=== PATIENT | female | born 1950 | race Caucasian/White ===

== ENCOUNTER → 2016-08-12 | Outpatient (CLI) | payer MEDICARE, MEDICAID ==
[2016-08-12 13:11] LABS: ALBUMIN 3.3 g/dL (3.5-5.0); BILIRUBIN,TOTAL 0.4 mg/dL (0.2-1.3); TOTAL PROTEIN 6.2 g/dL (6.3-8.2)
== END ==
LOC: OD 11:50
PROVIDERS: ATTEND Nurse Practitioner
DX: I27.0 Primary pulmonary hypertension (principal); Z79.899 Other long term (current) drug therapy
CPT/HCPCS: 36415; 80076

== ENCOUNTER 2016-08-30 19:04 | Emergency (ER) | payer OTHER, MEDICAID ==
[2016-08-30] MEDS ORDERED: ASPIRIN 81 MG TABLET, CHEWABLE PO ONE (19:14)
--- NOTE | 2016-08-30 19:15 | ER Document Report ---
ED Medical Screen (RME) - General Stated Complaint: BACK PAIN Mode of Arrival: Wheelchair Information source: Patient Notes: Patient presents complaining of back pain that started yesterday. Family states that patient did some urinary symptoms. a few days ago. No fever. Daughter states that patient did have some left arm and shoulder pain. HX: CHF, pulmonary fibrosis, rheumatoid arthritis, reynauds, diabetes, pulmonary hypertension I have greeted and performed a rapid initial assessment of this patient. A comprehensive ED assessment and evaluation of the patient, analysis of test results and completion of the medical decision making process will be conducted by additional ED providers. TRAVEL OUTSIDE OF THE [place] IN LAST 30 DAYS: No - Related Data Allergies/Adverse Reactions: clarithromycin [From Biaxin] Allergy (Mild, Verified 08/30/16 19:13) RASH moxifloxacin HCl [From Avelox] Allergy (Mild, Verified 08/30/16 19:13) Fever Past Medical History - Past Medical History Cardiac Medical History: Reports: Hx Congestive Heart Failure, Hx Coronary Artery Disease, Hx Heart Attack, Hx Hypercholesterolemia, Hx Hypertension - Pulm. HTN Pulmonary Medical History: Reports: Hx Pneumonia Endocrine Medical History: Reports: Hx Diabetes Mellitus Type 2 Renal/ Medical History: Reports: Hx Renal Insufficiency GI Medical History: Reports: Hx Gastroesophageal Reflux Disease, Hx Irritable Bowel Musculoskeltal Medical History: Reports Hx Arthritis - rheumatoid Past Surgical History: Reports: Hx Cardiac Catheterization, Hx Cardiac Surgery - CABG 2004, Hx Cholecystectomy, Hx Coronary Artery Bypass Graft, Hx Hysterectomy, Hx Open Heart Surgery - 5 bypass 2004,several stents since then, Hx Orthopedic Surgery - elbows, carpal tunnel bilat - Immunizations Immunizations up to date: Yes Hx Diphtheria, Pertussis, Tetanus Vaccination: Yes Physical Exam - Respiratory Respiratory status: No respiratory distress Breath sounds: Nonproductive cough, Rales - Bilateral lower lobes
[2016-08-30 19:50] LABS: HEMATOCRIT 30.1 % (36.0-47.0); HEMOGLOBIN 9.8 g/dL (12.0-15.5); HGB HCT DIFFERENCE -0.7; MEAN CORPUSCULAR HEMOGLOBIN 29.1 pg (27.0-33.4); MEAN CORPUSCULAR HGB CONC 32.5 g/dL (32.0-36.0); MEAN CORPUSCULAR VOLUME 89 fl (80-97); RED BLOOD COUNT 3.37 10^6/uL (3.72-5.28); RED CELL DISTRIBUTION WIDTH 15.4 % (11.5-14.0); WHITE BLOOD COUNT 5.2 10^3/uL (4.0-10.5)
[2016-08-30 20:04] LABS: ALANINE AMINOTRANSFERASE 71 U/L (9-52); ALBUMIN 4.2 g/dL (3.5-5.0); ALKALINE PHOSPHATASE 134 U/L (38-126); ANION GAP 9 (5-19); ASPARTATE AMINO TRANSFERASE 120 U/L (14-36); BILIRUBIN,TOTAL 0.4 mg/dL (0.2-1.3); BLOOD UREA NITROGEN 43 mg/dL (7-20); CARBON DIOXIDE 35 mmol/L (22-30); CHLORIDE 96 mmol/L (98-107); CREATINE KINASE 645 U/L (30-135); CREATININE RESULT 1.87 mg/dL (0.52-1.25); GLUCOSE 200 mg/dL (75-110); LIPASE 102.7 U/L (23-300); MAGNESIUM 1.5 mg/dL (1.6-2.3); POTASSIUM 4.8 mmol/L (3.6-5.0); SODIUM 140.3 mmol/L (137-145)
[2016-08-30 20:16] LABS: CREATINE KINASE MB 7.32 ng/mL (<4.55); TROPONIN I 0.022 ng/mL
[2016-08-30 20:33] LABS: BAND NEUTROPHILS % (MANUAL) 3 % (3-5); BASOPHILS % (MANUAL) 0 % (0-2); EOSINOPHILS % (MANUAL) 0 % (0-6); LYMPHOCYTES % (MANUAL) 7 % (13-45); TOTAL CELLS COUNTED 100
[2016-08-30 20:34] LABS: ANISOCYTOSIS SLIGHT
--- NOTE | 2016-08-30 23:49 | EKG REPORT ---
SEVERITY:- ABNORMAL ECG - SINUS RHYTHM BORDERLINE LEFT AXIS DEVIATION ABNRM R PROG, CONSIDER ASMI OR LEAD PLACEMENT : Confirmed by: Eliot May 30-Aug-2016 23:48:32
[2016-08-30] MEDS ORDERED: NORMAL SALINE 1000 ML 250 ML IV ONE (23:52)
[2016-08-30] MEDS ORDERED: LIDOCAINE 5% (700 MG) TRANSDERMAL ADH..PATCH TP ONE (23:52)
--- NOTE | 2016-08-30 23:57 | ER Document Report ---
ED General Pain - General Time seen by provider: 23:40 Mode of Arrival: Wheelchair Information source: Patient, Relative TRAVEL OUTSIDE OF THE [place] IN LAST 30 DAYS: No - HPI Onset: Other - see HPI Quality of pain: Achy, Fullness <JAMMIE STAHL - Last Filed: 08/31/16 03:41> <TWINJANE SIENA - Last Filed: 08/31/16 04:37> - General Chief Complaint: Arm Pain Stated Complaint: BACK PAIN Notes: Patient is a 66-year-old female presents the emergency department with complaints of back pain, neck pain, and headaches. Patient has a history of rheumatoid arthritis and is on pain management. Patient takes 15 mg of oxycodone as well as shots. Patient states that her pain is exacerbated with movement. Patient took a muscle relaxer earlier. Patient states she came to the emergency room because her pain was worse than it has ever been. Patient states that she also has a lump in her back that causes her neck to hurt which then causes her headache. Patient states that she also has a history of CHF and states that she has felt bloated. Patient has not been eating or drinking much since she has felt bloated. (JAMMIE STAHL) - Related Data Allergies/Adverse Reactions: clarithromycin [From Biaxin] Allergy (Mild, Verified 08/30/16 19:13) RASH moxifloxacin HCl [From Avelox] Allergy (Mild, Verified 08/30/16 19:13) Fever Past Medical History - General Information source: Patient - Social History Smoking Status: Never Smoker Cigarette use (# per day): No Chew tobacco use (# tins/day): No Frequency of alcohol use: None Drug Abuse: None Family History: None Patient has suicidal ideation: No Patient has homicidal ideation: No - Past Medical History Cardiac Medical History: Reports: Hx Congestive Heart Failure, Hx Coronary Artery Disease, Hx Heart Attack, Hx Hypercholesterolemia, Hx Hypertension - Pulm. HTN Pulmonary Medical History: Reports: Hx Pneumonia Endocrine Medical History: Reports: Hx Diabetes Mellitus Type 2 Renal/ Medical History: Reports: Hx Renal Insufficiency GI Medical History: Reports: Hx Gastroesophageal Reflux Disease, Hx Irritable Bowel Musculoskeltal Medical History: Reports Hx Arthritis - rheumatoid Past Surgical History: Reports: Hx Cardiac Catheterization, Hx Cardiac Surgery - CABG 2004, Hx Cholecystectomy, Hx Coronary Artery Bypass Graft, Hx Hysterectomy, Hx Open Heart Surgery - 5 bypass 2004,several stents since then, Hx Orthopedic Surgery - elbows, carpal tunnel bilat - Immunizations Immunizations up to date: Yes Hx Diphtheria, Pertussis, Tetanus Vaccination: Yes Hx Pneumococcal Vaccination: 01/31/12 <JAMMIE STAHL - Last Filed: 08/31/16 03:41> Review of Systems - Review of Systems Constitutional: No symptoms reported EENT: No symptoms reported Cardiovascular: No symptoms reported Respiratory: No symptoms reported Gastrointestinal: No symptoms reported Genitourinary: No symptoms reported Female Genitourinary: No symptoms reported Musculoskeletal: See HPI, Back pain, Neck pain Skin: No symptoms reported Hematologic/Lymphatic: No symptoms reported Neurological/Psychological: See HPI, Headaches -: Yes All other systems reviewed and negative <JAMMIE STAHL - Last Filed: 08/31/16 03:41> Physical Exam - Vital signs Interpretation: Normal - General General appearance: Appears well, Alert In distress: Mild - HEENT Head: Normocephalic, Atraumatic Eyes: Normal Pupils: PERRL Mucous membranes: Dry - Respiratory Respiratory status: No respiratory distress Chest status: Nontender Breath sounds: Normal Chest palpation: Normal - Cardiovascular Rhythm: Regular Heart sounds: Normal auscultation Murmur: No - Abdominal Inspection: Normal Distension: No distension Bowel sounds: Normal Tenderness: Nontender Organomegaly: No organomegaly - Back Back: Normal, Tender - Tenderness to palpation to the right trapezius muscles, medial right scapula, and C5-C7 paraspinal on the right side - Extremities General upper extremity: Normal inspection, Normal ROM, Normal strength General lower extremity: Normal inspection, Normal ROM, Normal strength - Neurological Neuro grossly intact: Yes Cognition: Normal Orientation: AAOx4 Deondre Coma Scale Eye Opening: Spontaneous Osborne Coma Scale Verbal: Oriented Deondre Coma Scale Motor: Obeys Commands Osborne Coma Scale Total: 15 Speech: Normal - Psychological Associated symptoms: Normal affect, Normal mood - Skin Skin Temperature: Warm Skin Moisture: Dry <JAMMIE STAHL - Last Filed: 08/31/16 03:41> Course - Laboratory Result Diagrams: 08/30/16 19:34 08/30/16 19:34 <JAMMIE STAHL - Last Filed: 08/31/16 03:41> - Laboratory Result Diagrams: 08/30/16 19:34 08/30/16 19:34 <JANE MURCIA - Last Filed: 08/31/16 04:37> - Re-evaluation Re-evalutation: 08/31/16 Patient with reproducible tenderness to palpation of her right upper back and trapezius. Patient feels better after muscle relaxant and Lidoderm patch. No acute findings on blood work. Patient is already aware of her bump in LFTs and her primary is following it. Stable for discharge home. Oxygen is at her baseline. Return if any worsening or concerning symptoms. (JANE MURCIA) - Vital Signs Vital signs: Temp Pulse Resp BP Pulse Ox 97.7 F 67 17 114/54 L 95 08/31/16 03:13 08/31/16 03:13 08/31/16 03:13 08/31/16 03:13 08/31/16 03:13 - Laboratory Laboratory results interpreted by me: 08/30/16 08/30/16 08/30/16 19:34 19:34 19:34 RBC 3.37 L Hgb 9.8 L Hct 30.1 L RDW 15.4 H Seg Neuts % (Manual) 84 H Lymphocytes % (Manual) 7 L Abs Lymphs (Manual) 0.4 L Chloride 96 L Carbon Dioxide 35 H BUN 43 H Creatinine 1.87 H Est GFR ( Amer) 33 L Est GFR (Non-Af Amer) 27 L Glucose 200 H Magnesium 1.5 L AST 120 H ALT 71 H Alkaline Phosphatase 134 H Creatine Kinase 645 H CK-MB (CK-2) 7.32 H NT-Pro-B Natriuret Pep 1510 H Ur Leukocyte Esterase 08/31/16 00:37 RBC Hgb Hct RDW Seg Neuts % (Manual) Lymphocytes % (Manual) Abs Lymphs (Manual) Chloride Carbon Dioxide BUN Creatinine Est GFR ( Amer) Est GFR (Non-Af Amer) Glucose Magnesium AST ALT Alkaline Phosphatase Creatine Kinase CK-MB (CK-2) NT-Pro-B Natriuret Pep Ur Leukocyte Esterase LARGE H (JAMMIE STAHL) (JANE MURCIA) Discharge <JAMMIE STAHL - Last Filed: 08/31/16 03:41> <JANE MURCIA - Last Filed: 08/31/16 04:37> - Discharge Clinical Impression: Upper back pain on right side Condition: Stable Disposition: HOME, SELF-CARE Instructions: Upper Back Strain ([facility]), Liver Function Abnormality ([facility]) Prescriptions: Lidocaine [Lidoderm 5% (700 mg) Transdermal Patch] 1 patch TP DAILY #30 adh..patch Referrals: JORGE L BROWNING MD [Primary Care Provider] - Follow up as needed Scribe Attestation: 08/31/16 04:37 I personally performed the services described in the documentation, reviewed and edited the documentation which was dictated to the scribe in my presence, and it accurately records my words and actions. (JANE MURCIA) Scribe Documentation - Scribe Written by Scribcedrick:: Jammie Stahl 08/31/16 03:45 acting as scribe for :: Twin <JAMMIE STAHL - Last Filed: 08/31/16 03:41>
[2016-08-31 01:05] LABS: APPEARANCE,URINE SLIGHTLY-CLOUDY; BILIRUBIN,URINE NEGATIVE (NEGATIVE); GLUCOSE, URINE NEGATIVE (NEGATIVE); KETONES,URINE NEGATIVE (NEGATIVE); LEUKOCYTE ESTERASE,URINE LARGE (NEGATIVE); NITRITE,URINE NEGATIVE (NEGATIVE); PROTEIN,URINE NEGATIVE (NEGATIVE); URINE SPECIFIC GRAVITY 1.009; UROBILINOGEN,URINE NEGATIVE mg/dL (<2.0)
[2016-08-31 03:16] VITALS: BP 114/54
== END 2016-08-31 03:10 | disposition home or self-care (01) ==
LOC: ER 19:04
DX: M54.89 Other dorsalgia (principal); M54.2 Cervicalgia; R51 Headache; I50.9 Heart failure, unspecified; E11.9 Type 2 diabetes mellitus without complications; I10 Essential (primary) hypertension; I25.2 Old myocardial infarction; Z88.3 Allergy status to other anti-infective agents; Z95.1 Presence of aortocoronary bypass graft; Z90.710 Acquired absence of both cervix and uterus
CPT/HCPCS: 93005; 99284; 36415; 82553; 82550; 83690; 83735; 85025; 80053; 81001; 84484; 83880; 71020; 93010; A9270

== ENCOUNTER → 2016-09-18 | Outpatient (CLI) | payer OTHER, MEDICAID ==
[2016-09-18 14:01] LABS: ANION GAP 13 (5-19); BLOOD UREA NITROGEN 34 mg/dL (7-20); CARBON DIOXIDE 25 mmol/L (22-30); CHLORIDE 102 mmol/L (98-107); CREATININE RESULT 1.61 mg/dL (0.52-1.25); GLUCOSE 196 mg/dL (75-110); POTASSIUM 5.5 mmol/L (3.6-5.0); SODIUM 140.2 mmol/L (137-145)
== END ==
LOC: OD 13:06
PROVIDERS: ATTEND Nurse Practitioner
DX: I50.32 Chronic diastolic (congestive) heart failure (principal)
CPT/HCPCS: 36415; 80048

== ENCOUNTER → 2016-10-13 | Outpatient (CLI) | payer OTHER, MEDICAID ==
[2016-10-13 13:29] LABS: ALANINE AMINOTRANSFERASE 22 U/L (9-52); ALBUMIN 3.6 g/dL (3.5-5.0); ALKALINE PHOSPHATASE 88 U/L (38-126); ASPARTATE AMINO TRANSFERASE 18 U/L (14-36); BILIRUBIN,DIRECT 0.2 mg/dL (0.0-0.4); BILIRUBIN,TOTAL 0.4 mg/dL (0.2-1.3); TOTAL PROTEIN 6.3 g/dL (6.3-8.2)
[2016-10-13 13:30] LABS: ANION GAP 12 (5-19); BLOOD UREA NITROGEN 73 mg/dL (7-20); CALCIUM 9.2 mg/dL (8.4-10.2); CARBON DIOXIDE 32 mmol/L (22-30); CHLORIDE 97 mmol/L (98-107); CREATININE RESULT 1.82 mg/dL (0.52-1.25); GLUCOSE 238 mg/dL (75-110); POTASSIUM 3.1 mmol/L (3.6-5.0); SODIUM 140.9 mmol/L (137-145)
== END ==
LOC: OD 12:36
PROVIDERS: ATTEND Internal Medicine Pulmonary Disease
DX: I50.32 Chronic diastolic (congestive) heart failure (principal); I27.0 Primary pulmonary hypertension; Z79.891 Long term (current) use of opiate analgesic
CPT/HCPCS: 36415; 80048; 80076; 83880

== ENCOUNTER → 2016-10-20 | Outpatient (CLI) | payer MEDICARE, MEDICAID ==
[2016-10-20 16:24] LABS: ANION GAP 14 (5-19); BLOOD UREA NITROGEN 70 mg/dL (7-20); CALCIUM 8.9 mg/dL (8.4-10.2); CARBON DIOXIDE 30 mmol/L (22-30); CHLORIDE 94 mmol/L (98-107); GLUCOSE 288 mg/dL (75-110); POTASSIUM 5.1 mmol/L (3.6-5.0); SODIUM 138.2 mmol/L (137-145)
== END ==
LOC: OD 14:36
PROVIDERS: ATTEND Nurse Practitioner
DX: N18.2 Chronic kidney disease, stage 2 (mild) (principal)
CPT/HCPCS: 36415; 80048

== ENCOUNTER 2016-11-13 13:41 | Emergency (ER) | payer MEDICARE, MEDICAID ==
[2016-11-13] MEDS ORDERED: OXYMETAZOLINE HCL 0.05% NASAL SPRAY 15 ML BOTTLE NASL ONE (14:08)
--- NOTE | 2016-11-13 14:10 | ER Document Report ---
ED Medical Screen (RME) - General Chief Complaint: Nose Bleed Stated Complaint: NOSE BLEED Notes: 66-year-old female patient takes aspirin. Nosebleed started about 2 and half hours prior to arrival. Given Afrin nose spray at triage. I have greeted and performed a rapid initial assessment of this patient. A comprehensive ED assessment and evaluation of the patient, analysis of test results and completion of the medical decision making process will be conducted by additional ED providers. TRAVEL OUTSIDE OF THE [place] IN LAST 30 DAYS: No - Related Data Allergies/Adverse Reactions: clarithromycin [From Biaxin] Allergy (Mild, Verified 11/13/16 13:43) RASH moxifloxacin HCl [From Avelox] Allergy (Mild, Verified 11/13/16 13:43) Fever Past Medical History - Past Medical History Cardiac Medical History: Reports: Hx Congestive Heart Failure, Hx Coronary Artery Disease, Hx Heart Attack, Hx Hypercholesterolemia, Hx Hypertension - Pulm. HTN Pulmonary Medical History: Reports: Hx Pneumonia Endocrine Medical History: Reports: Hx Diabetes Mellitus Type 2 Renal/ Medical History: Reports: Hx Renal Insufficiency. Denies: Hx Peritoneal Dialysis GI Medical History: Reports: Hx Gastroesophageal Reflux Disease, Hx Irritable Bowel Musculoskeltal Medical History: Reports Hx Arthritis - rheumatoid Past Surgical History: Reports: Hx Cardiac Catheterization, Hx Cardiac Surgery - CABG 2004, Hx Cholecystectomy, Hx Coronary Artery Bypass Graft, Hx Hysterectomy, Hx Open Heart Surgery - 5 bypass 2004,several stents since then, Hx Orthopedic Surgery - elbows, carpal tunnel bilat - Immunizations Immunizations up to date: Yes Hx Diphtheria, Pertussis, Tetanus Vaccination: Yes Physical Exam - Vital signs Vitals: Temp Pulse Resp BP Pulse Ox 97.5 F 78 18 134/53 H 98 11/13/16 13:44 11/13/16 13:44 11/13/16 13:44 11/13/16 13:44 11/13/16 13:44 Course - Vital Signs Vital signs: Temp Pulse Resp BP Pulse Ox 97.5 F 78 18 134/53 H 98 11/13/16 13:44 11/13/16 13:44 11/13/16 13:44 11/13/16 13:44 11/13/16 13:44
--- NOTE | 2016-11-13 15:26 | ER Document Report ---
ED ENT - General Mode of Arrival: Ambulatory Information source: Patient TRAVEL OUTSIDE OF THE [place] IN LAST 30 DAYS: No - HPI Patient complains to provider of: Nose problem Associated symptoms: Other - See above - General Chief Complaint: Nose Bleed Stated Complaint: NOSE BLEED Notes: Patient is a 66 year old female, with a past medical history including HTN, who presents to the emergency department complaining of a nose bleed for 3 hrs prior to arrival. Patient states she was bleeding from the left side and that she does take a baby Aspirin daily. Patient was given Afrin nose spray while waiting and the bleeding has subsided. Patient reports she has a hole in her nose from a sinus surgery done 5 year ago. Patient reports she tends to get nose bleeds and she sill typically stuff them and has not had luck with holding pressure. Patient denies dizziness or other symptoms. (JHOAN MEDRANO) - Related Data Allergies/Adverse Reactions: clarithromycin [From Biaxin] Allergy (Mild, Verified 11/13/16 13:43) RASH moxifloxacin HCl [From Avelox] Allergy (Mild, Verified 11/13/16 13:43) Fever Past Medical History - General Information source: Patient - Social History Smoking Status: Unknown if Ever Smoked Family History: None, Reviewed & Not Pertinent Patient has suicidal ideation: No Patient has homicidal ideation: No - Past Medical History Cardiac Medical History: Reports: Hx Congestive Heart Failure, Hx Coronary Artery Disease, Hx Heart Attack, Hx Hypercholesterolemia, Hx Hypertension - Pulm. HTN Pulmonary Medical History: Reports: Hx Pneumonia Endocrine Medical History: Reports: Hx Diabetes Mellitus Type 2 Renal/ Medical History: Reports: Hx Renal Insufficiency GI Medical History: Reports: Hx Gastroesophageal Reflux Disease, Hx Irritable Bowel Musculoskeltal Medical History: Reports Hx Arthritis - rheumatoid Past Surgical History: Reports: Hx Cardiac Catheterization, Hx Cardiac Surgery - CABG 2004, Hx Cholecystectomy, Hx Coronary Artery Bypass Graft, Hx Hysterectomy, Hx Open Heart Surgery - 5 bypass 2004,several stents since then, Hx Orthopedic Surgery - elbows, carpal tunnel bilat, Other - Hx sinus surgery - Immunizations Immunizations up to date: Yes Hx Diphtheria, Pertussis, Tetanus Vaccination: Yes Hx Pneumococcal Vaccination: 01/31/12 Review of Systems - Review of Systems Constitutional: No symptoms reported EENT: See HPI, Nose discharge - bleed Cardiovascular: denies: Dizziness Respiratory: No symptoms reported Gastrointestinal: No symptoms reported Genitourinary: No symptoms reported Female Genitourinary: No symptoms reported Musculoskeletal: No symptoms reported Skin: No symptoms reported Hematologic/Lymphatic: No symptoms reported Neurological/Psychological: No symptoms reported -: Yes All other systems reviewed and negative Physical Exam - Vital signs Vitals: Temp Pulse Resp BP Pulse Ox 97.5 F 78 18 134/53 H 98 11/13/16 13:44 11/13/16 13:44 11/13/16 13:44 11/13/16 13:44 11/13/16 13:44 - Notes Notes: GENERAL: VS as per nursing doc. Well-appearing, well-nourished and in no acute distress. HEAD: Atraumatic, normocephalic. EYES: Sclera anicteric, no conjunctival injection or discharge. ENT: Nares patent, no septal hematoma, area of friability over the medial turbinate region. No active bleeding currently. No oral pharyngeal blood noted NECK: Normal range of motion, supple without lymphadenopathy. LUNGS: Breath sounds clear to auscultation bilaterally and equal. No wheezes rales or rhonchi. HEART: Regular rate and rhythm without murmurs. NEUROLOGICAL: Grossly normal with normal gait PSYCH: Normal mood, normal affect. SKIN: Warm, dry, normal turgor, no lesions noted. No petechiae. (ADAM PONCE) Discharge - Discharge Clinical Impression: Epistaxis Additional Instructions: If you have continued bleeding, please hold pressure for 20 minutes, using a clock to ensure. If bleeding is worsening. Please return to the emergency department. Consider using the Afrin 2 sprays every 6 hours today. Contact your ear nose and throat doctor tomorrow for follow-up Scribe Attestation: 11/13/16 15:29 I personally performed the services described in the documentation, reviewed and edited the documentation which was dictated to the scribe in my presence, and it accurately records my words and actions. (ADAM PONCE) Scribe Documentation - Scribe Written by Claudia:: claudia Silva, , [id number] acting as scribe for :: Albaro
[2016-11-13 15:53] VITALS: BP 110/65
== END 2016-11-13 15:49 | disposition home or self-care (01) ==
LOC: ER 13:41
DX: R04.0 Epistaxis (principal); I50.9 Heart failure, unspecified; I11.0 Hypertensive heart disease with heart failure; E78.00 Pure hypercholesterolemia, unspecified; E11.9 Type 2 diabetes mellitus without complications; Z79.82 Long term (current) use of aspirin; Z95.1 Presence of aortocoronary bypass graft; Z90.49 Acquired absence of other specified parts of digestive tract; Z90.710 Acquired absence of both cervix and uterus; I25.2 Old myocardial infarction
CPT/HCPCS: 99283; J3490

== ENCOUNTER → 2017-01-08 | Outpatient (CLI) | payer MEDICARE, MEDICAID ==
[2017-01-08 11:01] LABS: ABSOLUTE BASOPHILS # (AUTO) 0.1 10^3/uL (0.0-0.2); ABSOLUTE EOSINOPHILS # (AUTO) 0.2 10^3/uL (0.0-0.6); ABSOLUTE LYMPHOCYTES (AUTO) 0.9 10^3/uL (0.5-4.7); ABSOLUTE MONOCYTES (AUTO) 0.7 10^3/uL (0.1-1.4); ABSOLUTE NEUT (AUTO) 4.6 10^3/uL (1.7-8.2); BASOPHILS % (AUTO) 0.8 % (0-2); EOSINOPHILS % (AUTO) 3.4 % (0-6); HEMATOCRIT 28.8 % (36.0-47.0); HGB HCT DIFFERENCE -1.8; LYMPHOCYTES % (AUTO) 13.6 % (13-45); MEAN CORPUSCULAR HEMOGLOBIN 26.8 pg (27.0-33.4); MEAN CORPUSCULAR HGB CONC 31.5 g/dL (32.0-36.0); MEAN CORPUSCULAR VOLUME 85 fl (80-97); MONOCYTES % (AUTO) 10.6 % (3-13); RED BLOOD COUNT 3.38 10^6/uL (3.72-5.28); SEGMENTED NEUTROPHILS % (AUTO) 71.6 % (42-78); WHITE BLOOD COUNT 6.4 10^3/uL (4.0-10.5)
[2017-01-08 11:39] LABS: ANION GAP 12 (5-19)
[2017-01-08 11:52] LABS: ALANINE AMINOTRANSFERASE 25 U/L (9-52); ALBUMIN 3.7 g/dL (3.5-5.0); ALKALINE PHOSPHATASE 80 U/L (38-126); ASPARTATE AMINO TRANSFERASE 18 U/L (14-36); BILIRUBIN,DIRECT 0.4 mg/dL (0.0-0.4); BILIRUBIN,TOTAL 0.4 mg/dL (0.2-1.3); BLOOD UREA NITROGEN 100 mg/dL (7-20); CALCIUM 8.7 mg/dL (8.4-10.2); CARBON DIOXIDE 32 mmol/L (22-30); CHLORIDE 97 mmol/L (98-107); CREATININE RESULT 2.15 mg/dL (0.52-1.25); DIRECT LDL 50 mg/dL (<100); Direct HDL 48 mg/dL (>40); GLUCOSE 89 mg/dL (75-110); POTASSIUM 3.9 mmol/L (3.6-5.0); SODIUM 140.6 mmol/L (137-145); TOTAL PROTEIN 6.8 g/dL (6.3-8.2); TRIGLYCERIDES 138 mg/dL (<150); URIC ACID 8.5 mg/dL (2.5-7.5)
[2017-01-08 11:53] LABS: ALANINE AMINOTRANSFERASE 25 U/L (9-52); ALBUMIN 3.7 g/dL (3.5-5.0); ALKALINE PHOSPHATASE 80 U/L (38-126); ASPARTATE AMINO TRANSFERASE 18 U/L (14-36); BILIRUBIN,DIRECT 0.4 mg/dL (0.0-0.4); BILIRUBIN,TOTAL 0.4 mg/dL (0.2-1.3); TOTAL PROTEIN 6.8 g/dL (6.3-8.2)
== END ==
LOC: OD 09:43
PROVIDERS: ATTEND Internal Medicine Pulmonary Disease
DX: I27.0 Primary pulmonary hypertension (principal); Z79.891 Long term (current) use of opiate analgesic; E11.22 Type 2 diabetes mellitus with diabetic chronic kidney disease; N18.4 Chronic kidney disease, stage 4 (severe); E78.00 Pure hypercholesterolemia, unspecified; D64.9 Anemia, unspecified; M10.9 Gout, unspecified; Z79.899 Other long term (current) drug therapy
CPT/HCPCS: 36415; 80053; 80061; 80076; 84550; 85025

== ENCOUNTER → 2017-01-28 | Outpatient (CLI) | payer MEDICARE, MEDICAID ==
[2017-01-28 11:24] LABS: HEMATOCRIT 26.5 % (36.0-47.0); HEMOGLOBIN 8.4 g/dL (12.0-15.5); HGB HCT DIFFERENCE -1.3; MEAN CORPUSCULAR HGB CONC 31.8 g/dL (32.0-36.0); MEAN CORPUSCULAR VOLUME 85 fl (80-97); RED BLOOD COUNT 3.12 10^6/uL (3.72-5.28); WHITE BLOOD COUNT 9.4 10^3/uL (4.0-10.5)
== END ==
LOC: OD 10:59
PROVIDERS: ATTEND Nurse Practitioner
DX: D64.9 Anemia, unspecified (principal)
CPT/HCPCS: 36415; 85027

== ENCOUNTER 2017-01-31 19:13 | Inpatient (IN) | payer MEDICARE, MEDICAID ==
[2017-01-31] MEDS: NEBIVOLOL HCL 10 MG TABLET PO SCH (08:07)
--- NOTE | 2017-01-31 19:50 | ER Document Report ---
ED Medical Screen (RME) - General Chief Complaint: Possible Overdose Stated Complaint: POSSIBLE ACCIDENTAL OVERDOSE Time Seen by Provider: 01/31/17 19:41 Mode of Arrival: Wheelchair Information source: Patient, Relative Notes: 66-year-old female history of chronic kidney disease pulmonary fibrosis with chronic back pain who was recently started on morphine extended release on Wednesday presents with family with concerns of overdose. Patient has been drowsy intermittently has had a full. I have greeted and performed a rapid initial assessment of this patient. A comprehensive ED assessment and evaluation of the patient, analysis of test results and completion of the medical decision making process will be conducted by additional ED providers. PHYSICAL EXAMINATION: GENERAL: Well-appearing, well-nourished and in no acute distress. HEAD: Atraumatic, normocephalic. EYES: Pupils equal round minimally reactive to light +2 bilateral ENT: Nares patent NECK: Normal range of motion LUNGS: Rhonchi all throughout on baseline oxygen Musculoskeletal: Normal range of motion NEUROLOGICAL: Responding to questions slowly PSYCH: Normal mood, normal affect. SKIN: Warm, Dry, normal turgor, no rashes or lesions noted. TRAVEL OUTSIDE OF THE [place] IN LAST 30 DAYS: No - Related Data Allergies/Adverse Reactions: clarithromycin [From Biaxin] Allergy (Mild, Verified 11/13/16 13:43) RASH moxifloxacin HCl [From Avelox] Allergy (Mild, Verified 11/13/16 13:43) Fever Past Medical History - Past Medical History Cardiac Medical History: Reports: Hx Congestive Heart Failure, Hx Coronary Artery Disease, Hx Heart Attack, Hx Hypercholesterolemia, Hx Hypertension - Pulm. HTN Pulmonary Medical History: Reports: Hx Pneumonia Neurological Medical History: Endocrine Medical History: Reports: Hx Diabetes Mellitus Type 2 Renal/ Medical History: Reports: Hx Renal Insufficiency. Denies: Hx Peritoneal Dialysis Malignancy Medical History: GI Medical History: Reports: Hx Gastroesophageal Reflux Disease, Hx Irritable Bowel Musculoskeltal Medical History: Reports Hx Arthritis - rheumatoid Psychiatric Medical History: Traumatic Medical History: Infectious Medical History: Past Surgical History: Reports: Hx Cardiac Catheterization, Hx Cardiac Surgery - CABG 2004, Hx Cholecystectomy, Hx Coronary Artery Bypass Graft, Hx Hysterectomy, Hx Open Heart Surgery - 5 bypass 2004,several stents since then, Hx Orthopedic Surgery - elbows, carpal tunnel bilat, Other - Hx sinus surgery - Immunizations Immunizations up to date: Yes Hx Diphtheria, Pertussis, Tetanus Vaccination: Yes Physical Exam - Vital signs Vitals: Temp Pulse Resp BP Pulse Ox 98 F 69 22 H 119/74 98 01/31/17 19:21 01/31/17 19:21 01/31/17 19:21 01/31/17 19:21 01/31/17 19:21 Course - Vital Signs Vital signs: Temp Pulse Resp BP Pulse Ox 98 F 69 22 H 119/74 98 01/31/17 19:21 01/31/17 19:21 01/31/17 19:21 01/31/17 19:21 01/31/17 19:21
[2017-01-31 20:53] LABS: AMORPHOUS SEDIMENT,URINE TRACE /HPF; APPEARANCE,URINE CLOUDY; BILIRUBIN,URINE NEGATIVE (NEGATIVE); CALCIUM OXALATE CRYSTALS,URINE FEW /HPF; GLUCOSE, URINE NEGATIVE (NEGATIVE); KETONES,URINE NEGATIVE (NEGATIVE); LEUKOCYTE ESTERASE,URINE LARGE (NEGATIVE); NITRITE,URINE NEGATIVE (NEGATIVE); PROTEIN,URINE 100 mg/dL (NEGATIVE); URINE SPECIFIC GRAVITY 1.013; UROBILINOGEN,URINE NEGATIVE mg/dL (<2.0)
[2017-01-31 21:00] LABS: VENOUS BLOOD BASE EXCESS 7.3 mmol/L; VENOUS BLOOD HCO3 36.4 mmol/L (20-32); VENOUS BLOOD PH 7.24 (7.30-7.42)
[2017-01-31 21:01] LABS: ABSOLUTE EOSINOPHILS # (AUTO) 0.2 10^3/uL (0.0-0.6); ABSOLUTE LYMPHOCYTES (AUTO) 0.4 10^3/uL (0.5-4.7); ABSOLUTE MONOCYTES (AUTO) 0.6 10^3/uL (0.1-1.4); ABSOLUTE NEUT (AUTO) 7.1 10^3/uL (1.7-8.2); BASOPHILS % (AUTO) 0.3 % (0-2); EOSINOPHILS % (AUTO) 1.8 % (0-6); HEMATOCRIT 26.5 % (36.0-47.0); HEMOGLOBIN 8.3 g/dL (12.0-15.5); HGB HCT DIFFERENCE -1.6; LYMPHOCYTES % (AUTO) 5.3 % (13-45); MEAN CORPUSCULAR HGB CONC 31.3 g/dL (32.0-36.0); MEAN CORPUSCULAR VOLUME 86 fl (80-97); MONOCYTES % (AUTO) 7.7 % (3-13); RED BLOOD COUNT 3.08 10^6/uL (3.72-5.28); RED CELL DISTRIBUTION WIDTH 16.3 % (11.5-14.0); SEGMENTED NEUTROPHILS % (AUTO) 84.9 % (42-78); WHITE BLOOD COUNT 8.4 10^3/uL (4.0-10.5)
[2017-01-31 21:04] LABS: VENOUS BLOOD PCO2 86.8 mmHg (35-63)
[2017-01-31] MEDS ORDERED: NALOXONE HCL INJ/PF 0.4 MG/1 ML SDV ONE (21:07)
[2017-01-31 21:19] LABS: ALANINE AMINOTRANSFERASE 30 U/L (9-52); ALBUMIN 4.1 g/dL (3.5-5.0); ALKALINE PHOSPHATASE 93 U/L (38-126); ANION GAP 17 (5-19); ASPARTATE AMINO TRANSFERASE 27 U/L (14-36); BILIRUBIN,DIRECT 0.4 mg/dL (0.0-0.4); BILIRUBIN,TOTAL 0.5 mg/dL (0.2-1.3); CALCIUM 8.7 mg/dL (8.4-10.2); CARBON DIOXIDE 31 mmol/L (22-30); CHLORIDE 91 mmol/L (98-107); CREATINE KINASE 607 U/L (30-135); CREATININE RESULT 5.22 mg/dL (0.52-1.25); GLUCOSE 112 mg/dL (75-110); POTASSIUM 4.5 mmol/L (3.6-5.0); SODIUM 138.7 mmol/L (137-145); TOTAL PROTEIN 7.2 g/dL (6.3-8.2)
[2017-01-31] MEDS ORDERED: NORMAL SALINE 1000 ML 500 ML IV ONE (21:19)
--- NOTE | 2017-01-31 21:20 | ER Document Report ---
ED General - General Chief Complaint: Possible Overdose Stated Complaint: POSSIBLE ACCIDENTAL OVERDOSE Time Seen by Provider: 01/31/17 19:41 Mode of Arrival: Wheelchair Cannot obtain history due to: Altered mental status Notes: Patient is a 66-year-old female with a past medical history of chronic kidney disease stage IV, CHF with diastolic dysfunction, diabetes, chronic back pain recently started on both Percocet and extended release oral morphine who presents with altered mental status and lethargy. History is primarily provided by the daughter and patient initially is so altered that she is unable to answer any questions. Patient's daughter reports that patient first took the oral morphine yesterday morning and has had one additional dose since that time. However she notes that since initiating this patient seems to be very tired all the time and actually had a fall today in which she struck both of her fifth toes but did not hit her head or neck. No history of similar symptoms in the past. This pain medication was prescribed by her chronic pain management physician. She is on these pain medications for chronic low back pain. Nothing is been noted to improve or worsen the patient's symptoms. Daughter does also note that the patient has had almost no urine output for the past several days. TRAVEL OUTSIDE OF THE [place] IN LAST 30 DAYS: No - Related Data Allergies/Adverse Reactions: clarithromycin [From Biaxin] Allergy (Mild, Verified 11/13/16 13:43) RASH moxifloxacin HCl [From Avelox] Allergy (Mild, Verified 11/13/16 13:43) Fever Past Medical History - General Information source: Patient, Relative - Social History Smoking Status: Never Smoker Frequency of alcohol use: None Drug Abuse: None Lives with: Family Family History: Reviewed & Not Pertinent Patient has suicidal ideation: No Patient has homicidal ideation: No - Past Medical History Cardiac Medical History: Reports: Hx Congestive Heart Failure, Hx Coronary Artery Disease, Hx Heart Attack, Hx Hypercholesterolemia, Hx Hypertension - Pulm. HTN Pulmonary Medical History: Reports: Hx Pneumonia Neurological Medical History: Endocrine Medical History: Reports: Hx Diabetes Mellitus Type 2 Renal/ Medical History: Reports: Hx Renal Insufficiency. Denies: Hx Peritoneal Dialysis Malignancy Medical History: GI Medical History: Reports: Hx Gastroesophageal Reflux Disease, Hx Irritable Bowel Musculoskeltal Medical History: Reports Hx Arthritis - rheumatoid Psychiatric Medical History: Traumatic Medical History: Infectious Medical History: Past Surgical History: Reports: Hx Cardiac Catheterization, Hx Cardiac Surgery - CABG 2004, Hx Cholecystectomy, Hx Coronary Artery Bypass Graft, Hx Hysterectomy, Hx Open Heart Surgery - 5 bypass 2004,several stents since then, Hx Orthopedic Surgery - elbows, carpal tunnel bilat, Other - Hx sinus surgery - Immunizations Immunizations up to date: Yes Hx Diphtheria, Pertussis, Tetanus Vaccination: Yes Hx Pneumococcal Vaccination: 01/31/12 Review of Systems - Review of Systems Notes: Constitutional: Negative for fever. HENT: Negative for sore throat. Eyes: Negative for visual changes. Cardiovascular: Negative for chest pain. Respiratory: Negative for shortness of breath. Gastrointestinal: Negative for abdominal pain, vomiting or diarrhea. Genitourinary: Positive for dysuria. Musculoskeletal: Positive for chronic back pain Skin: Negative for rash. Neurological: Negative for headaches, weakness or numbness. 10 point ROS negative except as marked above and in HPI. Physical Exam - Vital signs Vitals: Temp Pulse Resp BP Pulse Ox 98 F 69 22 H 119/74 98 01/31/17 19:21 01/31/17 19:21 01/31/17 19:21 01/31/17 19:21 01/31/17 19:21 Interpretation: Normal Notes: PHYSICAL EXAMINATION: GENERAL: Somnolent, not answering questions appropriately. HEAD: Atraumatic, normocephalic. EYES: Pupils are pinpoint, minimally reactive, extraocular movements intact, sclera anicteric, conjunctiva are normal. ENT: nares patent, oropharynx clear without exudates. Dry mucous membranes. NECK: Normal range of motion, supple without lymphadenopathy LUNGS: Breath sounds clear to auscultation bilaterally and equal. No wheezes rales or rhonchi. HEART: Regular rate and rhythm without murmurs ABDOMEN: Soft, nontender, normoactive bowel sounds. No guarding, no rebound. No masses appreciated. EXTREMITIES: Normal range of motion, no pitting or edema. No cyanosis. NEUROLOGICAL: No focal neurological deficits. Moves all extremities spontaneously and on command. PSYCH: Somnolent, more responsive after receiving naloxone SKIN: Warm, Dry, normal turgor, no rashes or lesions noted. Course - Re-evaluation Re-evalutation: 01/31/17 21:19 Patient presents somewhat obtunded, hypoventilating respiratory rate at 6 at time of arrival. Venous blood gas does demonstrate a respiratory acidosis from hypoventilation likely in the setting of narcotic use. Patient was given a total of 0.12 mg of naloxone with improvement of her mental status and respiratory rate. However, anticipate that patient taking long-acting morphine she is going to likely require repeated doses and possibly a Narcan drip. Patient also has a history of CHF and chronic kidney disease and apparently has had minimal to no urine output in the last 48 hours. Urinalysis obtained in triage does demonstrate findings consistent with a urinary tract infection which could also be contributing to her altered mental status and general ill appearance. She will be started on a small amount of fluids, IV ceftriaxone, will be reassessed frequently as I remain concerned that patient could continue to clinically deteriorate. 01/31/17 22:09 Patient has again become somnolent, responds to stimulus appropriately. Will continue to monitor for repeat doses of naloxone. Unfortunately, patient's labs do demonstrate dramatically worsened renal function since 01/09/17 with creatinine 5.22 more than doubled before. Her BUN/creatinine ratio is 25 consistent with a component of acute on chronic kidney disease with associated prerenal azotemia. Will continue with gentle IV rehydration. Patient's worsened renal function could also be attributable to her associated pyelonephritis. 01/31/17 23:21 X-ray of the left foot does demonstrate 5th distal phalanx fracture which does not require any acute management. She continues to be slightly somnolent, but maintaining respiratory rates 10-12. 01/31/17 23:32 I have discussed this case with Dr. Elia Bey the hospitalist on-call who is agreed to admit the patient. 02/01/17 00:48 Patient's PCO2 is continue to elevate. She has been placed on BiPAP. - Vital Signs Vital signs: Temp Pulse Resp BP Pulse Ox 98 F 69 19 128/54 H 93 01/31/17 19:21 01/31/17 19:21 02/01/17 00:00 01/31/17 23:01 02/01/17 00:00 - Laboratory Result Diagrams: 01/31/17 20:50 01/31/17 20:50 Laboratory results interpreted by me: 01/31/17 01/31/17 01/31/17 20:20 20:50 20:50 RBC 3.08 L Hgb 8.3 L Hct 26.5 L MCHC 31.3 L RDW 16.3 H Seg Neutrophils % 84.9 H Lymphocytes % 5.3 L Absolute Lymphocytes 0.4 L VBG pH VBG pCO2 VBG HCO3 Chloride 91 L Carbon Dioxide 31 H BUN 134 H Creatinine 5.22 H Est GFR ( Amer) 10 L Est GFR (Non-Af Amer) 8 L Glucose 112 H Creatine Kinase 607 H CK-MB (CK-2) Urine Protein 100 H Ur Leukocyte Esterase LARGE H 01/31/17 01/31/17 20:50 20:50 RBC Hgb Hct MCHC RDW Seg Neutrophils % Lymphocytes % Absolute Lymphocytes VBG pH 7.24 L VBG pCO2 86.8 H* VBG HCO3 36.4 H Chloride Carbon Dioxide BUN Creatinine Est GFR ( Amer) Est GFR (Non-Af Amer) Glucose Creatine Kinase CK-MB (CK-2) 6.19 H Urine Protein Ur Leukocyte Esterase - Diagnostic Test Radiology reviewed: Image reviewed, Reports reviewed Radiology results interpreted by me: 01/31/17 23:33 Left foot x-ray: Acute fracture of the distal fifth phalanx 01/31/17 23:33 Chest x-ray: No pulmonary edema or cardiomegaly. No acute infiltrate. Critical Care Note - Critical Care Note Total time excluding time spent on procedures (mins): 45 Comments: Critical care time spent obtaining history from patient or surrogate, discussions with consultants, development of treatment plan with patient or surrogate, evaluation of patient's response to treatment, examination of patient , ordering and performing treatments and interventions, ordering and review of laboratory studies, re-evaluation of patient's condition, ordering and review of radiographic studies and review of old charts Discharge - Discharge Clinical Impression: Hypoventilation, Respiratory acidosis, Pyelonephritis [id number] kidney injury Qualifiers: Acute renal failure type: unspecified Chronic kidney disease stage: unspecified stage Qualified Code(s): N17.9 - Acute kidney failure, unspecified Narcotic overdose Qualifiers: Encounter type: initial encounter Injury intent: accidental or unintentional Qualified Code(s): T40.601A - Poisoning by unspecified narcotics, accidental ( unintentional), initial encounter Toe fracture, left Qualifiers: Encounter type: initial encounter Toe: lesser toe Fracture type: closed Phalanx : distal Fracture alignment: nondisplaced Qualified Code(s): S92.535A - Nondisplaced fracture of distal phalanx of left lesser toe(s), initial encounter for closed fracture Condition: Fair Disposition: ADMITTED INPATIENT Admitting Provider: [facility]anda[facility] - [facility] Admitted: [facility]
[2017-01-31 21:26] LABS: BLOOD UREA NITROGEN 134 mg/dL (7-20)
[2017-01-31 21:29] LABS: CREATINE KINASE MB 6.19 ng/mL (<4.55)
[2017-01-31 21:33] LABS: TROPONIN I 0.043 ng/mL
[2017-01-31] MEDS ORDERED: NORMAL SALINE 500 ML with NALOXONE HCL 2 MG IV PRN ×2 (22:08)
[2017-01-31] MEDS ORDERED: NALOXONE HCL INJ/PF 0.4 MG/1 ML SDV IV ONE ×2 (22:08→23:58)
[2017-01-31] MEDS ORDERED: CEFTRIAXONE 1 GM/D5W RTU 50 ML IV ONE (22:29)
--- NOTE | 2017-01-31 23:02 | RADIOLOGY REPORT (SQ) ---
EXAM DESCRIPTION: CHEST SINGLE VIEW COMPLETED DATE/TIME: 01/31/2017 10:16 pm REASON FOR STUDY: ams, hypoventilation COMPARISON: 08/30/2016 NUMBER OF VIEWS: One view. TECHNIQUE: Single frontal radiographic view of the chest acquired. LIMITATIONS: None. FINDINGS: LUNGS AND PLEURA: No opacities, masses or pneumothorax. No pleural effusion. MEDIASTINUM AND HILAR STRUCTURES: Stable. HEART AND VASCULAR STRUCTURES: Heart mildly enlarged in size. Normal vasculature. Prior CABG. BONES: No acute findings. HARDWARE: CABG hardware. OTHER: No other significant finding. IMPRESSION: No acute findings. TECHNICAL DOCUMENTATION: JOB ID: [id number] [employer]- All Rights Reserved
--- NOTE | 2017-01-31 23:07 | RADIOLOGY REPORT (SQ) ---
EXAM DESCRIPTION: FOOT BILATERAL 2 VIEWS COMPLETED DATE/TIME: 01/31/2017 10:16 pm REASON FOR STUDY: fall COMPARISON: None. NUMBER OF VIEWS: Three views. TECHNIQUE: AP, lateral and oblique radiographic images acquired of the right and left foot. LIMITATIONS: None. FINDINGS: MINERALIZATION: Normal. BONES: Nondisplaced comminuted intra-articular fracture of the distal portion of the proximal phalanx of the left 5th digit.No other fracture or dislocation. No worrisome bone lesions. JOINTS: No effusions. SOFT TISSUES: No soft tissue swelling. No foreign body. OTHER: No other significant finding. IMPRESSION: Nondisplaced comminuted intra-articular fracture of the distal portion of the proximal p halanx of the left 5th digit.No other fracture or dislocation. TECHNICAL DOCUMENTATION: JOB ID: [id number] [employer]- All Rights Reserved
[2017-02-01] MEDS ORDERED: NORMAL SALINE 1000 ML 1,000 ML IV SCH
[2017-02-01] MEDS ORDERED: IPRATROPIUM/ALBUTEROL 0.5-2.5 MG/3 ML AMPUL NEB PRN
[2017-02-01] MEDS ORDERED: LACTULOSE SYRUP 20 GM/30 ML UDCUP PO ONE (00:05)
[2017-02-01] MEDS ORDERED: HYDRALAZINE HCL INJ/PF 20 MG/1 ML SDV IV PRN (00:07)
[2017-02-01 00:15] LABS: VENOUS BLOOD BASE EXCESS 5.8 mmol/L; VENOUS BLOOD HCO3 35.3 mmol/L (20-32); VENOUS BLOOD PH 7.22 (7.30-7.42)
[2017-02-01 00:17] LABS: VENOUS BLOOD PCO2 89.3 mmHg (35-63)
[2017-02-01] MEDS: NALOXONE HCL INJ/PF 0.4 MG/1 ML SDV IV PRN ×2 (01:30→04:30)
[2017-02-01] MEDS ORDERED: NALOXONE HCL INJ 2 MG/2 ML DISP.SYRIN SUBCUT ONE (01:31)
[2017-02-01 01:37] LABS: URINE BARBITURATES SCREEN NEGATIVE; URINE METHADONE SCREEN NEGATIVE; URINE OPIATES LOW UNCONFIRMED POSITIVE; URINE PHENCYCLIDINE SCREEN NEGATIVE
--- NOTE | 2017-02-01 01:45 | PDOC H&P ---
History of Present Illness Admission Date/PCP: 02/01/17 00:00 JORGE L BROWNING MD Patient complains of: Altered mental status and falls History of Present Illness: JOSIANE DILLON is a 66 year old female with a past medical history of opiate dependent chronic pain, coronary artery disease, congestive heart failure, Diabetes and chronic kidney disease who has been noted by her daughter to have altered mental status and fall after recent initiation of long-acting opiates for chronic low back pain. She is brought into the emergency room for evaluation she is found to be obtunded, have respiration rate of 8 and difficulty staying awake as well as a PCO2 of over 80 she given IV Narcan with a brief improvement of mental status. Additionally her labs reveal rhabdomyolysis, acute on chronic renal failure with a baseline creatinine of 2 now 5, anemia and a fracture to the fifth metatarsal on the left foot. She is a poor historian and unable to provide history. Past Medical History Cardiac Medical History: Reports: Congestive Heart Failure, Coronary Artery Disease, Myocardial Infarction, Hyperlipidema, Hypertension - Pulm. HTN Pulmonary Medical History: Reports: Pneumonia Neurological Medical History: Endocrine Medical History: Reports: Diabetes Mellitus Type 2 Malignancy Medical History: GI Medical History: Reports: Gastroesophageal Reflux Disease Musculoskeltal Medical History: Reports: Arthritis - rheumatoid Psychiatric Medical History: Hematology: Denies: Anemia, Sickle Cell Disease Past Surgical History Past Surgical History: Reports: Cardiac Catheterization, Cholecystectomy, Coronary Artery Bypass Graft, Hysterectomy, Orthopedic Surgery - elbows, carpal tunnel bilat, Other - Hx sinus surgery Denies: Amputation Social History Information Source: Relative, [facility] Records Lives with: Family Smoking Status: Never Smoker Frequency of Alcohol Use: None Hx Recreational Drug Use: No Drugs: None Hx Prescription Drug Abuse: No - Advance Directive Resuscitation Status: Full Code Family History Family History: Hypertension Parental Family History Reviewed: Yes Children Family History Reviewed: Yes Sibling(s) Family History Reviewed.: Yes Medication/Allergy Home Medications: Bosentan [Tracleer 125 mg Tablet] 125 mg PO BID 01/11/14 Gabapentin 600 mg PO BID 01/11/14 Leflunomide [Arava] 10 mg PO DAILY 01/11/14 Omeprazole 40 mg PO BID 01/11/14 Pentoxifylline [Pentoxil] 400 mg PO TID 01/11/14 Potassium Chloride 80 meq PO BID 11/27/14 Aspirin [[place] Aspirin] 81 mg PO DAILY 03/24/15 Tofacitinib Citrate [Xeljanz] 5 mg PO BID 03/24/15 Amlodipine Besylate 5 mg PO DAILY 06/22/16 Dicyclomine HCl 10 mg PO QID PRN 06/22/16 Insulin Aspart [Novolog Flexpen] 0 unit SUBCUT .SLD SCALE 06/22/16 Metoprolol Succinate [Toprol XL 100 mg Tablet] 100 mg PO BID 06/22/16 Oxycodone HCl 15 mg PO ASDIR PRN 06/22/16 Simvastatin 20 mg PO QHS 06/22/16 Bumetanide 2 mg PO BID #0 06/25/16 Cyclobenzaprine HCl 10 mg PO TID PRN #0 06/25/16 Potassium Chloride [Kaon-Cl 20 Meq/15 ml Udcup] 40 meq PO DAILY #30 udc Sulfamethoxazole/Trimethoprim [Bactrim Ds Tablet] 1 each PO BID #6 tablet Lidocaine [Lidoderm 5% (700 mg) Transdermal Patch] 1 patch TP DAILY #30 adh..patch 08/31/16 Allergies/Adverse Reactions: clarithromycin [From Biaxin] Allergy (Mild, Verified 11/13/16 13:43) RASH moxifloxacin HCl [From Avelox] Allergy (Mild, Verified 11/13/16 13:43) Fever Review of Systems ROS unobtainable: Due to mental status - Patient is obtunded Physical Exam Vital Signs: Temp Pulse Resp BP Pulse Ox 98 F 69 16 128/54 H 96 01/31/17 19:21 01/31/17 19:21 02/01/17 00:00 01/31/17 23:01 02/01/17 00:00 General appearance: PRESENT: disheveled, mild distress, obese, other - Obtunded responding to Narcan briefly Head exam: PRESENT: atraumatic, normocephalic Eye exam: PRESENT: conjunctiva pink, EOMI, PERRLA. ABSENT: scleral icterus Ear exam: PRESENT: normal external ear exam Mouth exam: PRESENT: dry mucosa, tongue midline Neck exam: ABSENT: carotid bruit, JVD, lymphadenopathy, thyromegaly Respiratory exam: PRESENT: clear to auscultation refugio, crackles, prolonged expiratory phas, symmetrical. ABSENT: rales, rhonchi, stridor, wheezes Cardiovascular exam: PRESENT: RRR. ABSENT: diastolic murmur, rubs, systolic murmur Pulses: PRESENT: normal dorsalis pedis pul GI/Abdominal exam: PRESENT: diminished bowel sounds, distended, hypoactive bowel sounds, tenderness - Left lower quadrant pain to deep palpation. ABSENT: ascites, firm, guarding, hernia, hyperactive bowel sounds Rectal exam: PRESENT: deferred Extremities exam: PRESENT: full ROM. ABSENT: calf tenderness, clubbing, pedal edema Neurological exam: PRESENT: altered, oriented to person, CN II-XII grossly intact, other - Obtunded. ABSENT: motor sensory deficit Psychiatric exam: PRESENT: appropriate affect, normal mood. ABSENT: homicidal ideation, suicidal ideation Skin exam: PRESENT: dry, intact, warm. ABSENT: cyanosis, rash Results Laboratory Results: 02/01/17 00:07 VBG pH 7.22 L VBG pCO2 89.3 H* VBG HCO3 35.3 H VBG Base Excess 5.8 Impressions: Chest X-Ray 01/31/17 21:18 IMPRESSION: No acute findings. Foot X-Ray 01/31/17 21:18 IMPRESSION: Nondisplaced comminuted intra-articular fracture of the distal portion of the proximal phalanx of the left 5th digit.No other fracture or dislocation. Assessment & Plan - Diagnosis (1) Narcotic overdose Qualifiers: Encounter type: initial encounter Injury intent: accidental or unintentional Qualified Code(s): T40.601A - Poisoning by unspecified narcotics, accidental (unintentional), initial encounter Is this a current diagnosis for this admission?: YesPlan: Incidental narcotic overdose complicated by chronic pain and recent long-acting narcotic, Narcan ordered every 2 hours as needed with supportive measures and BiPAP. Initiate opiate weaning consider pain management consultation (2) Rhabdomyolysis Is this a current diagnosis for this admission?: YesPlan: Secondary to immobility complicated by acute on chronic renal failure. IV fluid challenge initiated follow-up chemistry and total CK (3) [id number]-[id number] kidney injury Qualifiers: Acute renal failure type: unspecified Chronic kidney disease stage: unspecified stage Qualified Code(s): N17.9 - Acute kidney failure, unspecified; N18.9 - Chronic kidney disease, unspecified Is this a current diagnosis for this admission?: YesPlan: Rapid decline in renal function is multifactorial with a prerenal component and rhabdomyolysis. IV fluid challenge initiated avoiding nephrotoxic meds and doses prerenal diet and nephrology consult if not significantly improved. (4) Hypoventilation Is this a current diagnosis for this admission?: YesPlan: Secondary to narcotic overdose. Supportive measures and BiPAP (5) Toe fracture, left Qualifiers: Encounter type: initial encounter Toe: lesser toe Fracture type: closed Phalanx: distal Fracture alignment: nondisplaced Qualified Code(s): S92.535A - Nondisplaced fracture of distal phalanx of left lesser toe(s ), initial encounter for closed fracture Is this a current diagnosis for this admission?: YesPlan: Secondary to debility, chronic pain and narcotic overdose. Physical therapy, supportive measures and symptomatic management (6) Anemia Is this a current diagnosis for this admission?: YesPlan: Likely multifactorial anemia workup initiated follow-up labs - Time Time Spent: 50 to 70 Minutes - Inpatient Certification Medical Necessity: Need Close Monitoring Due to Risk of Patient Decompensation
[2017-02-01] MEDS ORDERED: NALOXONE HCL INJ 2 MG/2 ML DISP.SYRIN ONE (02:55)
[2017-02-01] MEDS ORDERED: NALOXONE HCL INJ/PF 0.4 MG/1 ML SDV IV PRN (04:44)
[2017-02-01 05:44] LABS: ANION GAP 13 (5-19); CARBON DIOXIDE 28 mmol/L (22-30); CHLORIDE 96 mmol/L (98-107); CREATINE KINASE 617 U/L (30-135); CREATININE RESULT 4.36 mg/dL (0.52-1.25); GLUCOSE 122 mg/dL (75-110); POTASSIUM 4.7 mmol/L (3.6-5.0); SODIUM 137.3 mmol/L (137-145)
[2017-02-01 05:45] LABS: HGB HCT DIFFERENCE -0.6; MEAN CORPUSCULAR HEMOGLOBIN 27.9 pg (27.0-33.4); MEAN CORPUSCULAR HGB CONC 32.5 g/dL (32.0-36.0); MEAN CORPUSCULAR VOLUME 86 fl (80-97); RED CELL DISTRIBUTION WIDTH 15.8 % (11.5-14.0); WHITE BLOOD COUNT 8.3 10^3/uL (4.0-10.5)
[2017-02-01 05:52] LABS: BLOOD UREA NITROGEN 132 mg/dL (7-20)
[2017-02-01 06:09] LABS: BASOPHILS % (MANUAL) 0 % (0-2); EOSINOPHILS % (MANUAL) 0 % (0-6); LYMPHOCYTES % (MANUAL) 4 % (13-45); TOTAL CELLS COUNTED 100
[2017-02-01 06:10] LABS: ANISOCYTOSIS 1+; OVALOCYTES SLIGHT
[2017-02-01] MEDS: HEPARIN SOD (PORCINE) 5,000 UNIT/ML 1 ML SYRINGE SUBCUT SCH ×3 (06:41→21:12)
--- NOTE | 2017-02-01 07:44 | Progress Note ---
Provider Note Provider Note: HARMAN JOSHUA Search Criteria: Last Name 'harman' and First Name irving' and = ' and Request Period = 08/05/16' to 02/01/17' - 1 out of 1 Recipients Selected. Fill Date Product, Str, Form Qty Days Pt ID Prescriber Written RX# N/R* Pharm MED+ ------ ---- --------- --- ------- ----- -------- 01/23/2017 EMBEDA ER 20-0.8 MG CAPSULE 60.00 30 [id number] 01/13/2017 [id number] N [id number] 40.0 01/18/2017 OXYCODONE HCL 10 MG TABLET 60.00 30 [id number] 01/13/2017 [id number] N [id number] 30.0 12/19/2016 OXYCODONE HCL 15 MG TABLET 90.00 30 [id number] 09/29/2016 [id number] N [id number] 67.5 10/28/2016 OXYCODONE HCL 15 MG TABLET 90.00 30 [id number] 05/08/2016 [id number] N [id number] 67.5 09/29/2016 OXYCODONE HCL 15 MG TABLET 90.00 30 [id number] 09/29/2016 [id number] N [id number] 67.5 08/10/2016 OXYCODONE HCL 15 MG TABLET 90.00 30 [id number] 08/03/2016 [id number] N [id number] 67.5 [id number] MAGALIS LEVI (NADER); [facility] [id number]
[2017-02-01 08:00] LABS: HEMOGLOBIN 7.8 g/dL (12.0-15.5)
[2017-02-01 08:25] LABS: ABSOLUTE EOSINOPHILS # (AUTO) 0.1 10^3/uL (0.0-0.6); ABSOLUTE LYMPHOCYTES (AUTO) 0.4 10^3/uL (0.5-4.7); ABSOLUTE MONOCYTES (AUTO) 0.5 10^3/uL (0.1-1.4); ABSOLUTE NEUT (AUTO) 6.7 10^3/uL (1.7-8.2); BASOPHILS % (AUTO) 0.6 % (0-2); EOSINOPHILS % (AUTO) 1.2 % (0-6); HEMATOCRIT 24.6 % (36.0-47.0); HGB HCT DIFFERENCE -1.2; LYMPHOCYTES % (AUTO) 5.3 % (13-45); MEAN CORPUSCULAR HEMOGLOBIN 27.2 pg (27.0-33.4); MEAN CORPUSCULAR HGB CONC 31.5 g/dL (32.0-36.0); MEAN CORPUSCULAR VOLUME 86 fl (80-97); MONOCYTES % (AUTO) 6.1 % (3-13); RED BLOOD COUNT 2.86 10^6/uL (3.72-5.28); RED CELL DISTRIBUTION WIDTH 16.3 % (11.5-14.0); SEGMENTED NEUTROPHILS % (AUTO) 86.8 % (42-78); WHITE BLOOD COUNT 7.7 10^3/uL (4.0-10.5)
[2017-02-01 08:37] LABS: HEMOGLOBIN 7.8 g/dL (12.0-15.5)
[2017-02-01] MEDS ORDERED: CEFTRIAXONE 1 GM/D5W RTU 1 GM/50 ML RTUPB IV SCH (10:00)
[2017-02-01] MEDS: DOCUSATE SODIUM 100 MG CAPSULE PO SCH ×2 (10:10→18:40)
[2017-02-01] MEDS ORDERED: OXYCODONE HCL IR 5 MG TABLET PO PRN (10:40)
[2017-02-01] MEDS ORDERED: ACETAMINOPHEN 325 MG TABLET PO PRN ×2 (10:43)
[2017-02-01] MEDS ORDERED: MAGNESIUM HYDROXIDE SUSP 30 ML UDCUP PO PRN ×2 (10:44)
[2017-02-01] MEDS ORDERED: DEXTROSE 40% GEL 15 GM TUBE PO PRN ×2 (10:46)
[2017-02-01] MEDS ORDERED: GLUCAGON,HUMAN RECOMB 1 MG INJ IM PRN (10:46)
[2017-02-01] MEDS ORDERED: DEXTROSE 50%-WATER 25 GM/50 ML DISP.SYRIN IV PRN ×2 (10:46)
[2017-02-01] MEDS ORDERED: NORMAL SALINE 1000 ML 1,000 ML IV PRN (11:03)
--- NOTE | 2017-02-01 11:14 | PROGRESS NOTE E ---
Progress Note NAME: JOSIANE DILLON : 1950 AGE: 66Y DATE: 02/01/2017 ROOM: [facility] SUBJECTIVE: The patient is currently lying in bed. Her daughter is in bed beside her as well. The patient denies any nausea, vomiting, or diarrhea. No shortness of breath, dizziness, or chest pain. No fever or chills. The patient describes herself as still quite weak and tired. It appears that the patient had been given a decreased dosage of oxycodone and was also started on Embeda ER which is a morphine and Narcan combo pill. The patient states that the Embeda ER is not beneficial to her and would like to just resume her oxycodone. The patient is afebrile. Blood pressures have been in a good range. The patient does not voice any other concerns at this time. REVIEW OF SYSTEMS: Rest of the review of systems negative. MEDICATIONS: Have been reviewed. OBJECTIVE: GENERAL: The patient is a 66-year-old female who is awake, alert, and oriented to person, place, time, and situation. She is verbal, conversational, just a little delayed, and does not appear to be in acute distress. VITAL SIGNS: Temperature 97.4, pulse 64, respirations 20, blood pressure 115/40, oxygen saturation is 98% on 2 L nasal cannula. SKIN: Warm and dry. No rash. Not diaphoretic. HEENT: Pupils equal, round, reactive to light and accommodation. Conjunctivae are pink. No JVP. CARDIOVASCULAR: Heart is regular with no murmur or rub. CHEST: Clear, symmetrical, unlabored. ABDOMEN: Soft, nontender, nondistended. BACK: No CVA tenderness or sacral edema. EXTREMITIES: No clubbing, cyanosis, or edema. PSYCHIATRIC: Flat affect. Neutral mood. DIAGNOSTICS: Lab values are as follows: Hematology obtained on 02/01/2017: WBCs are 7.7, hemoglobin is 7.8, hematocrit is 24.6, platelet count is 192,000. Venous blood gas obtained on 02/01/2017 at midnight: Her pH is 7.22, pCO2 is 89.3, and bicarb is 35. Chemistry obtained on 02/01/2017: Sodium is 137, potassium 4.7, chloride is 96, carbon dioxide 28, BUN 132, creatinine is 4.36, glucose 122, calcium is 8.0, CK is 617. IMPRESSION AND PLAN: 1. OPIATE DEPENDENCY CONTINUOUS. The patient most likely was obtunded due to her increased narcotics. The patient would like to resume strictly oxycodone. Will resume now for pain control and follow. 2. HYPERCAPNIC RESPIRATORY FAILURE. This is secondary to #1. Will repeat venous blood gas and follow. Will place patient back on BiPAP as pCO2 is still elevated and follow. 3. RHABDOMYOLYSIS. This is relatively mild and most likely due to her obtunded state. Will gently hydrate through the day and repeat chemistries in the a.m. 4. [id number]-AD-[id number] STAGE III KIDNEY DISEASE. Will continue to hydrate. Repeat creatinine in the a.m. and follow. 5. CORONARY ARTERY DISEASE. Will continue the patient's home medications. 6. HYPERLIPIDEMIA. Will continue home medication. 7. HYPERTENSION. Will continue the patient's home medication. 8. PULMONARY HYPERTENSION. Will resume home CPAP. 9. DVT PROPHYLAXIS. Will continue subcutaneous heparin. DISPOSITION: The patient is a FULL CODE. Pending patient's symptomatology and diagnostic findings, will reevaluate in the a.m. Time spent on this followup including assessment, plan, physical examination, patient education, and review of previous records is 35 minutes. DICTATING PHYSICIAN: BEATRIS GENAO NP [id number] DUNGY#: [id number] ID: [id number] JOB#: [id number] ACCT: [id number] cc: >
[2017-02-01] MEDS: OXYCODONE HCL IR 5 MG TABLET PO PRN (11:30)
[2017-02-01 12:35] LABS: VENOUS BLOOD BASE EXCESS 4.6 mmol/L; VENOUS BLOOD HCO3 32.7 mmol/L (20-32); VENOUS BLOOD PH 7.27 (7.30-7.42)
[2017-02-01] MEDS: INSULIN LISPRO 100 UNIT/ML 3 ML VIAL SUBCUT PRN ×2 (13:05→23:05)
[2017-02-01] MEDS ORDERED: FAMOTIDINE 20 MG TABLET PO ONE (13:15)
[2017-02-01] MEDS ORDERED: NEBIVOLOL HCL 10 MG PO SCH (17:45)
[2017-02-01] MEDS ORDERED: LEFLUNOMIDE 10 MG PO SCH (17:45)
[2017-02-01] MEDS: GABAPENTIN 300 MG CAPSULE PO SCH (21:13)
[2017-02-01] MEDS: HYDRALAZINE HCL 50 MG TABLET PO SCH (21:13)
[2017-02-01] MEDS: NEBIVOLOL HCL 10 MG TABLET PO SCH (21:15)
[2017-02-01] MEDS: TRACLEER 125 MG PO SCH (21:15)
[2017-02-01] MEDS: PENTOXIFYLLINE 400 MG TABLET.SA PO SCH (21:16)
[2017-02-01] MEDS ORDERED: SIMVASTATIN 10 MG TABLET PO SCH (22:00)
[2017-02-01] MEDS ORDERED: BOSENTAN 125 MG PO SCH (22:00)
[2017-02-02 04:41] LABS: ABSOLUTE EOSINOPHILS # (AUTO) 0.2 10^3/uL (0.0-0.6); ABSOLUTE LYMPHOCYTES (AUTO) 0.4 10^3/uL (0.5-4.7); ABSOLUTE NEUT (AUTO) 5.6 10^3/uL (1.7-8.2); BASOPHILS % (AUTO) 0.4 % (0-2); EOSINOPHILS % (AUTO) 3.1 % (0-6); HEMATOCRIT 22.4 % (36.0-47.0); HGB HCT DIFFERENCE -1.1; LYMPHOCYTES % (AUTO) 5.5 % (13-45); MEAN CORPUSCULAR HEMOGLOBIN 27.2 pg (27.0-33.4); MEAN CORPUSCULAR HGB CONC 31.8 g/dL (32.0-36.0); MEAN CORPUSCULAR VOLUME 86 fl (80-97); MONOCYTES % (AUTO) 14.3 % (3-13); RED BLOOD COUNT 2.61 10^6/uL (3.72-5.28); RED CELL DISTRIBUTION WIDTH 16.1 % (11.5-14.0); SEGMENTED NEUTROPHILS % (AUTO) 76.7 % (42-78); WHITE BLOOD COUNT 7.3 10^3/uL (4.0-10.5)
[2017-02-02 04:49] LABS: ANION GAP 13 (5-19); CALCIUM 8.2 mg/dL (8.4-10.2); CARBON DIOXIDE 27 mmol/L (22-30); CHLORIDE 96 mmol/L (98-107); CREATINE KINASE 421 U/L (30-135); CREATININE RESULT 3.64 mg/dL (0.52-1.25); GLUCOSE 205 mg/dL (75-110); POTASSIUM 4.8 mmol/L (3.6-5.0); SODIUM 135.8 mmol/L (137-145)
[2017-02-02 04:50] LABS: HEMOGLOBIN 7.1 g/dL (12.0-15.5)
[2017-02-02 05:01] LABS: BLOOD UREA NITROGEN 130 mg/dL (7-20)
[2017-02-02] MEDS: HEPARIN SOD (PORCINE) 5,000 UNIT/ML 1 ML SYRINGE SUBCUT SCH ×2 (05:09→21:29)
[2017-02-02] MEDS: HYDRALAZINE HCL 50 MG TABLET PO SCH (05:10)
[2017-02-02] MEDS: GABAPENTIN 300 MG CAPSULE PO SCH (05:10)
[2017-02-02] MEDS: PENTOXIFYLLINE 400 MG TABLET.SA PO SCH ×3 (05:12→21:32)
[2017-02-02 08:59] LABS: ARTERIAL BLOOD BASE EXCESS 4.1 mmol/L
[2017-02-02] MEDS ORDERED: NORMAL SALINE 250 ML IV PRN ×2 (09:10)
[2017-02-02] MEDS ORDERED: ACETAMINOPHEN 325 MG TABLET PO PRN (09:10)
[2017-02-02] MEDS ORDERED: FUROSEMIDE INJ/PF 20 MG/2 ML SDV IV PRN ×2 (09:10→17:00)
[2017-02-02] MEDS ORDERED: PIPERACILLIN SODIUM/TAZOBACTAM 4.5 GM in NORMAL SALINE 100 ML IV SCH (09:15)
[2017-02-02] MEDS ORDERED: SPIRONOLACTONE 25 MG TABLET PO SCH (10:00)
[2017-02-02 10:07] LABS: MAGNESIUM 1.8 mg/dL (1.6-2.3)
[2017-02-02 11:23] LABS: FREE T3 2.4 pg/mL (2.77-5.27)
--- NOTE | 2017-02-02 11:23 | PDOC CONSULTATION ---
Consultation Consult Date: 02/02/17 Attending physician:: BEATRIS GENAO Consult reason:: pulmonary fibrosis/pulmonary hypertension/Sjogren/ History of Present Illness Admission Date/PCP: 02/01/17 00:00 JORGE L BROWNING MD History of Present Illness: JOSIANE DILLON is a 66 year old female with a past medical history of opiate dependent chronic pain, coronary artery disease, congestive heart failure, Diabetes and chronic kidney disease who has been noted by her daughter to have altered mental status and fall after recent initiation of long-acting opiates for chronic low back pain. She is brought into the emergency room for evaluation she is found to be obtunded, have respiration rate of 8 and difficulty staying awake as well as a PCO2 of over 80 she given IV Narcan with a brief improvement of mental status.In addition to above she carries a diagnosis of pulmonary fibrosis, pulmonary hypertension, Sjogren's syndrome. She is chronically short of breath at home although she states she does not wear oxygen there she occasionally has a cough but denies hemoptysis her PPD status is unknown she denies a history of chronic lung disease as a child or as an adult adolescent she admits to exposure to passive smoke as a child as well as an adult. She herself has no smoke. 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 She has a no pets no recent travel. She does complain of some tightness in her chest sleeps on one pillow occasional PND occasional nocturnal cough and occasional edema (she has a history of congestive heart failure) she admits to snoring, restless sleep, nocturia 2-4 times per night, unrestful sleep and excessive daytime somnolence. Past Medical History Cardiac Medical History: Reports: Congestive Heart Failure, Coronary Artery Disease, Myocardial Infarction, Hyperlipidema, Hypertension - Pulm. HTN Pulmonary Medical History: Reports: Pneumonia, Other - Sjogren's syndrome, pulmonary fibrosis, pulmonary hypertension Neurological Medical History: Endocrine Medical History: Reports: Diabetes Mellitus Type 2 Renal/ Medical History: Reports: Chronic Kidney Disease Malignancy Medical History: GI Medical History: Reports: Gastroesophageal Reflux Disease Musculoskeltal Medical History: Reports: Arthritis - rheumatoid Psychiatric Medical History: Hematology: Reports: Anemia Denies: Sickle Cell Disease Past Surgical History Past Surgical History: Reports: Cardiac Catheterization, Cholecystectomy, Coronary Artery Bypass Graft, Hysterectomy, Orthopedic Surgery - elbows, carpal tunnel bilat, Other - Hx sinus surgery Denies: Amputation Social History Information Source: Patient, Relative, [facility] Records 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 Lives with: Family Smoking Status: Never Smoker Passive smoke exposure as: Both Frequency of Alcohol Use: None Hx Recreational Drug Use: No Drugs: None Hx Prescription Drug Abuse: No Do you have pets?: No Have you had any respiratory illnesses as a child?: No Have you been exposed to any sick contacts recently?: No Have you had any recent respiratory illnesses?: No Have you travelled outside of [place] in the past 12 months?: No - Advance Directive Resuscitation Status: Full Code Family History Family History: Hypertension Parental Family History Reviewed: Yes - Hypertension, diabetes, coronary artery disease, hyperlipidemia Children Family History Reviewed: Yes Sibling(s) Family History Reviewed.: Yes Medication/Allergy Home Medications: Aspirin [Ecotrin 81 mg EC Tablet] 81 mg PO DAILY 02/01/17 Bosentan [Tracleer 125 mg Tablet] 125 mg PO Q12 02/01/17 Bumetanide [Bumex 1 mg Tablet] 3 mg PO QPM 02/01/17 Bumetanide [Bumex 1 mg Tablet] 4 mg PO QAM 02/01/17 Duloxetine HCl [Cymbalta] 60 mg PO DAILY 02/01/17 Febuxostat [Uloric 40 mg Tablet] 40 mg PO DAILY 02/01/17 Gabapentin [Neurontin] 600 mg PO Q8 02/01/17 Hydralazine HCl [Apresoline 50 mg Tablet] 50 mg PO Q8 02/01/17 Insulin Aspart [Novolog Insulin (Aspart) 100 unit/mL] 0 units SQ .SLDING SCALE MEALS 02/01/17 Insulin Degludec [Tresiba Flextouch U-100] 70 units SQ DAILY 02/01/17 Leflunomide [Arava] 10 mg PO DAILY 02/01/17 Metolazone [Zaroxolyn 5 mg Tablet] 5 mg PO BID 02/01/17 Morphine Sulfate/Naltrexone [Embeda ER 20-0.8 mg Capsule] 1 cap PO Q12 02/01/17 Nebivolol HCl [Bystolic] 10 mg PO Q12 02/01/17 Omeprazole 40 mg PO BIDBS 02/01/17 Oxycodone HCl [Oxycodone HCl 10 MG Tablet] 10 mg PO Q6HP PRN 02/01/17 Pentoxifylline [Trental 400 mg Tablet.sa] 400 mg PO Q8 02/01/17 Simvastatin [Zocor 20 mg Tablet] 20 mg PO QHS 02/01/17 Spironolactone [Aldactone 25 mg Tablet] 25 mg PO DAILY 02/01/17 Tofacitinib Citrate [Xeljanz] 5 mg PO Q12 02/01/17 Valsartan [Diovan] 320 mg PO DAILY 02/01/17 Allergies/Adverse Reactions: clarithromycin [From Biaxin] Allergy (Mild, Verified 11/13/16 13:43) RASH moxifloxacin HCl [From Avelox] Allergy (Mild, Verified 11/13/16 13:43) Fever Review of Systems All systems: reviewed and no additional remarkable complaints except as stated Physical Exam Vital Signs: Temp Pulse Resp BP Pulse Ox 99.6 F 70 18 126/31 H 97 02/02/17 07:24 02/02/17 07:24 02/02/17 08:00 02/02/17 07:24 02/02/17 08:00 Intake & Output 02/01/17 02/02/17 02/03/17 06:59 06:59 06:59 Intake Total 900 1851 Output Total 250 Balance 900 1601 Weight 87.6 kg 90.1 kg General appearance: PRESENT: no acute distress, disheveled, obese, well- developed Head exam: PRESENT: atraumatic, normocephalic Eye exam: PRESENT: conjunctiva pale, EOMI Mouth exam: PRESENT: dry mucosa, neck supple, tongue midline Neck exam: ABSENT: carotid bruit, JVD, lymphadenopathy, thyromegaly Respiratory exam: PRESENT: crackles - Bibasilar, decreased breath sounds, rhonchi - Scattered, symmetrical Cardiovascular exam: PRESENT: RRR, +S1, +S2 Pulses: PRESENT: normal radial pulses GI/Abdominal exam: PRESENT: normal bowel sounds, soft. ABSENT: distended, guarding, mass, organolmegaly, rebound, tenderness Rectal exam: PRESENT: deferred Musculoskeletal exam: PRESENT: normal inspection Neurological exam: PRESENT: awake Psychiatric exam: PRESENT: flat affect Skin exam: PRESENT: dry, pallor Results Laboratory Results: 02/02/17 03:43 02/02/17 03:43 02/01/17 02/02/17 02/02/17 12:24 03:43 03:43 WBC 7.3 RBC 2.61 L Hgb 7.1 L Hct 22.4 L MCV 86 MCH 27.2 MCHC 31.8 L RDW 16.1 H Plt Count 183 Seg Neutrophils % 76.7 Lymphocytes % 5.5 L Monocytes % 14.3 H Eosinophils % 3.1 Basophils % 0.4 Absolute Neutrophils 5.6 Absolute Lymphocytes 0.4 L Absolute Monocytes 1.0 Absolute Eosinophils 0.2 Absolute Basophils 0.0 Carbonic Acid HCO3/H2CO3 Ratio ABG pH ABG pCO2 ABG pO2 ABG HCO3 ABG O2 Saturation ABG Base Excess VBG pH 7.27 L VBG pCO2 73.0 H* VBG HCO3 32.7 H VBG Base Excess 4.6 FiO2 Sodium 135.8 L Potassium 4.8 Chloride 96 L Carbon Dioxide 27 Anion Gap 13 BUN 130 H Creatinine 3.64 H Est GFR ( Amer) 15 L Est GFR (Non-Af Amer) 12 L Glucose 205 H Calcium 8.2 L 02/02/17 08:30 WBC RBC Hgb Hct MCV MCH MCHC RDW Plt Count Seg Neutrophils % Lymphocytes % Monocytes % Eosinophils % Basophils % Absolute Neutrophils Absolute Lymphocytes Absolute Monocytes Absolute Eosinophils Absolute Basophils Carbonic Acid 1.65 H HCO3/H2CO3 Ratio 18:1 ABG pH 7.36 ABG pCO2 54.9 H ABG pO2 97.2 ABG HCO3 30.1 H ABG O2 Saturation 97.0 ABG Base Excess 4.1 VBG pH VBG pCO2 VBG HCO3 VBG Base Excess FiO2 30% Sodium Potassium Chloride Carbon Dioxide Anion Gap BUN Creatinine Est GFR ( Amer) Est GFR (Non-Af Amer) Glucose Calcium 02/01/17 02/02/17 05:08 03:43 Creatine Kinase 617 H 421 H Impressions: Chest X-Ray 01/31/17 21:18 IMPRESSION: No acute findings. Foot X-Ray 01/31/17 21:18 IMPRESSION: Nondisplaced comminuted intra-articular fracture of the distal portion of the proximal phalanx of the left 5th digit.No other fracture or dislocation. Assessment & Plan - Diagnosis (1) Uyoec-st-[id number] kidney injury Qualifiers: Acute renal failure type: unspecified Chronic kidney disease stage: unspecified stage Qualified Code(s): N17.9 - Acute kidney failure, unspecified; N18.9 - Chronic kidney disease, unspecified Is this a current diagnosis for this admission?: YesPlan: Elevated BUN somewhat disproportional to elevated creatinine consulted Dr. Garrido as I believe the patient was being followed by him suspect possible GI bleed (2) Hypoventilation Is this a current diagnosis for this admission?: YesPlan: Pulmonary fibrosis, obesity hypoventilation, ELENITA Plan noninvasive positive pressure ventilation (3) Narcotic overdose Qualifiers: Encounter type: initial encounter Injury intent: accidental or unintentional Qualified Code(s): T40.601A - Poisoning by unspecified narcotics, accidental (unintentional), initial encounter Is this a current diagnosis for this admission?: YesPlan: Patient has received Narcan (4) Diabetes Qualifiers: Diabetes mellitus type: type 2 Diabetes mellitus complication status: with hyperglycemia Diabetes mellitus residential insulin use: without residential use Qualified Code(s): E11.65 - Type 2 diabetes mellitus with hyperglycemia; Z79.4 - intermediate card tender (current) use of insulin Is this a current diagnosis for this admission?: YesPlan: Sliding scale insulin - Time Time Spent: Greater than 70 Minutes - Extensive chronic resuscitation with family members primary care provider as well as initiating consult for Dr. Garrido [id number] minutes
[2017-02-02 11:36] LABS: THYROID STIMULATING HORMONE 1.08 uIU/mL (0.47-4.68)
[2017-02-02] MEDS: LANSOPRAZOLE 30 MG TAB.RAP.DR PO SCH ×2 (11:37→19:23)
[2017-02-02] MEDS: ASPIRIN 81 MG TABLET, ENT COATED PO SCH (11:38)
[2017-02-02] MEDS: DULOXETINE HCL 30 MG CAPSULE.DR PO SCH (11:38)
[2017-02-02] MEDS: OXYCODONE HCL IR 5 MG TABLET PO PRN (11:39)
[2017-02-02] MEDS: DOCUSATE SODIUM 100 MG CAPSULE PO SCH ×2 (11:39→19:23)
[2017-02-02] MEDS: LEFLUNOMIDE 20 MG TABLET PO SCH (11:40)
[2017-02-02 11:41] LABS: APPEARANCE,URINE CLOUDY; BILIRUBIN,URINE NEGATIVE (NEGATIVE); GLUCOSE, URINE NEGATIVE (NEGATIVE); KETONES,URINE NEGATIVE (NEGATIVE); LEUKOCYTE ESTERASE,URINE LARGE (NEGATIVE); NITRITE,URINE NEGATIVE (NEGATIVE); PROTEIN,URINE NEGATIVE (NEGATIVE); URINE SPECIFIC GRAVITY 1.013; UROBILINOGEN,URINE NEGATIVE mg/dL (<2.0)
[2017-02-02] MEDS: NEBIVOLOL HCL 10 MG TABLET PO SCH ×2 (11:41→21:33)
[2017-02-02] MEDS: FEBUXOSTAT 40 MG TABLET PO SCH (11:42)
[2017-02-02] MEDS: TRACLEER 125 MG PO SCH ×2 (11:43→21:31)
--- NOTE | 2017-02-02 12:51 | PDOC CONSULTATION ---
Consultation Consult Date: 02/02/17 Consult reason:: Acute kidney injury on CKD stage V with uremia and fluid overload. History of Present Illness Admission Date/PCP: 02/01/17 00:00 JORGE L BROWNING MD History of Present Illness: JOSIANE DILLON is a 66 year old female with a complicated past medical history of Diabetes mellitus, hypertension, scleroderma and rheumatoid arthritis with history of resulting pulmonary fibrosis and right heart failure , opiate dependent chronic pain, coronary artery disease, congestive heart failure, and chronic kidney disease With a base BUN/creatinine around 110/2 and 2.5 when recently seen at [facility] in [place] who has been noted by her daughter to have altered mental status and fall after recent initiation of long-acting opiates for chronic low back pain. She is brought into the emergency room for evaluation she is found to be obtunded, have respiration rate of 8 and difficulty staying awake as well as a PCO2 of over 80 she given IV Narcan with a brief improvement of mental status. As mentioned above she carries a diagnosis of pulmonary fibrosis, pulmonary hypertension, Sjogren's syndrome. She is chronically short of breath at home although she states she does not wear oxygen there she occasionally has a cough but denies hemoptysis her PPD status is unknown she denies a history of chronic lung disease as a child or as an adult adolescent she admits to exposure to passive smoke as a child as well as an adult. She herself has no smoke. 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 She has a no pets no recent travel. She does complain of some tightness in her chest sleeps on one pillow , Intermittent pedal edema .She also gives a history of sleep apnea but has not had a sleep study. However daughter thinks she might have had one done many many years ago. She was found to be having CO2 narcosis and she was put on BiPAP last night. Following that this morning even though CO2 is markedly better she still is having latent periods of confusion and jerking movements/myoclonus.BUN/ creatinine on admission was 134/5.2 and today is 136/3.6. Hemoglobin and on admission was 8.3 and today is 7.1. She had a bowel movement yesterday and there was no indication that she had melena. Hemoccult is pending.Has had multiple transfusions in the past along with IV iron.Unsure of endoscopy evaluations. Past Medical History Cardiac Medical History: Reports: Coronary Artery Disease, Cor Pulmonale, Hyperlipidemia, Hypertension-primary, Myocardial Infarction Pulmonary Medical History: Reports: Pneumonia, Other - Sjogren's syndrome, pulmonary fibrosis, pulmonary hypertension Neurological Medical History: Endocrine Medical History: Reports: Diabetes Mellitus Type 2 Renal/ Medical History: Reports: Chronic Kidney Disease Stage IV - Her recent labs done at [facility] in [place] showed a BUN/creatinine of 120/2.2 Malignancy Medical History: GI Medical History: Reports: Gastroesophageal Reflux Disease Musculoskeltal Medical History: Reports: Arthritis - rheumatoid, Rheumatoid Arthritis, Other - Scleroderma Denies: Systemic Lupus Erythematosus Psychiatric Medical History: Hematology Medical History: Reports Anemia Past Surgical History Past Surgical History: Reports: Cardiac Catheterization, Cholecystectomy, Coronary Artery Bypass Graft, Hysterectomy, Orthopedic Surgery - elbows, carpal tunnel bilat, Other - Hx sinus surgery Social History Lives with: Family Smoking Status: Never Smoker Frequency of Alcohol Use: None Hx Recreational Drug Use: No Drugs: None Hx Prescription Drug Abuse: No - Advance Directive Resuscitation Status: Full Code Family History Parental Family History Reviewed: Yes - Negative for ESRD. Children Family History Reviewed: Yes Sibling(s) Family History Reviewed.: No - Negative CKD Medication/Allergy Home Medications: Aspirin [Ecotrin 81 mg EC Tablet] 81 mg PO DAILY 02/01/17 Bosentan [Tracleer 125 mg Tablet] 125 mg PO Q12 02/01/17 Bumetanide [Bumex 1 mg Tablet] 3 mg PO QPM 02/01/17 Bumetanide [Bumex 1 mg Tablet] 4 mg PO QAM 02/01/17 Duloxetine HCl [Cymbalta] 60 mg PO DAILY 02/01/17 Febuxostat [Uloric 40 mg Tablet] 40 mg PO DAILY 02/01/17 Gabapentin [Neurontin] 600 mg PO Q8 02/01/17 Hydralazine HCl [Apresoline 50 mg Tablet] 50 mg PO Q8 02/01/17 Insulin Aspart [Novolog Insulin (Aspart) 100 unit/mL] 0 units SQ .SLDING SCALE MEALS 02/01/17 Insulin Degludec [Tresiba Flextouch U-100] 70 units SQ DAILY 02/01/17 Leflunomide [Arava] 10 mg PO DAILY 02/01/17 Metolazone [Zaroxolyn 5 mg Tablet] 5 mg PO BID 02/01/17 Morphine Sulfate/Naltrexone [Embeda ER 20-0.8 mg Capsule] 1 cap PO Q12 02/01/17 Nebivolol HCl [Bystolic] 10 mg PO Q12 02/01/17 Omeprazole 40 mg PO BIDBS 02/01/17 Oxycodone HCl [Oxycodone HCl 10 MG Tablet] 10 mg PO Q6HP PRN 02/01/17 Pentoxifylline [Trental 400 mg Tablet.sa] 400 mg PO Q8 02/01/17 Simvastatin [Zocor 20 mg Tablet] 20 mg PO QHS 02/01/17 Spironolactone [Aldactone 25 mg Tablet] 25 mg PO DAILY 02/01/17 Tofacitinib Citrate [Xeljanz] 5 mg PO Q12 02/01/17 Valsartan [Diovan] 320 mg PO DAILY 02/01/17 Allergies/Adverse Reactions: clarithromycin [From Biaxin] Allergy (Mild, Verified 11/13/16 13:43) RASH moxifloxacin HCl [From Avelox] Allergy (Mild, Verified 11/13/16 13:43) Fever Review of Systems Review of Systems: Constitutional: PRESENT: as per HPI. ABSENT: chills, fever(s), headache(s), weight gain, weight loss Eyes: ABSENT: visual disturbances Ears: ABSENT: hearing changes Cardiovascular: ABSENT: chest pain, , edema, orthropnea, palpitations Respiratory: ABSENT: hemoptysis Gastrointestinal: ABSENT: abdominal pain, constipation, diarrhea, hematemesis, hematochezia, nausea, vomiting Genitourinary: ABSENT: dysuria, hematuria Musculoskeletal: ABSENT: joint swelling Integumentary: ABSENT: rash, wounds Neurological: ABSENT: abnormal gait, abnormal speech, confusion, dizziness, focal weakness, syncope Psychiatric: ABSENT: homicidal ideation, suicidal ideation Endocrine: ABSENT: cold intolerance, heat intolerance, , polydipsia, polyuria Hematologic/Lymphatic: ABSENT: easy bleeding, easy bruising, lymphadenopathy Physical Exam Vital Signs: Temp Pulse Resp BP Pulse Ox 99.6 F 70 18 126/31 H 97 02/02/17 07:24 02/02/17 07:24 02/02/17 08:00 02/02/17 07:24 02/02/17 08:00 Intake & Output 02/01/17 02/02/17 02/03/17 06:59 06:59 06:59 Intake Total 900 1851 Output Total 250 Balance 900 1601 Weight 87.6 kg 90.1 kg General appearance: PRESENT: mild distress Eye exam: PRESENT: conjunctiva pink, EOMI, nystagmus, PERRLA Ear exam: PRESENT: normal external ear exam. ABSENT: bleeding Mouth exam: PRESENT: moist, neck supple Neck exam: ABSENT: lymphadenopathy, meningismus, tenderness, thyromegaly, tracheal deviation Respiratory exam: PRESENT: clear to auscultation refugio, crackles. ABSENT: rhonchi Cardiovascular exam: PRESENT: +S1, +S2, systolic murmur GI/Abdominal exam: PRESENT: normal bowel sounds, soft. ABSENT: organomegaly, renal bruit, tenderness Extremities exam: PRESENT: pedal edema Neurological exam: PRESENT: altered, awake, oriented to person. ABSENT: oriented to place, oriented to time Psychiatric exam: PRESENT: anxious Skin exam: ABSENT: erythema, mottled, rash Results Laboratory Results: 02/02/17 03:43 02/02/17 03:43 02/02/17 02/02/17 02/02/17 03:43 03:43 08:30 WBC 7.3 RBC 2.61 L Hgb 7.1 L Hct 22.4 L MCV 86 MCH 27.2 MCHC 31.8 L RDW 16.1 H Plt Count 183 Seg Neutrophils % 76.7 Lymphocytes % 5.5 L Monocytes % 14.3 H Eosinophils % 3.1 Basophils % 0.4 Absolute Neutrophils 5.6 Absolute Lymphocytes 0.4 L Absolute Monocytes 1.0 Absolute Eosinophils 0.2 Absolute Basophils 0.0 Carbonic Acid 1.65 H HCO3/H2CO3 Ratio 18:1 ABG pH 7.36 ABG pCO2 54.9 H ABG pO2 97.2 ABG HCO3 30.1 H ABG O2 Saturation 97.0 ABG Base Excess 4.1 FiO2 30% Sodium 135.8 L Potassium 4.8 Chloride 96 L Carbon Dioxide 27 Anion Gap 13 BUN 130 H Creatinine 3.64 H Est GFR ( Amer) 15 L Est GFR (Non-Af Amer) 12 L Glucose 205 H Calcium 8.2 L Magnesium Iron Vitamin B12 TSH Free T4 Free T3 pg/mL Urine Color Urine Appearance Urine pH Ur Specific [place] Urine Protein Urine Glucose (UA) Urine Ketones Urine Blood Urine Nitrite Ur Leukocyte Esterase Urine WBC (Auto) Urine RBC (Auto) Blood Type Antibody Screen 02/02/17 02/02/17 02/02/17 09:37 09:37 09:37 WBC RBC Hgb Hct MCV MCH MCHC RDW Plt Count Seg Neutrophils % Lymphocytes % Monocytes % Eosinophils % Basophils % Absolute Neutrophils Absolute Lymphocytes Absolute Monocytes Absolute Eosinophils Absolute Basophils Carbonic Acid HCO3/H2CO3 Ratio ABG pH ABG pCO2 ABG pO2 ABG HCO3 ABG O2 Saturation ABG Base Excess FiO2 Sodium Potassium Chloride Carbon Dioxide Anion Gap BUN Creatinine Est GFR ( Amer) Est GFR (Non-Af Amer) Glucose Calcium Magnesium 1.8 Iron 30.0 L Vitamin B12 449.0 TSH 1.08 Free T4 1.13 Free T3 pg/mL 2.40 L Urine Color Urine Appearance Urine pH Ur Specific [place] Urine Protein Urine Glucose (UA) Urine Ketones Urine Blood Urine Nitrite Ur Leukocyte Esterase Urine WBC (Auto) Urine RBC (Auto) Blood Type B POSITIVE Antibody Screen NEGATIVE 02/02/17 11:05 WBC RBC Hgb Hct MCV MCH MCHC RDW Plt Count Seg Neutrophils % Lymphocytes % Monocytes % Eosinophils % Basophils % Absolute Neutrophils Absolute Lymphocytes Absolute Monocytes Absolute Eosinophils Absolute Basophils Carbonic Acid HCO3/H2CO3 Ratio ABG pH ABG pCO2 ABG pO2 ABG HCO3 ABG O2 Saturation ABG Base Excess FiO2 Sodium Potassium Chloride Carbon Dioxide Anion Gap BUN Creatinine Est GFR ( Amer) Est GFR (Non-Af Amer) Glucose Calcium Magnesium Iron Vitamin B12 TSH Free T4 Free T3 pg/mL Urine Color YELLOW Urine Appearance CLOUDY Urine pH 5.0 Ur Specific [place] 1.013 Urine Protein NEGATIVE Urine Glucose (UA) NEGATIVE Urine Ketones NEGATIVE Urine Blood NEGATIVE Urine Nitrite NEGATIVE Ur Leukocyte Esterase LARGE H Urine WBC (Auto) 90 Urine RBC (Auto) 7 Blood Type Antibody Screen 02/01/17 02/02/17 05:08 03:43 Creatine Kinase 617 H 421 H Impressions: Chest X-Ray 01/31/17 21:18 IMPRESSION: No acute findings. Foot X-Ray 01/31/17 21:18 IMPRESSION: Nondisplaced comminuted intra-articular fracture of the distal portion of the proximal phalanx of the left 5th digit.No other fracture or dislocation. Assessment & Plan - Diagnosis (1) Chronic renal disease, stage IV Plan: Patient has had rather acute worsening of her CKD stage IV. Going through her old notes I note that the patient has had CKD stage IV with a baseline BUN/ creatinine being around 120/2.1.Associated with this she has had chronic anemia has been transfused. I do not see where she has been put on erythropoietin. Not seeing any evidences for GI bleed.At this point patient seems to have acute worsening of her CKD stage IV and is not uremic. She needs to be dialyzed. I went about the procedure on dialysis at length with the patient and her daughter who is at the bedside.Obviously the patient is not of proper mental status to understands the pros and cons and the complications of dialysis. However her daughter is and she is willing to proceed and is going to be the decision maker for her mother.We discussed the procedure including insertion of a temporary catheter and is associated complications of bleeding and infection. Dialysis procedure was explained to her including complications of hypertension, infection, hypertension leading to cardiac arrest in rare cases.They have consented to proceed. Will get Dr. Justin to place a catheter and dialyze in the morning. (2) Acute kidney injury Plan: Acute on chronic kidney disease stage IV. She is no uremic and needs to be dialyzed. She is showing clinical evidences of uremia and stage V CKD. (4) Rhabdomyolysis Is this a current diagnosis for this admission?: YesPlan: Unsure of the exact etiology of the moment. Monitor labs. (5) Acute renal failure Qualifiers: Acute renal failure type: unspecified Qualified Code(s): N17.9 - Acute kidney failure, unspecified (6) Anemia of chronic disease Plan: Do not see any evidences to indicate she is got active GI bleed. Hemoccult is pending. We will get iron studies and start on erythropoietin along with the hemodialysis. I discussed the pros and cons of erythropoietin during side effects of hypertension and CAD if hemoglobin is allowed to rise above 13. He also discussed reactivation of cancers. Patient's daughter willing to proceed. (7) Chronic diastolic CHF (congestive heart failure) Plan: Clinically stable. Patient has got bilateral mid sinus crackles which is more indicative of pulmonary fibrosis and heart failure. Chest x-ray is also negative for heart failure. (8) Diabetes Qualifiers: Diabetes mellitus type: type 2 Diabetes mellitus complication status: with hyperglycemia Diabetes mellitus emt intermediate insulin use: without alf use Qualified Code(s): E11.65 - Type 2 diabetes mellitus with hyperglycemia; Z79.4 - assisted (current) use of insulin Is this a current diagnosis for this admission?: YesPlan: Discussed on diet controlled in the face of advancing CKD. (10) IPF (idiopathic pulmonary fibrosis) Plan: Apparently this could be from her scleroderma/rheumatoid arthritis. Note this diagnosis from her previous notes. This could be a factor/etiology for her cor pulmonale. (12) Rheumatoid arthritis Qualifiers: Rheumatoid arthritis location: unspecified site Rheumatoid factor presence: unspecified presence Qualified Code(s): M06.9 - Rheumatoid arthritis, unspecified Plan: Presently quiescent (13) UTI (lower urinary tract infection) Plan: On antibiotics. Follow cultures.
--- NOTE | 2017-02-02 14:34 | PROGRESS NOTE E ---
Progress Note NAME: JOSIANE DILLON : 1950 AGE: 66Y DATE: 02/02/2017 ROOM: [facility] SUBJECTIVE: The patient is lying in bed. The patient has had a somewhat complicated morning. The patient's mental status decompensated compared to yesterday. The patient was also noted to have myoclonus-type symptoms. Blood gas was obtained and the patient's pCO2 was found to be 54.9, which was actually an improvement with an adequate PO2. The patient's chemistry does show an ever-increasing BUN and with an estimated GFR around 12. After much probing and investigation, it appears that the patient is actually followed by [facility] in [place] and records have been obtained and it appears that the patient's baseline creatinine is typically in the 2 range, according to her labs that were done just yesterday. The patient has no significant white count, no evidence of bandemia. No unilateral symptomatology and the patient has also been seen and evaluated by Pulmonology as well. I had a long discussion with the family and the patient regarding goals of care. At this time, the patient remains a full code. REVIEW OF SYSTEMS: A full review of systems cannot be appreciated due to the patient's delayed response. MEDICATIONS: Medications have been reviewed. OBJECTIVE: GENERAL: The patient is a 66-year-old female who is awake, alert. She is oriented to place and time, but not fully oriented to situation. She is a little delayed, does not appear to be in any acute distress at the moment. VITAL SIGNS: Temperature is 99.6, pulse 70, respirations 18, blood pressure is 126/31, oxygen saturation is 96% on BiPAP. SKIN: Warm and dry. No rash. She is not diaphoretic. HEENT: Conjunctivae pink. NECK: No JVD is to the level of the right clavicle. BiPAP is in place. CARDIOVASCULAR SYSTEM: Heart is regular. There is no murmur or rub. CHEST: The patient does have faint bilateral basal crackles, symmetrical. Not labored at this time. ABDOMEN: Firm, but nontender and nondistended. Bowel sounds are present. BACK: There is no sacral edema. EXTREMITIES: No clubbing, cyanosis, or edema. Warm extremities. PSYCHIATRIC: The patient is delayed at this time. DIAGNOSTIC DATA: Lab values are as follows: Hematology obtained on 02/02/2017: WBCs are 7.3, hemoglobin is 7.1, hematocrit is 22.4, platelet count is 183,000. ABG obtained on 02/02/2017 with pH of 7.36, pCO2 is 54.9, bicarb is 30, PO2 is 97. Chemistries obtained on 02/02/2017: Sodium is 135, potassium 4.8, chloride is 96, carbon dioxide 27, BUN 130, creatinine is 3.64, glucose 205, calcium is 8.2. A1c is 7.7. CK is 421. IMPRESSION AND PLAN: 1. ACUTE ON CHRONIC KIDNEY AT STAGE 3. THE PATIENT HAS HAD WORSENING. IT APPEARS HER BASELINE CREATININE IS THE 2 RANGE. THE PATIENT HAS HAD SIGNIFICANT DROP IN THIS. Do appreciate Dr. Garrido' input with this. The patient does fit profile for a uremic event. Therefore, he has spoken with Dr. James Justin, who has agreed to proceed with catheter placement for hemodialysis. The patient and family are agreeable to this plan. The patient's decline in renal function most likely is multifactorial, but not limited to her underlying chronic diseases of hypertension, diabetes, as well as possible autoimmune component, but her diuretic regimen at home that included heavy doses of metolazone, spironolactone, and Bumex. 2. ANEMIA, MOST LIKELY OF UNDERLYING CHRONIC KIDNEY DISEASE. THE PATIENT'S HEMOGLOBIN IS 8.3. However, she has been volume resuscitated and therefore, it is 7.1 this morning. She has required a blood transfusion in the past. Will obtain a guaiac and type and cross and give the patient 2 units. Will diuresis in between the units as well. 3. ACUTE ON CHRONIC HYPOXEMIC AND HYPERCAPNIC RESPIRATORY FAILURE. HYPERCAPNIA HAS APPEARED TO BE MUCH IMPROVED. HOWEVER, THE PATIENT STILL HAS SYMPTOMS OF THIS, WHICH COULD BE EXACERBATED BY UREMIA. Will continue BiPAP and follow. 4. GROUP B STREP URINARY TRACT INFECTION. Will repeat urine and urine culture and continue antibiotic therapy. However, will broaden the coverage given the patient's mental decompensation and will follow. 5. PULMONARY HYPERTENSION. Will continue the patient's home medications. I reviewed the patient's left-sided heart catheterization from [facility] and it appears that the patient has a good EF and appears to be mostly limited to just right-sided heart failure. 6. 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 The patient is followed by Dr. Hyatt in [place]. Will continue supportive therapies. 7. HYPERTENSION. The patient's blood pressure is in a good range. However, will hold blood pressure medications for now to allow some pressure to work with, with a new dialysis treatment. 8. DIABETES MELLITUS TYPE 2. A1C IS ELEVATED. Will continue sliding-scale coverage. Hold basal insulin given the patient is not intaking steadily. 9. CRACKLES. Will obtain a stat chest x-ray and follow. DISPOSITION: The patient is a FULL CODE. Pending the patient's symptomatology and diagnostic findings, will reevaluate in the a.m. TIME: Time spent on this followup including assessment, plan, physical examination, patient education, speciality collaboration, and meeting with the family is 60 minutes. DICTATING PHYSICIAN: BEATRIS GENAO NP [id number] PHY#: [id number] ID: [id number] JOB#: [id number] ACCT: [id number] cc: >
[2017-02-02] MEDS ORDERED: FLUCONAZOLE 100 MG TABLET PO ONE (15:00)
[2017-02-02] MEDS: GABAPENTIN 100 MG CAPSULE PO SCH ×2 (15:15→21:28)
[2017-02-02] MEDS: PIPERACILLIN SODIUM/TAZOBACTAM 2.25 GM in NORMAL SALINE 50 ML IV SCH ×2 (15:17→21:30)
--- NOTE | 2017-02-02 15:37 | RADIOLOGY REPORT (SQ) ---
EXAM DESCRIPTION: CHEST SINGLE VIEW COMPLETED DATE/TIME: 02/02/2017 3:22 pm REASON FOR STUDY: Hypoxia, dyspnea COMPARISON: 01/31/2017 NUMBER OF VIEWS: One view. TECHNIQUE: Single frontal radiographic image of the chest acquired. LIMITATIONS: None. FINDINGS: LUNGS AND PLEURA: Stable appearance. MEDIASTINUM AND HILAR STRUCTURES: Stable heart size and mediastinal structures. HEART AND VASCULAR STRUCTURES: Stable appearance. BONES: No acute findings. HARDWARE: Unchanged. OTHER: No other significant finding. IMPRESSION: STABLE APPEARANCE OF THE CHEST. TECHNICAL DOCUMENTATION: JOB ID: [id number] [employer]- All Rights Reserved
--- NOTE | 2017-02-02 18:55 | RADIOLOGY REPORT (SQ) ---
EXAM DESCRIPTION: CT HEAD WITHOUT COMPLETED DATE/TIME: 02/02/2017 6:41 pm REASON FOR STUDY: AMS COMPARISON: None. TECHNIQUE: Axial images acquired through the brain without intravenous contrast. Images reviewed wi th bone, brain and subdural windows. Images stored on PACS. All CT scanners at this facility use dose modulation, iterative reconstruction, and/or weight based d osing when appropriate to reduce radiation dose to as low as reasonably achievable (ALARA). [facility]: Dose Right [facility]: CareDose [facility]: Dose Right [facility]: Teradose 4D [facility]: Smart Green & Pleasant RADIATION DOSE: Up-to-date CT equipment and radiation dose reduction techniques were employed. CTDIv ol: 64.6 mGy. DLP: 1034 mGy-cm. mGy. LIMITATIONS: None. FINDINGS: VENTRICLES: Normal size and contour. CEREBRUM: No masses. No hemorrhage. No midline shift. Normal gonzalez/white matter differentiation. N o evidence for acute infarction. CEREBELLUM: No masses. No hemorrhage. No alteration of density. No evidence for acute infarction. EXTRAAXIAL SPACES: No fluid collections. No masses. ORBITS AND GLOBE: No intra- or extraconal masses. Normal contour of globe without masses. CALVARIUM: No fracture. PARANASAL SINUSES: There are small mucosal polyps or retention cyst in the maxillary antra. SOFT TISSUES: No mass or hematoma. OTHER: No other significant finding. IMPRESSION: No significant intracranial abnormalities were identified. Other findings as noted abov e TECHNICAL DOCUMENTATION: JOB ID: [id number] Quality ID # [id number]: Final reports with documentation of one or more dose reduction techniques (e.g., Au tomated exposure control, adjustment of the mA and/or kV according to patient size, use of iterative reconstruction technique) 2010 [employer]- All Rights Reserved
[2017-02-02] MEDS: INSULIN LISPRO 100 UNIT/ML 3 ML VIAL SUBCUT PRN (23:35)
[2017-02-03 00:14] LABS: HEMATOCRIT 26.7 % (36.0-47.0); HEMOGLOBIN 8.7 g/dL (12.0-15.5); HGB HCT DIFFERENCE -0.6; MEAN CORPUSCULAR HEMOGLOBIN 27.9 pg (27.0-33.4); MEAN CORPUSCULAR HGB CONC 32.5 g/dL (32.0-36.0); MEAN CORPUSCULAR VOLUME 86 fl (80-97); RED CELL DISTRIBUTION WIDTH 15.9 % (11.5-14.0); WHITE BLOOD COUNT 5.8 10^3/uL (4.0-10.5)
[2017-02-03 04:30] LABS: ABSOLUTE EOSINOPHILS # (AUTO) 0.2 10^3/uL (0.0-0.6); ABSOLUTE LYMPHOCYTES (AUTO) 0.4 10^3/uL (0.5-4.7); ABSOLUTE MONOCYTES (AUTO) 0.9 10^3/uL (0.1-1.4); ABSOLUTE NEUT (AUTO) 4.3 10^3/uL (1.7-8.2); BASOPHILS % (AUTO) 0.4 % (0-2); EOSINOPHILS % (AUTO) 3.2 % (0-6); HEMATOCRIT 26.8 % (36.0-47.0); HEMOGLOBIN 8.7 g/dL (12.0-15.5); HGB HCT DIFFERENCE -0.7; LYMPHOCYTES % (AUTO) 7.4 % (13-45); MEAN CORPUSCULAR HGB CONC 32.6 g/dL (32.0-36.0); MEAN CORPUSCULAR VOLUME 86 fl (80-97); MONOCYTES % (AUTO) 15.7 % (3-13); RED BLOOD COUNT 3.12 10^6/uL (3.72-5.28); RED CELL DISTRIBUTION WIDTH 15.9 % (11.5-14.0); SEGMENTED NEUTROPHILS % (AUTO) 73.3 % (42-78); WHITE BLOOD COUNT 5.9 10^3/uL (4.0-10.5)
[2017-02-03 04:54] LABS: ALANINE AMINOTRANSFERASE 30 U/L (9-52); ALKALINE PHOSPHATASE 90 U/L (38-126); ANION GAP 9 (5-19); ASPARTATE AMINO TRANSFERASE 32 U/L (14-36); BILIRUBIN,DIRECT 0.5 mg/dL (0.0-0.4); BILIRUBIN,TOTAL 0.6 mg/dL (0.2-1.3); CALCIUM 8.3 mg/dL (8.4-10.2); CARBON DIOXIDE 29 mmol/L (22-30); CHLORIDE 99 mmol/L (98-107); CREATINE KINASE 559 U/L (30-135); GLUCOSE 153 mg/dL (75-110); MAGNESIUM 1.9 mg/dL (1.6-2.3); POTASSIUM 4.2 mmol/L (3.6-5.0); SODIUM 137.4 mmol/L (137-145)
[2017-02-03] MEDS: PIPERACILLIN SODIUM/TAZOBACTAM 2.25 GM in NORMAL SALINE 50 ML IV SCH ×3 (05:25→21:13)
[2017-02-03] MEDS: PENTOXIFYLLINE 400 MG TABLET.SA PO SCH ×3 (05:26→21:14)
[2017-02-03 05:27] LABS: BLOOD UREA NITROGEN 134 mg/dL (7-20)
[2017-02-03] MEDS: HEPARIN SOD (PORCINE) 5,000 UNIT/ML 1 ML SYRINGE SUBCUT SCH ×3 (05:27→21:25)
[2017-02-03] MEDS: GABAPENTIN 100 MG CAPSULE PO SCH ×3 (05:27→21:12)
[2017-02-03] MEDS ORDERED: EPOETIN ALFA INJ 20000 UNIT/1 ML VIAL (RENAL) IV PRN (10:10)
[2017-02-03] MEDS ORDERED: HEPARIN SOD (PORCINE) 1,000 UNIT/ML 10 ML VIAL IV PRN (10:11)
[2017-02-03] MEDS ORDERED: TUBERCULIN,PURIF.PROT.DERIV. 5 TU/0.1 ML TEST 1 ML VIAL ID ONE (12:30)
[2017-02-03] MEDS: ASPIRIN 81 MG TABLET, ENT COATED PO SCH (12:39)
[2017-02-03] MEDS: DULOXETINE HCL 30 MG CAPSULE.DR PO SCH (12:40)
[2017-02-03] MEDS: NEBIVOLOL HCL 10 MG TABLET PO SCH ×2 (12:40→21:13)
[2017-02-03] MEDS: LEFLUNOMIDE 20 MG TABLET PO SCH (12:41)
[2017-02-03] MEDS: FEBUXOSTAT 40 MG TABLET PO SCH (12:41)
[2017-02-03] MEDS: TRACLEER 125 MG PO SCH ×2 (12:41→21:14)
[2017-02-03] MEDS: LANSOPRAZOLE 30 MG TAB.RAP.DR PO SCH ×2 (12:48→18:28)
[2017-02-03] MEDS: DOCUSATE SODIUM 100 MG CAPSULE PO SCH ×2 (12:48→18:29)
--- NOTE | 2017-02-03 13:28 | PROGRESS NOTE E ---
Progress Note NAME: JOSIANE DILLON : 1950 AGE: 66Y DATE: 02/03/2017 ROOM: 316 SUBJECTIVE: The patient is lying in bed. The patient was transferred to ICU given her symptoms of uremia, respiratory failure, and her need for emergent dialysis. The patient is still groggy, but is more easily arousable than yesterday. The patient has been oxygenating well. PCO2 has remained stable. The patient has been afebrile. Medications have been held. That way, the patient's blood pressures have been slightly elevated, and the patient is unable to voice any specific concerns at this time. REVIEW OF SYSTEMS: Full review of systems cannot be appreciated given the patient's mental status. MEDICATIONS: Medications have been reviewed. OBJECTIVE: GENERAL: The patient is a 66-year-old female who is groggy, but more awake and alert than yesterday. He does not appear to be in acute distress. VITAL SIGNS: Temperature is 97.8, pulse 67, respirations 13, blood pressure 132/55, oxygen saturation is 98% on BiPAP of 14/8 with 30% FiO2. SKIN: Warm, dry. No rash. She is not diaphoretic. HEENT: Pupils equal, round, and reactive to light and accommodation. Conjunctiva is pink. There is no JVP. CARDIOVASCULAR SYSTEM: Heart is regular. There is no murmur or rub. CHEST: Diminished, symmetrical, unlabored. ABDOMEN: Soft, nontender, nondistended. BACK: No CVA tenderness or sacral edema. EXTREMITIES: No clubbing, cyanosis, edema. PSYCHIATRIC: Somewhat delayed. DIAGNOSTICS: Lab values are as follows: Hematology obtained on 02/03/2017: WBCs are 5.9, hemoglobin is 8.7, hematocrit is 26.8, platelet count is 137,000. ABG obtained on 02/02/2017: PH is 7.36, PCO2 is 54.9, PO2 is 97.2, bicarb 30.1. Chemistry obtained on 02/03/2017: Sodium is 137, potassium 4.3, chloride is 99, carbon dioxide is 29, BUN 134, creatinine is 3.4, glucose 153, calcium is 8.3, magnesium is 1.9, bilirubin 0.6. AST 32, ALT is 30, Alk phos 90, CK 559. Total protein is 6.0, albumin 3.0. IMPRESSION AND PLAN: 1. MULTISYSTEM ORGAN FAILURE, INCLUDING HEART FAILURE, PULMONARY, RESPIRATORY, AND NOW RENAL FAILURE. Discussed code status with patient and family and elected to continue with FULL CODE STATUS. Have reviewed extensive medical records from [facility] and will continue with aggressive management. 2. ACUTE ON CHRONIC HYPOXEMIC AND HYPERCAPNIC RESPIRATORY FAILURE. Hypercapnia has much improved. Will continue BiPAP for now. 3. GROUP B STREP URINARY TRACT INFECTION. Will continue antibiotic therapy and awaiting a repeat culture. 4. SCLERODERMA AND RHEUMATOID ARTHRITIS WITH SUBSEQUENT PULMONARY FIBROSIS AND PULMONARY HYPERTENSION. Will continue the patient's home medications. It appears that the patient has not had a sleep study in some time. This can be followed up on outpatient basis. 5. HYPERTENSION. Blood pressure has been in a good range, but medications have been held to allow to some pressure to work with dialysis. 6. DIABETES MELLITUS TYPE 2. Will continue sliding scale coverage, but hold basal insulin until patient is intaking steadily. 7. ACUTE ON CHRONIC STAGE 3 CHRONIC KIDNEY DISEASE. MOST LIKELY THIS HAS WORSENED TO STAGE 5. The patient is being dialyzed today. Feel she is in a uremic state. Hopefully, the patient's cognition will improve with dialysis. Do appreciate Dr. Garrido' input with this. Feel this most likely is a component of hypertension, diabetes, underlying autoimmune process, as well as heavy doses of metolazone, Bumex, and spironolactone. 8. ANEMIA, MOST LIKELY OF UNDERLYING CHRONIC KIDNEY DISEASE. Hemoglobin is relatively stable. She is not currently on Epogen. Will continue to monitor hemoglobin and follow. DISPOSITION: The patient is a FULL CODE. Pending patient's symptomatology and diagnostic findings, will re-evaluate this afternoon. Time spent on this critical care visit, including assessment, plan, physical examination, patient education, specialty collaboration, and review of extensive records is 45 minutes. DICTATING PHYSICIAN: BEATRIS EGNAO NP [id number] PHY#: [id number] ID: [id number] JOB#: [id number] ACCT: [id number] cc: >
[2017-02-03 13:59] LABS: VENOUS BLOOD BASE EXCESS 1.6 mmol/L; VENOUS BLOOD HCO3 27.7 mmol/L (20-32); VENOUS BLOOD PCO2 51.3 mmHg (35-63); VENOUS BLOOD PH 7.35 (7.30-7.42)
--- NOTE | 2017-02-03 16:02 | PDOC PROGRESS REPORT ---
Subjective Progress Note for:: 02/03/17 Subjective:: Patient has had a right femoral catheter temporary placed by Dr. Justin. Patient seen on dialysis. She is undergoing dialysis without any issues. She is got a BiPAP on. She denies any history of chest pains fever chills. No history of any pains anywhere. Orders were discussed with the treating nurse. Physical Exam Vital Signs: Temp Pulse Resp BP Pulse Ox 97.8 F 67 20 142/55 H 100 02/03/17 07:43 02/03/17 07:43 02/03/17 12:00 02/03/17 07:43 02/03/17 12:00 Intake & Output 02/02/17 02/03/17 02/04/17 06:59 06:59 06:59 Intake Total 1851 2138 Output Total 250 1000 500 Balance 1601 1138 -500 Weight 90.1 kg 92.7 kg General appearance: PRESENT: no acute distress Respiratory exam: PRESENT: clear to auscultation refugio, crackles. ABSENT: rhonchi Cardiovascular exam: PRESENT: +S1, +S2, systolic murmur GI/Abdominal exam: PRESENT: normal bowel sounds, soft. ABSENT: organomegaly, renal bruit, tenderness Extremities exam: PRESENT: pedal edema - Trace plus Neurological exam: PRESENT: altered - Also seen to have asterixis/intermittent myoclonic jerks., awake, oriented to person Skin exam: ABSENT: erythema, mottled, rash Results Laboratory Results: 02/03/17 03:53 02/03/17 03:53 02/02/17 02/03/17 02/03/17 09:37 00:05 03:53 WBC 5.8 5.9 RBC 3.10 L 3.12 L Hgb 8.7 L 8.7 L Hct 26.7 L 26.8 L MCV 86 86 MCH 27.9 28.0 MCHC 32.5 32.6 RDW 15.9 H 15.9 H Plt Count 138 L 137 L Seg Neutrophils % 73.3 Lymphocytes % 7.4 L Monocytes % 15.7 H Eosinophils % 3.2 Basophils % 0.4 Absolute Neutrophils 4.3 Absolute Lymphocytes 0.4 L Absolute Monocytes 0.9 Absolute Eosinophils 0.2 Absolute Basophils 0.0 VBG pH VBG pCO2 VBG HCO3 VBG Base Excess Sodium Potassium Chloride Carbon Dioxide Anion Gap BUN Creatinine Est GFR ( Amer) Est GFR (Non-Af Amer) Glucose Calcium Magnesium Total Bilirubin AST ALT Alkaline Phosphatase Total Protein Albumin Blood Type B POSITIVE Antibody Screen NEGATIVE 02/03/17 02/03/17 03:53 13:39 WBC RBC Hgb Hct MCV MCH MCHC RDW Plt Count Seg Neutrophils % Lymphocytes % Monocytes % Eosinophils % Basophils % Absolute Neutrophils Absolute Lymphocytes Absolute Monocytes Absolute Eosinophils Absolute Basophils VBG pH 7.35 VBG pCO2 51.3 VBG HCO3 27.7 VBG Base Excess 1.6 Sodium 137.4 Potassium 4.2 Chloride 99 Carbon Dioxide 29 Anion Gap 9 BUN 134 H Creatinine 3.40 H Est GFR ( Amer) 16 L Est GFR (Non-Af Amer) 14 L Glucose 153 H Calcium 8.3 L Magnesium 1.9 Total Bilirubin 0.6 AST 32 ALT 30 Alkaline Phosphatase 90 Total Protein 6.0 L Albumin 3.0 L Blood Type Antibody Screen 02/01/17 02/02/17 02/03/17 05:08 03:43 03:53 Creatine Kinase 617 H 421 H 559 H Impressions: Foot X-Ray 01/31/17 21:18 IMPRESSION: Nondisplaced comminuted intra-articular fracture of the distal portion of the proximal phalanx of the left 5th digit.No other fracture or dislocation. Chest X-Ray 02/02/17 00:00 IMPRESSION: STABLE APPEARANCE OF THE CHEST. Head CT 02/02/17 00:00 IMPRESSION: No significant intracranial abnormalities were identified. Other findings as noted above Assessment & Plan - Diagnosis (1) Chronic renal disease, stage IV Plan: Most likely secondary to diabetes mellitus with additional insults from hypertension, scleroderma. She is being initiated on hemodialysis now.She is undergoing dialysis without any issues. Orders were discussed with the treating nurse. We will try to remove about 500 cc of fluid. Hopefully she will respond within the next 2-3 treatments. (2) Acute kidney injury Plan: Patient is has acute on chronic kidney disease stage IV going into likely ESRD. Initiating on hemodialysis through a temporary right femoral catheter. Patient seems to be a bit more awake however she is got evidence of uremia. We will initiate gentle dialysis with 250/61465 hours and a UF of 500 cc. Orders were discussed with the treating nurse. (3) Respiratory acidosis Plan: Likely from underlying part of possible sleep apnea. She needs to have sleep studies done. She has responded partially to being on the BiPAP. (4) Rhabdomyolysis Is this a current diagnosis for this admission?: YesPlan: Monitor (5) Acute renal failure Qualifiers: Acute renal failure type: unspecified Qualified Code(s): N17.9 - Acute kidney failure, unspecified (7) Chronic diastolic CHF (congestive heart failure) Plan: Patient has got cor pulmonale as seen by last echocardiogram. Most likely from her underlying lung disease / Pulmonary fibrosis from likely scleroderma . She needs to be on BiPAP especially if she is proved to be positive first for sleep apnea for which she needs to be having a study as an outpatient (8) Diabetes Qualifiers: Diabetes mellitus type: type 2 Diabetes mellitus complication status: with hyperglycemia Diabetes mellitus skilled nursing insulin use: without dining room server use Qualified Code(s): E11.65 - Type 2 diabetes mellitus with hyperglycemia; Z79.4 - half-way (current) use of insulin Is this a current diagnosis for this admission?: Yes (10) IPF (idiopathic pulmonary fibrosis) Plan: Apparently this could be from her scleroderma/rheumatoid arthritis. Note this diagnosis from her previous notes. This could be a factor/etiology for her cor pulmonale. (11) Pulmonary hypertension Plan: /Call from analysis from underlying lung disease. This along with possible sleep apnea could be the etiology for her CO2 narcosis and would benefit much from having CPAP. (12) Rheumatoid arthritis Qualifiers: Rheumatoid arthritis location: unspecified site Rheumatoid factor presence: unspecified presence Qualified Code(s): M06.9 - Rheumatoid arthritis, unspecified (13) UTI (lower urinary tract infection) Plan: On antibiotics. Follow cultures.
[2017-02-03] MEDS: INSULIN LISPRO 100 UNIT/ML 3 ML VIAL SUBCUT PRN ×2 (18:27→22:50)
--- NOTE | 2017-02-03 18:46 | PDOC PROGRESS REPORT ---
Subjective Progress Note for:: 02/03/17 Subjective:: Awake more lucid Physical Exam Vital Signs: Temp Pulse Resp BP Pulse Ox 98.8 F 71 17 147/50 H 97 02/03/17 14:39 02/03/17 14:39 02/03/17 14:39 02/03/17 14:39 02/03/17 14:39 Intake & Output 02/02/17 02/03/17 02/04/17 06:59 06:59 06:59 Intake Total 1851 2138 Output Total 250 1000 500 Balance 1601 1138 -500 Weight 90.1 kg 92.7 kg General appearance: PRESENT: no acute distress, cooperative, disheveled, obese, well-developed Head exam: PRESENT: atraumatic, normocephalic Eye exam: PRESENT: conjunctiva pale, EOMI Mouth exam: PRESENT: dry mucosa, neck supple, tongue midline Neck exam: ABSENT: carotid bruit, JVD, lymphadenopathy, thyromegaly Respiratory exam: PRESENT: decreased breath sounds, prolonged expiratory phas, rhonchi, unlabored Cardiovascular exam: PRESENT: RRR, +S1, +S2 Pulses: PRESENT: normal radial pulses GI/Abdominal exam: PRESENT: normal bowel sounds, soft. ABSENT: distended, guarding, mass, organolmegaly, rebound, tenderness Rectal exam: PRESENT: deferred Gentrourinary exam: PRESENT: indwelling catheter Musculoskeletal exam: PRESENT: normal inspection Neurological exam: PRESENT: alert, awake Psychiatric exam: PRESENT: flat affect Skin exam: PRESENT: dry, warm Results Laboratory Results: 02/03/17 03:53 02/03/17 03:53 02/02/17 02/03/17 02/03/17 09:37 00:05 03:53 WBC 5.8 5.9 RBC 3.10 L 3.12 L Hgb 8.7 L 8.7 L Hct 26.7 L 26.8 L MCV 86 86 MCH 27.9 28.0 MCHC 32.5 32.6 RDW 15.9 H 15.9 H Plt Count 138 L 137 L Seg Neutrophils % 73.3 Lymphocytes % 7.4 L Monocytes % 15.7 H Eosinophils % 3.2 Basophils % 0.4 Absolute Neutrophils 4.3 Absolute Lymphocytes 0.4 L Absolute Monocytes 0.9 Absolute Eosinophils 0.2 Absolute Basophils 0.0 VBG pH VBG pCO2 VBG HCO3 VBG Base Excess Sodium Potassium Chloride Carbon Dioxide Anion Gap BUN Creatinine Est GFR ( Amer) Est GFR (Non-Af Amer) Glucose Calcium Magnesium Total Bilirubin AST ALT Alkaline Phosphatase Total Protein Albumin Stool Occult Blood Blood Type B POSITIVE Antibody Screen NEGATIVE 02/03/17 02/03/17 02/03/17 03:53 13:39 16:35 WBC RBC Hgb Hct MCV MCH MCHC RDW Plt Count Seg Neutrophils % Lymphocytes % Monocytes % Eosinophils % Basophils % Absolute Neutrophils Absolute Lymphocytes Absolute Monocytes Absolute Eosinophils Absolute Basophils VBG pH 7.35 VBG pCO2 51.3 VBG HCO3 27.7 VBG Base Excess 1.6 Sodium 137.4 Potassium 4.2 Chloride 99 Carbon Dioxide 29 Anion Gap 9 BUN 134 H Creatinine 3.40 H Est GFR ( Amer) 16 L Est GFR (Non-Af Amer) 14 L Glucose 153 H Calcium 8.3 L Magnesium 1.9 Total Bilirubin 0.6 AST 32 ALT 30 Alkaline Phosphatase 90 Total Protein 6.0 L Albumin 3.0 L Stool Occult Blood NEGATIVE Blood Type Antibody Screen 02/01/17 02/02/17 02/03/17 05:08 03:43 03:53 Creatine Kinase 617 H 421 H 559 H Impressions: Foot X-Ray 01/31/17 21:18 IMPRESSION: Nondisplaced comminuted intra-articular fracture of the distal portion of the proximal phalanx of the left 5th digit.No other fracture or dislocation. Chest X-Ray 02/02/17 00:00 IMPRESSION: STABLE APPEARANCE OF THE CHEST. Head CT 02/02/17 00:00 IMPRESSION: No significant intracranial abnormalities were identified. Other findings as noted above Assessment & Plan - Diagnosis (1) [id number]-[id number] kidney injury Qualifiers: Acute renal failure type: unspecified Chronic kidney disease stage: unspecified stage Qualified Code(s): N17.9 - Acute kidney failure, unspecified; N18.9 - Chronic kidney disease, unspecified Is this a current diagnosis for this admission?: YesPlan: Currently in ICU on hemodialysis as well as BiPAP much more lucid over the last 24 hours (2) Hypoventilation Is this a current diagnosis for this admission?: YesPlan: Continue noninvasive positive pressure ventilation (3) Narcotic overdose Qualifiers: Encounter type: initial encounter Injury intent: accidental or unintentional Qualified Code(s): T40.601A - Poisoning by unspecified narcotics, accidental (unintentional), initial encounter Is this a current diagnosis for this admission?: Yes (4) Diabetes Qualifiers: Diabetes mellitus type: type 2 Diabetes mellitus complication status: with hyperglycemia Diabetes mellitus truck terminal manager insulin use: without truck terminal manager use Qualified Code(s): E11.65 - Type 2 diabetes mellitus with hyperglycemia; Z79.4 - predatory animal exterminator (current) use of insulin Is this a current diagnosis for this admission?: Yes
[2017-02-03] MEDS: PROMETHAZINE HCL 25 MG TABLET PO PRN (22:52)
[2017-02-04 05:14] LABS: HEMATOCRIT 30.6 % (36.0-47.0); HEMOGLOBIN 9.9 g/dL (12.0-15.5); HGB HCT DIFFERENCE -0.9; MEAN CORPUSCULAR HEMOGLOBIN 27.9 pg (27.0-33.4); MEAN CORPUSCULAR HGB CONC 32.5 g/dL (32.0-36.0); MEAN CORPUSCULAR VOLUME 86 fl (80-97); RED BLOOD COUNT 3.55 10^6/uL (3.72-5.28); RED CELL DISTRIBUTION WIDTH 16.6 % (11.5-14.0); WHITE BLOOD COUNT 8.7 10^3/uL (4.0-10.5)
[2017-02-04] MEDS: GABAPENTIN 100 MG CAPSULE PO SCH ×3 (05:27→21:06)
[2017-02-04] MEDS: PENTOXIFYLLINE 400 MG TABLET.SA PO SCH ×3 (05:28→21:09)
[2017-02-04] MEDS: HEPARIN SOD (PORCINE) 5,000 UNIT/ML 1 ML SYRINGE SUBCUT SCH ×3 (05:28→21:06)
[2017-02-04] MEDS: PIPERACILLIN SODIUM/TAZOBACTAM 2.25 GM in NORMAL SALINE 50 ML IV SCH (05:30)
[2017-02-04 05:36] LABS: BAND NEUTROPHILS % (MANUAL) 3 % (3-5); BASOPHILS % (MANUAL) 0 % (0-2); EOSINOPHILS % (MANUAL) 1 % (0-6); LYMPHOCYTES % (MANUAL) 4 % (13-45); TOTAL CELLS COUNTED 100
[2017-02-04 05:39] LABS: ANISOCYTOSIS 1+; OVALOCYTES SLIGHT; POIKILOCYTOSIS SLIGHT; POLYCHROMASIA SLIGHT; TARGET CELLS SLIGHT
[2017-02-04] MEDS: LANSOPRAZOLE 30 MG TAB.RAP.DR PO SCH ×2 (08:30→17:00)
--- NOTE | 2017-02-04 09:18 | PDOC PROGRESS REPORT ---
Subjective Progress Note for:: 02/04/17 Subjective:: Seen today. She had periods of respiratory decompensation last night that required her to be put on CPAP and did well after that. Today she is wake and quite responsive. She denies any history of chest pains fever chills. No history of any pains anywhere. Plan next HD in AM. Daughter at bedside had many questions regarding dialysis and they were answered. Physical Exam Vital Signs: Temp Pulse Resp BP Pulse Ox 98.0 F 69 18 148/78 H 94 02/04/17 04:11 02/04/17 04:11 02/04/17 04:26 02/04/17 04:11 02/04/17 04:26 Intake & Output 02/03/17 02/04/17 02/05/17 06:59 06:59 06:59 Intake Total 2138 1420 Output Total 1000 2800 Balance 1138 -1380 Weight 92.7 kg 92.5 kg General appearance: PRESENT: no acute distress Respiratory exam: PRESENT: clear to auscultation refugio, crackles. ABSENT: rhonchi Cardiovascular exam: PRESENT: +S1, +S2, systolic murmur GI/Abdominal exam: PRESENT: normal bowel sounds, soft. ABSENT: organomegaly, renal bruit, tenderness Extremities exam: ABSENT: pedal edema Neurological exam: PRESENT: awake, oriented to person, oriented to place, other - No asterixis seen today. Skin exam: ABSENT: erythema, mottled, rash Results Laboratory Results: 02/04/17 04:40 02/03/17 03:53 02/03/17 02/03/17 02/04/17 13:39 16:35 04:40 WBC 8.7 RBC 3.55 L Hgb 9.9 L Hct 30.6 L MCV 86 MCH 27.9 MCHC 32.5 RDW 16.6 H Plt Count 191 Seg Neutrophils % Not Reportable Lymphocytes % Not Reportable Monocytes % Not Reportable Eosinophils % Not Reportable Basophils % Not Reportable Absolute Neutrophils Not Reportable Absolute Lymphocytes Not Reportable Absolute Monocytes Not Reportable Absolute Eosinophils Not Reportable Absolute Basophils Not Reportable VBG pH 7.35 VBG pCO2 51.3 VBG HCO3 27.7 VBG Base Excess 1.6 Stool Occult Blood NEGATIVE 02/01/17 02/02/17 02/03/17 05:08 03:43 03:53 Creatine Kinase 617 H 421 H 559 H Impressions: Foot X-Ray 01/31/17 21:18 IMPRESSION: Nondisplaced comminuted intra-articular fracture of the distal portion of the proximal phalanx of the left 5th digit.No other fracture or dislocation. Chest X-Ray 02/02/17 00:00 IMPRESSION: STABLE APPEARANCE OF THE CHEST. Head CT 02/02/17 00:00 IMPRESSION: No significant intracranial abnormalities were identified. Other findings as noted above Assessment & Plan - Diagnosis (1) Chronic renal disease, stage IV Plan: Secondary to diabetes mellitus with additional insults from hypertension, scleroderma. She has been initiated on hemodialysis now. (2) Acute kidney injury Plan: Patient is has acute on chronic kidney disease stage IV going into likely ESRD. Initiated yesterday on hemodialysis through a temporary right femoral catheter and did well. Patient is more awake and she has no more asterixis.Plan next HD in AM. (3) Respiratory acidosis Plan: Likely from underlying Interstitial lung disease and possible sleep apnea. She needs to have sleep studies done. She has responded partially to being on the BiPAP. (4) Rhabdomyolysis Is this a current diagnosis for this admission?: Yes (5) Acute renal failure Qualifiers: Acute renal failure type: unspecified Qualified Code(s): N17.9 - Acute kidney failure, unspecified (6) Anemia of chronic disease Plan: Started on EPO. 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 Note this diagnosis from her previous notes. This could be a factor/etiology for her cor pulmonale. (12) Rheumatoid arthritis Qualifiers: Rheumatoid arthritis location: unspecified site Rheumatoid factor presence: unspecified presence Qualified Code(s): M06.9 - Rheumatoid arthritis, unspecified (13) UTI (lower urinary tract infection) Plan: On antibiotics. Follow cultures.
[2017-02-04 09:32] LABS: ANION GAP 12 (5-19); BLOOD UREA NITROGEN 81 mg/dL (7-20); CALCIUM 9.1 mg/dL (8.4-10.2); CARBON DIOXIDE 29 mmol/L (22-30); CHLORIDE 102 mmol/L (98-107); CREATININE RESULT 1.76 mg/dL (0.52-1.25); GLUCOSE 228 mg/dL (75-110); POTASSIUM 4.5 mmol/L (3.6-5.0)
[2017-02-04] MEDS: DULOXETINE HCL 30 MG CAPSULE.DR PO SCH (10:32)
[2017-02-04] MEDS: TRACLEER 125 MG PO SCH ×2 (10:33→21:11)
[2017-02-04] MEDS: LEFLUNOMIDE 20 MG TABLET PO SCH (10:34)
[2017-02-04] MEDS: FEBUXOSTAT 40 MG TABLET PO SCH (10:35)
[2017-02-04] MEDS: DOCUSATE SODIUM 100 MG CAPSULE PO SCH ×2 (10:36→17:00)
[2017-02-04] MEDS: NEBIVOLOL HCL 10 MG TABLET PO SCH ×2 (10:36→21:10)
[2017-02-04] MEDS: ASPIRIN 81 MG TABLET, ENT COATED PO SCH (10:36)
--- NOTE | 2017-02-04 11:18 | PROGRESS NOTE E ---
Progress Note NAME: JOSIANE DILLON : 1950 AGE: 66Y DATE: 02/04/2017 ROOM: 316 SUBJECTIVE: The patient is lying in bed. She states she feels a little better today. The patient stated she had some diarrhea overnight. The patient's blood gas yesterday was excellent. The patient did admit to some shortness of breath today and requested to be placed back on the BiPAP. The patient has been seen by both Nephrology and Pulmonology, and the patient does not voice any other concerns at this time. REVIEW OF SYSTEMS: The rest of the review of systems is negative. MEDICATIONS: Medications have been reviewed. OBJECTIVE: GENERAL: The patient is a 66-year-old female who is awake, alert, and oriented to person, place, time, and situation. She is verbal, conversational, does not appear to be in any acute distress. VITAL SIGNS: As follows: Temperature is 98.0, pulse 72, respirations 20, blood pressure 161/55, oxygen saturation is 95% on BiPAP. INTEGUMENTARY: Skin is warm and dry. No rash, not diaphoretic. HEENT: Pupils equal, round and reactive to light and accommodation. Conjunctiva is pink. There is no JVP. CARDIOVASCULAR: Heart is regular with no murmur or rub. CHEST: Clear, symmetrical, unlabored, but diminished. ABDOMEN: Soft, nontender, nondistended. BACK: No CVA tenderness or sacral edema. EXTREMITIES: No clubbing, cyanosis, edema. PSYCHIATRIC: Flat affect, depressed mood. DIAGNOSTICS: Lab values are as follows. Hematology obtained on 02/04/2017: WBCs are 8.7, hemoglobin is 9.9, hematocrit is 30.6, platelet count is 191,000. Chemistry obtained on 02/04/2017: Sodium is 143, potassium 4.5, chloride is 102, carbon dioxide 29, BUN 18, creatinine is 1.76, glucose 228, calcium is 9.1. Microbiology: Blood cultures obtained on 02/02/2017 revealed no growth. Urine culture obtained on 01/31/2017 reveals group B beta strep. IMPRESSION AND PLAN: 1. MULTISYSTEM ORGAN FAILURE, INCLUDING HEART, PULMONARY, AND NOW RENAL FAILURE. Discussed code status with the patient and the family. She has elected to continue FULL CODE STATUS. 2. ACUTE ON CHRONIC HYPOXEMIC, HYPERCAPNIC RESPIRATORY FAILURE. Hypercapnia overall has improved. Spoke with Pulmonology today. Will discontinue BiPAP, transition to nasal cannula, and obtain blood gas on cannula and follow. 3. GROUP B STREP URINARY TRACT INFECTION. Continue antibiotic therapy and await repeat culture. Will discontinue Chavez. 4. SCLERODERMA AND RHEUMATOID ARTHRITIS WITH SUBSEQUENT PULMONARY FIBROSIS AND HYPERTENSION. Continue home medications. The patient can be followed as an outpatient basis. 5. HYPERTENSION. Blood pressure has been in a good range. Will continue current medication. 6. DIABETES MELLITUS, TYPE 2. Will continue sliding-scale coverage. Will hold basal insulin until the patient is intaking steadily. 7. ACUTE ON CHRONIC STAGE III KIDNEY DISEASE; IT APPEARS THAT THE PATIENT IS NOW STAGE V. Do appreciate Nephrology's input on this. Patient will be dialyzed again tomorrow. There also was a component of hypertension, diabetes, underlying autoimmune process as well as heavy doses of metolazone, Bumex and spironolactone. 8. ANEMIA, MOST LIKELY OF UNDERLYING CHRONIC DISEASE. Her hemoglobin is relatively stable. Will continue Epogen and hemoglobin and follow. DISPOSITION: THE PATIENT IS A FULL CODE. Pending the patient's symptomatology and diagnostic findings, will re-evaluate as needed. Time spent on this followup, including assessment/plan, physical examination, patient education, family meeting and multispecialty collaboration, is 40 minutes. DICTATING PHYSICIAN: BEATRIS GENAO NP [id number] PHY#: [id number] ID: [id number] JOB#: [id number] ACCT: [id number] cc: >
[2017-02-04] MEDS ORDERED: HEPARIN SOD (PORCINE) 1,000 UNIT/ML 10 ML VIAL ONE (11:21)
[2017-02-04] MEDS ORDERED: BACITRACIN INJ 50,000 UNIT VIAL ONE (11:22)
[2017-02-04] MEDS ORDERED: BUPIVACAINE HCL 0.25 % INJ/PF (2.5 MG/1 ML) 30 ML VIAL ONE (11:22)
[2017-02-04] MEDS ORDERED: LIDOCAINE 0.5% INJ-PF (5 MG/ML) 50 ML SDV ONE (11:22)
[2017-02-04] MEDS: PROMETHAZINE HCL 25 MG TABLET PO PRN (11:58)
[2017-02-04 12:49] LABS: ARTERIAL BLOOD BASE EXCESS 2.9 mmol/L; ARTERIAL BLOOD O2 SATURATION 93.4 % (94-98)
[2017-02-04] MEDS ORDERED: LORAZEPAM 0.5 MG TABLET PO ONE (14:00)
[2017-02-04] MEDS ORDERED: FENTANYL CITRATE INJ/PF 100 MCG/2 ML AMPUL ONE (16:13)
[2017-02-04] MEDS ORDERED: ONDANSETRON HCL INJ/PF 4 MG/2 ML SDV ONE (16:13)
[2017-02-04] MEDS ORDERED: MIDAZOLAM 2 MG/2 ML INJ ONE (16:13)
[2017-02-04] MEDS ORDERED: PROPOFOL INJ 200 MG/20 ML VIAL IV ONE (16:14)
[2017-02-04] MEDS: LACTOBACILLUS ACIDOPHILUS 250 MG TAB PO SCH (17:42)
[2017-02-04] MEDS: INSULIN LISPRO 100 UNIT/ML 3 ML VIAL SUBCUT PRN ×2 (17:48→22:28)
[2017-02-04 19:37] LABS: HEPATITIS C QUANTITATION HCV Not Detected IU/mL (.)
[2017-02-05] MEDS: PROMETHAZINE HCL 25 MG TABLET PO PRN (00:37)
[2017-02-05 05:00] LABS: MEAN CORPUSCULAR HEMOGLOBIN 27.5 pg (27.0-33.4); MEAN CORPUSCULAR HGB CONC 31.5 g/dL (32.0-36.0); MEAN CORPUSCULAR VOLUME 87 fl (80-97); RED CELL DISTRIBUTION WIDTH 16.6 % (11.5-14.0); WHITE BLOOD COUNT 12.4 10^3/uL (4.0-10.5)
[2017-02-05] MEDS ORDERED: EPOETIN ALFA INJ 20000 UNIT/1 ML VIAL (RENAL) IV PRN (05:00)
[2017-02-05] MEDS ORDERED: HEPARIN SOD (PORCINE) 1,000 UNIT/ML 10 ML VIAL IV PRN ×2 (05:00→16:00)
[2017-02-05] MEDS ORDERED: NORMAL SALINE 1000 ML 1,000 ML IV PRN (05:00)
[2017-02-05] MEDS: HEPARIN SOD (PORCINE) 5,000 UNIT/ML 1 ML SYRINGE SUBCUT SCH ×2 (05:10→14:31)
[2017-02-05] MEDS: GABAPENTIN 100 MG CAPSULE PO SCH (05:11)
[2017-02-05] MEDS: PENTOXIFYLLINE 400 MG TABLET.SA PO SCH ×2 (05:12→14:31)
[2017-02-05 05:22] LABS: ANION GAP 18 (5-19); BLOOD UREA NITROGEN 80 mg/dL (7-20); CALCIUM 9.5 mg/dL (8.4-10.2); CARBON DIOXIDE 24 mmol/L (22-30); CHLORIDE 104 mmol/L (98-107); CREATININE RESULT 1.49 mg/dL (0.52-1.25); GLUCOSE 304 mg/dL (75-110); POTASSIUM 4.3 mmol/L (3.6-5.0); SODIUM 145.5 mmol/L (137-145)
[2017-02-05 05:27] LABS: BAND NEUTROPHILS % (MANUAL) 3 % (3-5); BASOPHILS % (MANUAL) 0 % (0-2); EOSINOPHILS % (MANUAL) 0 % (0-6); LYMPHOCYTES % (MANUAL) 2 % (13-45); TOTAL CELLS COUNTED 100
[2017-02-05 05:30] LABS: ANISOCYTOSIS 1+; OVALOCYTES SLIGHT; POIKILOCYTOSIS SLIGHT; POLYCHROMASIA SLIGHT; TARGET CELLS SLIGHT; TEAR DROP CELLS SLIGHT; TOXIC GRANULATION SLIGHT
[2017-02-05] MEDS ORDERED: SUCCINYLCHOLINE CHLORIDE INJ 200 MG/10 ML VIAL ONE (07:58)
[2017-02-05] MEDS ORDERED: METHYLPREDNISOLONE INJ 40 MG/1 ML SDV IV ONE (08:18)
[2017-02-05] MEDS ORDERED: LEVALBUTEROL HCL NEB 0.63 MG/3 ML AMPUL NEB PRN (08:35)
[2017-02-05] MEDS ORDERED: VALACYCLOVIR HCL 500 MG TABLET PO SCH (10:00)
[2017-02-05] MEDS ORDERED: ONDANSETRON HCL INJ/PF 4 MG/2 ML SDV IV ONE (10:57)
[2017-02-05 11:04] LABS: ARTERIAL BLOOD BASE EXCESS -1.3 mmol/L; ARTERIAL BLOOD O2 SATURATION 91.1 % (94-98)
[2017-02-05] MEDS ORDERED: PHARMACY COMMUNICATION ORDER MC NR (11:15)
[2017-02-05] MEDS: DOCUSATE SODIUM 100 MG CAPSULE PO SCH ×2 (11:16→17:42)
[2017-02-05] MEDS: LACTOBACILLUS ACIDOPHILUS 250 MG TAB PO SCH (11:16)
[2017-02-05] MEDS: DULOXETINE HCL 30 MG CAPSULE.DR PO SCH (11:16)
[2017-02-05] MEDS: TRACLEER 125 MG PO SCH (11:16)
[2017-02-05] MEDS: ASPIRIN 81 MG TABLET, ENT COATED PO SCH (11:16)
[2017-02-05] MEDS: LANSOPRAZOLE 30 MG TAB.RAP.DR PO SCH (11:16)
[2017-02-05] MEDS: FEBUXOSTAT 40 MG TABLET PO SCH (11:16)
[2017-02-05] MEDS: LEFLUNOMIDE 20 MG TABLET PO SCH (11:16)
[2017-02-05] MEDS ORDERED: PROPOFOL 100 ML IV ONE (11:21)
[2017-02-05] MEDS ORDERED: VALACYCLOVIR HCL 500 MG TABLET PO ONE (11:30)
[2017-02-05] MEDS ORDERED: ACETAMINOPHEN 325 MG TABLET NG PRN (11:35)
[2017-02-05] MEDS ORDERED: DEXTROSE 40% GEL 15 GM TUBE NG PRN ×2 (11:36)
[2017-02-05] MEDS ORDERED: MAGNESIUM HYDROXIDE SUSP 30 ML UDCUP NG PRN (11:42)
[2017-02-05] MEDS ORDERED: OXYCODONE HCL IR 5 MG TABLET NG PRN (11:50)
[2017-02-05] MEDS ORDERED: METRONIDAZOLE 500 MG TABLET PO SCH (12:00)
[2017-02-05] MEDS ORDERED: DEXTROSE 5%-WATER 250 ML with NOREPINEPHRINE BITARTRATE 4 MG IV PRN ×2 (12:04)
[2017-02-05] MEDS ORDERED: NOREPINEPHRINE BITARTRATE INJ/PF 4 MG/4 ML SDV IV ONE (12:14)
[2017-02-05] MEDS: METRONIDAZOLE 500 MG/NS RTU 100 ML IV SCH ×2 (12:25→17:42)
--- NOTE | 2017-02-05 12:48 | PDOC PROGRESS REPORT ---
Subjective Progress Note for:: 02/04/17 Subjective:: Encountering patient in the ICU on hemodialysis currently on BiPAP much more alert Physical Exam Vital Signs: Temp Pulse Resp BP Pulse Ox 97.9 F 31 L 18 149/67 H 90 L 02/05/17 09:10 02/05/17 09:10 02/05/17 09:10 02/05/17 09:10 02/05/17 09:10 Intake & Output 02/04/17 02/05/17 02/06/17 06:59 06:59 06:59 Intake Total 1420 200 Output Total 2800 1250 Balance -1380 -1050 Weight 92.5 kg General appearance: PRESENT: no acute distress, cooperative, disheveled, obese, well-developed Head exam: PRESENT: atraumatic, normocephalic Eye exam: PRESENT: conjunctiva pale, EOMI Mouth exam: PRESENT: dry mucosa, neck supple, tongue midline Neck exam: ABSENT: carotid bruit, JVD, lymphadenopathy, thyromegaly Respiratory exam: PRESENT: decreased breath sounds, prolonged expiratory phas, rhonchi, unlabored Cardiovascular exam: PRESENT: RRR, +S1, +S2 Pulses: PRESENT: normal radial pulses GI/Abdominal exam: PRESENT: normal bowel sounds, soft. ABSENT: distended, guarding, mass, organolmegaly, rebound, tenderness Rectal exam: PRESENT: deferred Gentrourinary exam: PRESENT: indwelling catheter Musculoskeletal exam: PRESENT: normal inspection Neurological exam: PRESENT: alert, awake Psychiatric exam: PRESENT: normal mood Skin exam: PRESENT: dry, warm Results Laboratory Results: 02/05/17 04:13 02/05/17 04:13 02/04/17 02/05/17 02/05/17 12:28 04:13 04:13 WBC 12.4 H RBC 4.00 Hgb 11.0 L Hct 35.0 L MCV 87 MCH 27.5 MCHC 31.5 L RDW 16.6 H Plt Count 243 Seg Neutrophils % Not Reportable Lymphocytes % Not Reportable Monocytes % Not Reportable Eosinophils % Not Reportable Basophils % Not Reportable Absolute Neutrophils Not Reportable Absolute Lymphocytes Not Reportable Absolute Monocytes Not Reportable Absolute Eosinophils Not Reportable Absolute Basophils Not Reportable Carbonic Acid 1.50 H HCO3/H2CO3 Ratio 19:1 ABG pH 7.38 ABG pCO2 49.7 H ABG pO2 69.3 L ABG HCO3 28.7 H ABG O2 Saturation 93.4 L ABG Base Excess 2.9 FiO2 4.5L Sodium 145.5 H Potassium 4.3 Chloride 104 Carbon Dioxide 24 Anion Gap 18 BUN 80 H Creatinine 1.49 H Est GFR ( Amer) 42 L Est GFR (Non-Af Amer) 35 L Glucose 304 H Calcium 9.5 Magnesium 02/05/17 04:13 WBC RBC Hgb Hct MCV MCH MCHC RDW Plt Count Seg Neutrophils % Lymphocytes % Monocytes % Eosinophils % Basophils % Absolute Neutrophils Absolute Lymphocytes Absolute Monocytes Absolute Eosinophils Absolute Basophils Carbonic Acid HCO3/H2CO3 Ratio ABG pH ABG pCO2 ABG pO2 ABG HCO3 ABG O2 Saturation ABG Base Excess FiO2 Sodium Potassium Chloride Carbon Dioxide Anion Gap BUN Creatinine Est GFR ( Amer) Est GFR (Non-Af Amer) Glucose Calcium Magnesium 1.9 02/02/17 11:05 Clean Catch Midstream Urine Culture - Final Staph Coagulase Negative 02/01/17 02/02/17 02/03/17 05:08 03:43 03:53 Creatine Kinase 617 H 421 H 559 H Impressions: Foot X-Ray 01/31/17 21:18 IMPRESSION: Nondisplaced comminuted intra-articular fracture of the distal portion of the proximal phalanx of the left 5th digit.No other fracture or dislocation. Chest X-Ray 02/02/17 00:00 IMPRESSION: STABLE APPEARANCE OF THE CHEST. Head CT 02/02/17 00:00 IMPRESSION: No significant intracranial abnormalities were identified. Other findings as noted above Assessment & Plan - Diagnosis (1) [id number] kidney injury Qualifiers: Acute renal failure type: unspecified Chronic kidney disease stage: unspecified stage Qualified Code(s): N17.9 - Acute kidney failure, unspecified; N18.9 - Chronic kidney disease, unspecified Is this a current diagnosis for this admission?: YesPlan: Currently in ICU on hemodialysis as well as BiPAP much more lucid over the last 24 hours (2) Hypoventilation Is this a current diagnosis for this admission?: Yes (3) Narcotic overdose Qualifiers: Encounter type: initial encounter Injury intent: accidental or unintentional Qualified Code(s): T40.601A - Poisoning by unspecified narcotics, accidental (unintentional), initial encounter Is this a current diagnosis for this admission?: Yes (4) Diabetes Qualifiers: Diabetes mellitus type: type 2 Diabetes mellitus complication status: with hyperglycemia Diabetes mellitus long term care pharmacist insulin use: without long term care pharmacist use Qualified Code(s): E11.65 - Type 2 diabetes mellitus with hyperglycemia; Z79.4 - long term care pharmacist (current) use of insulin Is this a current diagnosis for this admission?: Yes - Time Critical Time spent with patient: 35 or more minutes - Discussed with nurse, patient, family And primary care 65 min
--- NOTE | 2017-02-05 12:56 | PDOC PROGRESS REPORT ---
Subjective Progress Note for:: 02/05/17 Subjective:: Patient had bad night episodes of nausea and vomiting allegedly one time vomited into BiPAP mask Physical Exam Vital Signs: Temp Pulse Resp BP Pulse Ox 97.9 F 31 L 18 149/67 H 90 L 02/05/17 09:10 02/05/17 09:10 02/05/17 09:10 02/05/17 09:10 02/05/17 09:10 Intake & Output 02/04/17 02/05/17 02/06/17 06:59 06:59 06:59 Intake Total 1420 200 Output Total 2800 1250 Balance -1380 -1050 Weight 92.5 kg General appearance: PRESENT: disheveled, mild distress, obese, well-developed Head exam: PRESENT: atraumatic, normocephalic Eye exam: PRESENT: conjunctiva pale, EOMI Mouth exam: PRESENT: neck supple, tongue midline Neck exam: ABSENT: carotid bruit, JVD, lymphadenopathy, thyromegaly Respiratory exam: PRESENT: decreased breath sounds, prolonged expiratory phas, rales, rhonchi, symmetrical, wheezes Cardiovascular exam: PRESENT: RRR, +S1, +S2 Pulses: PRESENT: normal radial pulses GI/Abdominal exam: PRESENT: normal bowel sounds, soft. ABSENT: distended, guarding, mass, organolmegaly, rebound, tenderness Rectal exam: PRESENT: deferred Gentrourinary exam: PRESENT: indwelling catheter Musculoskeletal exam: PRESENT: normal inspection Neurological exam: PRESENT: alert, awake Psychiatric exam: PRESENT: anxious Skin exam: PRESENT: dry, warm Results Laboratory Results: 02/05/17 04:13 02/05/17 04:13 02/04/17 02/05/17 02/05/17 12:28 04:13 04:13 WBC 12.4 H RBC 4.00 Hgb 11.0 L Hct 35.0 L MCV 87 MCH 27.5 MCHC 31.5 L RDW 16.6 H Plt Count 243 Seg Neutrophils % Not Reportable Lymphocytes % Not Reportable Monocytes % Not Reportable Eosinophils % Not Reportable Basophils % Not Reportable Absolute Neutrophils Not Reportable Absolute Lymphocytes Not Reportable Absolute Monocytes Not Reportable Absolute Eosinophils Not Reportable Absolute Basophils Not Reportable Carbonic Acid 1.50 H HCO3/H2CO3 Ratio 19:1 ABG pH 7.38 ABG pCO2 49.7 H ABG pO2 69.3 L ABG HCO3 28.7 H ABG O2 Saturation 93.4 L ABG Base Excess 2.9 FiO2 4.5L Sodium 145.5 H Potassium 4.3 Chloride 104 Carbon Dioxide 24 Anion Gap 18 BUN 80 H Creatinine 1.49 H Est GFR ( Amer) 42 L Est GFR (Non-Af Amer) 35 L Glucose 304 H Calcium 9.5 Magnesium 02/05/17 04:13 WBC RBC Hgb Hct MCV MCH MCHC RDW Plt Count Seg Neutrophils % Lymphocytes % Monocytes % Eosinophils % Basophils % Absolute Neutrophils Absolute Lymphocytes Absolute Monocytes Absolute Eosinophils Absolute Basophils Carbonic Acid HCO3/H2CO3 Ratio ABG pH ABG pCO2 ABG pO2 ABG HCO3 ABG O2 Saturation ABG Base Excess FiO2 Sodium Potassium Chloride Carbon Dioxide Anion Gap BUN Creatinine Est GFR ( Amer) Est GFR (Non-Af Amer) Glucose Calcium Magnesium 1.9 02/02/17 11:05 Clean Catch Midstream Urine Culture - Final Staph Coagulase Negative 02/01/17 02/02/17 02/03/17 05:08 03:43 03:53 Creatine Kinase 617 H 421 H 559 H Impressions: Foot X-Ray 01/31/17 21:18 IMPRESSION: Nondisplaced comminuted intra-articular fracture of the distal portion of the proximal phalanx of the left 5th digit.No other fracture or dislocation. Chest X-Ray 02/02/17 00:00 IMPRESSION: STABLE APPEARANCE OF THE CHEST. Head CT 02/02/17 00:00 IMPRESSION: No significant intracranial abnormalities were identified. Other findings as noted above Assessment & Plan - Diagnosis (1) Yxmli-ns-dahreza kidney injury Qualifiers: Acute renal failure type: unspecified Chronic kidney disease stage: unspecified stage Qualified Code(s): N17.9 - Acute kidney failure, unspecified; N18.9 - Chronic kidney disease, unspecified Is this a current diagnosis for this admission?: YesPlan: Schedule for hemodialysis today (2) Hypoventilation Is this a current diagnosis for this admission?: YesPlan: Exacerbated by underlying pulmonary fibrosis and now presumably aspiration pneumonitis.Patient is being transferred to the ICU most likely for mechanical ventilation and intubation (3) Narcotic overdose Qualifiers: Encounter type: initial encounter Injury intent: accidental or unintentional Qualified Code(s): T40.601A - Poisoning by unspecified narcotics, accidental (unintentional), initial encounter Is this a current diagnosis for this admission?: Yes (4) Diabetes Qualifiers: Diabetes mellitus type: type 2 Diabetes mellitus complication status: with hyperglycemia 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 transplanted heart: [place] heart Associated angina: without angina Qualified Code(s): I25.10 - Atherosclerotic heart disease of [place] coronary artery without angina pectoris Is this a current diagnosis for this admission?: YesPlan: Troponin elevated (6) IPF (idiopathic pulmonary fibrosis) Is this a current diagnosis for this admission?: YesPlan: Multiple biologic antifibrotic agents - Time Critical Time spent with patient: 35 or more minutes - Multiple conversations with respiratory therapy, nursing staff, primary care physician prominent and family member in regards to deterioration in transfer to ICU 85 min
[2017-02-05] MEDS ORDERED: PIPERACILLIN SODIUM/TAZOBACTAM 2.25 GM in NORMAL SALINE 50 ML IV ONE (13:00)
--- NOTE | 2017-02-05 13:53 | RADIOLOGY REPORT (SQ) ---
EXAM DESCRIPTION: CHEST SINGLE VIEW COMPLETED DATE/TIME: 02/05/2017 1:26 pm REASON FOR STUDY: Intubation COMPARISON: None. EXAM PARAMETERS: NUMBER OF VIEWS: One view. TECHNIQUE: Single frontal radiographic view of the chest acquired. RADIATION DOSE: NA LIMITATIONS: None. FINDINGS: LUNGS AND PLEURA: There is bilateral airspace disease right greater than left. There is a pical pleural capping on the right. Endotracheal tube and NG tube are in place. Both are in satisfa ctory position. MEDIASTINUM AND HILAR STRUCTURES: No masses. Contour normal. HEART AND VASCULAR STRUCTURES: Heart is slightly enlarged. BONES: No acute findings. HARDWARE: Sternotomy wires are in place. OTHER: No other significant finding. IMPRESSION: Bilateral airspace disease most marked on the right. There is volume loss on the right as well. There are small pleural effusions. Support lines and tubes are in satisfactory position. TECHNICAL DOCUMENTATION: JOB ID: [id number]
--- NOTE | 2017-02-05 14:12 | XCELERA REPORT ---
[address] [address] Transthoracic Echocardiogram Report Name: JOSIANE DILLON Age: 66 yrs Gender: Female : 1950 Patient Status: Inpatient Patient Location: ICU\S\608\S\A Study Date: 02/05/2017 12:25 PM Height: 61 in Weight: 203 lb BSA: 1.9 m2 Procedure: A two-dimensional transthoracic echocardiogram with color flow and Doppler was performed. The study was technically difficult with many images being suboptimal in quality. Reason For Study: Heart failure- History: Heart failure-. Ordering Physician: BEATRIS GENAO Performed By: Abdon Tomlin Interpretation Summary The left ventricle is normal in size. There is normal left ventricular wall thickness. LV EF is > than 60% Left ventricular systolic function is normal. Doppler measurements suggest normal left ventricular diastolic function Septal motion is consistent with post-operative state There is septal wall mild hypokinesis There is no ventricular septal defect visualized. The right ventricle is normal in size and function. The right atrium is normal. The left atrium is moderately dilated. There is no evidence of mitral valve prolapse. There is no vegetation seen on the mitral valve. There is no mitral valve stenosis. There is a moderate amount of mitral regurgitation There is no aortic valve stenosis There is no LVOT obstruction. There is a trace amount of aortic regurgitation There is no tricuspid stenosis. There is a mild to moderate amount of tricuspid regurgitation Moiderate pulmonary hypertension. RVSP is 53 to 58 mm of Hg , with RA mean of 15 to 20. There is a trace amount of pulmonic regurgitation There is no pulmonic valvular stenosis. The inferior vena cava appeared dilated and decreased < 50% with respiration (RAP 15-20 mmHg) There is no pericardial effusion. MMode/2D Measurements \T\ Calculations RVDd: 2.9 cm LVIDd: 4.8 cm FS: 39.3 % Ao root diam: 3.2 cm IVSd: 0.87 cm LVIDs: 2.9 cm EDV(Teich): 109.4 ml LVPWd: 0.99 cm ESV(Teich): 33.2 ml Ao root area: 7.8 cm2 EF(Teich): 69.7 % LA dimension: 4.7 cm Doppler Measurements \T\ Calculations MV E max tiffany: MV P1/2t max tiffany: Ao V2 max: LV V1 max P.8 cm/sec 151.2 cm/sec 137.3 cm/sec 1.7 mmHg MV A max tiffany: MV P1/2t: 84.2 msec Ao max PG: LV V1 max: 110.4 cm/sec 7.5 mmHg 65.6 cm/sec MV E/A: 1.3 MVA(P1/2t): 2.6 cm2 MV dec slope: 526.1 cm/sec2 PA V2 max: PI end-d tiffany: TR max tiffany: RAP systole: 65.6 cm/sec 95.3 cm/sec 305.4 cm/sec 10.0 mmHg PA max P.7 mmHg TR max P.6 mmHg RVSP(TR): 47.6 mmHg Left Ventricle The left ventricle is normal in size. There is normal left ventricular wall thickness. LV EF is > than 60%. Left ventricular systolic function is normal. Doppler measurements suggest normal left ventricular diastolic function. Septal motion is consistent with post-operative state. There is septal wall mild hypokinesis. There is no thrombus. There is no ventricular septal defect visualized. Right Ventricle The right ventricle is normal in size and function. Atria The right atrium is normal. The left atrium is moderately dilated. The interatrial septum is intact with no evidence for an atrial septal defect. Mitral Valve There is moderate mitral annular calcification. There is no evidence of mitral valve prolapse. There is no vegetation seen on the mitral valve. There is no mitral valve stenosis. There is a moderate amount of mitral regurgitation. Aortic Valve There is no aortic valvular vegetation. There is no aortic valve stenosis. There is no LVOT obstruction. There is a trace amount of aortic regurgitation. Tricuspid Valve There is no tricuspid stenosis. There is a mild to moderate amount of tricuspid regurgitation. Moiderate pulmonary hypertension. RVSP is 53 to 58 mm of Hg , with RA mean of 15 to 20. Pulmonic Valve There is no pulmonic valvular stenosis. There is a trace amount of pulmonic regurgitation. Great Vessels The aortic root is not well visualized but is probably normal size. The inferior vena cava appeared dilated and decreased < 50% with respiration (RAP 15-20 mmHg). Effusions There is no pericardial effusion. : BEATRIS GENAO > Marleny Forbes
[2017-02-05] MEDS: GABAPENTIN 100 MG CAPSULE NG SCH (14:31)
[2017-02-05] MEDS: METHYLPREDNISOLONE INJ 40 MG/1 ML SDV IV SCH (14:31)
[2017-02-05 14:43] LABS: ARTERIAL BLOOD BASE EXCESS 1.5 mmol/L; ARTERIAL BLOOD O2 SATURATION 99.3 % (94-98)
[2017-02-05] MEDS: PROPOFOL 100 ML IV PRN ×3 (14:57→22:08)
--- NOTE | 2017-02-05 15:56 | PDOC PROGRESS REPORT ---
Subjective Progress Note for:: 02/05/17 Subjective:: Patient was seen this morning. As per discussion is done with the patient and by her daughter but by the bedside and along with that had discussions with Ms. Cricket Pleitez/hospitalist and the treating nurse patient did have difficulty with shortness of breath and sleeping last night. She also seemed to develop nausea vomiting diarrhea. Patient is currently back on BiPAP and seems to be holding. He denies any history of chest pains. No history of an abdominal pains fever chills. She did not have IJ PermCath inserted yesterday because of breathing issues and has been posted for the foot today by Dr. Justin.Labs were reviewed with the patient.It shows quite improved renal numbers. She has made good urine output. Patient was subsequently seen in the ICU for dialysis. Since I saw her earlier this morning and when I see her around 2:00 she has had further respiratory decompensation to the point that she is now intubated and sedated.Discussions were done with Dr. Barry/process coach.He believes that the patient likely aspirated which decompensated her already fragile pulmonary status that led to worsening hypoxia that required intubation. Patient is undergoing dialysis without any issues. Is being supervised to ensure a safe and smooth procedure. Vital signs are stable. Will do her dialysis without any removal of fluids. Physical Exam Vital Signs: Temp Pulse Resp BP Pulse Ox 99.1 F 53 L 14 117/48 L 98 02/05/17 12:00 02/05/17 14:00 02/05/17 14:00 02/05/17 14:00 02/05/17 15:25 Intake & Output 02/04/17 02/05/17 02/06/17 06:59 06:59 06:59 Intake Total 1420 200 Output Total 2800 1250 340 Balance -1380 -1050 -340 Weight 92.5 kg Exam: When seen earlier this morning the patient had generalized midsize crackles along with scattered expiratory wheezing.However seen later on during dialysis where she is now intubated and sedated she is not wheezing anymore. She still has those midsize crackles. Respiratory exam: PRESENT: clear to auscultation refugio, crackles. ABSENT: rhonchi Cardiovascular exam: PRESENT: +S1, +S2, systolic murmur GI/Abdominal exam: PRESENT: normal bowel sounds, soft. ABSENT: organomegaly, renal bruit, tenderness Extremities exam: ABSENT: pedal edema Results Laboratory Results: 02/05/17 04:13 02/05/17 04:13 02/05/17 02/05/17 02/05/17 04:13 04:13 04:13 WBC 12.4 H RBC 4.00 Hgb 11.0 L Hct 35.0 L MCV 87 MCH 27.5 MCHC 31.5 L RDW 16.6 H Plt Count 243 Seg Neutrophils % Not Reportable Lymphocytes % Not Reportable Monocytes % Not Reportable Eosinophils % Not Reportable Basophils % Not Reportable Absolute Neutrophils Not Reportable Absolute Lymphocytes Not Reportable Absolute Monocytes Not Reportable Absolute Eosinophils Not Reportable Absolute Basophils Not Reportable Carbonic Acid HCO3/H2CO3 Ratio ABG pH ABG pCO2 ABG pO2 ABG HCO3 ABG O2 Saturation ABG Base Excess FiO2 Sodium 145.5 H Potassium 4.3 Chloride 104 Carbon Dioxide 24 Anion Gap 18 BUN 80 H Creatinine 1.49 H Est GFR ( Amer) 42 L Est GFR (Non-Af Amer) 35 L Glucose 304 H Lactic Acid Calcium 9.5 Magnesium 1.9 02/05/17 02/05/17 02/05/17 10:30 10:30 14:20 WBC RBC Hgb Hct MCV MCH MCHC RDW Plt Count Seg Neutrophils % Lymphocytes % Monocytes % Eosinophils % Basophils % Absolute Neutrophils Absolute Lymphocytes Absolute Monocytes Absolute Eosinophils Absolute Basophils Carbonic Acid 1.32 1.37 H HCO3/H2CO3 Ratio 18:1 19:1 ABG pH 7.36 7.39 ABG pCO2 43.8 45.5 H ABG pO2 62.6 L 185.5 H ABG HCO3 24.2 26.9 H ABG O2 Saturation 91.1 L 99.3 H ABG Base Excess -1.3 1.5 FiO2 12L 60% Sodium Potassium Chloride Carbon Dioxide Anion Gap BUN Creatinine Est GFR ( Amer) Est GFR (Non-Af Amer) Glucose Lactic Acid 3.4 H Calcium Magnesium 02/05/17 14:55 WBC RBC Hgb Hct MCV MCH MCHC RDW Plt Count Seg Neutrophils % Lymphocytes % Monocytes % Eosinophils % Basophils % Absolute Neutrophils Absolute Lymphocytes Absolute Monocytes Absolute Eosinophils Absolute Basophils Carbonic Acid HCO3/H2CO3 Ratio ABG pH ABG pCO2 ABG pO2 ABG HCO3 ABG O2 Saturation ABG Base Excess FiO2 Sodium Potassium Chloride Carbon Dioxide Anion Gap BUN Creatinine Est GFR ( Amer) Est GFR (Non-Af Amer) Glucose Lactic Acid 1.2 Calcium Magnesium 02/01/17 02/02/17 02/03/17 05:08 03:43 03:53 Creatine Kinase 617 H 421 H 559 H Troponin I 02/05/17 10:30 Creatine Kinase Troponin I 1.470 Impressions: Foot X-Ray 01/31/17 21:18 IMPRESSION: Nondisplaced comminuted intra-articular fracture of the distal portion of the proximal phalanx of the left 5th digit.No other fracture or dislocation. Head CT 02/02/17 00:00 IMPRESSION: No significant intracranial abnormalities were identified. Other findings as noted above Chest X-Ray 02/05/17 00:00 IMPRESSION: Bilateral airspace disease most marked on the right. There is volume loss on the right as well. There are small pleural effusions. Support lines and tubes are in satisfactory position. Assessment & Plan - Diagnosis (1) Chronic renal disease, stage IV Plan: Secondary to diabetes mellitus with additional insults from hypertension, scleroderma. She has been initiated on hemodialysis now.Renal numbers are improved and we will do short dialysis today and see how she does over the weekend. (2) Acute kidney injury Plan: Nonoliguric. Patient is has acute on chronic kidney disease stage IV going into likely ESRD. Initiated on hemodialysis through a temporary right femoral catheter and did well. Patient seemed to be more responsive yesterday post dialysis on Wednesday. However this morning she has had decompensated respiratory failure and she is awake but not as responsive. Basically she did further decompensated and now is intubated and sedated. Given her improving renal numbers I believe this is more likely an AK I than ESRD. Therefore we can hold off on placement of a PermCath and will see how she does when when we see her again on Wednesday. (4) Rhabdomyolysis Is this a current diagnosis for this admission?: Yes (5) Acute renal failure Qualifiers: Acute renal failure type: unspecified Qualified Code(s): N17.9 - Acute kidney failure, unspecified (6) Anemia of chronic disease Plan: Started on EPO. (7) Chronic diastolic CHF (congestive heart failure) Plan: Patient has got cor pulmonale as seen by last echocardiogram and again it was repeated today. It shows some moderate mitral regurgitation and moderate pulmonary hypertension. Most likely from her underlying lung disease / Pulmonary fibrosis from likely scleroderma . 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 (10) IPF (idiopathic pulmonary fibrosis) Is this a current diagnosis for this admission?: YesPlan: Apparently this could be from her scleroderma/rheumatoid arthritis. Apparently worsening respiratory status from this earlier this morning which is finally culminated in intubation. However when seen this morning I had a lengthy discussion with Ms. Cricket Pleitez/hospitalist for initiation of IV Solu- Medrol and bronchodilators. (11) Pulmonary hypertension Plan: from underlying lung disease. This along with possible sleep apnea could be the etiology for her CO2 narcosis and would benefit much from having CPAP. (12) Rheumatoid arthritis Qualifiers: Rheumatoid arthritis location: unspecified site Rheumatoid factor presence: unspecified presence Qualified Code(s): M06.9 - Rheumatoid arthritis, unspecified Plan: Presently quiescent (14) Respiratory failure requiring intubation Plan: Patient now in the ICU intubated and sedated.However vital signs are stable. She is doing well on intubation and and well saturated now
[2017-02-05] MEDS: LACTOBACILLUS ACIDOPHILUS 250 MG TAB NG SCH (17:42)
[2017-02-05] MEDS: LANSOPRAZOLE 30 MG TAB.RAP.DR NG SCH (17:42)
[2017-02-05] MEDS: PIPERACILLIN SODIUM/TAZOBACTAM 2.25 GM in NORMAL SALINE 50 ML IV SCH (17:43)
--- NOTE | 2017-02-05 18:18 | PROGRESS NOTE E ---
Progress Note NAME: JOSIANE DILLON : 1950 AGE: 66Y DATE: 02/05/2017 ROOM: 608 SUBJECTIVE: The patient has had a complicated course throughout the day. The patient was initially seen around approximately 9 a.m. The patient had had an evening that was filled with intermittent shortness of breath, wanting to be on and off the BiPAP, overall restlessness. The patient had developed diarrhea overnight; however, given the liquid state that it was, a specimen was unable to be obtained. Overnight the patient's white count trended up to 12.4. The patient's blood gas this morning revealed a PO2 of 62 with a PCO2 of 43.8. This was obtained on 60% FiO2 on the BIPAP. The patient overall clinically appeared much more ill than seen yesterday. The patient was seen by nephrology and the patient's overall creatinine has trended down nicely to 1.49. The patient's electrolytes are in a good range. The patient does not appear to be volume up from a renal standpoint. The patient appears to have done well with her placement. She did undergo PermCath placement yesterday. The patient, who does have underlying scleroderma with subsequent pulmonary fibrosis and moderate pulmonary hypertension have continued to decline in respiratory state. It has been discussed with the family with myself as well as pulmonary team that should the patient require intubation that the likelihood of her being extubated is quite low given the chronicity of her disease and oxygen dependency. The family has elected to proceed with FULL CODE status as well as the patient; however, the patient continued to have significant work of breathing, tachypnea with extra-muscular use and, therefore, the patient was transferred to ICU. On arrival to the ICU, the patient did have vomitus into her BiPAP mask causing the patient to further have hypoxia. The patient, of course, was contraindicated for BiPAP at that time and the case was discussed with both the patient, pulmonary as well as family, and elected to proceed with intubation for the patient to secure the patient's airway. The patient's initial settings were tidal volume of 500; however, the patient did appear to have some very high pressures. This has been decreased to 400, most likely due to her fibrosis. It was set on a rate of 12 with a PEEP of 7 and FiO2 initially of 100% with pressor support of 12. The patient did tolerate this well and oxygen saturations did improve as well as blood gas; however, the patient did have subsequent hypotension with initiation of sedation with only mild bradycardia and given that in conjunction with the patient's increased white count, the fact that she is now making lactic acid and suspicion for possible early sepsis from aspiration, the patient was started on Levophed. The patient was added Flagyl given the diarrhea. The patient unfortunately was not able to have any further stool study. An NG tube was placed. REVIEW OF SYSTEMS: Unable to be appreciated due to the patient's intubation and sedation. MEDICATIONS: Medications have been reviewed. OBJECTIVE: GENERAL: The patient is a 66-year-old female who is currently sedated, ventilated, in which her mental status was beginning to decrease prior to this. The patient appears comfortable at this time and is no longer in any respiratory distress. VITAL SIGNS: As follows: Temperature is 99.1, pulse 53, respirations 14, blood pressure 117/48 with a of 71. The patient's PO2 is currently 98% on 60% FiO2. SKIN: Warm, dry and pale. No rashes, not diaphoretic. HEENT: Pupils equal, round and reactive to light and accommodation. Conjunctiva is pink. ET tube in place. There is no JVD. CARDIOVASCULAR: Heart is regular. There is no murmur or rub. CHEST: Diminished, mechanical, symmetrical. ABDOMEN: Soft, nontender, nondistended. There are bowel sounds present. BACK: There is no sacral edema. EXTREMITIES: No clubbing, cyanosis, edema. +2 pedal pulses noted bilaterally. All 4 extremities are warm to the touch. PSYCHIATRIC: Unable to fully assess. NEUROLOGIC: Unable to fully assess. DIAGNOSTICS: Lab values are as follows: Hematology obtained on 02/05/2017: WBCs are 12.4, hemoglobin is 10.0, hematocrit is 35.0, platelet count is 243,000. ABG obtained on 02/05/2017: pH of 7.39, PCO2 45.5, PO2 is 95, bicarbonate is 69, oxygen saturation 99.3. This is on 60% FiO2. Chemistry obtained on 02/05/2017: Sodium is 149, potassium 4.3, chloride is 104, carbon dioxide 24, BUN 8, creatinine is 4.9, glucose 304, calcium is 9.5, magnesium is 1.9. Blood cultures obtained on 02/02/2017 revealed no growth. Chest x-ray obtained on 02/05/2017 reveals bilateral airspace disease most marked on the right. There is volume loss on the right as well. There are small pleural effusions. Port line tubes are in satisfactory position. IMPRESSION AND PLAN: 1. MULTISYSTEM ORGAN FAILURE, INCLUDING HEART, PULMONARY, AND NOW RENAL FAILURE. I have discussed code status in detail with the family and the patient had elected to remain FULL CODE STATUS. Transfers have been initiated to tertiary care facilities; however, beds are not available. The case was also submitted to [facility]; however, the family has declined transfer. I have had much discussion and they are aware that the patient will not have side door worker coverage or nephrology coverage and that the patient's complex case would ideally be suited in a tertiary care facility. The family would like the patient to be transferred to [facility] should a bed become available but they have declined transfer to [facility] at this time. They do accept the limitations of this facility including any potential poor outcomes. This conversation has been made candidly with nursing staff and family members. 2. ACUTE ON CHRONIC HYPOXEMIC AND HYPERCAPNIC RESPIRATORY FAILURE. The patient's ABG is looking better. Will decrease FiO2 to avoid ALI and continue other vent settings. Do appreciate Dr. Barry's input with this. Repeat ABG and follow. 3. GROUP B STREP UTI. The patient's repeat culture is unremarkable with a coagulase negative staph. Chavez has been discontinued. Will continue her current antibiotic coverage. 4. POSSIBLE ASPIRATION. The patient has significant vomitus in her BiPAP. This should be covered by Zos[employer] for now. 5. SCLERODERMA, RHEUMATOID ARTHRITIS AND SUBSEQUENT PULMONARY FIBROSIS AND PULMONARY HYPERTENSION. Continue the patient's home medications. It appears the patient has been chronically receiving Tracleer as well for pulmonary hypertension. However, the patient also has been receiving biologic agents of Arava as well as Xeljanz for RA. These are still on hold at this time, but the patient has been started on steroid therapy. 6. HYPERTENSION. The patient is actually now hypotensive given the initiation of sedation. Will follow. 7. HYPOTENSION. The patient is on Levophed. 8. [id number] STAGE 3 KIDNEY DISEASE. It appears that the patient is now stage V. Do appreciate nephrology's input on this. The patient is dialyzing. This is a component of most likely the underlying autoimmune process as well as hypertension, diabetes, heavy doses of metolazone, Bumex and spironolactone. 9. ANEMIA, MOST LIKELY UNDERLYING CHRONIC KIDNEY DISEASE. The patient's hemoglobin is relatively stable. She is receiving Epogen. Will follow hemoglobin. 10. ELEVATED TROPONIN. Most likely this is due to hypoxia. The patient has had no EKG changes. Discussed the case with cardiology. I did make contact with patient's primary musculoskeletal physician's office and have reviewed records in detail. The patient does have a history of 5-vessel disease status post bypassing. DISPOSITION: The patient remains a FULL CODE. Pending patient's symptomatology and diagnostic findings, will re-evaluate as needed. Time spent on this critical care visit including assessment, plan, physical examination, patient education, family meeting and multi-specialty collaboration, multi-facility collaboration is a total of 90 minutes. DICTATING PHYSICIAN: BEATRIS GENAO NP [id number] PHY#: [id number] ID: [id number] JOB#: [id number] ACCT: [id number] cc: > MTDD
--- NOTE | 2017-02-05 20:20 | EKG REPORT ---
SEVERITY:- ABNORMAL ECG - SINUS RHYTHM NONSPECIFIC ST-T CHANGES : Confirmed by: Kamran Scott MD 05-Feb-2017 20:19:12
[2017-02-06] MEDS: PIPERACILLIN SODIUM/TAZOBACTAM 2.25 GM in NORMAL SALINE 50 ML IV SCH ×4 (01:16→17:11)
[2017-02-06] MEDS: NEBIVOLOL HCL 10 MG TABLET NG SCH ×3 (01:38→21:52)
[2017-02-06] MEDS: TRACLEER 125 MG PO SCH ×3 (01:38→21:52)
[2017-02-06] MEDS: PENTOXIFYLLINE 400 MG TABLET.SA PO SCH ×4 (01:38→21:52)
[2017-02-06] MEDS: GABAPENTIN 100 MG CAPSULE NG SCH ×4 (01:40→21:51)
[2017-02-06] MEDS: METHYLPREDNISOLONE INJ 40 MG/1 ML SDV IV SCH ×4 (01:42→21:51)
[2017-02-06] MEDS: METRONIDAZOLE 500 MG/NS RTU 100 ML IV SCH ×4 (01:42→17:10)
[2017-02-06] MEDS: HEPARIN SOD (PORCINE) 5,000 UNIT/ML 1 ML SYRINGE SUBCUT SCH ×4 (01:42→21:51)
[2017-02-06] MEDS: PROPOFOL 100 ML IV PRN ×4 (01:45→17:19)
[2017-02-06 06:19] LABS: ARTERIAL BLOOD BASE EXCESS 0.1 mmol/L; ARTERIAL BLOOD O2 SATURATION 98.8 % (94-98)
[2017-02-06 06:24] LABS: HEMATOCRIT 31.7 % (36.0-47.0); HEMOGLOBIN 10.1 g/dL (12.0-15.5); HGB HCT DIFFERENCE -1.4; MEAN CORPUSCULAR HEMOGLOBIN 28.3 pg (27.0-33.4); MEAN CORPUSCULAR HGB CONC 31.9 g/dL (32.0-36.0); MEAN CORPUSCULAR VOLUME 89 fl (80-97); RED BLOOD COUNT 3.59 10^6/uL (3.72-5.28); RED CELL DISTRIBUTION WIDTH 16.7 % (11.5-14.0); WHITE BLOOD COUNT 13.4 10^3/uL (4.0-10.5)
[2017-02-06 06:34] LABS: ALANINE AMINOTRANSFERASE 44 U/L (9-52); ALBUMIN 2.9 g/dL (3.5-5.0); ALKALINE PHOSPHATASE 164 U/L (38-126); ANION GAP 18 (5-19); ASPARTATE AMINO TRANSFERASE 21 U/L (14-36); BILIRUBIN,DIRECT 0.5 mg/dL (0.0-0.4); BILIRUBIN,TOTAL 0.5 mg/dL (0.2-1.3); BLOOD UREA NITROGEN 79 mg/dL (7-20); CALCIUM 8.3 mg/dL (8.4-10.2); CARBON DIOXIDE 23 mmol/L (22-30); CHLORIDE 100 mmol/L (98-107); CREATININE RESULT 2.52 mg/dL (0.52-1.25); GLUCOSE 385 mg/dL (75-110); MAGNESIUM 2.1 mg/dL (1.6-2.3); POTASSIUM 4.2 mmol/L (3.6-5.0); SODIUM 141.3 mmol/L (137-145); TOTAL PROTEIN 5.6 g/dL (6.3-8.2)
[2017-02-06 06:43] LABS: TROPONIN I 0.964 ng/mL
[2017-02-06 07:02] LABS: BAND NEUTROPHILS % (MANUAL) 3 % (3-5); BASOPHILS % (MANUAL) 0 % (0-2); EOSINOPHILS % (MANUAL) 0 % (0-6); LYMPHOCYTES % (MANUAL) 2 % (13-45); TOTAL CELLS COUNTED 100
[2017-02-06 07:04] LABS: ANISOCYTOSIS 1+; OVALOCYTES 1+; POIKILOCYTOSIS 1+; POLYCHROMASIA SLIGHT; TOXIC GRANULATION 1+; TOXIC VACUOLATION PRESENT
--- NOTE | 2017-02-06 07:17 | RADIOLOGY REPORT (SQ) ---
EXAM DESCRIPTION: CHEST SINGLE VIEW COMPLETED DATE/TIME: 02/06/2017 6:55 am REASON FOR STUDY: resp failure ;p fibrosis COMPARISON: Chest x-ray 02/05/2017 EXAM PARAMETERS: NUMBER OF VIEWS: One view TECHNIQUE: Single frontal radiograph of the chest. RADIATION DOSE: N/A LIMITATIONS: None. FINDINGS: TEMPORARY SUPPORT DEVICES:ETT in expected location. NG tube courses below the left susie-d iaphragm in to the stomach. LUNGS AND PLEURA: Interval improvement in the aeration of the lungs with decrease in the bilateral ai rspace opacities. There are small bilateral pleural effusions. No pneumothorax. MEDIASTINUM AND HILAR STRUCTURES: No masses. Contour normal. HEART AND VASCULAR STRUCTURES: The heart remains enlarged. No overt vascular congestion. BONES: No acute findings. OTHER: Sternotomy wires are noted. IMPRESSION: Interval improvement in the aeration of the lungs with decrease in the bilateral airspac e opacities. Small bilateral pleural effusions. Cardiomegaly. Support devices in expected locations. TECHNICAL DOCUMENTATION: JOB ID: [id number] [id number] 2010 [employer]- All Rights Reserved
[2017-02-06] MEDS: LANSOPRAZOLE 30 MG TAB.RAP.DR NG SCH ×2 (08:16→17:10)
[2017-02-06] MEDS ORDERED: VALACYCLOVIR HCL 500 MG TABLET PO SCH (10:00)
[2017-02-06] MEDS: ASPIRIN 81 MG TABLET, CHEWABLE NG SCH (11:18)
[2017-02-06] MEDS: DOCUSATE SODIUM 100 MG CAPSULE PO SCH ×2 (11:18→17:11)
[2017-02-06] MEDS: LACTOBACILLUS ACIDOPHILUS 250 MG TAB NG SCH ×2 (11:19→17:10)
[2017-02-06] MEDS: FEBUXOSTAT 40 MG TABLET NG SCH (11:20)
[2017-02-06] MEDS: VALACYCLOVIR HCL 500 MG TABLET NG SCH (11:20)
[2017-02-06] MEDS: SPIRONOLACTONE 25 MG TABLET NG SCH (11:23)
[2017-02-06] MEDS: LEFLUNOMIDE 20 MG TABLET PO SCH (11:30)
[2017-02-06] MEDS: DULOXETINE HCL 30 MG CAPSULE.DR PO SCH (11:30)
[2017-02-06] MEDS: INSULIN LISPRO 100 UNIT/ML 3 ML VIAL SUBCUT PRN ×2 (13:55→17:44)
--- NOTE | 2017-02-06 16:58 | PROGRESS NOTE E ---
Progress Note NAME: JOSIANE DILLON : 1950 AGE: 66Y DATE: 02/06/2017 ROOM: 608 SUBJECTIVE: The patient is lying in bed. She is currently intubated. Her sedation had just been turned off prior to my evaluation. The patient was actually seen twice today on rounds, at neither time was her family was available. The patient has had no reported episodes of vomiting or diarrhea. The patient appears to be oxygenating well. Blood gas, PO2 was elevated. The patient has been afebrile. Her blood pressures have been in a good range. She is no longer requiring pressors, and the patient has been slightly bradycardic and is not able to voice any concerns at this time. REVIEW OF SYSTEMS: A full review of systems cannot be appreciated given the patient's intubation and sedation. MEDICATIONS: Medications have been reviewed. OBJECTIVE: GENERAL: The patient is a 66-year-old female who is currently sedated, unable to provide any history. She does not appear to be in any acute distress. VITAL SIGNS: As follows: Temperature is 98.1, pulse 53, respirations 14, blood pressure 146/45, oxygen saturation is 100% on 50% FiO2. SKIN: Pale, dry. No rashes, not diaphoretic. HEENT: Pupils are reactive. There is no JVP. ET tube in place. CARDIOVASCULAR: Heart is regular. There is no murmur or rub. CHEST: Diminished, symmetrical, unlabored. ABDOMEN: Soft, nontender, nondistended. BACK: There is no sacral edema. EXTREMITIES: No clubbing, cyanosis or edema. All 4 extremities are warm to the touch. PSYCHIATRIC: Unable to fully assess. NEUROLOGIC: Unable to cooperative for examination. DIAGNOSTICS: Lab values are as follows: Hematology obtained on 02/06/2017: WBCs are , hemoglobin is 10.1, hematocrit is 31.7, platelet count is 247,000. ABG obtained on 02/06/2017: pH of 7.43, PCO2 37.7, PO2 is 138, bicarb 24, O2 saturation 98%. Chemistry obtained on 02/06/2017: Sodium is 141, potassium 4.2, chloride is 100, carbon dioxide 23, BUN 79, creatinine is 2.52, glucose 385, lactic acid 1.6, calcium is 8.3, magnesium is 2.1, bilirubin 0.5, AST 21, ALT 44, alkaline phos 164. Troponin is 0.964, total protein 5.6, albumin 2.9. IMPRESSION AND PLAN: 1. MULTISYSTEM ORGAN FAILURE, INCLUDING HEART, PULMONARY, AND NOW RENAL FAILURE. I have discussed code status in detail with the family, and the patient is remaining a FULL CODE status. The family does wish to be transferred to [facility] should a bed become available; however, that facility is on a code yellow at this time. The patient was declined by [facility] and the family declined transfer to [facility]. I went over this in explicit detail and the daughter has agreed to accept the limitations of this facility including any potential poor outcomes that may be the result of that. These conversations were made candidly and in the presence of nursing staff and other family. 2. ACUTE ON CHRONIC HYPOXEMIC AND HYPERCAPNIC RESPIRATORY FAILURE. The patient's ABG looks better. Will decrease FiO2 to avoid ALI and continue other vent settings. The patient is currently on pressure support and maintaining this well. Do appreciate Dr. Barry's input with this. Repeat ABG in the a.m. and follow. 3. GROUP B STREP UTI. The patient's culture is unremarkable with a coagulase negative staph. Chavez was been discontinued. Will continue current antibiotic coverage. 4. POSSIBLE ASPIRATION. The patient has significant vomitus in her BiPAP. We will continue Zosyn for now. 5. SCLERODERMA, RHEUMATOID ARTHRITIS AND SUBSEQUENT PULMONARY FIBROSIS AND PULMONARY HYPERTENSION. Will continue the patient's home medications. It appears she has been chronically receiving Tracleer as well for pulmonary hypertension. However, the patient also is receiving biologic agents including Arava as well as Xeljanz for RA. They are still on hold at this time, but the patient has been started on steroid therapy. 6. HYPERTENSION. The patient's blood pressures have improved significantly. She is no longer requiring pressors. Will follow for now. 7. HYPOTENSION. This resolved. 8. [id number] STAGE 3 KIDNEY DISEASE. It appears the patient is now stage 5. Do appreciate nephrology's input on this. The patient will dialyze again on Wednesday. Most likely she has a component of underlying autoimmune process, hypertension, diabetes, heavy doses of diuretic therapy including metolazone, Bumex and spironolactone. 9. ANEMIA, MOST LIKELY UNDERLYING CHRONIC KIDNEY DISEASE. Will continue Epo. Hemoglobin is relatively stable. 10. ELEVATED TROPONIN. Has improved. Most likely this leak is due to hypoxia. The patient does have a long history of cardiac disease including 5-vessel disease and is status post bypassing with a reoccurrence as well. DISPOSITION: The patient is a FULL CODE. Pending patient's symptomatology and diagnostic findings, will re-evaluate as needed. Time spent on this critical care visit including assessment, plan, physical examination, attempt at patient education, and return visit is 45 minutes. DICTATING PHYSICIAN: BEATRIS GENAO NP [id number] PHY#: [id number] ID: [id number] JOB#: [id number] ACCT: [id number] cc: > MTDD
--- NOTE | 2017-02-06 18:10 | PDOC PROGRESS REPORT ---
Subjective Progress Note for:: 02/06/17 Subjective:: Patient had bad night episodes of nausea and vomiting allegedly one time vomited into BiPAP mask Physical Exam Vital Signs: Temp Pulse Resp BP Pulse Ox 98.8 F 51 L 16 100/34 L 100 02/06/17 08:00 02/06/17 08:00 02/06/17 08:00 02/06/17 08:00 02/06/17 08:00 Intake & Output 02/05/17 02/06/17 02/07/17 06:59 06:59 06:59 Intake Total 200 1487 Output Total 1250 595 100 Balance -1050 892 -100 Weight 89.4 kg General appearance: PRESENT: no acute distress, disheveled, obese, well- developed Head exam: PRESENT: normocephalic Eye exam: PRESENT: conjunctiva pale Mouth exam: PRESENT: dry mucosa, neck supple, tongue midline, other Respiratory exam: PRESENT: decreased breath sounds, prolonged expiratory phas, rhonchi, unlabored Cardiovascular exam: PRESENT: RRR, +S1, +S2 Pulses: PRESENT: normal radial pulses GI/Abdominal exam: PRESENT: normal bowel sounds, soft. ABSENT: distended, guarding, mass, organolmegaly, rebound, tenderness Rectal exam: PRESENT: deferred Gentrourinary exam: PRESENT: indwelling catheter Extremities exam: PRESENT: +1 edema Neurological exam: PRESENT: oriented to person Skin exam: PRESENT: dry, warm Results Laboratory Results: 02/06/17 06:00 02/06/17 06:00 02/05/17 02/05/17 02/05/17 10:30 10:30 14:20 WBC RBC Hgb Hct MCV MCH MCHC RDW Plt Count Seg Neutrophils % Lymphocytes % Monocytes % Eosinophils % Basophils % Absolute Neutrophils Absolute Lymphocytes Absolute Monocytes Absolute Eosinophils Absolute Basophils Carbonic Acid 1.32 1.37 H HCO3/H2CO3 Ratio 18:1 19:1 ABG pH 7.36 7.39 ABG pCO2 43.8 45.5 H ABG pO2 62.6 L 185.5 H ABG HCO3 24.2 26.9 H ABG O2 Saturation 91.1 L 99.3 H ABG Base Excess -1.3 1.5 FiO2 12L 60% Sodium Potassium Chloride Carbon Dioxide Anion Gap BUN Creatinine Est GFR ( Amer) Est GFR (Non-Af Amer) Glucose Lactic Acid 3.4 H Calcium Magnesium Total Bilirubin AST ALT Alkaline Phosphatase Total Protein Albumin 02/05/17 02/06/17 02/06/17 14:55 06:00 06:00 WBC 13.4 H RBC 3.59 L Hgb 10.1 L Hct 31.7 L MCV 89 MCH 28.3 MCHC 31.9 L RDW 16.7 H Plt Count 247 Seg Neutrophils % Not Reportable Lymphocytes % Not Reportable Monocytes % Not Reportable Eosinophils % Not Reportable Basophils % Not Reportable Absolute Neutrophils Not Reportable Absolute Lymphocytes Not Reportable Absolute Monocytes Not Reportable Absolute Eosinophils Not Reportable Absolute Basophils Not Reportable Carbonic Acid HCO3/H2CO3 Ratio ABG pH ABG pCO2 ABG pO2 ABG HCO3 ABG O2 Saturation ABG Base Excess FiO2 Sodium 141.3 Potassium 4.2 Chloride 100 Carbon Dioxide 23 Anion Gap 18 BUN 79 H Creatinine 2.52 H Est GFR ( Amer) 23 L Est GFR (Non-Af Amer) 19 L Glucose 385 H Lactic Acid 1.2 Calcium 8.3 L Magnesium 2.1 Total Bilirubin 0.5 AST 21 ALT 44 Alkaline Phosphatase 164 H Total Protein 5.6 L Albumin 2.9 L 02/06/17 02/06/17 06:00 06:00 WBC RBC Hgb Hct MCV MCH MCHC RDW Plt Count Seg Neutrophils % Lymphocytes % Monocytes % Eosinophils % Basophils % Absolute Neutrophils Absolute Lymphocytes Absolute Monocytes Absolute Eosinophils Absolute Basophils Carbonic Acid 1.13 HCO3/H2CO3 Ratio 21:1 ABG pH 7.43 ABG pCO2 37.7 ABG pO2 138.6 H ABG HCO3 24.3 ABG O2 Saturation 98.8 H ABG Base Excess 0.1 FiO2 50% Sodium Potassium Chloride Carbon Dioxide Anion Gap BUN Creatinine Est GFR ( Amer) Est GFR (Non-Af Amer) Glucose Lactic Acid 1.6 Calcium Magnesium Total Bilirubin AST ALT Alkaline Phosphatase Total Protein Albumin 02/01/17 02/02/17 02/03/17 05:08 03:43 03:53 Creatine Kinase 617 H 421 H 559 H Troponin I NT-Pro-B Natriuret Pep 02/05/17 02/06/17 10:30 06:00 Creatine Kinase Troponin I 1.470 0.964 NT-Pro-B Natriuret Pep 07152 H Impressions: Foot X-Ray 01/31/17 21:18 IMPRESSION: Nondisplaced comminuted intra-articular fracture of the distal portion of the proximal phalanx of the left 5th digit.No other fracture or dislocation. Head CT 02/02/17 00:00 IMPRESSION: No significant intracranial abnormalities were identified. Other findings as noted above Chest X-Ray 02/06/17 06:00 IMPRESSION: Interval improvement in the aeration of the lungs with decrease in the bilateral airspace opacities. Small bilateral pleural effusions. Cardiomegaly. Support devices in expected locations. Assessment & Plan - Diagnosis (1) Hjmaa-xm-jlgziez kidney injury Qualifiers: Acute renal failure type: unspecified Chronic kidney disease stage: unspecified stage Qualified Code(s): N17.9 - Acute kidney failure, unspecified; N18.9 - Chronic kidney disease, unspecified Is this a current diagnosis for this admission?: YesPlan: creat/bun still elevated (2) Hypoventilation Is this a current diagnosis for this admission?: Yes (3) Narcotic overdose Qualifiers: Encounter type: initial encounter Injury intent: accidental or unintentional Qualified Code(s): T40.601A - Poisoning by unspecified narcotics, accidental (unintentional), initial encounter Is this a current diagnosis for this admission?: Yes (4) Diabetes Qualifiers: Diabetes mellitus type: type 2 Diabetes mellitus complication status: with hyperglycemia 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 transplanted heart: [place] heart Associated angina: without angina Qualified Code(s): I25.10 - Atherosclerotic heart disease of [place] coronary artery without angina pectoris Is this a current diagnosis for this admission?: Yes (6) IPF (idiopathic pulmonary fibrosis) Is this a current diagnosis for this admission?: Yes - Time Critical Time spent with patient: 25-34 minutes
[2017-02-07] MEDS: PROPOFOL 100 ML IV PRN (01:39)
[2017-02-07] MEDS: METRONIDAZOLE 500 MG/NS RTU 100 ML IV SCH ×4 (01:41→17:56)
[2017-02-07] MEDS: PIPERACILLIN SODIUM/TAZOBACTAM 2.25 GM in NORMAL SALINE 50 ML IV SCH ×4 (01:42→17:44)
[2017-02-07] MEDS: PENTOXIFYLLINE 400 MG TABLET.SA PO SCH ×3 (06:46→21:25)
[2017-02-07] MEDS: GABAPENTIN 100 MG CAPSULE NG SCH ×3 (06:46→21:25)
[2017-02-07] MEDS: HEPARIN SOD (PORCINE) 5,000 UNIT/ML 1 ML SYRINGE SUBCUT SCH ×3 (06:46→21:24)
[2017-02-07] MEDS: METHYLPREDNISOLONE INJ 40 MG/1 ML SDV IV SCH ×2 (06:46→13:50)
--- NOTE | 2017-02-07 07:58 | RADIOLOGY REPORT (SQ) ---
EXAM DESCRIPTION: CHEST SINGLE VIEW COMPLETED DATE/TIME: 02/07/2017 7:24 am REASON FOR STUDY: PNA/P FIBROSIS COMPARISON: Chest x-ray 02/06/2017. EXAM PARAMETERS: NUMBER OF VIEWS: One view TECHNIQUE: Single frontal radiograph of the chest. RADIATION DOSE: N/A LIMITATIONS: Radiopaque tubing and monitoring wires overlying on the patient's chest. FINDINGS: TEMPORARY SUPPORT DEVICES:ETT in expected location. NG tube courses below the left susie-d iaphragm in to the stomach. LUNGS AND PLEURA: There are small bilateral pleural effusions with bibasilar airspace opacities. No pneumothorax. MEDIASTINUM AND HILAR STRUCTURES: Stable. HEART AND VASCULAR STRUCTURES: The heart remains enlarged. No overt vascular congestion. BONES: No acute findings. OTHER: Sternotomy wires are noted. IMPRESSION: Small bilateral pleural effusions with bibasilar airspace opacities. Cardiomegaly. Support devices in expected locations. TECHNICAL DOCUMENTATION: JOB ID: [id number] [id number] 2010 [employer]- All Rights Reserved
[2017-02-07 08:09] LABS: ABSOLUTE EOSINOPHILS # (AUTO) 0.1 10^3/uL (0.0-0.6); ABSOLUTE LYMPHOCYTES (AUTO) 0.6 10^3/uL (0.5-4.7); ABSOLUTE MONOCYTES (AUTO) 0.6 10^3/uL (0.1-1.4); ABSOLUTE NEUT (AUTO) 9.2 10^3/uL (1.7-8.2); ARTERIAL BLOOD BASE EXCESS 1.5 mmol/L; BASOPHILS % (AUTO) 0.3 % (0-2); EOSINOPHILS % (AUTO) 1.1 % (0-6); HEMOGLOBIN 9.2 g/dL (12.0-15.5); HGB HCT DIFFERENCE -1.4; LYMPHOCYTES % (AUTO) 5.9 % (13-45); MEAN CORPUSCULAR HEMOGLOBIN 27.9 pg (27.0-33.4); MEAN CORPUSCULAR HGB CONC 31.8 g/dL (32.0-36.0); MEAN CORPUSCULAR VOLUME 88 fl (80-97); RED CELL DISTRIBUTION WIDTH 16.5 % (11.5-14.0); SEGMENTED NEUTROPHILS % (AUTO) 86.7 % (42-78); WHITE BLOOD COUNT 10.6 10^3/uL (4.0-10.5)
[2017-02-07 08:27] LABS: ANION GAP 13 (5-19); BLOOD UREA NITROGEN 95 mg/dL (7-20); CALCIUM 8.2 mg/dL (8.4-10.2); CARBON DIOXIDE 23 mmol/L (22-30); CHLORIDE 105 mmol/L (98-107); GLUCOSE 310 mg/dL (75-110); POTASSIUM 3.5 mmol/L (3.6-5.0); SODIUM 141.3 mmol/L (137-145)
[2017-02-07] MEDS: LANSOPRAZOLE 30 MG TAB.RAP.DR NG SCH ×2 (08:35→17:54)
[2017-02-07] MEDS: DOCUSATE SODIUM 100 MG CAPSULE PO SCH ×2 (09:55→17:57)
[2017-02-07] MEDS: LACTOBACILLUS ACIDOPHILUS 250 MG TAB NG SCH ×2 (09:57→17:54)
[2017-02-07] MEDS: SPIRONOLACTONE 25 MG TABLET NG SCH (09:57)
[2017-02-07] MEDS: ASPIRIN 81 MG TABLET, CHEWABLE NG SCH (09:58)
[2017-02-07] MEDS: FEBUXOSTAT 40 MG TABLET NG SCH (09:58)
[2017-02-07] MEDS: VALACYCLOVIR HCL 500 MG TABLET NG SCH (09:59)
[2017-02-07] MEDS: TRACLEER 125 MG PO SCH ×2 (10:00→21:26)
[2017-02-07] MEDS: NEBIVOLOL HCL 10 MG TABLET NG SCH ×2 (10:00→21:25)
[2017-02-07] MEDS: LEFLUNOMIDE 20 MG TABLET PO SCH (10:00)
[2017-02-07] MEDS: DULOXETINE HCL 30 MG CAPSULE.DR PO SCH (10:00)
[2017-02-07] MEDS: INSULIN LISPRO 100 UNIT/ML 3 ML VIAL SUBCUT PRN ×2 (11:49→17:56)
[2017-02-07] MEDS ORDERED: POTASSIUM CHLORIDE 10 MEQ TABLET.SA PO ONE (14:25)
[2017-02-07] MEDS ORDERED: POTASSIUM CHLORIDE 20 MEQ/15 ML UDCUP PO ONE (14:41)
--- NOTE | 2017-02-07 17:43 | PROGRESS NOTE E ---
Progress Note NAME: JOSIANE DILLON : 1950 AGE: 66Y DATE: 02/07/2017 ROOM: 608 SUBJECTIVE: The patient was seen twice today on rounds. The patient was initially seen early this morning on account of the patient was tolerating pressor support on 30% FiO2. The patient had been off sedation and had tolerated this well. The patient also was no longer requiring any pressors. No events noted on the can cleaner. There have been no further episodes of vomiting but the patient has had loose stools. However, C. difficile has yet to be collected. The patient has been afebrile. Her blood pressure has been in a good range and the patient is unable to voice any specific concerns at this time. REVIEW OF SYSTEMS: A full review of systems cannot be appreciated given the patient's mental status. MEDICATIONS: Medications have been reviewed. OBJECTIVE: GENERAL: The patient is a 66-year-old female who is awake, alert. Unable to fully assess orientation given intubation. She does not appear to be distressed. VITAL SIGNS: As follows temperature 98.8, pulse 61, respirations 19, blood pressure is 155/60. Oxygen saturation is 99% on 30% FiO2. SKIN: Warm and dry. No rashes, not diaphoretic. HEENT: Pupils equal, round and reactive to light and accommodation. Conjunctiva is pink. There is no evidence of JVP. CARDIOVASCULAR SYSTEM: Heart is regular. There is no rub. CHEST: Symmetrical with diminished mechanical. ABDOMEN: Soft. Does not appear to be any area of focal tenderness. Bowel sounds present. EXTREMITIES: Without clubbing or cyanosis, edema. PSYCHIATRIC: Unable to fully assess. DIAGNOSTICS: Lab values are as follows: Hematology obtained on 02/07/2017 WBC 2.6, hemoglobin 9.2, hematocrit is 29.0, platelet count is 190,000. ABG obtained on 02/07/2017 pH is 7.44, PCO2 is 38.9, PO2 is 78.3, bicarb is 25.7. Chemistry obtained on 02/07/2017: Sodium is 141, potassium 4.7, chloride 105, carbon dioxide 23, BUN 95, creatinine 2.5. Glucose 310, calcium 8.2. IMPRESSION AND PLAN: 1. MULTISYSTEM ORGAN FAILURE INCLUDING HEART, PULMONARY, NOW RENAL FAILURE. Has been discussed in detail with the family and the patient does remain a FULL CODE. Will continue management. 2. PYPXU-AE-AQVSVRO HYPOXEMIC AND HYPERCAPNIC RESPIRATORY FAILURE. Patient's ABG looks better. The patient is currently on pressor support and weaning trial. Do appreciate Dr. Barry's input on this. 3. GROUP B STREP UTI. Repeat culture is unremarkable. Coagulase-negative staph. The patient's Chavez had been replaced. Will continue current antibiotic coverage. 4. POSSIBLE ASPIRATION. The patient did have significant amount of vomitus in her BiPAP although chest x-ray shows improved aeration. Will continue Zosyn for now. 5. SCLERODERMA, RHEUMATOID ARTHRITIS WITH SUBSEQUENT PULMONARY FIBROSIS AND PULMONARY HYPERTENSION. Will continue the patient's home medications. The patient was on Tracleer for pulmonary hypertension. She is only receiving a biologic of Arava as well as Xeljanz. These are on hold at this time. However the patient is on steroid therapy. 6. HYPERTENSION. Overall blood pressures have improved significantly. They are on the high side and am glad to have some pressure to work with. 7. ZIKVD-SE-GEAQRAL STAGE 3 KIDNEY DISEASE. The patient is now stage 5. Do appreciate nephrology input on this. The patient will be dialyzed again on Wednesday. The source of this is most likely multifocal including underlying autoimmune process, hypertension, diabetes, heavy doses of diuretic therapy including metolazone, Bumex and spironolactone. 8. ANEMIA, MOST LIKELY OF UNDERLYING CHRONIC KIDNEY DISEASE. Will continue EPO. Hemoglobin is overall stable. 9. ELEVATED TROPONIN. Most likely just a bump due to her hypoxia. The patient has had a long history of cardiac disease including 5 vessel disease with bypass and recurrence as well. Have reviewed cardiac catheterizations from Dr. Frost in [place]. The patient has had both left and right-sided heart cath. DISPOSITION: The patient remains a FULL CODE. Pending patient's symptomatology and diagnostic findings will reevaluate in the a.m. Time spent on this critical care visit including assessment, plan, physical examination, family meeting and attempt at patient education is 40 minutes. ADDENDUM: The patient was seen and evaluated by Dr. Barry with pulmonary. The patient had been placed on a weaning trial and this afternoon had done well and was extubated. The patient is currently on BiPAP and appears to be tolerating this relatively well on 40% FiO2 with 14/6. The patient will repeat a blood gas this afternoon. I do appreciate pulmonology's input on this. Will discontinue the patient's tube, transition nebs to p.o. and request nursing bedside swallow evaluation. Pending these results may consider diet. DICTATING PHYSICIAN: BEATRIS GENAO NP [id number] PHY#: [id number] ID: [id number] JOB#: [id number] ACCT: [id number] cc: > MTDD
[2017-02-07] MEDS: PREDNISONE 20 MG TABLET PO SCH (17:55)
--- NOTE | 2017-02-07 18:17 | PDOC PROGRESS REPORT ---
Subjective Progress Note for:: 02/07/17 Subjective:: intubated awake Physical Exam Vital Signs: Temp Pulse Resp BP Pulse Ox 99.0 F 54 L 20 152/57 H 100 02/07/17 00:00 02/06/17 20:00 02/06/17 18:00 02/06/17 18:00 02/07/17 04:00 Intake & Output 02/06/17 02/07/17 02/08/17 06:59 06:59 06:59 Intake Total 1487 597 Output Total 595 365 Balance 892 232 Weight 89.4 kg General appearance: PRESENT: no acute distress, cooperative, disheveled, obese Head exam: PRESENT: atraumatic, normocephalic Eye exam: PRESENT: conjunctiva pale, EOMI Mouth exam: PRESENT: moist, neck supple, tongue midline, other - ET tube Neck exam: ABSENT: carotid bruit, JVD, lymphadenopathy, thyromegaly Respiratory exam: PRESENT: decreased breath sounds, prolonged expiratory phas, rhonchi, symmetrical Cardiovascular exam: PRESENT: RRR, +S1, +S2 Pulses: PRESENT: normal radial pulses GI/Abdominal exam: PRESENT: normal bowel sounds, soft. ABSENT: distended, guarding, mass, organolmegaly, rebound, tenderness Rectal exam: PRESENT: deferred Gentrourinary exam: PRESENT: indwelling catheter Extremities exam: PRESENT: +1 edema Neurological exam: PRESENT: awake Skin exam: PRESENT: dry, warm Results Laboratory Results: 02/06/17 06:00 02/06/17 06:00 02/01/17 02/02/17 02/03/17 05:08 03:43 03:53 Creatine Kinase 617 H 421 H 559 H Troponin I NT-Pro-B Natriuret Pep 02/05/17 02/06/17 10:30 06:00 Creatine Kinase Troponin I 1.470 0.964 NT-Pro-B Natriuret Pep 43468 H Impressions: Foot X-Ray 01/31/17 21:18 IMPRESSION: Nondisplaced comminuted intra-articular fracture of the distal portion of the proximal phalanx of the left 5th digit.No other fracture or dislocation. Head CT 02/02/17 00:00 IMPRESSION: No significant intracranial abnormalities were identified. Other findings as noted above Assessment & Plan - Diagnosis (1) Cbkhp-pe-grnceiy kidney injury Qualifiers: Acute renal failure type: unspecified Chronic kidney disease stage: unspecified stage Qualified Code(s): N17.9 - Acute kidney failure, unspecified; N18.9 - Chronic kidney disease, unspecified Is this a current diagnosis for this admission?: YesPlan: suspect may need additional HD (2) Hypoventilation Is this a current diagnosis for this admission?: Yes (3) Narcotic overdose Qualifiers: Encounter type: initial encounter Injury intent: accidental or unintentional Qualified Code(s): T40.601A - Poisoning by unspecified narcotics, accidental (unintentional), initial encounter Is this a current diagnosis for this admission?: Yes (4) Diabetes Qualifiers: Diabetes mellitus type: type 2 Diabetes mellitus complication status: with hyperglycemia 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 transplanted heart: [place] heart Associated angina: without angina Qualified Code(s): I25.10 - Atherosclerotic heart disease of [place] coronary artery without angina pectoris Is this a current diagnosis for this admission?: Yes (6) IPF (idiopathic pulmonary fibrosis) Is this a current diagnosis for this admission?: YesPlan: unchanged (7) Respiratory failure requiring intubation Is this a current diagnosis for this admission?: YesPlan: aspiration pneumonitis improved min vent,rr,fio2 suggest extubation will extubate to bipap - Time Critical Time spent with patient: 35 or more minutes - 60 min extubation
[2017-02-08] MEDS: METRONIDAZOLE 500 MG/NS RTU 100 ML IV SCH ×4 (01:40→17:57)
[2017-02-08] MEDS: PIPERACILLIN SODIUM/TAZOBACTAM 2.25 GM in NORMAL SALINE 50 ML IV SCH ×4 (01:41→17:57)
[2017-02-08] MEDS: HEPARIN SOD (PORCINE) 5,000 UNIT/ML 1 ML SYRINGE SUBCUT SCH ×3 (05:43→21:31)
[2017-02-08] MEDS: GABAPENTIN 100 MG CAPSULE NG SCH ×3 (05:43→21:31)
[2017-02-08] MEDS: PENTOXIFYLLINE 400 MG TABLET.SA PO SCH ×3 (05:44→21:32)
[2017-02-08 06:18] LABS: HEMATOCRIT 33.2 % (36.0-47.0); HEMOGLOBIN 10.5 g/dL (12.0-15.5); HGB HCT DIFFERENCE -1.7; MEAN CORPUSCULAR HEMOGLOBIN 27.8 pg (27.0-33.4); MEAN CORPUSCULAR HGB CONC 31.5 g/dL (32.0-36.0); MEAN CORPUSCULAR VOLUME 88 fl (80-97); RED BLOOD COUNT 3.76 10^6/uL (3.72-5.28); RED CELL DISTRIBUTION WIDTH 17.1 % (11.5-14.0)
[2017-02-08 06:29] LABS: ANION GAP 14 (5-19); CALCIUM 8.2 mg/dL (8.4-10.2); CARBON DIOXIDE 22 mmol/L (22-30); CHLORIDE 101 mmol/L (98-107); CREATININE RESULT 1.69 mg/dL (0.52-1.25); MAGNESIUM 2.3 mg/dL (1.6-2.3); POTASSIUM 4.1 mmol/L (3.6-5.0); SODIUM 137.4 mmol/L (137-145)
[2017-02-08 06:47] LABS: BLOOD UREA NITROGEN 73 mg/dL (7-20); GLUCOSE 503 mg/dL (75-110)
[2017-02-08] MEDS: INSULIN LISPRO 100 UNIT/ML 3 ML VIAL SUBCUT PRN ×3 (06:53→23:00)
[2017-02-08] MEDS: LANSOPRAZOLE 30 MG TAB.RAP.DR NG SCH ×2 (07:39→17:56)
--- NOTE | 2017-02-08 07:53 | RADIOLOGY REPORT (SQ) ---
EXAM DESCRIPTION: CHEST SINGLE VIEW COMPLETED DATE/TIME: 02/08/2017 6:39 am REASON FOR STUDY: resp fail, CHF, renal failure COMPARISON: Chest x-ray 02/07/2017. EXAM PARAMETERS: NUMBER OF VIEWS: One view. TECHNIQUE: Single frontal radiographic view of the chest acquired. RADIATION DOSE: NA LIMITATIONS: None. FINDINGS: LUNGS AND PLEURA: There are small bilateral pleural effusions with bibasilar airspace opac ities. No pneumothorax. MEDIASTINUM AND HILAR STRUCTURES: No masses. Contour normal. HEART AND VASCULAR STRUCTURES: The heart is enlarged. No overt vascular congestion. BONES: No acute findings. HARDWARE: The endotracheal tube and the enteric tube have been removed. Sternotomy wires are present . IMPRESSION: Cardiomegaly. Small bilateral pleural effusions with bibasilar airspace opacities. TECHNICAL DOCUMENTATION: JOB ID: [id number]
--- NOTE | 2017-02-08 09:47 | PDOC PROGRESS REPORT ---
Subjective Progress Note for:: 02/08/17 Subjective:: Patient seen in the ICU today.She has made a wonderful turnaround as she remains extubated and is sitting up and talking. She is very cheerful and says that is the best she has felt in a long time.She is on 2 L of nasal cannula. She is off all pressors. Vital signs are stable.She is eating. She denies any history of chest pain. However she has mild shortness of breath that seems to be holding on the nasal cannula.Discussions were done with the treating nurse and with Dr. Barry, psych arnp.She has had a good urine output and renal numbers are holding. Labs and medications were reviewed. Physical Exam Vital Signs: Temp Pulse Resp BP Pulse Ox 99.5 F 70 22 H 162/63 H 100 02/08/17 08:00 02/08/17 08:00 02/08/17 08:00 02/08/17 08:00 02/08/17 08:00 Intake & Output 02/07/17 02/08/17 02/09/17 06:59 06:59 06:59 Intake Total 1564 1673 Output Total 365 1950 240 Balance 1199 -277 -240 Weight 90.9 kg 91.7 kg General appearance: PRESENT: no acute distress Respiratory exam: PRESENT: clear to auscultation refugio, crackles. ABSENT: rhonchi Cardiovascular exam: PRESENT: +S1, +S2, systolic murmur GI/Abdominal exam: PRESENT: normal bowel sounds, soft. ABSENT: organomegaly, renal bruit, tenderness Neurological exam: PRESENT: alert, awake, oriented to person, oriented to place Skin exam: ABSENT: erythema, mottled, rash Results Laboratory Results: 02/08/17 06:00 02/08/17 06:00 02/08/17 02/08/17 06:00 06:00 WBC 11.0 H RBC 3.76 Hgb 10.5 L Hct 33.2 L MCV 88 MCH 27.8 MCHC 31.5 L RDW 17.1 H Plt Count 204 Sodium 137.4 Potassium 4.1 Chloride 101 Carbon Dioxide 22 Anion Gap 14 BUN 73 H D Creatinine 1.69 H Est GFR ( Amer) 37 L Est GFR (Non-Af Amer) 30 L Glucose 503 H* Calcium 8.2 L Magnesium 2.3 02/02/17 10:43 Blood Blood Culture - Final NO GROWTH IN 5 DAYS 02/02/17 09:37 Blood Blood Culture - Final NO GROWTH IN 5 DAYS 02/01/17 02/02/17 02/03/17 05:08 03:43 03:53 Creatine Kinase 617 H 421 H 559 H Troponin I NT-Pro-B Natriuret Pep 02/05/17 02/06/17 10:30 06:00 Creatine Kinase Troponin I 1.470 0.964 NT-Pro-B Natriuret Pep 33569 H Impressions: Foot X-Ray 01/31/17 21:18 IMPRESSION: Nondisplaced comminuted intra-articular fracture of the distal portion of the proximal phalanx of the left 5th digit.No other fracture or dislocation. Head CT 02/02/17 00:00 IMPRESSION: No significant intracranial abnormalities were identified. Other findings as noted above Chest X-Ray 02/08/17 06:00 IMPRESSION: Cardiomegaly. Small bilateral pleural effusions with bibasilar airspace opacities. Assessment & Plan - Diagnosis (1) Chronic renal disease, stage IV Plan: Secondary to diabetes mellitus with additional insults from hypertension, scleroderma. She just had couple of dialysis and seems to be showing gross signs of renal recovery. Renal numbers are stable. Good urine output. Will withhold dialysis for today and monitor.Discussed issues with the patient and her daughter by the bedside. (2) Acute kidney injury Plan: Renal numbers BUN and creatinine have improved nicely and holding. She is making good urine output.Will withhold dialysis as mentioned earlier. Discussed with treating nurse as well as with the patient and the daughter by the bedside. (4) Rhabdomyolysis Is this a current diagnosis for this admission?: Yes (5) Acute renal failure Qualifiers: Acute renal failure type: unspecified Qualified Code(s): N17.9 - Acute kidney failure, unspecified (6) Anemia of chronic disease Plan: We will adjust erythropoietin on weekly basis pending labs again tomorrow (7) Chronic diastolic CHF (congestive heart failure) Plan: Stable. 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 (9) Essential (primary) hypertension Plan: Controlled and stable. (10) IPF (idiopathic pulmonary fibrosis) Is this a current diagnosis for this admission?: YesPlan: I believe major issues was with decompensating pulmonary fibrosis and I believe that it has responded very well to the high-dose of steroids. I note that the IV Solu-Medrol has been converted to p.o. prednisone. Her crackles in the lungs are much better than when I listen to her on Wednesday. I would continue on the same lines of management. (11) Pulmonary hypertension Plan: from underlying lung disease. This along with possible sleep apnea could be the etiology for her CO2 narcosis and would benefit much from having CPAP. (12) Rheumatoid arthritis Qualifiers: Rheumatoid arthritis location: unspecified site Rheumatoid factor presence: unspecified presence Qualified Code(s): M06.9 - Rheumatoid arthritis, unspecified (14) Respiratory failure requiring intubation Is this a current diagnosis for this admission?: YesPlan: She has made a wonderful turnaround and has been extubated and remains quite well compensated with 2 L nasal cannula. Impressed by her recovery. Continue present management
[2017-02-08] MEDS: LEFLUNOMIDE 20 MG TABLET PO SCH (11:37)
[2017-02-08] MEDS: FEBUXOSTAT 40 MG TABLET NG SCH (11:37)
[2017-02-08] MEDS: DULOXETINE HCL 30 MG CAPSULE.DR PO SCH (11:37)
[2017-02-08] MEDS: ASPIRIN 81 MG TABLET, CHEWABLE NG SCH (11:37)
[2017-02-08] MEDS: NEBIVOLOL HCL 10 MG TABLET NG SCH ×2 (11:37→21:32)
[2017-02-08] MEDS: PREDNISONE 20 MG TABLET PO SCH ×2 (11:37→17:56)
[2017-02-08] MEDS: DOCUSATE SODIUM 100 MG CAPSULE PO SCH ×2 (11:38→17:20)
[2017-02-08] MEDS: LACTOBACILLUS ACIDOPHILUS 250 MG TAB NG SCH ×2 (11:38→17:56)
[2017-02-08] MEDS: VALACYCLOVIR HCL 500 MG TABLET NG SCH (11:38)
[2017-02-08] MEDS ORDERED: INSULIN GLARGINE,HUM.REC.ANLOG 1,000 UNIT/10 ML UNIT SUBCUT ONE (13:18)
[2017-02-08] MEDS ORDERED: INSULIN LISPRO 100 UNIT/ML 3 ML VIAL SUBCUT ONE ×2 (13:45→22:45)
--- NOTE | 2017-02-08 16:48 | PROGRESS NOTE E ---
Progress Note NAME: JOSIANE DILLON : 1950 AGE: 66Y DATE: 02/08/2017 ROOM: 608 SUBJECTIVE: The patient is lying in bed. She was seen twice today on rounds. The patient is doing very well on the BiPAP. She was extubated yesterday. There has been no reported episodes of vomiting or diarrhea. It appears overall she is much improved. The patient is currently maintaining on 30% FiO2 with 14/6. The patient's labs are much improved; therefore, she was not dialyzed today and the patient does not voice any specific concerns at this time. BRIEF HISTORY: The patient is a 66-year-old female with a complicated past medical history including scleroderma, pulmonary fibrosis and pulmonary hypertension with yvstb-jy-odylmor renal failure. The patient has had a complicated course during her stay including worsening renal failure and symptoms of uremia. The patient has received 2 hemodialysis treatments since admission with much improvement of her symptoms. The patient also did have significant respiratory distress which resulted in 2 days of intubation. The patient has been extubated; however, is pretty much BiPAP dependent and has been unable to transition to nasal cannula. REVIEW OF SYSTEMS: A full review of systems cannot be appreciated given the patient's mental status. MEDICATIONS: Medications have been reviewed. OBJECTIVE: GENERAL: The patient is a 66-year-old female who is awake, alert. She is oriented to person, place and time. She does not appear to be in any significant distress. VITAL SIGNS: As follows: Temperature is 99.5, pulse 80, respirations 25, blood pressure is 162/63. Oxygen saturation is 100% on currently 30% FiO2. SKIN: Warm and dry. No rashes, not diaphoretic. HEENT: Pupils equal, round and reactive to light and accommodation. Conjunctiva is pink. There is no evidence of JVP. CARDIOVASCULAR SYSTEM: Heart is regular. There is no rub. CHEST: Diminished, symmetrical and unlabored. ABDOMEN: Soft. Nontender and nondistended. BACK: No CVA tenderness or sacral edema. EXTREMITIES: Without clubbing or cyanosis, edema. PSYCHIATRIC: Appropriate affect, pleasant mood. DIAGNOSTICS: Lab values are as follows: Hematology obtained on 02/08/2017: WBC 11.0, hemoglobin 10.5, hematocrit is 33.2, platelet count is 304,000. ABG obtained on 02/07/2017: pH is 7.44, PCO2 is 38.9, PO2 is 78.3, bicarb is 25.7, total CO2 is 26.9. Chemistry obtained on 02/08/2017: Sodium is 137, potassium 4.1, chloride 101, carbon dioxide 22, BUN 73, creatinine 1.69. Glucose 503, calcium 8.2, magnesium is 2.3. IMPRESSION AND PLAN: 1. MULTISYSTEM ORGAN FAILURE INCLUDING HEART, PULMONARY, NOW RENAL. The patient has improved from a renal standpoint. Also she is now extubated; however, the patient does have underlying chronic illness. The family wishes to proceed with a FULL CODE status. Will continue management. 2. [id number] HYPOXEMIC AND HYPERCAPNIC RESPIRATORY FAILURE. Overall the ABG looks much better. The patient is 1 day post-extubation. Do appreciate Dr. Barry's input with this. She is currently wearing BiPAP. The goal is to transition to nasal cannula if at all possible. GROUP B STREP UTI. Repeat culture is unremarkable but coagulase-negative staph. The patient's Chavez had been replaced. Will remove Chavez in the a.m. continue current antibiotic coverage. 3. POSSIBLE ASPIRATION. The patient did have significant amount of vomitus in her BiPAP 4 days ago. Her chest x-ray shows improved aeration. Will continue Zosyn for now. 4. SCLERODERMA, RHEUMATOID ARTHRITIS WITH SUBSEQUENT PULMONARY FIBROSIS AND PULMONARY HYPERTENSION. Will continue the patient's home medications. She was on Tracleer for pulmonary hypertension. She is only receiving biologics of Arava as well as Xeljanz. These are on hold at this time, but she is currently receiving steroid therapy. 5. HYPERTENSION. Overall blood pressures have improved significantly. They are now on the high side which gives us some pressure to work with, as one point she was requiring vasopressors. 6. [id number] STAGE 3 KIDNEY DISEASE. They are overall much improved. Her renal failure was most likely a multifocal process including autoimmune, hypertension, diabetes, heavy doses of diuretics including taking metolazone 3 times a day and Bumex and spironolactone. 7. ANEMIA, MOST LIKELY OF UNDERLYING CHRONIC KIDNEY DISEASE. Will continue EPO. Hemoglobin is overall stable. 8. ELEVATED TROPONIN. This was just a bump due to her hypoxia. 9. CORONARY ARTERY DISEASE. The patient is 10 years out from a 5-vessel bypass and does have some recurrence of disease. She was last cathed by Dr. Frost in [place]. She has had both right and left-sided heart cath recently. DISPOSITION: The patient remains a FULL CODE. Pending patient's symptomatology and diagnostic findings will reevaluate in the a.m. The patient can be downgraded to IMCU. Time spent on this critical care visit including assessment, plan, physical examination, patient education and multiple visits is 35 minutes. DICTATING PHYSICIAN: BEATRIS GENAO NP [id number] PHY#: [id number] ID: [id number] JOB#: [id number] ACCT: [id number] cc: >
[2017-02-08] MEDS: TRACLEER 125 MG PO SCH ×2 (16:58→21:31)
[2017-02-09] MEDS: METRONIDAZOLE 500 MG/NS RTU 100 ML IV SCH ×5 (00:18→23:46)
[2017-02-09] MEDS: ONDANSETRON HCL INJ/PF 4 MG/2 ML SDV IV PRN ×2 (00:18→19:21)
[2017-02-09] MEDS: PIPERACILLIN SODIUM/TAZOBACTAM 2.25 GM in NORMAL SALINE 50 ML IV SCH ×5 (00:59→23:44)
[2017-02-09] MEDS: HEPARIN SOD (PORCINE) 5,000 UNIT/ML 1 ML SYRINGE SUBCUT SCH ×3 (05:45→21:45)
[2017-02-09] MEDS: PENTOXIFYLLINE 400 MG TABLET.SA PO SCH ×3 (05:45→21:45)
[2017-02-09] MEDS: GABAPENTIN 100 MG CAPSULE NG SCH ×3 (05:46→21:45)
[2017-02-09 05:50] LABS: ARTERIAL BLOOD BASE EXCESS 2.6 mmol/L; ARTERIAL BLOOD O2 SATURATION 98.7 % (94-98)
[2017-02-09 07:07] LABS: HEMATOCRIT 34.4 % (36.0-47.0); HEMOGLOBIN 10.8 g/dL (12.0-15.5); MEAN CORPUSCULAR HEMOGLOBIN 27.4 pg (27.0-33.4); MEAN CORPUSCULAR HGB CONC 31.4 g/dL (32.0-36.0); MEAN CORPUSCULAR VOLUME 87 fl (80-97); RED BLOOD COUNT 3.94 10^6/uL (3.72-5.28); RED CELL DISTRIBUTION WIDTH 16.5 % (11.5-14.0)
[2017-02-09 07:14] LABS: ANION GAP 10 (5-19); BLOOD UREA NITROGEN 57 mg/dL (7-20); CALCIUM 8.3 mg/dL (8.4-10.2); CARBON DIOXIDE 23 mmol/L (22-30); CHLORIDE 104 mmol/L (98-107); CREATININE RESULT 1.31 mg/dL (0.52-1.25); GLUCOSE 355 mg/dL (75-110); MAGNESIUM 2.2 mg/dL (1.6-2.3); POTASSIUM 3.8 mmol/L (3.6-5.0); SODIUM 136.7 mmol/L (137-145)
[2017-02-09 07:41] LABS: BASOPHILS % (MANUAL) 0 % (0-2); EOSINOPHILS % (MANUAL) 0 % (0-6); LYMPHOCYTES % (MANUAL) 5 % (13-45); TOTAL CELLS COUNTED 100; TOXIC GRANULATION SLIGHT
[2017-02-09 07:42] LABS: ANISOCYTOSIS 1+; OVALOCYTES 2+; POIKILOCYTOSIS 2+; POLYCHROMASIA SLIGHT
--- NOTE | 2017-02-09 07:45 | EKG REPORT ---
SEVERITY:- ABNORMAL ECG - SINUS RHYTHM BORDERLINE R WAVE PROGRESSION, ANTERIOR LEADS ABNORMAL T, CONSIDER ISCHEMIA, ANTERIOR LEADS : Confirmed by: Eliot May 09-Feb-2017 07:45:02
[2017-02-09] MEDS: INSULIN LISPRO 100 UNIT/ML 3 ML VIAL SUBCUT PRN ×3 (08:22→21:45)
[2017-02-09] MEDS: LANSOPRAZOLE 30 MG TAB.RAP.DR NG SCH ×2 (08:22→17:36)
--- NOTE | 2017-02-09 09:56 | RADIOLOGY REPORT (SQ) ---
EXAM DESCRIPTION: CHEST SINGLE VIEW COMPLETED DATE/TIME: 02/09/2017 9:44 am REASON FOR STUDY: pna COMPARISON: Two-view chest 08/30/2016, 02/06/2017, 02/07/2017, 02/08/2017 EXAM PARAMETERS: NUMBER OF VIEWS: One view. TECHNIQUE: Single frontal radiographic view of the chest acquired. RADIATION DOSE: NA LIMITATIONS: None. FINDINGS: LUNGS AND PLEURA: Atelectasis or fluid along the right major fissure causing a bandlike de nsity over the right lower lobe. This is similar compared to 02/06/2017. There is mild pulmonary vascular congestion. Stable trace bilateral pleural effusions. No alveolar or edema. No pneumothorax. MEDIASTINUM AND HILAR STRUCTURES: No masses. Contour normal. HEART AND VASCULAR STRUCTURES: Stable mild cardiomegaly and sternotomy for CABG. BONES: No acute findings. HARDWARE: None in the chest. OTHER: No other significant finding. IMPRESSION: Stable pulmonary vascular congestion and trace bilateral pleural effusions TECHNICAL DOCUMENTATION: JOB ID: [id number]
[2017-02-09] MEDS: DULOXETINE HCL 30 MG CAPSULE.DR PO SCH (10:23)
[2017-02-09] MEDS: TRACLEER 125 MG PO SCH ×2 (10:23→21:45)
[2017-02-09] MEDS: ASPIRIN 81 MG TABLET, CHEWABLE NG SCH (10:24)
[2017-02-09] MEDS: PREDNISONE 20 MG TABLET PO SCH ×2 (10:25→17:36)
[2017-02-09] MEDS: FEBUXOSTAT 40 MG TABLET NG SCH (10:26)
[2017-02-09] MEDS: VALACYCLOVIR HCL 500 MG TABLET NG SCH (10:26)
[2017-02-09] MEDS: LACTOBACILLUS ACIDOPHILUS 250 MG TAB NG SCH ×2 (10:26→17:36)
[2017-02-09] MEDS: LEFLUNOMIDE 20 MG TABLET PO SCH (10:26)
[2017-02-09] MEDS: DOCUSATE SODIUM 100 MG CAPSULE PO SCH ×2 (10:35→17:38)
[2017-02-09] MEDS: NEBIVOLOL HCL 10 MG TABLET NG SCH ×2 (14:26→21:45)
--- NOTE | 2017-02-09 14:28 | PDOC PROGRESS REPORT ---
Subjective Progress Note for:: 02/09/17 Subjective:: awake,Stable Physical Exam Vital Signs: Temp Pulse Resp BP Pulse Ox 97.9 F 52 L 26 H 165/58 H 100 02/09/17 11:25 02/09/17 11:25 02/09/17 11:25 02/09/17 11:25 02/09/17 11:25 Intake & Output 02/08/17 02/09/17 02/10/17 06:59 06:59 06:59 Intake Total 1673 1887 357 Output Total 9420 1570 300 Balance -277 317 57 Weight 91.7 kg 93.5 kg General appearance: PRESENT: no acute distress, disheveled, obese, well- developed Head exam: PRESENT: atraumatic, normocephalic Eye exam: PRESENT: conjunctiva pale, EOMI Mouth exam: PRESENT: dry mucosa, neck supple, tongue midline Neck exam: PRESENT: carotid bruit Respiratory exam: PRESENT: decreased breath sounds, prolonged expiratory phas, rhonchi, symmetrical, unlabored, wheezes Cardiovascular exam: PRESENT: RRR, +S1, +S2 Pulses: PRESENT: normal radial pulses GI/Abdominal exam: PRESENT: normal bowel sounds, soft. ABSENT: distended, guarding, mass, organolmegaly, rebound, tenderness Rectal exam: PRESENT: deferred Gentrourinary exam: PRESENT: indwelling catheter Musculoskeletal exam: PRESENT: normal inspection Neurological exam: PRESENT: awake Psychiatric exam: PRESENT: flat affect Skin exam: PRESENT: dry, warm Results Laboratory Results: 02/09/17 06:45 02/09/17 06:45 02/09/17 02/09/17 02/09/17 05:34 06:45 06:45 WBC 13.0 H RBC 3.94 Hgb 10.8 L Hct 34.4 L MCV 87 MCH 27.4 MCHC 31.4 L RDW 16.5 H Plt Count 216 Seg Neutrophils % Not Reportable Lymphocytes % Not Reportable Monocytes % Not Reportable Eosinophils % Not Reportable Basophils % Not Reportable Absolute Neutrophils Not Reportable Absolute Lymphocytes Not Reportable Absolute Monocytes Not Reportable Absolute Eosinophils Not Reportable Absolute Basophils Not Reportable Carbonic Acid 1.27 HCO3/H2CO3 Ratio 21:1 ABG pH 7.43 ABG pCO2 42.2 ABG pO2 130.0 H ABG HCO3 27.2 H ABG O2 Saturation 98.7 H ABG Base Excess 2.6 FiO2 30% Sodium 136.7 L Potassium 3.8 Chloride 104 Carbon Dioxide 23 Anion Gap 10 BUN 57 H Creatinine 1.31 H Est GFR ( Amer) 49 L Est GFR (Non-Af Amer) 41 L Glucose 355 H Calcium 8.3 L Magnesium 2.2 02/01/17 02/02/17 02/03/17 05:08 03:43 03:53 Creatine Kinase 617 H 421 H 559 H Troponin I NT-Pro-B Natriuret Pep 02/05/17 02/06/17 10:30 06:00 Creatine Kinase Troponin I 1.470 0.964 NT-Pro-B Natriuret Pep 56559 H Impressions: Foot X-Ray 01/31/17 21:18 IMPRESSION: Nondisplaced comminuted intra-articular fracture of the distal portion of the proximal phalanx of the left 5th digit.No other fracture or dislocation. Head CT 02/02/17 00:00 IMPRESSION: No significant intracranial abnormalities were identified. Other findings as noted above Chest X-Ray 02/09/17 06:00 IMPRESSION: Stable pulmonary vascular congestion and trace bilateral pleural effusions Assessment & Plan - Diagnosis (1) Jdovr-uh-xlzbkcd kidney injury Qualifiers: Acute renal failure type: unspecified Chronic kidney disease stage: unspecified stage Qualified Code(s): N17.9 - Acute kidney failure, unspecified; N18.9 - Chronic kidney disease, unspecified Is this a current diagnosis for this admission?: Yes (2) Hypoventilation Is this a current diagnosis for this admission?: Yes (3) Narcotic overdose Qualifiers: Encounter type: initial encounter Injury intent: accidental or unintentional Qualified Code(s): T40.601A - Poisoning by unspecified narcotics, accidental (unintentional), initial encounter Is this a current diagnosis for this admission?: Yes (4) Diabetes Qualifiers: Diabetes mellitus type: type 2 Diabetes mellitus complication status: with hyperglycemia Diabetes mellitus usp insulin use: without long term care administrator use Qualified Code(s): E11.65 - Type 2 diabetes mellitus with hyperglycemia; Z79.4 - [facility] (current) use of insulin Is this a current diagnosis for this admission?: Yes (5) CAD (coronary artery disease) Qualifiers: Coronary Disease-Associated Artery/Lesion type: [place] artery [place] vs. transplanted heart: [place] heart Associated angina: without angina Qualified Code(s): I25.10 - Atherosclerotic heart disease of [place] coronary artery without angina pectoris Is this a current diagnosis for this admission?: Yes (6) IPF (idiopathic pulmonary fibrosis) Is this a current diagnosis for this admission?: Yes (7) Respiratory failure requiring intubation Is this a current diagnosis for this admission?: Yes
--- NOTE | 2017-02-09 14:30 | PDOC PROGRESS REPORT ---
Subjective Progress Note for:: 02/08/17 Subjective:: awake,Currently on BiPAP Physical Exam Vital Signs: Temp Pulse Resp BP Pulse Ox 99.5 F 80 25 H 162/63 H 100 02/08/17 08:00 02/08/17 08:00 02/08/17 08:00 02/08/17 08:00 02/08/17 08:00 Intake & Output 02/07/17 02/08/17 02/09/17 06:59 06:59 06:59 Intake Total 1564 1673 Output Total 365 1950 240 Balance 1199 -277 -240 Weight 90.9 kg 91.7 kg General appearance: PRESENT: cooperative, disheveled, hard of hearing, obese, well-developed Head exam: PRESENT: atraumatic, normocephalic Eye exam: PRESENT: conjunctiva pale, EOMI Mouth exam: PRESENT: dry mucosa, neck supple, tongue midline Neck exam: ABSENT: carotid bruit, JVD, lymphadenopathy, thyromegaly Respiratory exam: PRESENT: decreased breath sounds, prolonged expiratory phas, rhonchi, symmetrical, unlabored, wheezes Cardiovascular exam: PRESENT: RRR, +S1, +S2 Pulses: PRESENT: normal radial pulses GI/Abdominal exam: PRESENT: normal bowel sounds, soft. ABSENT: distended, guarding, mass, organolmegaly, rebound, tenderness Rectal exam: PRESENT: deferred Gentrourinary exam: PRESENT: indwelling catheter Musculoskeletal exam: PRESENT: normal inspection Neurological exam: PRESENT: awake Psychiatric exam: PRESENT: normal mood Skin exam: PRESENT: dry, warm Results Laboratory Results: 02/08/17 06:00 02/08/17 06:00 02/08/17 02/08/17 06:00 06:00 WBC 11.0 H RBC 3.76 Hgb 10.5 L Hct 33.2 L MCV 88 MCH 27.8 MCHC 31.5 L RDW 17.1 H Plt Count 204 Sodium 137.4 Potassium 4.1 Chloride 101 Carbon Dioxide 22 Anion Gap 14 BUN 73 H D Creatinine 1.69 H Est GFR ( Amer) 37 L Est GFR (Non-Af Amer) 30 L Glucose 503 H* Calcium 8.2 L Magnesium 2.3 02/02/17 10:43 Blood Blood Culture - Final NO GROWTH IN 5 DAYS 02/02/17 09:37 Blood Blood Culture - Final NO GROWTH IN 5 DAYS 02/01/17 02/02/17 02/03/17 05:08 03:43 03:53 Creatine Kinase 617 H 421 H 559 H Troponin I NT-Pro-B Natriuret Pep 02/05/17 02/06/17 10:30 06:00 Creatine Kinase Troponin I 1.470 0.964 NT-Pro-B Natriuret Pep 96325 H Impressions: Foot X-Ray 01/31/17 21:18 IMPRESSION: Nondisplaced comminuted intra-articular fracture of the distal portion of the proximal phalanx of the left 5th digit.No other fracture or dislocation. Head CT 02/02/17 00:00 IMPRESSION: No significant intracranial abnormalities were identified. Other findings as noted above Chest X-Ray 02/08/17 06:00 IMPRESSION: Cardiomegaly. Small bilateral pleural effusions with bibasilar airspace opacities. Assessment & Plan - Diagnosis (1) Mnlep-pd-jdyozbu kidney injury Qualifiers: Acute renal failure type: unspecified Chronic kidney disease stage: unspecified stage Qualified Code(s): N17.9 - Acute kidney failure, unspecified; N18.9 - Chronic kidney disease, unspecified Is this a current diagnosis for this admission?: Yes (2) Hypoventilation Is this a current diagnosis for this admission?: Yes (3) Narcotic overdose Qualifiers: Encounter type: initial encounter Injury intent: accidental or unintentional Qualified Code(s): T40.601A - Poisoning by unspecified narcotics, accidental (unintentional), initial encounter Is this a current diagnosis for this admission?: Yes (4) Diabetes Qualifiers: Diabetes mellitus type: type 2 Diabetes mellitus complication status: with hyperglycemia Diabetes mellitus detention insulin use: without detention use Qualified Code(s): E11.65 - Type 2 diabetes mellitus with hyperglycemia; Z79.4 - half-way (current) use of insulin Is this a current diagnosis for this admission?: Yes (5) CAD (coronary artery disease) Qualifiers: Coronary Disease-Associated Artery/Lesion type: [place] artery [place] vs. transplanted heart: [place] heart Associated angina: without angina Qualified Code(s): I25.10 - Atherosclerotic heart disease of [place] coronary artery without angina pectoris Is this a current diagnosis for this admission?: Yes (6) IPF (idiopathic pulmonary fibrosis) Is this a current diagnosis for this admission?: Yes (7) Respiratory failure requiring intubation Is this a current diagnosis for this admission?: Yes - Time Critical Time spent with patient: 15-24 minutes
--- NOTE | 2017-02-09 16:05 | PDOC PROGRESS REPORT ---
Subjective Progress Note for:: 02/09/17 Subjective:: Patient seen on morning rounds she is resting in bed on BiPAP at present time. She denies any respiratory distress or dyspnea. She denies any cough at the present time. Denies any chest pain, palpitations or dizziness. She denies any nausea, vomiting abdominal pain or diarrhea. She denies any significant arthralgias or myalgias present time. She states her appetite has been poor. She states she has not been out of bed in several days. Remaining review systems are negative. Physical Exam Vital Signs: Temp Pulse Resp BP Pulse Ox 97.9 F 52 L 24 H 165/58 H 99 02/09/17 11:25 02/09/17 11:25 02/09/17 12:00 02/09/17 11:25 02/09/17 12:00 Intake & Output 02/08/17 02/09/17 02/10/17 06:59 06:59 06:59 Intake Total 1673 1887 357 Output Total 1950 1570 300 Balance -277 317 57 Weight 91.7 kg 93.5 kg General appearance: PRESENT: no acute distress, morbidly obese, well-developed, well-nourished Head exam: PRESENT: atraumatic, normocephalic Eye exam: PRESENT: conjunctiva pink, EOMI, PERRLA. ABSENT: scleral icterus Ear exam: PRESENT: normal external ear exam Mouth exam: PRESENT: moist, tongue midline Neck exam: ABSENT: carotid bruit, JVD, lymphadenopathy, thyromegaly Respiratory exam: PRESENT: decreased breath sounds, prolonged expiratory phas, rales, symmetrical, unlabored Cardiovascular exam: PRESENT: RRR. ABSENT: diastolic murmur, rubs, systolic murmur Pulses: PRESENT: normal [place] pedis pul Vascular exam: PRESENT: normal capillary refill GI/Abdominal exam: PRESENT: normal bowel sounds, soft. ABSENT: distended, guarding, mass, organolmegaly, rebound, tenderness Rectal exam: PRESENT: deferred Extremities exam: PRESENT: full ROM. ABSENT: calf tenderness, clubbing, pedal edema Neurological exam: PRESENT: alert, awake, oriented to person, oriented to place , oriented to time, oriented to situation, CN II-XII grossly intact. ABSENT: motor sensory deficit Psychiatric exam: PRESENT: appropriate affect, normal mood. ABSENT: homicidal ideation, suicidal ideation Skin exam: PRESENT: dry, intact, warm. ABSENT: cyanosis, rash Results Laboratory Results: 02/09/17 06:45 02/09/17 06:45 02/09/17 02/09/17 02/09/17 05:34 06:45 06:45 WBC 13.0 H RBC 3.94 Hgb 10.8 L Hct 34.4 L MCV 87 MCH 27.4 MCHC 31.4 L RDW 16.5 H Plt Count 216 Seg Neutrophils % Not Reportable Lymphocytes % Not Reportable Monocytes % Not Reportable Eosinophils % Not Reportable Basophils % Not Reportable Absolute Neutrophils Not Reportable Absolute Lymphocytes Not Reportable Absolute Monocytes Not Reportable Absolute Eosinophils Not Reportable Absolute Basophils Not Reportable Carbonic Acid 1.27 HCO3/H2CO3 Ratio 21:1 ABG pH 7.43 ABG pCO2 42.2 ABG pO2 130.0 H ABG HCO3 27.2 H ABG O2 Saturation 98.7 H ABG Base Excess 2.6 FiO2 30% Sodium 136.7 L Potassium 3.8 Chloride 104 Carbon Dioxide 23 Anion Gap 10 BUN 57 H Creatinine 1.31 H Est GFR ( Amer) 49 L Est GFR (Non-Af Amer) 41 L Glucose 355 H Calcium 8.3 L Magnesium 2.2 02/01/17 02/02/17 02/03/17 05:08 03:43 03:53 Creatine Kinase 617 H 421 H 559 H Troponin I NT-Pro-B Natriuret Pep 02/05/17 02/06/17 10:30 06:00 Creatine Kinase Troponin I 1.470 0.964 NT-Pro-B Natriuret Pep [id number] H Impressions: Foot X-Ray 01/31/17 21:18 IMPRESSION: Nondisplaced comminuted intra-articular fracture of the distal portion of the proximal phalanx of the left 5th digit.No other fracture or dislocation. Head CT 02/02/17 00:00 IMPRESSION: No significant intracranial abnormalities were identified. Other findings as noted above Chest X-Ray 02/09/17 06:00 IMPRESSION: Stable pulmonary vascular congestion and trace bilateral pleural effusions Assessment & Plan - Diagnosis (1) Respiratory failure requiring intubation Is this a current diagnosis for this admission?: YesPlan: Patient extubated yesterday. She has required BiPAP intermittently. She continues to have low volume due to hypoventilation. (2) Wmtko-xh-ojultaa kidney injury Qualifiers: Acute renal failure type: unspecified Chronic kidney disease stage: unspecified stage Qualified Code(s): N17.9 - Acute kidney failure, unspecified; N18.9 - Chronic kidney disease, unspecified Is this a current diagnosis for this admission?: Yes (3) Chronic renal disease, stage IV Is this a current diagnosis for this admission?: YesPlan: Avoid nephrotoxic medications and dosages (4) Hypoventilation Is this a current diagnosis for this admission?: Yes (5) Anemia Qualifiers: Anemia type: B12 deficiency Is this a current diagnosis for this admission?: YesPlan: Continue supplements (6) CAD (coronary artery disease) Qualifiers: Coronary Disease-Associated Artery/Lesion type: [place] artery [place] vs. transplanted heart: [place] heart Associated angina: without angina Qualified Code(s): I25.10 - Atherosclerotic heart disease of [place] coronary artery without angina pectoris Is this a current diagnosis for this admission?: Yes (7) Chronic diastolic CHF (congestive heart failure) Is this a current diagnosis for this admission?: YesPlan: Patient appears euvolemic at the present time.Will continue to hold diuretics (8) Diabetes Qualifiers: Diabetes mellitus type: type 2 Diabetes mellitus complication status: with hyperglycemia Diabetes mellitus retirement insulin use: without retirement use Qualified Code(s): E11.65 - Type 2 diabetes mellitus with hyperglycemia; Z79.4 - longterm (current) use of insulin Is this a current diagnosis for this admission?: Yes (9) Essential (primary) hypertension Is this a current diagnosis for this admission?: YesPlan: Patient is normotensive, continue current medications (10) GERD (gastroesophageal reflux disease) Qualifiers: Esophagitis presence: without esophagitis Qualified Code(s): K21.9 - Gastro-esophageal reflux disease without esophagitis (11) Hyperlipidemia Qualifiers: Hyperlipidemia type: unspecified Qualified Code(s): E78.5 - Hyperlipidemia, unspecified Is this a current diagnosis for this admission?: YesPlan: Continue statin (12) IPF (idiopathic pulmonary fibrosis) Is this a current diagnosis for this admission?: YesPlan: Per pulmonary (13) Pulmonary hypertension Is this a current diagnosis for this admission?: YesPlan: Continue BIPAP (14) Rheumatoid arthritis Qualifiers: Rheumatoid arthritis location: unspecified site Rheumatoid factor presence: unspecified presence Qualified Code(s): M06.9 - Rheumatoid arthritis, unspecified Is this a current diagnosis for this admission?: YesPlan: Patient presently not on biologics - Time Time Spent with patient: 25-34 minutes Critical Time spent with patient: 15-24 minutes Medications reviewed and adjusted accordingly: Yes Anticipated discharge: Home with Homehealth
--- NOTE | 2017-02-09 16:41 | PDOC PROGRESS REPORT ---
Subjective Progress Note for:: 02/09/17 Subjective:: Patient was seen in the hospital today.She has been transferred from the ICU to the intermediate care. She is up and eating lunch when this see her. She has been on BiPAP this morning when she was sleeping and presently she is on a nasal cannula but seems to be having some struggles.She denies any history of fever chills. No history of any hemoptysis.Labs and medications were reviewed. She is making good urine output. Physical Exam Vital Signs: Temp Pulse Resp BP Pulse Ox 97.9 F 78 24 H 165/58 H 99 02/09/17 11:25 02/09/17 14:00 02/09/17 12:00 02/09/17 11:25 02/09/17 12:00 Intake & Output 02/08/17 02/09/17 02/10/17 06:59 06:59 06:59 Intake Total 1673 1887 357 Output Total 1950 1570 300 Balance -277 317 57 Weight 91.7 kg 93.5 kg General appearance: PRESENT: mild distress Respiratory exam: PRESENT: clear to auscultation refugio, crackles. ABSENT: rhonchi Cardiovascular exam: PRESENT: +S1, +S2, systolic murmur GI/Abdominal exam: PRESENT: normal bowel sounds, soft. ABSENT: organomegaly, renal bruit, tenderness Extremities exam: PRESENT: pedal edema - Trace Neurological exam: PRESENT: alert, awake, oriented to person, oriented to place Skin exam: ABSENT: erythema, mottled, rash Results Laboratory Results: 02/09/17 06:45 02/09/17 06:45 02/09/17 02/09/17 02/09/17 05:34 06:45 06:45 WBC 13.0 H RBC 3.94 Hgb 10.8 L Hct 34.4 L MCV 87 MCH 27.4 MCHC 31.4 L RDW 16.5 H Plt Count 216 Seg Neutrophils % Not Reportable Lymphocytes % Not Reportable Monocytes % Not Reportable Eosinophils % Not Reportable Basophils % Not Reportable Absolute Neutrophils Not Reportable Absolute Lymphocytes Not Reportable Absolute Monocytes Not Reportable Absolute Eosinophils Not Reportable Absolute Basophils Not Reportable Carbonic Acid 1.27 HCO3/H2CO3 Ratio 21:1 ABG pH 7.43 ABG pCO2 42.2 ABG pO2 130.0 H ABG HCO3 27.2 H ABG O2 Saturation 98.7 H ABG Base Excess 2.6 FiO2 30% Sodium 136.7 L Potassium 3.8 Chloride 104 Carbon Dioxide 23 Anion Gap 10 BUN 57 H Creatinine 1.31 H Est GFR ( Amer) 49 L Est GFR (Non-Af Amer) 41 L Glucose 355 H Calcium 8.3 L Magnesium 2.2 02/01/17 02/02/17 02/03/17 05:08 03:43 03:53 Creatine Kinase 617 H 421 H 559 H Troponin I NT-Pro-B Natriuret Pep 02/05/17 02/06/17 10:30 06:00 Creatine Kinase Troponin I 1.470 0.964 NT-Pro-B Natriuret Pep 68704 H Impressions: Foot X-Ray 01/31/17 21:18 IMPRESSION: Nondisplaced comminuted intra-articular fracture of the distal portion of the proximal phalanx of the left 5th digit.No other fracture or dislocation. Head CT 02/02/17 00:00 IMPRESSION: No significant intracranial abnormalities were identified. Other findings as noted above Chest X-Ray 02/09/17 06:00 IMPRESSION: Stable pulmonary vascular congestion and trace bilateral pleural effusions Assessment & Plan - Diagnosis (1) Chronic renal disease, stage IV Is this a current diagnosis for this admission?: YesPlan: Secondary to diabetes mellitus with additional insults from hypertension, scleroderma,CHF. She just had couple of dialysis and seems to be showing gross signs of renal recovery. Renal numbers are improving. Good urine output. No indications for continuing on renal replacements. Will reevaluate her again for dialysis tomorrow. If she holds her numbers at the current level are improved and she can be discharged and I will be glad to follow-up as an outpatient (2) Acute kidney injury Plan: Renal numbers BUN and creatinine have improved nicely and holding. She is making good urine output.Will withhold dialysis as mentioned earlier. Discussed with treating nurse as well as with the patient . (4) Rhabdomyolysis Is this a current diagnosis for this admission?: Yes (5) Acute renal failure Qualifiers: Acute renal failure type: unspecified Qualified Code(s): N17.9 - Acute kidney failure, unspecified (6) Anemia of chronic disease Plan: We will adjust erythropoietin on weekly basis pending labs again tomorrow (7) Chronic diastolic CHF (congestive heart failure) Is this a current diagnosis for this admission?: YesPlan: Stable. (8) Diabetes Qualifiers: Diabetes mellitus type: type 2 Diabetes mellitus complication status: with hyperglycemia Diabetes mellitus senior care insulin use: without senior care use Qualified Code(s): E11.65 - Type 2 diabetes mellitus with hyperglycemia; Z79.4 - long-term (current) use of insulin Is this a current diagnosis for this admission?: Yes (9) Essential (primary) hypertension Is this a current diagnosis for this admission?: YesPlan: Controlled and stable. (10) IPF (idiopathic pulmonary fibrosis) Is this a current diagnosis for this admission?: YesPlan: I believe major issues was with decompensating pulmonary fibrosis and that seems to have improved with the introduction of IV steroids followed by conversion to p.o. However looking at her struggles on nasal cannula looks like she is going to be respiratory cripple. . (11) Pulmonary hypertension Is this a current diagnosis for this admission?: YesPlan: from underlying lung disease. This along with possible sleep apnea could be the etiology for her CO2 narcosis and would benefit much from having CPAP.Meanwhile I will continue on the bosentan. (12) Rheumatoid arthritis Qualifiers: Rheumatoid arthritis location: unspecified site Rheumatoid factor presence: unspecified presence Qualified Code(s): M06.9 - Rheumatoid arthritis, unspecified Is this a current diagnosis for this admission?: Yes (14) Respiratory failure requiring intubation Is this a current diagnosis for this admission?: YesPlan: She has made a wonderful turnaround and has been extubated . Impressed by her recovery. Continue present management
[2017-02-09] MEDS ORDERED: INSULIN LISPRO 100 UNIT/ML 3 ML VIAL SUBCUT PRN (21:45)
[2017-02-10 05:17] LABS: HEMATOCRIT 35.8 % (36.0-47.0); HEMOGLOBIN 11.4 g/dL (12.0-15.5); HGB HCT DIFFERENCE -1.6; MEAN CORPUSCULAR HEMOGLOBIN 27.8 pg (27.0-33.4); MEAN CORPUSCULAR VOLUME 87 fl (80-97); RED BLOOD COUNT 4.11 10^6/uL (3.72-5.28); RED CELL DISTRIBUTION WIDTH 16.4 % (11.5-14.0); WHITE BLOOD COUNT 13.3 10^3/uL (4.0-10.5)
[2017-02-10] MEDS: METRONIDAZOLE 500 MG/NS RTU 100 ML IV SCH ×3 (06:40→18:38)
[2017-02-10] MEDS: HEPARIN SOD (PORCINE) 5,000 UNIT/ML 1 ML SYRINGE SUBCUT SCH ×3 (06:48→22:48)
[2017-02-10] MEDS: GABAPENTIN 100 MG CAPSULE NG SCH ×3 (06:49→22:48)
[2017-02-10] MEDS: PENTOXIFYLLINE 400 MG TABLET.SA PO SCH ×3 (06:49→22:48)
[2017-02-10] MEDS: PIPERACILLIN SODIUM/TAZOBACTAM 2.25 GM in NORMAL SALINE 50 ML IV SCH ×4 (07:57→23:50)
[2017-02-10] MEDS: ONDANSETRON HCL INJ/PF 4 MG/2 ML SDV IV PRN ×2 (09:01→21:28)
[2017-02-10] MEDS: INSULIN LISPRO 100 UNIT/ML 3 ML VIAL SUBCUT PRN ×4 (09:01→22:47)
[2017-02-10] MEDS: LANSOPRAZOLE 30 MG TAB.RAP.DR NG SCH ×2 (09:02→18:38)
[2017-02-10] MEDS: TRACLEER 125 MG PO SCH ×2 (09:02→22:57)
[2017-02-10] MEDS: ASPIRIN 81 MG TABLET, CHEWABLE NG SCH (09:03)
[2017-02-10] MEDS: VALACYCLOVIR HCL 500 MG TABLET NG SCH (09:03)
[2017-02-10] MEDS: PREDNISONE 20 MG TABLET PO SCH (09:03)
[2017-02-10] MEDS: LACTOBACILLUS ACIDOPHILUS 250 MG TAB NG SCH ×2 (09:03→18:37)
[2017-02-10] MEDS: DULOXETINE HCL 30 MG CAPSULE.DR PO SCH (09:03)
[2017-02-10] MEDS: NEBIVOLOL HCL 10 MG TABLET NG SCH ×2 (09:04→22:48)
[2017-02-10] MEDS: FEBUXOSTAT 40 MG TABLET NG SCH (09:04)
[2017-02-10] MEDS: LEFLUNOMIDE 20 MG TABLET PO SCH (09:04)
[2017-02-10] MEDS: DOCUSATE SODIUM 100 MG CAPSULE PO SCH ×2 (09:05→18:30)
[2017-02-10 09:23] LABS: ANION GAP 11 (5-19); BLOOD UREA NITROGEN 49 mg/dL (7-20); CALCIUM 8.4 mg/dL (8.4-10.2); CARBON DIOXIDE 25 mmol/L (22-30); CHLORIDE 106 mmol/L (98-107); CREATININE RESULT 1.16 mg/dL (0.52-1.25); POTASSIUM 3.7 mmol/L (3.6-5.0)
[2017-02-10 09:35] LABS: GLUCOSE 447 mg/dL (75-110)
--- NOTE | 2017-02-10 11:05 | PDOC PROGRESS REPORT ---
Subjective Progress Note for:: 02/10/17 Subjective:: Patient was seen in the hospital today. She is doing a whole lot better than when I saw her yesterday.Her daughter is at the bedside and and is also happy with the progress she has made. She is yet to start physical therapy. Talks are being undertaken for her to go either home with help or to rehab. She is making good urine output.She has a good appetite and had a breakfast all by herself this morning. She is on BiPAP at night. Physical Exam Vital Signs: Temp Pulse Resp BP Pulse Ox 97.5 F 63 28 H 163/47 H 100 02/10/17 07:20 02/10/17 07:20 02/10/17 07:20 02/10/17 07:20 02/10/17 07:20 Intake & Output 02/09/17 02/10/17 02/11/17 06:59 06:59 06:59 Intake Total 1887 2221 Output Total 1570 1500 Balance 317 721 Weight 93.5 kg 89.6 kg General appearance: PRESENT: mild distress Respiratory exam: PRESENT: clear to auscultation refugio, crackles. ABSENT: rhonchi Cardiovascular exam: PRESENT: +S1, +S2, systolic murmur GI/Abdominal exam: PRESENT: normal bowel sounds, soft. ABSENT: organomegaly, renal bruit, tenderness Neurological exam: PRESENT: alert, awake, oriented to person, oriented to place Skin exam: ABSENT: erythema, mottled, rash Results Laboratory Results: 02/10/17 04:45 02/10/17 08:35 02/10/17 02/10/17 02/10/17 04:45 04:45 08:35 WBC 13.3 H RBC 4.11 Hgb 11.4 L Hct 35.8 L MCV 87 MCH 27.8 MCHC 32.0 RDW 16.4 H Plt Count 223 Sodium 142.0 Potassium 3.7 Chloride 106 Carbon Dioxide 25 Anion Gap 11 BUN 49 H Creatinine 1.16 Est GFR ( Amer) 57 L Est GFR (Non-Af Amer) 47 L Glucose 447 H* Calcium 8.4 Magnesium 2.2 02/01/17 02/02/17 02/03/17 05:08 03:43 03:53 Creatine Kinase 617 H 421 H 559 H Troponin I NT-Pro-B Natriuret Pep 02/05/17 02/06/17 10:30 06:00 Creatine Kinase Troponin I 1.470 0.964 NT-Pro-B Natriuret Pep 38226 H Impressions: Foot X-Ray 01/31/17 21:18 IMPRESSION: Nondisplaced comminuted intra-articular fracture of the distal portion of the proximal phalanx of the left 5th digit.No other fracture or dislocation. Head CT 02/02/17 00:00 IMPRESSION: No significant intracranial abnormalities were identified. Other findings as noted above Chest X-Ray 02/09/17 06:00 IMPRESSION: Stable pulmonary vascular congestion and trace bilateral pleural effusions Assessment & Plan - Diagnosis (1) Chronic renal disease, stage IV Is this a current diagnosis for this admission?: YesPlan: Secondary to diabetes mellitus with additional insults from hypertension, scleroderma,CHF. She just had couple of dialysis and seems to be showing gross signs of renal recovery. Renal numbers have improved considerably as seen by her creatinine of today at 1.1. and stable. Good urine output. No indications for continuing on renal replacements. From a renal point of view, she can be discharged and I will be glad to follow-up as an outpatient. I am going to sign off and please call on a as needed basis. 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 However looking at her struggles on nasal cannula looks like she is going to be respiratory cripple. (11) Pulmonary hypertension Is this a current diagnosis for this admission?: YesPlan: from underlying lung disease. This along with possible sleep apnea could be the etiology for her CO2 narcosis and would benefit much from having CPAP.Meanwhile I will continue on the bosentan. (12) Rheumatoid arthritis Qualifiers: Rheumatoid arthritis location: unspecified site Rheumatoid factor presence: unspecified presence Qualified Code(s): M06.9 - Rheumatoid arthritis, unspecified Is this a current diagnosis for this admission?: Yes (14) Respiratory failure requiring intubation Is this a current diagnosis for this admission?: Yes
--- NOTE | 2017-02-10 11:24 | PDOC PROGRESS REPORT ---
Subjective Progress Note for:: 02/10/17 Subjective:: awake Physical Exam Vital Signs: Temp Pulse Resp BP Pulse Ox 97.5 F 63 28 H 163/47 H 100 02/10/17 07:20 02/10/17 07:20 02/10/17 07:20 02/10/17 07:20 02/10/17 07:20 Intake & Output 02/09/17 02/10/17 02/11/17 06:59 06:59 06:59 Intake Total 1887 2221 Output Total 1570 1500 Balance 317 721 Weight 93.5 kg 89.6 kg General appearance: PRESENT: no acute distress, cooperative, disheveled, obese, well-developed Head exam: PRESENT: atraumatic, normocephalic Eye exam: PRESENT: conjunctiva pale, EOMI Mouth exam: PRESENT: dry mucosa, neck supple, tongue midline Neck exam: ABSENT: carotid bruit, JVD, lymphadenopathy, thyromegaly Respiratory exam: PRESENT: decreased breath sounds, prolonged expiratory phas, rhonchi, symmetrical Cardiovascular exam: PRESENT: RRR, +S1, +S2 Pulses: PRESENT: normal radial pulses GI/Abdominal exam: PRESENT: normal bowel sounds, soft. ABSENT: distended, guarding, mass, organolmegaly, rebound, tenderness Rectal exam: PRESENT: deferred Musculoskeletal exam: PRESENT: normal inspection Neurological exam: PRESENT: alert, awake Results Laboratory Results: 02/10/17 04:45 02/10/17 08:35 02/10/17 02/10/17 02/10/17 04:45 04:45 08:35 WBC 13.3 H RBC 4.11 Hgb 11.4 L Hct 35.8 L MCV 87 MCH 27.8 MCHC 32.0 RDW 16.4 H Plt Count 223 Sodium 142.0 Potassium 3.7 Chloride 106 Carbon Dioxide 25 Anion Gap 11 BUN 49 H Creatinine 1.16 Est GFR ( Amer) 57 L Est GFR (Non-Af Amer) 47 L Glucose 447 H* Calcium 8.4 Magnesium 2.2 02/01/17 02/02/17 02/03/17 05:08 03:43 03:53 Creatine Kinase 617 H 421 H 559 H Troponin I NT-Pro-B Natriuret Pep 02/05/17 02/06/17 10:30 06:00 Creatine Kinase Troponin I 1.470 0.964 NT-Pro-B Natriuret Pep 69643 H Impressions: Foot X-Ray 01/31/17 21:18 IMPRESSION: Nondisplaced comminuted intra-articular fracture of the distal portion of the proximal phalanx of the left 5th digit.No other fracture or dislocation. Head CT 02/02/17 00:00 IMPRESSION: No significant intracranial abnormalities were identified. Other findings as noted above Chest X-Ray 02/09/17 06:00 IMPRESSION: Stable pulmonary vascular congestion and trace bilateral pleural effusions Assessment & Plan - Diagnosis (1) [id number] kidney injury Qualifiers: Acute renal failure type: unspecified Chronic kidney disease stage: unspecified stage Qualified Code(s): N17.9 - Acute kidney failure, unspecified; N18.9 - Chronic kidney disease, unspecified Is this a current diagnosis for this admission?: Yes (2) Hypoventilation Is this a current diagnosis for this admission?: Yes (3) Narcotic overdose Qualifiers: Encounter type: initial encounter Injury intent: accidental or unintentional Qualified Code(s): T40.601A - Poisoning by unspecified narcotics, accidental (unintentional), initial encounter Is this a current diagnosis for this admission?: Yes (4) Diabetes Qualifiers: Diabetes mellitus type: type 2 Diabetes mellitus complication status: with hyperglycemia Diabetes mellitus snf insulin use: without snf use Qualified Code(s): E11.65 - Type 2 diabetes mellitus with hyperglycemia; 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 transplanted heart: [place] heart Associated angina: without angina Qualified Code(s): I25.10 - Atherosclerotic heart disease of [place] coronary artery without angina pectoris Is this a current diagnosis for this admission?: Yes (6) IPF (idiopathic pulmonary fibrosis) Is this a current diagnosis for this admission?: Yes (7) Respiratory failure requiring intubation Is this a current diagnosis for this admission?: Yes
[2017-02-10] MEDS: METOCLOPRAMIDE HCL INJ/PF 10 MG/2 ML SDV IV SCH ×3 (12:46→22:49)
[2017-02-10] MEDS: AMLODIPINE BESYLATE 5 MG TABLET PO SCH (12:46)
--- NOTE | 2017-02-10 13:48 | PDOC PROGRESS REPORT ---
Subjective Progress Note for:: 02/10/17 Subjective:: Patient seen on morning rounds she is resting in bed on nasal cannula at present time. She is mildly tachypneic, but denies feelings of respiratory distress. She denies any respiratory distress or dyspnea. She denies any cough at the present time. Denies any chest pain, palpitations or dizziness. She denies any nausea, vomiting abdominal pain or diarrhea. She denies any significant arthralgias or myalgias present time. She states her appetite has been poor. She states she has not been out of bed in several days. Remaining review systems are negative. Physical Exam Vital Signs: Temp Pulse Resp BP Pulse Ox 97.6 F 83 17 177/44 H 98 02/10/17 11:13 02/10/17 13:19 02/10/17 13:19 02/10/17 11:13 02/10/17 11:13 Intake & Output 02/09/17 02/10/17 02/11/17 06:59 06:59 06:59 Intake Total 1887 2221 440 Output Total 1570 1500 300 Balance 317 721 140 Weight 93.5 kg 89.6 kg General appearance: PRESENT: no acute distress, obese, well-developed, well- nourished Head exam: PRESENT: atraumatic, normocephalic Eye exam: PRESENT: conjunctiva pink, EOMI, PERRLA. ABSENT: scleral icterus Ear exam: PRESENT: normal external ear exam Mouth exam: PRESENT: moist, tongue midline Neck exam: ABSENT: carotid bruit, JVD, lymphadenopathy, thyromegaly Respiratory exam: PRESENT: crackles, decreased breath sounds, rhonchi, symmetrical, unlabored. ABSENT: rales, wheezes Cardiovascular exam: PRESENT: RRR. ABSENT: diastolic murmur, rubs, systolic murmur Pulses: PRESENT: normal [place] pedis pul Vascular exam: PRESENT: normal capillary refill GI/Abdominal exam: PRESENT: normal bowel sounds, soft. ABSENT: distended, guarding, mass, organolmegaly, rebound, tenderness Rectal exam: PRESENT: deferred Extremities exam: PRESENT: full ROM. ABSENT: calf tenderness, clubbing, pedal edema Neurological exam: PRESENT: alert, awake, oriented to person, oriented to place , oriented to time, oriented to situation, CN II-XII grossly intact. ABSENT: motor sensory deficit Psychiatric exam: PRESENT: appropriate affect, normal mood. ABSENT: homicidal ideation, suicidal ideation Skin exam: PRESENT: dry, intact, warm. ABSENT: cyanosis, rash Results Laboratory Results: 02/10/17 04:45 02/10/17 08:35 02/10/17 02/10/17 02/10/17 04:45 04:45 08:35 WBC 13.3 H RBC 4.11 Hgb 11.4 L Hct 35.8 L MCV 87 MCH 27.8 MCHC 32.0 RDW 16.4 H Plt Count 223 Sodium 142.0 Potassium 3.7 Chloride 106 Carbon Dioxide 25 Anion Gap 11 BUN 49 H Creatinine 1.16 Est GFR ( Amer) 57 L Est GFR (Non-Af Amer) 47 L Glucose 447 H* Calcium 8.4 Magnesium 2.2 02/01/17 02/02/17 02/03/17 05:08 03:43 03:53 Creatine Kinase 617 H 421 H 559 H Troponin I NT-Pro-B Natriuret Pep 02/05/17 02/06/17 10:30 06:00 Creatine Kinase Troponin I 1.470 0.964 NT-Pro-B Natriuret Pep 13082 H Impressions: Foot X-Ray 01/31/17 21:18 IMPRESSION: Nondisplaced comminuted intra-articular fracture of the distal portion of the proximal phalanx of the left 5th digit.No other fracture or dislocation. Head CT 02/02/17 00:00 IMPRESSION: No significant intracranial abnormalities were identified. Other findings as noted above Chest X-Ray 02/09/17 06:00 IMPRESSION: Stable pulmonary vascular congestion and trace bilateral pleural effusions Assessment & Plan - Diagnosis (1) Respiratory failure requiring intubation Is this a current diagnosis for this admission?: YesPlan: Patient extubated yesterday. She has required BiPAP intermittently. She continues to have low volume due to hypoventilation. (2) [id number] kidney injury Qualifiers: Acute renal failure type: unspecified Chronic kidney disease stage: unspecified stage Qualified Code(s): N17.9 - Acute kidney failure, unspecified; N18.9 - Chronic kidney disease, unspecified Is this a current diagnosis for this admission?: YesPlan: Resolving towards baseline. She is presently making good urine. Avoid nephrotoxic medications and dosages (3) Chronic renal disease, stage IV Is this a current diagnosis for this admission?: YesPlan: Avoid nephrotoxic medications and dosages (4) Hypoventilation Is this a current diagnosis for this admission?: Yes (5) Anemia Qualifiers: Anemia type: B12 deficiency Is this a current diagnosis for this admission?: YesPlan: Continue supplements (6) CAD (coronary artery disease) Qualifiers: Coronary Disease-Associated Artery/Lesion type: [place] artery [place] vs. transplanted heart: [place] heart Associated angina: without angina Qualified Code(s): I25.10 - Atherosclerotic heart disease of [place] coronary artery without angina pectoris Is this a current diagnosis for this admission?: YesPlan: Chest pain free. 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 Continue sliding scale insulin (9) Essential (primary) hypertension Is this a current diagnosis for this admission?: YesPlan: Patient is normotensive, continue current medications (10) GERD (gastroesophageal reflux disease) Qualifiers: Esophagitis presence: without esophagitis Qualified Code(s): K21.9 - Gastro-esophageal reflux disease without esophagitis Plan: Continue PPI (11) Hyperlipidemia Qualifiers: Hyperlipidemia type: unspecified Qualified Code(s): E78.5 - Hyperlipidemia, unspecified Is this a current diagnosis for this admission?: YesPlan: Continue statin (12) IPF (idiopathic pulmonary fibrosis) Is this a current diagnosis for this admission?: YesPlan: Per pulmonary (13) Pulmonary hypertension Is this a current diagnosis for this admission?: YesPlan: Continue BIPAP (14) Rheumatoid arthritis Qualifiers: Rheumatoid arthritis location: unspecified site Rheumatoid factor presence: unspecified presence Qualified Code(s): M06.9 - Rheumatoid arthritis, unspecified Is this a current diagnosis for this admission?: YesPlan: Patient presently not on biologics - Time Time Spent with patient: 25-34 minutes Critical Time spent with patient: 15-24 minutes Medications reviewed and adjusted accordingly: Yes Anticipated discharge: Home with Homehealth
[2017-02-10] MEDS ORDERED: INSULIN GLARGINE,HUM.REC.ANLOG 300 UNIT/3 ML INSULN.PEN SUBCUT SCH (22:00)
[2017-02-11] MEDS: METRONIDAZOLE 500 MG/NS RTU 100 ML IV SCH ×5 (00:37→23:25)
[2017-02-11] MEDS: PIPERACILLIN SODIUM/TAZOBACTAM 2.25 GM in NORMAL SALINE 50 ML IV SCH ×4 (05:54→23:24)
[2017-02-11] MEDS: GABAPENTIN 100 MG CAPSULE NG SCH ×3 (05:56→21:21)
[2017-02-11] MEDS: HEPARIN SOD (PORCINE) 5,000 UNIT/ML 1 ML SYRINGE SUBCUT SCH (05:56)
[2017-02-11] MEDS: PENTOXIFYLLINE 400 MG TABLET.SA PO SCH ×3 (05:56→21:21)
[2017-02-11 06:33] LABS: ANION GAP 9 (5-19); BLOOD UREA NITROGEN 41 mg/dL (7-20); CALCIUM 8.3 mg/dL (8.4-10.2); CARBON DIOXIDE 24 mmol/L (22-30); CHLORIDE 110 mmol/L (98-107); CREATININE RESULT 1.01 mg/dL (0.52-1.25); GLUCOSE 240 mg/dL (75-110); POTASSIUM 3.4 mmol/L (3.6-5.0); SODIUM 142.9 mmol/L (137-145)
[2017-02-11 07:19] LABS: HEMATOCRIT 35.4 % (36.0-47.0); HEMOGLOBIN 11.2 g/dL (12.0-15.5); HGB HCT DIFFERENCE -1.8; MEAN CORPUSCULAR HEMOGLOBIN 27.6 pg (27.0-33.4); MEAN CORPUSCULAR HGB CONC 31.5 g/dL (32.0-36.0); MEAN CORPUSCULAR VOLUME 88 fl (80-97); RED BLOOD COUNT 4.04 10^6/uL (3.72-5.28); RED CELL DISTRIBUTION WIDTH 16.5 % (11.5-14.0); WHITE BLOOD COUNT 12.9 10^3/uL (4.0-10.5)
[2017-02-11] MEDS: INSULIN LISPRO 100 UNIT/ML 3 ML VIAL SUBCUT PRN ×3 (07:50→21:30)
[2017-02-11] MEDS: LANSOPRAZOLE 30 MG TAB.RAP.DR NG SCH ×2 (07:50→17:19)
[2017-02-11 08:08] LABS: BAND NEUTROPHILS % (MANUAL) 3 % (3-5); BASOPHILS % (MANUAL) 0 % (0-2); EOSINOPHILS % (MANUAL) 2 % (0-6); LYMPHOCYTES % (MANUAL) 7 % (13-45); TOTAL CELLS COUNTED 100
[2017-02-11 08:14] LABS: ANISOCYTOSIS 1+; POLYCHROMASIA 1+; TOXIC GRANULATION 1+
[2017-02-11 08:15] LABS: ARTERIAL BLOOD BASE EXCESS 0.2 mmol/L; ARTERIAL BLOOD O2 SATURATION 98.5 % (94-98)
[2017-02-11] MEDS ORDERED: POTASSIUM CHLORIDE 10 MEQ TABLET.SA PO ONE (10:00)
--- NOTE | 2017-02-11 10:56 | RADIOLOGY REPORT (SQ) ---
EXAM DESCRIPTION: CHEST PA/LAT COMPLETED DATE/TIME: 02/11/2017 10:33 am REASON FOR STUDY: Cough, congestion COMPARISON: 02/09/2017 EXAM PARAMETERS: NUMBER OF VIEWS: two views TECHNIQUE: Digital Frontal and Lateral radiographic views of the chest acquired. RADIATION DOSE: NA LIMITATIONS: none FINDINGS: LUNGS AND PLEURA: Small bilateral pleural effusions are again identified. The previously described bandlike density projected in the right lower hemithorax has resolved. I cannot exclude so me minimal atelectasis or infiltrate in the lung bases. MEDIASTINUM AND HILAR STRUCTURES: No masses or contour abnormalities. HEART AND VASCULAR STRUCTURES: Cardiac silhouette remains enlarged. There is mild pulmonary vascular congestion. BONES: No acute findings. HARDWARE: Patient is status post median sternotomy with coronary bypass surgery. OTHER: No other significant finding. IMPRESSION: Small bilateral pleural effusions are again identified and I cannot exclude some associa maya atelectasis or infiltrate in the lung bases. Cardiac silhouette remains enlarged and is unchange d in configuration. Other findings as noted above TECHNICAL DOCUMENTATION: JOB ID: [id number]- All Rights Reserved
[2017-02-11] MEDS: DULOXETINE HCL 30 MG CAPSULE.DR PO SCH (11:30)
[2017-02-11] MEDS: ASPIRIN 81 MG TABLET, CHEWABLE NG SCH (11:31)
[2017-02-11] MEDS: AMLODIPINE BESYLATE 5 MG TABLET PO SCH (11:31)
[2017-02-11] MEDS: DOCUSATE SODIUM 100 MG CAPSULE PO SCH ×2 (11:31→17:19)
[2017-02-11] MEDS: VALACYCLOVIR HCL 500 MG TABLET NG SCH (11:33)
[2017-02-11] MEDS: FEBUXOSTAT 40 MG TABLET NG SCH (11:34)
[2017-02-11] MEDS: PREDNISONE 20 MG TABLET PO SCH (11:35)
[2017-02-11] MEDS: NEBIVOLOL HCL 10 MG TABLET NG SCH ×2 (11:35→21:21)
[2017-02-11] MEDS: TRACLEER 125 MG PO SCH ×2 (11:36→21:23)
[2017-02-11] MEDS: LEFLUNOMIDE 20 MG TABLET PO SCH (11:36)
[2017-02-11] MEDS: LACTOBACILLUS ACIDOPHILUS 250 MG TAB NG SCH ×2 (11:36→17:18)
[2017-02-11] MEDS ORDERED: MAGNESIUM HYDROXIDE SUSP 30 ML UDCUP NG PRN (15:26)
--- NOTE | 2017-02-11 16:21 | PDOC PROGRESS REPORT ---
Subjective Progress Note for:: 02/11/17 Subjective:: Patient seen on morning rounds she is resting in bed on nasal cannula at present time. She is mildly tachypneic but looks less so than previous visits, but denies feelings of respiratory distress. She denies any respiratory distress or dyspnea. She denies any cough at the present time. Denies any chest pain, palpitations or dizziness. She denies any nausea, vomiting abdominal pain or diarrhea. She denies any significant arthralgias or myalgias present time. She states her appetite has been poor. She states she she did sit in the chair yesterday, and fatigued quickly. We discussed the need for her to be more active and take as needed rest breaks. She needs to participate in physical therapy as well. Physical Exam Vital Signs: Temp Pulse Resp BP Pulse Ox 98.6 F 72 24 H 187/74 H 97 02/11/17 11:41 02/11/17 14:00 02/11/17 15:55 02/11/17 11:41 02/11/17 15:55 Intake & Output 02/10/17 02/11/17 02/12/17 06:59 06:59 06:59 Intake Total 2221 2150 640 Output Total 1500 1630 200 Balance 721 520 440 Weight 89.6 kg 89.3 kg General appearance: PRESENT: no acute distress, obese, well-developed, well- nourished Head exam: PRESENT: atraumatic, normocephalic Eye exam: PRESENT: conjunctiva pink, EOMI, PERRLA. ABSENT: scleral icterus Ear exam: PRESENT: normal external ear exam Mouth exam: PRESENT: dry mucosa Neck exam: ABSENT: carotid bruit, JVD, lymphadenopathy, thyromegaly Respiratory exam: PRESENT: crackles, decreased breath sounds, symmetrical, unlabored Cardiovascular exam: PRESENT: RRR. ABSENT: diastolic murmur, rubs, systolic murmur Pulses: PRESENT: normal dorsalis pedis pul Vascular exam: PRESENT: normal capillary refill GI/Abdominal exam: PRESENT: normal bowel sounds, soft. ABSENT: distended, guarding, mass, organolmegaly, rebound, tenderness Rectal exam: PRESENT: deferred Extremities exam: PRESENT: full ROM. ABSENT: calf tenderness, clubbing, pedal edema Neurological exam: PRESENT: alert, awake, oriented to person, oriented to place , oriented to time, oriented to situation, CN II-XII grossly intact. ABSENT: motor sensory deficit Psychiatric exam: PRESENT: appropriate affect, normal mood. ABSENT: homicidal ideation, suicidal ideation Results Laboratory Results: 02/11/17 05:48 02/11/17 05:48 02/10/17 02/10/17 02/11/17 14:40 14:40 05:48 WBC RBC Hgb Hct MCV MCH MCHC RDW Plt Count Seg Neutrophils % Lymphocytes % Monocytes % Eosinophils % Basophils % Absolute Neutrophils Absolute Lymphocytes Absolute Monocytes Absolute Eosinophils Absolute Basophils Carbonic Acid HCO3/H2CO3 Ratio ABG pH ABG pCO2 ABG pO2 ABG HCO3 ABG O2 Saturation ABG Base Excess FiO2 Sodium 142.9 Potassium 3.4 L Chloride 110 H Carbon Dioxide 24 Anion Gap 9 BUN 41 H Creatinine 1.01 Est GFR ( Amer) > 60 Est GFR (Non-Af Amer) 55 L Glucose 240 H Calcium 8.3 L Stool Occult Blood POSITIVE Stool for White Cells NO WBCs SEEN 02/11/17 02/11/17 02/11/17 05:48 06:57 07:58 WBC 12.9 H RBC 4.04 Hgb 11.2 L Hct 35.4 L MCV 88 MCH 27.6 MCHC 31.5 L RDW 16.5 H Plt Count 185 Seg Neutrophils % Not Reportable Lymphocytes % Not Reportable Monocytes % Not Reportable Eosinophils % Not Reportable Basophils % Not Reportable Absolute Neutrophils Not Reportable Absolute Lymphocytes Not Reportable Absolute Monocytes Not Reportable Absolute Eosinophils Not Reportable Absolute Basophils Not Reportable Carbonic Acid Cancelled 1.29 HCO3/H2CO3 Ratio Cancelled 19:1 ABG pH Cancelled 7.39 ABG pCO2 Cancelled 43.0 ABG pO2 Cancelled 128.4 H ABG HCO3 Cancelled 25.3 ABG O2 Saturation Cancelled 98.5 H ABG Base Excess Cancelled 0.2 FiO2 Cancelled 2.5L Sodium Potassium Chloride Carbon Dioxide Anion Gap BUN Creatinine Est GFR ( Amer) Est GFR (Non-Af Amer) Glucose Calcium Stool Occult Blood Stool for White Cells 02/01/17 02/02/17 02/03/17 05:08 03:43 03:53 Creatine Kinase 617 H 421 H 559 H Troponin I NT-Pro-B Natriuret Pep 02/05/17 02/06/17 10:30 06:00 Creatine Kinase Troponin I 1.470 0.964 NT-Pro-B Natriuret Pep 30017 H Impressions: Foot X-Ray 01/31/17 21:18 IMPRESSION: Nondisplaced comminuted intra-articular fracture of the distal portion of the proximal phalanx of the left 5th digit.No other fracture or dislocation. Head CT 02/02/17 00:00 IMPRESSION: No significant intracranial abnormalities were identified. Other findings as noted above Chest X-Ray 02/11/17 00:00 IMPRESSION: Small bilateral pleural effusions are again identified and I cannot exclude some associated atelectasis or infiltrate in the lung bases. Cardiac silhouette remains enlarged and is unchanged in configuration. Other findings as noted above Assessment & Plan - Diagnosis (1) Respiratory failure requiring intubation Is this a current diagnosis for this admission?: YesPlan: Patient extubated yesterday. She has required BiPAP intermittently. She continues to have low lung volumes on chest xray. She will need BIPAP post discharge (2) Jpjcl-uw-tgfdfpe kidney injury Qualifiers: Acute renal failure type: unspecified Chronic kidney disease stage: unspecified stage Qualified Code(s): N17.9 - Acute kidney failure, unspecified; N18.9 - Chronic kidney disease, unspecified Is this a current diagnosis for this admission?: YesPlan: Resolving towards baseline. She is presently making good urine. Avoid nephrotoxic medications and dosages (3) Chronic renal disease, stage IV Is this a current diagnosis for this admission?: YesPlan: Avoid nephrotoxic medications and dosages (4) Hypoventilation Is this a current diagnosis for this admission?: YesPlan: BIPAP as needed (5) Anemia Qualifiers: Anemia type: B12 deficiency Is this a current diagnosis for this admission?: Yes (6) CAD (coronary artery disease) Qualifiers: Coronary Disease-Associated Artery/Lesion type: [place] artery [place] vs. transplanted heart: [place] heart Associated angina: without angina Qualified Code(s): I25.10 - Atherosclerotic heart disease of [place] coronary artery without angina pectoris Is this a current diagnosis for this admission?: YesPlan: Chest pain free. Continue current medications (7) Chronic diastolic CHF (congestive heart failure) Is this a current diagnosis for this admission?: YesPlan: Patient appears euvolemic at the present time.Will continue to hold diuretics (8) Diabetes Qualifiers: Diabetes mellitus type: type 2 Diabetes mellitus complication status: with hyperglycemia Diabetes mellitus group home insulin use: without offset pressman use Qualified Code(s): E11.65 - Type 2 diabetes mellitus with hyperglycemia; Z79.4 - signalman (current) use of insulin Is this a current diagnosis for this admission?: YesPlan: Will add lantus in place of patient's trugero. Continue sliding scale insulin (9) Essential (primary) hypertension Is this a current diagnosis for this admission?: YesPlan: Patient is normotensive, continue current medications (10) GERD (gastroesophageal reflux disease) Qualifiers: Esophagitis presence: without esophagitis Qualified Code(s): K21.9 - Gastro-esophageal reflux disease without esophagitis Plan: Continue PPI (11) Hyperlipidemia Qualifiers: Hyperlipidemia type: unspecified Qualified Code(s): E78.5 - Hyperlipidemia, unspecified Is this a current diagnosis for this admission?: YesPlan: Continue statin (12) IPF (idiopathic pulmonary fibrosis) Is this a current diagnosis for this admission?: YesPlan: Per pulmonary (13) Pulmonary hypertension Is this a current diagnosis for this admission?: YesPlan: Continue BIPAP (14) Rheumatoid arthritis Qualifiers: Rheumatoid arthritis location: unspecified site Rheumatoid factor presence: unspecified presence Qualified Code(s): M06.9 - Rheumatoid arthritis, unspecified Is this a current diagnosis for this admission?: YesPlan: Patient presently not on biologics - Time Time Spent with patient: 25-34 minutes Critical Time spent with patient: 15-24 minutes Medications reviewed and adjusted accordingly: Yes Anticipated discharge: Home with Homehealth, SNF
[2017-02-11] MEDS ORDERED: INSULIN GLARGINE,HUM.REC.ANLOG 300 UNIT/3 ML INSULN.PEN SUBCUT SCH ×2 (22:00)
[2017-02-12] MEDS: PENTOXIFYLLINE 400 MG TABLET.SA PO SCH ×3 (05:12→22:20)
[2017-02-12] MEDS: METRONIDAZOLE 500 MG/NS RTU 100 ML IV SCH (05:12)
[2017-02-12] MEDS: GABAPENTIN 100 MG CAPSULE NG SCH ×3 (05:12→22:20)
[2017-02-12] MEDS: PIPERACILLIN SODIUM/TAZOBACTAM 2.25 GM in NORMAL SALINE 50 ML IV SCH (05:12)
[2017-02-12 05:13] LABS: ANION GAP 7 (5-19); BLOOD UREA NITROGEN 32 mg/dL (7-20); CALCIUM 8.2 mg/dL (8.4-10.2); CARBON DIOXIDE 25 mmol/L (22-30); CHLORIDE 112 mmol/L (98-107); CREATININE RESULT 0.96 mg/dL (0.52-1.25); GLUCOSE 219 mg/dL (75-110); POTASSIUM 3.5 mmol/L (3.6-5.0); SODIUM 143.8 mmol/L (137-145)
[2017-02-12] MEDS ORDERED: POTASSIUM CHLORIDE 10 MEQ TABLET.SA PO ONE ×2 (08:50→10:13)
[2017-02-12] MEDS: INSULIN LISPRO 100 UNIT/ML 3 ML VIAL SUBCUT PRN ×3 (09:48→22:21)
[2017-02-12] MEDS: DULOXETINE HCL 30 MG CAPSULE.DR PO SCH (09:48)
[2017-02-12] MEDS: LACTOBACILLUS ACIDOPHILUS 250 MG TAB NG SCH ×2 (09:49→17:44)
[2017-02-12] MEDS: PREDNISONE 20 MG TABLET PO SCH ×2 (09:49→17:44)
[2017-02-12] MEDS: FLUCONAZOLE 100 MG TABLET PO SCH (09:50)
[2017-02-12] MEDS: AMLODIPINE BESYLATE 5 MG TABLET PO SCH (09:50)
[2017-02-12] MEDS: ASPIRIN 81 MG TABLET, CHEWABLE NG SCH (09:51)
[2017-02-12] MEDS: LANSOPRAZOLE 30 MG TAB.RAP.DR NG SCH ×2 (09:51→17:45)
[2017-02-12] MEDS: LEFLUNOMIDE 20 MG TABLET PO SCH (09:53)
[2017-02-12] MEDS: TRACLEER 125 MG PO SCH ×2 (09:53→22:20)
[2017-02-12] MEDS: VALACYCLOVIR HCL 500 MG TABLET NG SCH (09:53)
[2017-02-12] MEDS: NEBIVOLOL HCL 10 MG TABLET NG SCH ×2 (09:53→22:20)
[2017-02-12] MEDS: FEBUXOSTAT 40 MG TABLET NG SCH (09:53)
[2017-02-12] MEDS: DOCUSATE SODIUM 100 MG CAPSULE PO SCH ×2 (09:54→17:45)
[2017-02-12] MEDS ORDERED: FUROSEMIDE INJ/PF 40 MG/4 ML SDV IV ONE (10:13)
--- NOTE | 2017-02-12 15:36 | PDOC PROGRESS REPORT ---
Subjective Progress Note for:: 02/12/17 Subjective:: Patient seen on morning rounds she is resting in bed on nasal cannula at present time. She appears less dyspneic than she has. She denies feelings of respiratory distress. She denies any respiratory distress or dyspnea. She denies any cough at the present time. Denies any chest pain, palpitations or dizziness. She denies any nausea, vomiting abdominal pain or diarrhea. She denies any significant arthralgias or myalgias present time. She states her appetite has been poor. She states she she did sit in the chair yesterday, and fatigued quickly. We discussed the need for her to be more active and take as needed rest breaks. She needs to participate in physical therapy as well. Physical Exam Vital Signs: Temp Pulse Resp BP Pulse Ox 98.3 F 68 22 H 189/66 H 99 02/12/17 11:04 02/12/17 11:04 02/12/17 11:04 02/12/17 11:04 02/12/17 11:04 Intake & Output 02/11/17 02/12/17 02/13/17 06:59 06:59 06:59 Intake Total 2150 2348 Output Total 1630 1150 Balance 520 1198 Weight 89.3 kg 91.1 kg General appearance: PRESENT: no acute distress, obese, well-developed, well- nourished Head exam: PRESENT: atraumatic, normocephalic Eye exam: PRESENT: conjunctiva pink, EOMI, PERRLA. ABSENT: scleral icterus Ear exam: PRESENT: normal external ear exam Mouth exam: PRESENT: moist, tongue midline Neck exam: ABSENT: carotid bruit, JVD, lymphadenopathy, thyromegaly Respiratory exam: PRESENT: clear to auscultation refugio. ABSENT: rales, rhonchi, wheezes Cardiovascular exam: PRESENT: RRR. ABSENT: diastolic murmur, rubs, systolic murmur Pulses: PRESENT: normal dorsalis pedis pul Vascular exam: PRESENT: normal capillary refill GI/Abdominal exam: PRESENT: normal bowel sounds, soft. ABSENT: distended, guarding, mass, organolmegaly, rebound, tenderness Rectal exam: PRESENT: deferred Extremities exam: PRESENT: full ROM. ABSENT: calf tenderness, clubbing, pedal edema Neurological exam: PRESENT: alert, awake, oriented to person, oriented to place , oriented to time, oriented to situation, CN II-XII grossly intact. ABSENT: motor sensory deficit Psychiatric exam: PRESENT: appropriate affect, normal mood. ABSENT: homicidal ideation, suicidal ideation Skin exam: PRESENT: dry, intact, warm. ABSENT: cyanosis, rash Results Laboratory Results: 02/11/17 05:48 02/12/17 04:28 02/12/17 04:28 Sodium 143.8 Potassium 3.5 L Chloride 112 H Carbon Dioxide 25 Anion Gap 7 BUN 32 H Creatinine 0.96 Est GFR ( Amer) > 60 Est GFR (Non-Af Amer) 58 L Glucose 219 H Calcium 8.2 L 02/01/17 02/02/17 02/03/17 05:08 03:43 03:53 Creatine Kinase 617 H 421 H 559 H Troponin I NT-Pro-B Natriuret Pep 02/05/17 02/06/17 10:30 06:00 Creatine Kinase Troponin I 1.470 0.964 NT-Pro-B Natriuret Pep 81792 H Impressions: Foot X-Ray 01/31/17 21:18 IMPRESSION: Nondisplaced comminuted intra-articular fracture of the distal portion of the proximal phalanx of the left 5th digit.No other fracture or dislocation. Head CT 02/02/17 00:00 IMPRESSION: No significant intracranial abnormalities were identified. Other findings as noted above Chest X-Ray 02/11/17 00:00 IMPRESSION: Small bilateral pleural effusions are again identified and I cannot exclude some associated atelectasis or infiltrate in the lung bases. Cardiac silhouette remains enlarged and is unchanged in configuration. Other findings as noted above Assessment & Plan - Diagnosis (1) Respiratory failure requiring intubation Is this a current diagnosis for this admission?: YesPlan: Patient extubated yesterday. She has required BiPAP intermittently. She continues to have low lung volumes on chest xray. She will need BIPAP post discharge (2) Freny-ih-baxpvbp kidney injury Qualifiers: Acute renal failure type: unspecified Chronic kidney disease stage: unspecified stage Qualified Code(s): N17.9 - Acute kidney failure, unspecified; N18.9 - Chronic kidney disease, unspecified Is this a current diagnosis for this admission?: YesPlan: Resolving towards baseline. She is presently making good urine. Avoid nephrotoxic medications and dosages (3) Chronic renal disease, stage IV Is this a current diagnosis for this admission?: YesPlan: Avoid nephrotoxic medications and dosages (4) Hypoventilation Is this a current diagnosis for this admission?: YesPlan: BIPAP as needed. Will do overnight pulse oxymetry and bedside spirometry in the am (5) Anemia Qualifiers: Anemia type: B12 deficiency Is this a current diagnosis for this admission?: YesPlan: Continue supplements (6) CAD (coronary artery disease) Qualifiers: Coronary Disease-Associated Artery/Lesion type: [place] artery [place] vs. transplanted heart: [place] heart Associated angina: without angina Qualified Code(s): I25.10 - Atherosclerotic heart disease of [place] coronary artery without angina pectoris Is this a current diagnosis for this admission?: YesPlan: Chest pain free. Continue current medications (7) Chronic diastolic CHF (congestive heart failure) Is this a current diagnosis for this admission?: YesPlan: Patient appears euvolemic at the present time.Will continue to hold diuretics (8) Diabetes Qualifiers: Diabetes mellitus type: type 2 Diabetes mellitus complication status: with hyperglycemia Diabetes mellitus senior living insulin use: without termite exterminator use Qualified Code(s): E11.65 - Type 2 diabetes mellitus with hyperglycemia; Z79.4 - ferry terminal supervisor (current) use of insulin Is this a current diagnosis for this admission?: YesPlan: Will add lantus in place of patient's trugero. Continue sliding scale insulin (9) Essential (primary) hypertension Is this a current diagnosis for this admission?: YesPlan: Patient is normotensive, continue current medications (10) GERD (gastroesophageal reflux disease) Qualifiers: Esophagitis presence: without esophagitis Qualified Code(s): K21.9 - Gastro-esophageal reflux disease without esophagitis Plan: Continue PPI (11) Hyperlipidemia Qualifiers: Hyperlipidemia type: unspecified Qualified Code(s): E78.5 - Hyperlipidemia, unspecified Is this a current diagnosis for this admission?: YesPlan: Continue statin (12) IPF (idiopathic pulmonary fibrosis) Is this a current diagnosis for this admission?: YesPlan: Per pulmonary (13) Pulmonary hypertension Is this a current diagnosis for this admission?: YesPlan: Continue BIPAP (14) Rheumatoid arthritis Qualifiers: Rheumatoid arthritis location: unspecified site Rheumatoid factor presence: unspecified presence Qualified Code(s): M06.9 - Rheumatoid arthritis, unspecified Is this a current diagnosis for this admission?: YesPlan: Patient presently not on biologics - Time Time Spent with patient: 25-34 minutes Critical Time spent with patient: 15-24 minutes Medications reviewed and adjusted accordingly: Yes Anticipated discharge: Home with Homehealth
[2017-02-12] MEDS: ONDANSETRON HCL INJ/PF 4 MG/2 ML SDV IV PRN ×2 (15:54→23:57)
[2017-02-12 15:56] LABS: PATH REVIEW PATHOLOGIST REVIEWED
[2017-02-12] MEDS ORDERED: INSULIN GLARGINE,HUM.REC.ANLOG 300 UNIT/3 ML INSULN.PEN SUBCUT SCH (22:00)
[2017-02-13] MEDS: GABAPENTIN 100 MG CAPSULE NG SCH ×3 (06:11→22:44)
[2017-02-13] MEDS: PENTOXIFYLLINE 400 MG TABLET.SA PO SCH ×3 (06:12→22:44)
[2017-02-13 07:06] LABS: HEMATOCRIT 34.9 % (36.0-47.0); HEMOGLOBIN 11.2 g/dL (12.0-15.5); HGB HCT DIFFERENCE -1.3; MEAN CORPUSCULAR HEMOGLOBIN 28.5 pg (27.0-33.4); MEAN CORPUSCULAR HGB CONC 32.1 g/dL (32.0-36.0); MEAN CORPUSCULAR VOLUME 89 fl (80-97); RED BLOOD COUNT 3.94 10^6/uL (3.72-5.28); RED CELL DISTRIBUTION WIDTH 17.1 % (11.5-14.0); WHITE BLOOD COUNT 11.4 10^3/uL (4.0-10.5)
[2017-02-13 07:14] LABS: ANION GAP 7 (5-19); BLOOD UREA NITROGEN 30 mg/dL (7-20); CALCIUM 8.6 mg/dL (8.4-10.2); CARBON DIOXIDE 25 mmol/L (22-30); CHLORIDE 112 mmol/L (98-107); CREATININE RESULT 0.89 mg/dL (0.52-1.25); GLUCOSE 237 mg/dL (75-110); POTASSIUM 4.5 mmol/L (3.6-5.0); SODIUM 144.4 mmol/L (137-145)
[2017-02-13 07:33] LABS: BAND NEUTROPHILS % (MANUAL) 1 % (3-5); BASOPHILS % (MANUAL) 0 % (0-2); EOSINOPHILS % (MANUAL) 0 % (0-6); LYMPHOCYTES % (MANUAL) 5 % (13-45); TOTAL CELLS COUNTED 100
[2017-02-13 07:34] LABS: ANISOCYTOSIS SLIGHT; HYPOCHROMASIA SLIGHT; OVALOCYTES SLIGHT; POIKILOCYTOSIS SLIGHT
[2017-02-13] MEDS ORDERED: INSULIN GLARGINE,HUM.REC.ANLOG 300 UNIT/3 ML INSULN.PEN SUBCUT SCH (07:45)
[2017-02-13] MEDS: LANSOPRAZOLE 30 MG TAB.RAP.DR NG SCH ×2 (08:35→17:45)
[2017-02-13] MEDS: INSULIN LISPRO 100 UNIT/ML 3 ML VIAL SUBCUT PRN ×4 (08:35→22:44)
[2017-02-13] MEDS: AMLODIPINE BESYLATE 5 MG TABLET PO SCH (10:37)
[2017-02-13] MEDS: TRACLEER 125 MG PO SCH ×2 (10:37→22:44)
[2017-02-13] MEDS: FLUCONAZOLE 100 MG TABLET PO SCH (10:37)
[2017-02-13] MEDS: DULOXETINE HCL 30 MG CAPSULE.DR PO SCH (10:37)
[2017-02-13] MEDS: LACTOBACILLUS ACIDOPHILUS 250 MG TAB NG SCH ×2 (10:37→17:46)
[2017-02-13] MEDS: PREDNISONE 20 MG TABLET PO SCH ×2 (10:37→17:45)
[2017-02-13] MEDS: ASPIRIN 81 MG TABLET, CHEWABLE NG SCH (10:38)
[2017-02-13] MEDS: NEBIVOLOL HCL 10 MG TABLET NG SCH ×2 (10:38→22:44)
[2017-02-13] MEDS: DOCUSATE SODIUM 100 MG CAPSULE PO SCH ×2 (10:38→17:53)
[2017-02-13] MEDS: LEFLUNOMIDE 20 MG TABLET PO SCH (10:38)
[2017-02-13] MEDS: VALACYCLOVIR HCL 500 MG TABLET NG SCH (10:38)
[2017-02-13] MEDS: FEBUXOSTAT 40 MG TABLET NG SCH (10:38)
--- NOTE | 2017-02-13 14:44 | PDOC PROGRESS REPORT ---
Subjective Progress Note for:: 02/13/17 Subjective:: Patient seen on morning rounds she is resting in bed on nasal cannula at present time. She denies feelings of respiratory distress. She denies any respiratory distress or dyspnea. She denies any cough at the present time. Denies any chest pain, palpitations or dizziness. She denies any nausea, vomiting abdominal pain or diarrhea. She denies any significant arthralgias or myalgias present time. She states her appetite has been poor. She states she she did sit in the chair yesterday, and fatigued quickly. We discussed the need for her to be more active and take as needed rest breaks. She needs to participate in physical therapy as well. Physical Exam Vital Signs: Temp Pulse Resp BP Pulse Ox 97.7 F 80 18 159/84 H 100 02/13/17 11:15 02/13/17 11:33 02/13/17 11:46 02/13/17 11:15 02/13/17 11:15 Pulse Oximeter Nocturnal Start: 02/12/17 08: 54 Freq: RTQ4 Status: Complete Document 02/13/17 04:00 STI (Rec: 02/13/17 04:50 STI [id number]) Nocturnal Pulse Oximetry Equipment Usage Equipment in Use Oxygen Delivery Method (includes room Nasal Cannula air) O2 Sat by Pulse Oximetry (92-100) 97 Continuous SpO2 Machine # [id number] 3L/NC Intake & Output 02/12/17 02/13/17 02/14/17 06:59 06:59 06:59 Intake Total 2348 1557 Output Total 1150 1975 Balance 1198 -418 Weight 91.1 kg 88.9 kg General appearance: PRESENT: no acute distress, obese, well-developed, well- nourished Head exam: PRESENT: atraumatic, normocephalic Eye exam: PRESENT: conjunctiva pale, EOMI, PERRLA. ABSENT: scleral icterus Ear exam: PRESENT: normal external ear exam Mouth exam: PRESENT: moist, tongue midline Neck exam: ABSENT: carotid bruit, JVD, lymphadenopathy, thyromegaly Respiratory exam: PRESENT: decreased breath sounds, symmetrical, unlabored Cardiovascular exam: PRESENT: RRR. ABSENT: diastolic murmur, rubs, systolic murmur Pulses: PRESENT: normal dorsalis pedis pul Vascular exam: PRESENT: normal capillary refill GI/Abdominal exam: PRESENT: normal bowel sounds, soft Rectal exam: PRESENT: deferred Extremities exam: PRESENT: full ROM. ABSENT: calf tenderness, clubbing, pedal edema Musculoskeletal exam: PRESENT: ambulatory, full ROM Neurological exam: PRESENT: alert, awake, oriented to person, oriented to place , oriented to time, oriented to situation, CN II-XII grossly intact. ABSENT: motor sensory deficit Psychiatric exam: PRESENT: appropriate affect, normal mood. ABSENT: homicidal ideation, suicidal ideation Skin exam: PRESENT: dry, intact, warm. ABSENT: cyanosis, rash Results Laboratory Results: 02/13/17 06:39 02/13/17 06:39 02/11/17 02/13/17 02/13/17 05:48 06:39 06:39 WBC 12.9 H 11.4 H RBC 4.04 3.94 Hgb 11.2 L 11.2 L Hct 35.4 L 34.9 L MCV 88 89 MCH 27.6 28.5 MCHC 31.5 L 32.1 RDW 16.5 H 17.1 H Plt Count 185 189 Seg Neutrophils % Not Reportable Lymphocytes % Not Reportable Monocytes % Not Reportable Eosinophils % Not Reportable Basophils % Not Reportable Absolute Neutrophils Not Reportable Absolute Lymphocytes Not Reportable Absolute Monocytes Not Reportable Absolute Eosinophils Not Reportable Absolute Basophils Not Reportable Sodium 144.4 Potassium 4.5 Chloride 112 H Carbon Dioxide 25 Anion Gap 7 BUN 30 H Creatinine 0.89 Est GFR ( Amer) > 60 Est GFR (Non-Af Amer) > 60 Glucose 237 H Calcium 8.6 02/01/17 02/02/17 02/03/17 05:08 03:43 03:53 Creatine Kinase 617 H 421 H 559 H Troponin I NT-Pro-B Natriuret Pep 02/05/17 02/06/17 10:30 06:00 Creatine Kinase Troponin I 1.470 0.964 NT-Pro-B Natriuret Pep 03465 H Impressions: Foot X-Ray 01/31/17 21:18 IMPRESSION: Nondisplaced comminuted intra-articular fracture of the distal portion of the proximal phalanx of the left 5th digit.No other fracture or dislocation. Head CT 02/02/17 00:00 IMPRESSION: No significant intracranial abnormalities were identified. Other findings as noted above Chest X-Ray 02/11/17 00:00 IMPRESSION: Small bilateral pleural effusions are again identified and I cannot exclude some associated atelectasis or infiltrate in the lung bases. Cardiac silhouette remains enlarged and is unchanged in configuration. Other findings as noted above Assessment & Plan - Diagnosis (1) Respiratory failure requiring intubation Is this a current diagnosis for this admission?: YesPlan: Patient extubated yesterday. She has required BiPAP intermittently. She continues to have low lung volumes on chest xray. She will need BIPAP post discharge (2) Xzics-eg-xpwugou kidney injury Qualifiers: Acute renal failure type: unspecified Chronic kidney disease stage: unspecified stage Qualified Code(s): N17.9 - Acute kidney failure, unspecified; N18.9 - Chronic kidney disease, unspecified Is this a current diagnosis for this admission?: YesPlan: Resolving towards baseline. She is presently making good urine. Avoid nephrotoxic medications and dosages (3) Chronic renal disease, stage IV Is this a current diagnosis for this admission?: YesPlan: Avoid nephrotoxic medications and dosages (4) Hypoventilation Is this a current diagnosis for this admission?: YesPlan: BIPAP as needed. Will do overnight pulse oxymetry and bedside spirometry in the am (5) Anemia Qualifiers: Anemia type: B12 deficiency Is this a current diagnosis for this admission?: YesPlan: Continue supplements (6) CAD (coronary artery disease) Qualifiers: Coronary Disease-Associated Artery/Lesion type: [place] artery [place] vs. transplanted heart: [place] heart Associated angina: without angina Qualified Code(s): I25.10 - Atherosclerotic heart disease of [place] coronary artery without angina pectoris Is this a current diagnosis for this admission?: YesPlan: Chest pain free. Continue current medications (7) Chronic diastolic CHF (congestive heart failure) Is this a current diagnosis for this admission?: YesPlan: Patient appears euvolemic at the present time.Will continue to hold diuretics (8) Diabetes Qualifiers: Diabetes mellitus type: type 2 Diabetes mellitus complication status: with hyperglycemia Diabetes mellitus half-way insulin use: without half-way use Qualified Code(s): E11.65 - Type 2 diabetes mellitus with hyperglycemia; Z79.4 - senior care (current) use of insulin Is this a current diagnosis for this admission?: YesPlan: Will add lantus in place of patient's trugero. Continue sliding scale insulin (9) Essential (primary) hypertension Is this a current diagnosis for this admission?: YesPlan: Patient is normotensive, continue current medications (10) GERD (gastroesophageal reflux disease) Qualifiers: Esophagitis presence: without esophagitis Qualified Code(s): K21.9 - Gastro-esophageal reflux disease without esophagitis Plan: Continue PPI (11) Hyperlipidemia Qualifiers: Hyperlipidemia type: unspecified Qualified Code(s): E78.5 - Hyperlipidemia, unspecified Is this a current diagnosis for this admission?: YesPlan: Continue statin (12) IPF (idiopathic pulmonary fibrosis) Is this a current diagnosis for this admission?: YesPlan: Per pulmonary (13) Pulmonary hypertension Is this a current diagnosis for this admission?: YesPlan: Continue BIPAP (14) Rheumatoid arthritis Qualifiers: Rheumatoid arthritis location: unspecified site Rheumatoid factor presence: unspecified presence Qualified Code(s): M06.9 - Rheumatoid arthritis, unspecified Is this a current diagnosis for this admission?: YesPlan: Patient presently not on biologics - Time Time Spent with patient: 25-34 minutes Critical Time spent with patient: 15-24 minutes Anticipated discharge: Home with Homehealth Within: within 48 hours
[2017-02-13] MEDS ORDERED: BUMETANIDE 1 MG TABLET PO ONE (19:30)
[2017-02-14 05:07] LABS: ANION GAP 8 (5-19); BLOOD UREA NITROGEN 32 mg/dL (7-20); CALCIUM 8.7 mg/dL (8.4-10.2); CARBON DIOXIDE 26 mmol/L (22-30); CHLORIDE 109 mmol/L (98-107); CREATININE RESULT 0.92 mg/dL (0.52-1.25); GLUCOSE 234 mg/dL (75-110); POTASSIUM 4.6 mmol/L (3.6-5.0); SODIUM 142.8 mmol/L (137-145)
[2017-02-14] MEDS: GABAPENTIN 100 MG CAPSULE NG SCH ×3 (06:43→22:27)
[2017-02-14] MEDS: PENTOXIFYLLINE 400 MG TABLET.SA PO SCH ×3 (06:44→22:27)
[2017-02-14] MEDS: INSULIN LISPRO 100 UNIT/ML 3 ML VIAL SUBCUT PRN ×4 (08:09→22:28)
[2017-02-14] MEDS: LANSOPRAZOLE 30 MG TAB.RAP.DR NG SCH ×2 (08:09→17:57)
[2017-02-14] MEDS ORDERED: BUMETANIDE 1 MG TABLET PO SCH ×4 (10:00→18:00)
[2017-02-14] MEDS: VALSARTAN 160 MG TABLET PO SCH (11:10)
[2017-02-14] MEDS: FEBUXOSTAT 40 MG TABLET NG SCH (11:11)
[2017-02-14] MEDS: FLUCONAZOLE 100 MG TABLET PO SCH ×2 (11:11→17:59)
[2017-02-14] MEDS: TRACLEER 125 MG PO SCH ×2 (11:11→22:28)
[2017-02-14] MEDS: DULOXETINE HCL 30 MG CAPSULE.DR PO SCH (11:11)
[2017-02-14] MEDS: LACTOBACILLUS ACIDOPHILUS 250 MG TAB NG SCH ×2 (11:11→17:56)
[2017-02-14] MEDS: ASPIRIN 81 MG TABLET, CHEWABLE NG SCH (11:11)
[2017-02-14] MEDS: PREDNISONE 20 MG TABLET PO SCH ×2 (11:11→17:57)
[2017-02-14] MEDS: LEFLUNOMIDE 20 MG TABLET PO SCH (11:11)
[2017-02-14] MEDS: AMLODIPINE BESYLATE 5 MG TABLET PO SCH (11:11)
[2017-02-14] MEDS: VALACYCLOVIR HCL 500 MG TABLET NG SCH (11:12)
[2017-02-14] MEDS: NEBIVOLOL HCL 10 MG TABLET NG SCH ×2 (11:13→22:28)
[2017-02-14] MEDS: DOCUSATE SODIUM 100 MG CAPSULE PO SCH ×2 (11:15→17:58)
[2017-02-14] MEDS ORDERED: INSULIN GLARGINE,HUM.REC.ANLOG 300 UNIT/3 ML INSULN.PEN SUBCUT SCH (22:00)
[2017-02-15] MEDS: PENTOXIFYLLINE 400 MG TABLET.SA PO SCH (05:23)
[2017-02-15] MEDS: GABAPENTIN 100 MG CAPSULE NG SCH (05:23)
[2017-02-15 07:33] LABS: ANION GAP 8 (5-19); BLOOD UREA NITROGEN 34 mg/dL (7-20); CALCIUM 8.3 mg/dL (8.4-10.2); CARBON DIOXIDE 23 mmol/L (22-30); CHLORIDE 108 mmol/L (98-107); CREATININE RESULT 0.92 mg/dL (0.52-1.25); GLUCOSE 304 mg/dL (75-110); POTASSIUM 4.2 mmol/L (3.6-5.0); SODIUM 139.2 mmol/L (137-145)
--- NOTE | 2017-02-15 08:03 | PDOC PROGRESS REPORT ---
Subjective Progress Note for:: 02/14/17 Subjective:: Patient seen on morning rounds she is resting in bed on nasal cannula at present time. She denies feelings of respiratory distress. She denies any respiratory distress or dyspnea. She denies any cough at the present time. Denies any chest pain, palpitations or dizziness. She denies any nausea, vomiting abdominal pain or diarrhea. She denies any significant arthralgias or myalgias present time. She states her appetite has been poor. She has ambulated with rolling walker and physical therapy. She needs to participate in physical therapy as well. Physical Exam Vital Signs: Temp Pulse Resp BP Pulse Ox 98.6 F 58 L 30 H 147/43 H 97 02/15/17 03:56 02/15/17 03:56 02/15/17 05:16 02/15/17 03:56 02/15/17 05:16 Pulse Oximeter Nocturnal Start: 02/12/17 08: 54 Freq: RTQ4 Status: Complete Document 02/13/17 04:00 STI (Rec: 02/13/17 04:50 STI [id number]) Nocturnal Pulse Oximetry Equipment Usage Equipment in Use Oxygen Delivery Method (includes room Nasal Cannula air) O2 Sat by Pulse Oximetry (92-100) 97 Continuous SpO2 Machine # N-6 Other 3L/NC Intake & Output 02/14/17 02/15/17 02/16/17 06:59 06:59 06:59 Intake Total 819 594 Output Total 1600 200 Balance -781 394 Weight 90.3 kg 88 kg General appearance: PRESENT: no acute distress, obese, well-developed, well- nourished Head exam: PRESENT: atraumatic, normocephalic Eye exam: PRESENT: conjunctiva pink, EOMI, PERRLA. ABSENT: scleral icterus Ear exam: PRESENT: normal external ear exam Mouth exam: PRESENT: moist, tongue midline Neck exam: ABSENT: carotid bruit, JVD, lymphadenopathy, thyromegaly Respiratory exam: PRESENT: clear to auscultation refugio, decreased breath sounds, symmetrical, tachypnea. ABSENT: rales, rhonchi, wheezes Cardiovascular exam: PRESENT: RRR. ABSENT: diastolic murmur, rubs, systolic murmur Pulses: PRESENT: normal [place] pedis pul Vascular exam: PRESENT: normal capillary refill GI/Abdominal exam: PRESENT: normal bowel sounds, soft. ABSENT: distended, guarding, mass, organolmegaly, rebound, tenderness Rectal exam: PRESENT: deferred Extremities exam: PRESENT: full ROM. ABSENT: calf tenderness, clubbing, pedal edema Neurological exam: PRESENT: alert, awake, oriented to person, oriented to place , oriented to time, oriented to situation, CN II-XII grossly intact. ABSENT: motor sensory deficit Psychiatric exam: PRESENT: appropriate affect, normal mood. ABSENT: homicidal ideation, suicidal ideation Skin exam: PRESENT: dry, intact, warm. ABSENT: cyanosis, rash Results Laboratory Results: 02/13/17 06:39 02/15/17 07:12 02/15/17 07:12 Sodium 139.2 Potassium 4.2 Chloride 108 H Carbon Dioxide 23 Anion Gap 8 BUN 34 H Creatinine 0.92 Est GFR ( Amer) > 60 Est GFR (Non-Af Amer) > 60 Glucose 304 H Calcium 8.3 L 02/01/17 02/02/17 02/03/17 05:08 03:43 03:53 Creatine Kinase 617 H 421 H 559 H Troponin I NT-Pro-B Natriuret Pep 02/05/17 02/06/17 10:30 06:00 Creatine Kinase Troponin I 1.470 0.964 NT-Pro-B Natriuret Pep 76591 H Impressions: Foot X-Ray 01/31/17 21:18 IMPRESSION: Nondisplaced comminuted intra-articular fracture of the distal portion of the proximal phalanx of the left 5th digit.No other fracture or dislocation. Head CT 02/02/17 00:00 IMPRESSION: No significant intracranial abnormalities were identified. Other findings as noted above Chest X-Ray 02/11/17 00:00 IMPRESSION: Small bilateral pleural effusions are again identified and I cannot exclude some associated atelectasis or infiltrate in the lung bases. Cardiac silhouette remains enlarged and is unchanged in configuration. Other findings as noted above Assessment & Plan - Diagnosis (1) Respiratory failure requiring intubation Is this a current diagnosis for this admission?: YesPlan: Patient extubated yesterday. She has required BiPAP intermittently. She continues to have low lung volumes on chest xray. She will need BIPAP post discharge (2) Ojezq-cj-lgeacjo kidney injury Qualifiers: Acute renal failure type: unspecified Chronic kidney disease stage: unspecified stage Qualified Code(s): N17.9 - Acute kidney failure, unspecified; N18.9 - Chronic kidney disease, unspecified Is this a current diagnosis for this admission?: YesPlan: Resolving towards baseline. She is presently making good urine. Avoid nephrotoxic medications and dosages (3) Chronic renal disease, stage IV Is this a current diagnosis for this admission?: YesPlan: Avoid nephrotoxic medications and dosages (4) Hypoventilation Is this a current diagnosis for this admission?: YesPlan: BIPAP as needed. Will do overnight pulse oxymetry and bedside spirometry in the am (5) Anemia Qualifiers: Anemia type: B12 deficiency Is this a current diagnosis for this admission?: YesPlan: Continue supplements (6) CAD (coronary artery disease) Qualifiers: Coronary Disease-Associated Artery/Lesion type: [place] artery [place] vs. transplanted heart: [place] heart Associated angina: without angina Qualified Code(s): I25.10 - Atherosclerotic heart disease of [place] coronary artery without angina pectoris Is this a current diagnosis for this admission?: YesPlan: Chest pain free. Continue current medications (7) Chronic diastolic CHF (congestive heart failure) Is this a current diagnosis for this admission?: YesPlan: Patient appears euvolemic at the present time.Will continue to hold diuretics (8) Diabetes Qualifiers: Diabetes mellitus type: type 2 Diabetes mellitus complication status: with hyperglycemia Diabetes mellitus care home insulin use: without care home use Qualified Code(s): E11.65 - Type 2 diabetes mellitus with hyperglycemia; Z79.4 - intermediate card tender (current) use of insulin Is this a current diagnosis for this admission?: YesPlan: Will add lantus in place of patient's trugero. Continue sliding scale insulin (9) Essential (primary) hypertension Is this a current diagnosis for this admission?: YesPlan: Patient is normotensive, continue current medications (10) GERD (gastroesophageal reflux disease) Qualifiers: Esophagitis presence: without esophagitis Qualified Code(s): K21.9 - Gastro-esophageal reflux disease without esophagitis Plan: Continue PPI (11) Hyperlipidemia Qualifiers: Hyperlipidemia type: unspecified Qualified Code(s): E78.5 - Hyperlipidemia, unspecified Is this a current diagnosis for this admission?: YesPlan: Continue statin (12) IPF (idiopathic pulmonary fibrosis) Is this a current diagnosis for this admission?: YesPlan: Per pulmonary (13) Pulmonary hypertension Is this a current diagnosis for this admission?: YesPlan: Continue BIPAP (14) Rheumatoid arthritis Qualifiers: Rheumatoid arthritis location: unspecified site Rheumatoid factor presence: unspecified presence Qualified Code(s): M06.9 - Rheumatoid arthritis, unspecified Is this a current diagnosis for this admission?: YesPlan: Patient presently not on biologics - Time Time Spent with patient: 25-34 minutes Critical Time spent with patient: 15-24 minutes Medications reviewed and adjusted accordingly: Yes Anticipated discharge: Home with Homehealth Within: within 24 hours
[2017-02-15 09:35] VITALS: BP 162/58
[2017-02-15] MEDS: LANSOPRAZOLE 30 MG TAB.RAP.DR NG SCH (09:50)
[2017-02-15] MEDS: DULOXETINE HCL 30 MG CAPSULE.DR PO SCH (09:50)
[2017-02-15] MEDS: AMLODIPINE BESYLATE 5 MG TABLET PO SCH (09:51)
[2017-02-15] MEDS: ASPIRIN 81 MG TABLET, CHEWABLE NG SCH (09:51)
[2017-02-15] MEDS: DOCUSATE SODIUM 100 MG CAPSULE PO SCH (09:52)
[2017-02-15] MEDS: PREDNISONE 20 MG TABLET PO SCH (09:52)
[2017-02-15] MEDS: VALSARTAN 160 MG TABLET PO SCH (09:52)
[2017-02-15] MEDS: TRACLEER 125 MG PO SCH (10:03)
[2017-02-15] MEDS: NEBIVOLOL HCL 10 MG TABLET NG SCH (10:04)
[2017-02-15] MEDS: LEFLUNOMIDE 20 MG TABLET PO SCH (10:04)
[2017-02-15] MEDS: VALACYCLOVIR HCL 500 MG TABLET NG SCH (10:05)
[2017-02-15] MEDS: FEBUXOSTAT 40 MG TABLET NG SCH (10:05)
[2017-02-15] MEDS: LACTOBACILLUS ACIDOPHILUS 250 MG TAB NG SCH (10:06)
--- NOTE | 2017-02-15 14:57 | PDOC PROGRESS REPORT ---
Subjective Progress Note for:: 02/15/17 Physical Exam Vital Signs: Temp Pulse Resp BP Pulse Ox 97.8 F 83 30 H 162/58 H 98 02/15/17 09:31 02/15/17 09:31 02/15/17 09:31 02/15/17 09:31 02/15/17 09:31 Pulse Oximeter Nocturnal Start: 02/12/17 08: 54 Freq: RTQ4 Status: Complete Document 02/13/17 04:00 STI (Rec: 02/13/17 04:50 STI [id number]) Nocturnal Pulse Oximetry Equipment Usage Equipment in Use Oxygen Delivery Method (includes room Nasal Cannula air) O2 Sat by Pulse Oximetry (92-100) 97 Continuous SpO2 Machine # N-6 Other 3L/NC Intake & Output 02/14/17 02/15/17 02/16/17 06:59 06:59 06:59 Intake Total 819 594 Output Total 1600 200 Balance -781 394 Weight 90.3 kg 88 kg Results Laboratory Results: 02/13/17 06:39 02/15/17 07:12 02/15/17 07:12 Sodium 139.2 Potassium 4.2 Chloride 108 H Carbon Dioxide 23 Anion Gap 8 BUN 34 H Creatinine 0.92 Est GFR ( Amer) > 60 Est GFR (Non-Af Amer) > 60 Glucose 304 H Calcium 8.3 L 02/01/17 02/02/17 02/03/17 05:08 03:43 03:53 Creatine Kinase 617 H 421 H 559 H Troponin I NT-Pro-B Natriuret Pep 02/05/17 02/06/17 10:30 06:00 Creatine Kinase Troponin I 1.470 0.964 NT-Pro-B Natriuret Pep 66878 H Impressions: Foot X-Ray 01/31/17 21:18 IMPRESSION: Nondisplaced comminuted intra-articular fracture of the distal portion of the proximal phalanx of the left 5th digit.No other fracture or dislocation. Head CT 02/02/17 00:00 IMPRESSION: No significant intracranial abnormalities were identified. Other findings as noted above Chest X-Ray 02/11/17 00:00 IMPRESSION: Small bilateral pleural effusions are again identified and I cannot exclude some associated atelectasis or infiltrate in the lung bases. Cardiac silhouette remains enlarged and is unchanged in configuration. 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 transplanted heart: [place] heart Associated angina: without angina Qualified Code(s): I25.10 - Atherosclerotic heart disease of [place] coronary artery without angina pectoris Is this a current diagnosis for this admission?: Yes (3) IPF (idiopathic pulmonary fibrosis) Is this a current diagnosis for this admission?: Yes (4) Hypoventilation Is this a current diagnosis for this admission?: YesPlan: The above patient has failed BiPAP. This patient would benefit from noninvasive mechanical ventilation via the trilogy AVAPS/AE and faster responding AVAPS rates. The trilogy is able to provide a target tidal volume and also adjusting the EPAP pressures to maintain a patent airway as well as an oral backup rate this machine will help improve PaCO2 levels. The severity of the patient's condition will lead to future hospitalizations and readmissions as well as life-threatening situations without the use of this device trilogy home vent needed for hypercapnic respiratory failure. [facility] for trilogy set up. (5) Respiratory acidosis Is this a current diagnosis for this admission?: YesPlan: The above patient has failed BiPAP. This patient would benefit from noninvasive mechanical ventilation via the trilogy AVAPS/AE and faster responding AVAPS rates. The trilogy is able to provide a target tidal volume and also adjusting the EPAP pressures to maintain a patent airway as well as an oral backup rate this machine will help improve PaCO2 levels. The severity of the patient's condition will lead to future hospitalizations and readmissions as well as life-threatening situations without the use of this device trilogy home vent needed for hypercapnic respiratory failure. [facility]
--- NOTE | 2017-02-15 15:00 | PDOC PROGRESS REPORT ---
Subjective Progress Note for:: 02/11/17 Subjective:: awake Physical Exam Vital Signs: Temp Pulse Resp BP Pulse Ox 98.6 F 77 23 H 187/74 H 99 02/11/17 11:41 02/11/17 11:41 02/11/17 11:41 02/11/17 11:41 02/11/17 11:41 Intake & Output 02/10/17 02/11/17 02/12/17 06:59 06:59 06:59 Intake Total 2221 2150 640 Output Total 1500 1630 200 Balance 721 520 440 Weight 89.6 kg 89.3 kg General appearance: PRESENT: no acute distress, mild distress, obese, well- developed Head exam: PRESENT: atraumatic Eye exam: PRESENT: conjunctiva pale, EOMI Mouth exam: PRESENT: dry mucosa, neck supple, tongue midline Neck exam: ABSENT: carotid bruit, JVD, lymphadenopathy, thyromegaly Respiratory exam: PRESENT: decreased breath sounds, prolonged expiratory phas, rales, rhonchi, symmetrical, unlabored Cardiovascular exam: PRESENT: RRR, +S1, +S2 Pulses: PRESENT: normal radial pulses GI/Abdominal exam: PRESENT: normal bowel sounds, soft. ABSENT: distended, guarding, mass, organolmegaly, rebound, tenderness Rectal exam: PRESENT: deferred Gentrourinary exam: PRESENT: indwelling catheter Musculoskeletal exam: PRESENT: normal inspection Neurological exam: PRESENT: awake Psychiatric exam: PRESENT: flat affect Skin exam: PRESENT: dry, warm Results Laboratory Results: 02/11/17 05:48 02/11/17 05:48 02/10/17 02/10/17 02/11/17 14:40 14:40 05:48 WBC RBC Hgb Hct MCV MCH MCHC RDW Plt Count Seg Neutrophils % Lymphocytes % Monocytes % Eosinophils % Basophils % Absolute Neutrophils Absolute Lymphocytes Absolute Monocytes Absolute Eosinophils Absolute Basophils Carbonic Acid HCO3/H2CO3 Ratio ABG pH ABG pCO2 ABG pO2 ABG HCO3 ABG O2 Saturation ABG Base Excess FiO2 Sodium 142.9 Potassium 3.4 L Chloride 110 H Carbon Dioxide 24 Anion Gap 9 BUN 41 H Creatinine 1.01 Est GFR ( Amer) > 60 Est GFR (Non-Af Amer) 55 L Glucose 240 H Calcium 8.3 L Stool Occult Blood POSITIVE Stool for White Cells NO WBCs SEEN 02/11/17 02/11/17 02/11/17 05:48 06:57 07:58 WBC 12.9 H RBC 4.04 Hgb 11.2 L Hct 35.4 L MCV 88 MCH 27.6 MCHC 31.5 L RDW 16.5 H Plt Count 185 Seg Neutrophils % Not Reportable Lymphocytes % Not Reportable Monocytes % Not Reportable Eosinophils % Not Reportable Basophils % Not Reportable Absolute Neutrophils Not Reportable Absolute Lymphocytes Not Reportable Absolute Monocytes Not Reportable Absolute Eosinophils Not Reportable Absolute Basophils Not Reportable Carbonic Acid Cancelled 1.29 HCO3/H2CO3 Ratio Cancelled 19:1 ABG pH Cancelled 7.39 ABG pCO2 Cancelled 43.0 ABG pO2 Cancelled 128.4 H ABG HCO3 Cancelled 25.3 ABG O2 Saturation Cancelled 98.5 H ABG Base Excess Cancelled 0.2 FiO2 Cancelled 2.5L Sodium Potassium Chloride Carbon Dioxide Anion Gap BUN Creatinine Est GFR ( Amer) Est GFR (Non-Af Amer) Glucose Calcium Stool Occult Blood Stool for White Cells 02/01/17 02/02/17 02/03/17 05:08 03:43 03:53 Creatine Kinase 617 H 421 H 559 H Troponin I NT-Pro-B Natriuret Pep 02/05/17 02/06/17 10:30 06:00 Creatine Kinase Troponin I 1.470 0.964 NT-Pro-B Natriuret Pep 64910 H Impressions: Foot X-Ray 01/31/17 21:18 IMPRESSION: Nondisplaced comminuted intra-articular fracture of the distal portion of the proximal phalanx of the left 5th digit.No other fracture or dislocation. Head CT 02/02/17 00:00 IMPRESSION: No significant intracranial abnormalities were identified. Other findings as noted above Chest X-Ray 02/11/17 00:00 IMPRESSION: Small bilateral pleural effusions are again identified and I cannot exclude some associated atelectasis or infiltrate in the lung bases. Cardiac silhouette remains enlarged and is unchanged in configuration. Other findings as noted above Assessment & Plan - Diagnosis (1) Zedvn-[id number] kidney injury Qualifiers: Acute renal failure type: unspecified Chronic kidney disease stage: unspecified stage Qualified Code(s): N17.9 - Acute kidney failure, unspecified; N18.9 - Chronic kidney disease, unspecified Is this a current diagnosis for this admission?: Yes (2) Hypoventilation Is this a current diagnosis for this admission?: Yes (3) Narcotic overdose Qualifiers: Encounter type: initial encounter Injury intent: accidental or unintentional Qualified Code(s): T40.601A - Poisoning by unspecified narcotics, accidental (unintentional), initial encounter Is this a current diagnosis for this admission?: Yes (4) Diabetes Qualifiers: Diabetes mellitus type: type 2 Diabetes mellitus complication status: with hyperglycemia Diabetes mellitus senior living insulin use: without medical terminologist use Qualified Code(s): E11.65 - Type 2 diabetes mellitus with hyperglycemia; Z79.4 - prison (current) use of insulin Is this a current diagnosis for this admission?: Yes (5) CAD (coronary artery disease) Qualifiers: Coronary Disease-Associated Artery/Lesion type: [place] artery [place] vs. transplanted heart: [place] heart Associated angina: without angina Qualified Code(s): I25.10 - Atherosclerotic heart disease of [place] coronary artery without angina pectoris Is this a current diagnosis for this admission?: Yes (6) IPF (idiopathic pulmonary fibrosis) Is this a current diagnosis for this admission?: Yes (7) Respiratory failure requiring intubation Is this a current diagnosis for this admission?: Yes
--- NOTE | 2017-02-15 16:43 | PDOC DISCHARGE SUMMARY ---
General - Admit/Disc Date/PCP Admission Date/Primary Care Provider: 02/01/17 00:00 JORGE L BROWNING MD Discharge Date: 02/15/17 - Discharge Diagnosis (1) Respiratory failure requiring intubation Is this a current diagnosis for this admission?: Yes (2) Jztan-[id number] kidney injury Is this a current diagnosis for this admission?: YesSummary: Patien extubated 7 days ago she has been on BIPAP and oxygen by nasal cannula 3 L/min (3) Chronic renal disease, stage IV Is this a current diagnosis for this admission?: YesSummary: Resolved to baseline. One dialysis treatment secondary to severe dehydration. Diuretic diuretics and BETZY inhibitors were held. Her creatinine resolved to baseline (4) Hypoventilation Is this a current diagnosis for this admission?: Yes (5) Anemia Is this a current diagnosis for this admission?: YesSummary: Stable (6) CAD (coronary artery disease) Is this a current diagnosis for this admission?: YesSummary: Stable (7) Chronic diastolic CHF (congestive heart failure) Is this a current diagnosis for this admission?: YesSummary: Echocardiogram shows an EF of 60%, no diastolic heart failure. There is moderate mitral regurgitation. Does have severe pulmonary hypertension with RSVP of 58-65 mmHg (8) Diabetes Is this a current diagnosis for this admission?: YesSummary: Continue current medications (9) Essential (primary) hypertension Is this a current diagnosis for this admission?: Yes (10) GERD (gastroesophageal reflux disease) Is this a current diagnosis for this admission?: Yes (11) Hyperlipidemia Is this a current diagnosis for this admission?: YesSummary: Continue statin (12) IPF (idiopathic pulmonary fibrosis) Is this a current diagnosis for this admission?: YesSummary: A steroid taper and BiPAP therapy. She will follow-up with her glass mechanic (13) Pulmonary hypertension Is this a current diagnosis for this admission?: Yes (14) Rheumatoid arthritis Is this a current diagnosis for this admission?: Yes - Additional Information Resuscitation Status: Full Code Discharge Activity: Activity As Tolerated, Balance Activity w/Rest Home Medications: Aspirin [Ecotrin 81 mg EC Tablet] 81 mg PO DAILY 02/01/17 Bosentan [Tracleer 125 mg Tablet] 125 mg PO Q12 02/01/17 Duloxetine HCl [Cymbalta] 60 mg PO DAILY 02/01/17 Febuxostat [Uloric 40 mg Tablet] 40 mg PO DAILY 02/01/17 Hydralazine HCl [Apresoline 50 mg Tablet] 50 mg PO Q8 02/01/17 Insulin Aspart [Novolog Insulin (Aspart) 100 unit/mL] 0 units SQ .SLDING SCALE MEALS 02/01/17 Insulin Degludec [Tresiba Flextouch U-100] 70 units SQ DAILY 02/01/17 Leflunomide [Arava] 10 mg PO DAILY 02/01/17 Nebivolol HCl [Bystolic] 10 mg PO Q12 02/01/17 Omeprazole 40 mg PO BIDBS 02/01/17 Oxycodone HCl [Oxycodone HCl 10 MG Tablet] 10 mg PO Q6HP PRN 02/01/17 Pentoxifylline [Trental 400 mg Tablet.sa] 400 mg PO Q8 02/01/17 Simvastatin [Zocor 20 mg Tablet] 20 mg PO QHS 02/01/17 Tofacitinib Citrate [Xeljanz] 5 mg PO Q12 02/01/17 Valsartan [Diovan] 320 mg PO DAILY 02/01/17 Acetaminophen [Tylenol 325 mg Tablet] 650 mg NG Q4HP PRN tablet 02/15/17 Amlodipine Besylate [Norvasc 5 mg Tablet] 10 mg PO DAILY #30 tablet 02/15/17 Bumetanide [Bumex 1 mg Tablet] 2 mg PO DAILY #30 tablet 02/15/17 Prednisone [Deltasone 20 mg Tablet] 20 mg PO ASDIR PRN #19 tablet 02/15/17 History of Present Illness Patient complains of: Altered mental status and dyspnea History of Present Illness: JOSIANE DILLON is a 66 year old female with a past medical history of opiate dependent chronic pain, coronary artery disease, congestive heart failure, Diabetes and chronic kidney disease who has been noted by her daughter to have altered mental status and fall after recent initiation of long-acting opiates for chronic low back pain. She is brought into the emergency room for evaluation she is found to be obtunded, have respiration rate of 8 and difficulty staying awake as well as a PCO2 of over 80 she given IV Narcan with a brief improvement of mental status. Additionally her labs reveal rhabdomyolysis, acute on chronic renal failure with a baseline creatinine of 2 now 5, anemia and a fracture to the fifth metatarsal on the left foot. She is a poor historian and unable to provide history. Hospital Course Hospital Course: Patient was admitted to [facility] on telemetry. SHe had worsening hypercapnia that required transfer to the ICU and urgent intubation. Dr Barry was consulted from pulmonary. She was started on aggressive IV steroids and nebulizer treatments. She was able to eventually be weaned and extubated after 3 days of intubation. She had to be consulted for her acute kidney failure. DR Garrido saw the patient in consult. It was prerenal secondary to large amount of diuretic use and BETZY inhibitors. He underwent one dialysis treatment. The kidney function gradually returned back to baseline. SHe was treated with broad -spectrum IV antibiotics for possible right lower lobe pneumonia and UTI. The 10 day course. Therapy was consulted for mobilization. She was slow to progress. Discharge planning was consulted as well patient and family decided she would like to go home with home health and home physical therapy. She underwent bedside spirometry, FEV1 of 0.43 was 20% of predicted. Patient needs trilogy BiPAP therapy at home. Discharge planning was able to arrange [facility] with [facility]. Patient will return home to home health therapyThe above patient has failed BiPAP. This patient would benefit from noninvasive mechanical ventilation via the trilogy AVAPS/AE and faster responding AVAPS rates. The trilogy is able to provide a target tidal volume and also adjusting the EPAP pressures to maintain a patent airway as well as an oral backup rate this machine will help improve PaCO2 levels. The severity of the patient's condition will lead to future hospitalizations and readmissions as well as life- threatening situations without the use of this device trilogy home vent needed for hypercapnic respiratory failure. Physical Exam Vital Signs: Temp Pulse Resp BP Pulse Ox 97.8 F 83 30 H 162/58 H 98 02/15/17 09:31 02/15/17 09:31 02/15/17 09:31 02/15/17 09:31 02/15/17 09:31 Pulse Oximeter Nocturnal Start: 02/12/17 08: 54 Freq: RTQ4 Status: Complete Document 02/13/17 04:00 STI (Rec: 02/13/17 04:50 STI [id number]) Nocturnal Pulse Oximetry Equipment Usage Equipment in Use Oxygen Delivery Method (includes room Nasal Cannula air) O2 Sat by Pulse Oximetry (92-100) 97 Continuous SpO2 Machine # [id number] 3L/NC Intake & Output 02/14/17 02/15/17 02/16/17 06:59 06:59 06:59 Intake Total 819 594 Output Total 1600 200 Balance -781 394 Weight 90.3 kg 88 kg General appearance: PRESENT: no acute distress, obese, well-developed, well- nourished Head exam: PRESENT: atraumatic, normocephalic Eye exam: PRESENT: conjunctiva pink, EOMI, PERRLA. ABSENT: scleral icterus Ear exam: PRESENT: normal external ear exam Mouth exam: PRESENT: moist, tongue midline Neck exam: ABSENT: carotid bruit, JVD, lymphadenopathy, thyromegaly Respiratory exam: PRESENT: decreased breath sounds, symmetrical, unlabored Cardiovascular exam: PRESENT: RRR. ABSENT: diastolic murmur, rubs, systolic murmur Pulses: PRESENT: normal dorsalis pedis pul Vascular exam: PRESENT: normal capillary refill GI/Abdominal exam: PRESENT: normal bowel sounds, soft. ABSENT: distended, guarding, mass, organolmegaly, rebound, tenderness Rectal exam: PRESENT: deferred Extremities exam: PRESENT: full ROM. ABSENT: calf tenderness, clubbing, pedal edema Neurological exam: PRESENT: alert, awake, oriented to person, oriented to place , oriented to time, oriented to situation, CN II-XII grossly intact. ABSENT: motor sensory deficit Psychiatric exam: PRESENT: appropriate affect, normal mood. ABSENT: homicidal ideation, suicidal ideation Skin exam: PRESENT: dry, intact, warm. ABSENT: cyanosis, rash Results Laboratory Results: 02/13/17 06:39 02/15/17 07:12 02/15/17 07:12 Sodium 139.2 Potassium 4.2 Chloride 108 H Carbon Dioxide 23 Anion Gap 8 BUN 34 H Creatinine 0.92 Est GFR ( Amer) > 60 Est GFR (Non-Af Amer) > 60 Glucose 304 H Calcium 8.3 L 02/01/17 02/02/17 02/03/17 05:08 03:43 03:53 Creatine Kinase 617 H 421 H 559 H Troponin I NT-Pro-B Natriuret Pep 02/05/17 02/06/17 10:30 06:00 Creatine Kinase Troponin I 1.470 0.964 NT-Pro-B Natriuret Pep 23252 H Impressions: Foot X-Ray 01/31/17 21:18 IMPRESSION: Nondisplaced comminuted intra-articular fracture of the distal portion of the proximal phalanx of the left 5th digit.No other fracture or dislocation. Head CT 02/02/17 00:00 IMPRESSION: No significant intracranial abnormalities were identified. Other findings as noted above Chest X-Ray 02/11/17 00:00 IMPRESSION: Small bilateral pleural effusions are again identified and I cannot exclude some associated atelectasis or infiltrate in the lung bases. Cardiac silhouette remains enlarged and is unchanged in configuration. Other findings as noted above Qualifiers PATEINT BEING DISCHARGED WITH ANY OF THE FOLLOWING DIAGNOSIS?: No Plan Discharge Plan: Home with family Time Spent: Less than 30 Minutes
--- NOTE | 2017-02-15 16:53 | PDOC PROGRESS REPORT ---
Subjective Progress Note for:: 02/12/17 Subjective:: awake , Responsive, wearing noninvasive positive pressure ventilation Physical Exam Vital Signs: Temp Pulse Resp BP Pulse Ox 97.8 F 83 30 H 162/58 H 98 02/15/17 09:31 02/15/17 09:31 02/15/17 09:31 02/15/17 09:31 02/15/17 09:31 Pulse Oximeter Nocturnal Start: 02/12/17 08: 54 Freq: RTQ4 Status: Complete Document 02/13/17 04:00 STI (Rec: 02/13/17 04:50 STI [id number]) Nocturnal Pulse Oximetry Equipment Usage Equipment in Use Oxygen Delivery Method (includes room Nasal Cannula air) O2 Sat by Pulse Oximetry (92-100) 97 Continuous SpO2 Machine # [id number] Other 3L/NC Intake & Output 02/14/17 02/15/17 02/16/17 06:59 06:59 06:59 Intake Total 819 594 Output Total 1600 200 Balance -781 394 Weight 90.3 kg 88 kg General appearance: PRESENT: cooperative, disheveled, obese, well-developed Head exam: PRESENT: atraumatic, normocephalic Eye exam: PRESENT: conjunctiva pale, EOMI Mouth exam: PRESENT: dry mucosa, neck supple, tongue midline Neck exam: ABSENT: carotid bruit, JVD, lymphadenopathy, thyromegaly Respiratory exam: PRESENT: decreased breath sounds, prolonged expiratory phas, rhonchi, symmetrical, unlabored Cardiovascular exam: PRESENT: RRR, +S1, +S2 Pulses: PRESENT: normal radial pulses GI/Abdominal exam: PRESENT: normal bowel sounds, soft. ABSENT: distended, guarding, mass, organolmegaly, rebound, tenderness Rectal exam: PRESENT: deferred Gentrourinary exam: PRESENT: indwelling catheter Musculoskeletal exam: PRESENT: normal inspection Neurological exam: PRESENT: alert, awake Psychiatric exam: PRESENT: normal mood Skin exam: PRESENT: dry, warm Results Laboratory Results: 02/13/17 06:39 02/15/17 07:12 02/15/17 07:12 Sodium 139.2 Potassium 4.2 Chloride 108 H Carbon Dioxide 23 Anion Gap 8 BUN 34 H Creatinine 0.92 Est GFR ( Amer) > 60 Est GFR (Non-Af Amer) > 60 Glucose 304 H Calcium 8.3 L 02/01/17 02/02/17 02/03/17 05:08 03:43 03:53 Creatine Kinase 617 H 421 H 559 H Troponin I NT-Pro-B Natriuret Pep 02/05/17 02/06/17 10:30 06:00 Creatine Kinase Troponin I 1.470 0.964 NT-Pro-B Natriuret Pep 80187 H Impressions: Foot X-Ray 01/31/17 21:18 IMPRESSION: Nondisplaced comminuted intra-articular fracture of the distal portion of the proximal phalanx of the left 5th digit.No other fracture or dislocation. Head CT 02/02/17 00:00 IMPRESSION: No significant intracranial abnormalities were identified. Other findings as noted above Chest X-Ray 02/11/17 00:00 IMPRESSION: Small bilateral pleural effusions are again identified and I cannot exclude some associated atelectasis or infiltrate in the lung bases. Cardiac silhouette remains enlarged and is unchanged in configuration. Other findings as noted above Assessment & Plan - Diagnosis (1) Skbdi-[id number] kidney injury Qualifiers: Acute renal failure type: unspecified Chronic kidney disease stage: unspecified stage Qualified Code(s): N17.9 - Acute kidney failure, unspecified; N18.9 - Chronic kidney disease, unspecified Is this a current diagnosis for this admission?: Yes (2) Hypoventilation Is this a current diagnosis for this admission?: Yes (3) Narcotic overdose Qualifiers: Encounter type: initial encounter Injury intent: accidental or unintentional Qualified Code(s): T40.601A - Poisoning by unspecified narcotics, accidental (unintentional), initial encounter Is this a current diagnosis for this admission?: Yes (4) Diabetes Qualifiers: Diabetes mellitus type: type 2 Diabetes mellitus complication status: with hyperglycemia Diabetes mellitus exterminator helper termite insulin use: without exterminator helper termite use Qualified Code(s): E11.65 - Type 2 diabetes mellitus with hyperglycemia; Z79.4 - intermediate project manager (current) use of insulin Is this a current diagnosis for this admission?: Yes (5) CAD (coronary artery disease) Qualifiers: Coronary Disease-Associated Artery/Lesion type: [place] artery [place] vs. transplanted heart: [place] heart Associated angina: without angina Qualified Code(s): I25.10 - Atherosclerotic heart disease of [place] coronary artery without angina pectoris Is this a current diagnosis for this admission?: Yes (6) IPF (idiopathic pulmonary fibrosis) Is this a current diagnosis for this admission?: Yes (7) Respiratory failure requiring intubation Is this a current diagnosis for this admission?: YesPlan: Resolved
--- NOTE | 2017-02-18 12:21 | Pulmonary Function Test ---
Pulmonary Function Test Date of Procedure:: 02/12/17 INDICATION:: Dyspnea Referring Provider: Dr. Cricket Pleitez - Report Spirometry: FVC 0.52 L 19% FEV1 0.43 L 20% FEV1/FVC % 67 predicted 83 FEF 25-75% 0.59 L 31% Impression: Extremely severe obstructive ventilatory defect response to bronchodilators cannot be quantified as patient did not have a post bronchodilator evaluation.
== END 2017-02-15 12:31 | disposition home health service (06) | DRG 917 ==
LOC: ER 19:13 → EH 23:44 → UNDOADMIN 23:44 → EH 02-01 → 3W 02-01 02:30 → ICU 02-05 10:15 → 3W 02-08 21:00
PROVIDERS: ADMIT Internal Medicine; ATTEND Internal Medicine
PROC: 3E0F73Z Introduction of Anti-inflammatory into Respiratory Tract, Via Natural or Artificial Opening (ICD-10-PCS; 2017-02-01)
PROC: 5A09457 Assistance with Respiratory Ventilation, 24-96 Consecutive Hours, Continuous Positive Airway Pressure (ICD-10-PCS; 2017-02-01)
PROC: 30233N1 Transfusion of Nonautologous Red Blood Cells into Peripheral Vein, Percutaneous Approach (ICD-10-PCS; 2017-02-02)
PROC: 3E0234Z Introduction of Serum, Toxoid and Vaccine into Muscle, Percutaneous Approach (ICD-10-PCS; 2017-02-03)
PROC: 5A1D60Z (ICD-10-PCS; 2017-02-03)
PROC: 5A1945Z Respiratory Ventilation, 24-96 Consecutive Hours (ICD-10-PCS; principal; 2017-02-05)
PROC: 0BH17EZ Insertion of Endotracheal Airway into Trachea, Via Natural or Artificial Opening (ICD-10-PCS; 2017-02-05)
DX: T40.601A Poisoning by unspecified narcotics, accidental (unintentional), initial encounter (principal); J18.9 Pneumonia, unspecified organism; J96.22 Acute and chronic respiratory failure with hypercapnia; J96.21 Acute and chronic respiratory failure with hypoxia; N17.9 Acute kidney failure, unspecified; M62.82 Rhabdomyolysis; F11.20 Opioid dependence, uncomplicated; I13.0 Hypertensive heart and chronic kidney disease with heart failure and stage 1 through stage 4 chronic kidney disease, or unspecified chronic kidney disease; I50.32 Chronic diastolic (congestive) heart failure; N39.0 Urinary tract infection, site not specified; N18.4 Chronic kidney disease, stage 4 (severe); E66.2 Morbid (severe) obesity with alveolar hypoventilation; R06.89 Other abnormalities of breathing; D63.1 Anemia in chronic kidney disease; I25.10 Atherosclerotic heart disease of native coronary artery without angina pectoris; I34.0 Nonrheumatic mitral (valve) insufficiency; I27.2 Other secondary pulmonary hypertension; E11.22 Type 2 diabetes mellitus with diabetic chronic kidney disease; K21.9 Gastro-esophageal reflux disease without esophagitis; E78.5 Hyperlipidemia, unspecified; J84.112 Idiopathic pulmonary fibrosis; G89.29 Other chronic pain; M06.9 Rheumatoid arthritis, unspecified; M54.5 Low back pain; S92.352A Displaced fracture of fifth metatarsal bone, left foot, initial encounter for closed fracture; E86.0 Dehydration; W19.XXXA Unspecified fall, initial encounter; M34.9 Systemic sclerosis, unspecified; M35.00 Sjogren syndrome, unspecified; B95.1 Streptococcus, group B, as the cause of diseases classified elsewhere; D51.9 Vitamin B12 deficiency anemia, unspecified; E11.65 Type 2 diabetes mellitus with hyperglycemia; Z68.36 Body mass index [BMI] 36.0-36.9, adult; I25.2 Old myocardial infarction; Z78.1 Physical restraint status; Z79.82 Long term (current) use of aspirin; Z79.4 Long term (current) use of insulin; Z79.899 Other long term (current) drug therapy; Z79.891 Long term (current) use of opiate analgesic; Z91.81 History of falling; Z99.2 Dependence on renal dialysis; Z23 Encounter for immunization; Z90.49 Acquired absence of other specified parts of digestive tract; Z95.1 Presence of aortocoronary bypass graft; Z90.710 Acquired absence of both cervix and uterus; Z88.3 Allergy status to other anti-infective agents; Z82.49 Family history of ischemic heart disease and other diseases of the circulatory system; Z83.3 Family history of diabetes mellitus
CPT/HCPCS: 31500; 36415; 36430; 36556; 36600; 70450; 71010; 71020; 76937; 80048; 80053; 80307; 81001; 82272; 82550; 82553; 82607; 82728; 82746; 82803; 82962; 83036; 83540; 83550; 83605; 83735; 83880; 84439; 84443; 84481; 84484; 85025; 85027; 85045; 86317; 86704; 86850; 86900; 86901; 86920; 87040; 87086; 87088; 87340; 87493; 87522; 89055; 93005; 93010; 93306; 94002; 94003; 94010; 94660; 94667; 94668; 94762; 94799; 96360; 99291; G8978-GP; G8979-GP; G8980-GP; J0330; J0696; J1644; J1815; J1940; J2250; J2310; J2405; J2543; J2704; J2765; J2920; J3010; J3490; J7030; J7060; J7512; J7614; P9016; Q4081

== ENCOUNTER 2017-02-21 17:20 | Emergency (ER) | payer MEDICARE, MEDICAID ==
[2017-02-21 18:35] LABS: HEMOGLOBIN 11.6 g/dL (12.0-15.5); HGB HCT DIFFERENCE -1.2; MEAN CORPUSCULAR HEMOGLOBIN 29.5 pg (27.0-33.4); MEAN CORPUSCULAR HGB CONC 32.3 g/dL (32.0-36.0); MEAN CORPUSCULAR VOLUME 91 fl (80-97); RED BLOOD COUNT 3.95 10^6/uL (3.72-5.28); RED CELL DISTRIBUTION WIDTH 19.9 % (11.5-14.0); WHITE BLOOD COUNT 7.1 10^3/uL (4.0-10.5)
[2017-02-21 18:53] LABS: ALANINE AMINOTRANSFERASE 33 U/L (9-52); ALBUMIN 3.9 g/dL (3.5-5.0); ALKALINE PHOSPHATASE 137 U/L (38-126); ANION GAP 13 (5-19); ASPARTATE AMINO TRANSFERASE 25 U/L (14-36); BILIRUBIN,DIRECT 0.4 mg/dL (0.0-0.4); BILIRUBIN,TOTAL 0.7 mg/dL (0.2-1.3); BLOOD UREA NITROGEN 35 mg/dL (7-20); CALCIUM 8.6 mg/dL (8.4-10.2); CARBON DIOXIDE 26 mmol/L (22-30); CHLORIDE 105 mmol/L (98-107); CREATININE RESULT 1.18 mg/dL (0.52-1.25); GLUCOSE 296 mg/dL (75-110); LIPASE 155.1 U/L (23-300); POTASSIUM 4.2 mmol/L (3.6-5.0); TOTAL PROTEIN 7.2 g/dL (6.3-8.2)
[2017-02-21 18:54] LABS: BASOPHILS % (MANUAL) 0 % (0-2); EOSINOPHILS % (MANUAL) 0 % (0-6); LYMPHOCYTES % (MANUAL) 3 % (13-45); TOTAL CELLS COUNTED 100
[2017-02-21 18:55] LABS: APPEARANCE,URINE CLEAR; BILIRUBIN,URINE NEGATIVE (NEGATIVE); GLUCOSE, URINE NEGATIVE (NEGATIVE); KETONES,URINE NEGATIVE (NEGATIVE); LEUKOCYTE ESTERASE,URINE MODERATE (NEGATIVE); NITRITE,URINE NEGATIVE (NEGATIVE); PROTEIN,URINE 30 mg/dL (NEGATIVE); URINE SPECIFIC GRAVITY 1.006; UROBILINOGEN,URINE NEGATIVE mg/dL (<2.0)
[2017-02-21 18:55] LABS: ANISOCYTOSIS 1+; HYPOCHROMASIA SLIGHT; TOXIC GRANULATION SLIGHT
--- NOTE | 2017-02-21 18:58 | ER Document Report ---
ED General - General Chief Complaint: Abdominal Pain Stated Complaint: ABDOMINAL PAIN Time Seen by Provider: 02/21/17 18:24 Notes: Patient is a 66-year-old female recently discharged from the hospital with a history of chronic kidney disease, CHF, COPD with FEV1 of 20% predicted value, chronic BiPAP requirement who presents with concerns of epigastric abdominal pain and increased shortness of breath. Family reports that for the past 24 hours patient is intermittently been complaining of a dull, aching, moderate pain to her epigastrium. Patient is uncertain if she has had similar symptoms in the past. She is unable to quantify what improves or worsens the pain. She has not had any vomiting or diarrhea. No fever. Patient does chronically have shortness of breath and family feels that it is overall unchanged since discharge home although notes that she is barely able to ambulate from her couch to the bathroom without dyspnea. She is supposed to be wearing BiPAP at all times. She denies any chest pain. Patient herself is unable to provide much of the history due to her shortness of breath at time of initial assessment. TRAVEL OUTSIDE OF THE [place] IN LAST 30 DAYS: No - Related Data Allergies/Adverse Reactions: clarithromycin [From Biaxin] Allergy (Mild, Verified 02/21/17 19:27) RASH moxifloxacin HCl [From Avelox] Allergy (Mild, Verified 02/21/17 19:27) Fever Past Medical History - General Information source: Patient, Parent - Social History Smoking Status: Former Smoker Frequency of alcohol use: None Drug Abuse: None Lives with: Family Family History: Hypertension - Past Medical History Cardiac Medical History: Reports: Hx Congestive Heart Failure, Hx Coronary Artery Disease, Hx Heart Attack, Hx Hypercholesterolemia, Hx Hypertension - Pulm. HTN Pulmonary Medical History: Reports: Hx Pneumonia Neurological Medical History: Endocrine Medical History: Reports: Hx Diabetes Mellitus Type 2 Renal/ Medical History: Reports: Hx Renal Insufficiency. Denies: Hx Peritoneal Dialysis Malignancy Medical History: GI Medical History: Reports: Hx Gastroesophageal Reflux Disease, Hx Irritable Bowel Musculoskeltal Medical History: Reports Hx Arthritis - rheumatoid Psychiatric Medical History: Traumatic Medical History: Infectious Medical History: Past Surgical History: Reports: Hx Cardiac Catheterization, Hx Cardiac Surgery - CABG 2004, Hx Cholecystectomy, Hx Coronary Artery Bypass Graft, Hx Hysterectomy, Hx Open Heart Surgery - 5 bypass 2004,several stents since then, Hx Orthopedic Surgery - elbows, carpal tunnel bilat, Other - Hx sinus surgery - Immunizations Immunizations up to date: Yes Hx Diphtheria, Pertussis, Tetanus Vaccination: Yes Hx Pneumococcal Vaccination: 01/31/12 Review of Systems - Review of Systems Notes: Constitutional: Negative for fever. HENT: Negative for sore throat. Eyes: Negative for visual changes. Cardiovascular: Negative for chest pain. Respiratory: Positive for shortness of breath. Gastrointestinal: Positive for epigastric abdominal pain Genitourinary: Negative for dysuria. Musculoskeletal: Positive for bilateral lower extremity edema and pain Skin: Negative for rash. Neurological: Negative for headaches, weakness or numbness. 10 point ROS negative except as marked above and in HPI. Physical Exam - Vital signs Vitals: BP 162/73 H 02/21/17 17:49 Interpretation: Tachycardic, Tachypneic Notes: PHYSICAL EXAMINATION: GENERAL: Appears chronically ill, acutely short of breath HEAD: Atraumatic, normocephalic. EYES: Pupils equal round and reactive to light, extraocular movements intact, sclera anicteric, conjunctiva are normal. ENT: nares patent, oropharynx clear without exudates. Moderately dry mucous membranes. NECK: Normal range of motion, supple without lymphadenopathy LUNGS: Mildly diminished breath sounds at the bases bilaterally without any wheezes or rales. Initial respiratory rate off BiPAP is 36 breaths per minute with intercostal retractions and obvious labored breathing HEART: irregularly irregular tachycardia without murmurs ABDOMEN: Soft, mild epigastric tenderness to palpation, no additional focal tenderness, normoactive bowel sounds. No guarding, no rebound. No masses appreciated. EXTREMITIES: Normal range of motion, plus pitting edema in the bilateral lower extremities to the distal one third of the tibial surfaces that is equal and symmetric NEUROLOGICAL: No focal neurological deficits. Moves all extremities spontaneously and on command. PSYCH: Normal mood, normal affect. SKIN: Warm, Dry, normal turgor, no rashes or lesions noted. Course - Re-evaluation Re-evalutation: 02/21/17 18:56 Patient presents, ill in appearance, acutely tachypneic at time of my initial assessment initial respiratory rate of 36 breaths per minute on 3 L by nasal cannula. She does intermittently require BiPAP at home. I did immediately call for BiPAP at time of initial assessment. I did spend 35 minutes initially in the room discussing with family her prolonged hospitalization after had admitted her on the of this month. Review of charts do indicate the patient has chronic kidney disease although has returned to her baseline kidney function and her initial creatinine here is much improved relative to her prior kidney functions. She does have 4+ pitting edema in the bilateral lower extremities to the mid tibial surface and her daughter has been giving her total of 7 mg of bumetanide daily at home over the last 3 days due to concerns of worsening shortness of breath, decreased functional capacity and orthopnea. Patient is also here complaining of epigastric abdominal pain that is been present since 3:00 this afternoon. She has no otherwise focal abdominal tenderness on examination and already has had a cholecystectomy. Patient is acute on chronically ill, likely has a very poor prognosis given her CHF, FEV1 of less than 20% predicted, chronic kidney disease, and deteriorating clinical condition over the past 3-4 weeks. Will proceed with labs, CT abdomen pelvis without IV contrast, chest x-ray, continue on BiPAP and reassess frequently. Patient is critically ill and require reassessments. 02/21/17 21:21 Patient overall appears much improved clinically, resting calmly on the BiPAP which she does have available to her at home. Her labs today also appear markedly improved when she was in the hospital several weeks ago. Although her troponin is mildly elevated at 0.1 this is less than it was on the of this month. Likewise her proBNP is elevated at 15,000 but again is markedly decreased from its peak of 59,000 during her hospitalization. Her hemoglobin is also improved. Her kidney function is excellent relative to before at 1.6. Awaiting CT without contrast and if that likewise remains normal I do not believe patient would benefit from hospitalization and there would likely be more risks associated with that then return to home with outpatient follow-up with her asset protection assistant to maintain her diuretic schedule. 02/21/17 22:31 CT scan of the abdomen pelvis is normal. Patient states he overall feels much improved. I have had an extensive conversation with the patient and her family at the bedside about discharge home versus inpatient admission given the overall her laboratories appear much improved or stable from time of discharge and that there are no acute findings on her scan today and that her work of breathing is controlled on BiPAP which she has available to her at home. Family is in agreement with discharge home after discussing the risks and benefits of each option. At this time will discharge with return precautions and follow-up recommendations. Verbal discharge instructions given a the bedside and opportunity for questions given. Medication warnings reviewed. Patient is in agreement with this plan and has verbalized understanding of return precautions and the need for primary care follow-up in the next 24-72 hours. - Vital Signs Vital signs: Temp Pulse Resp BP Pulse Ox 28 H 163/58 H 100 02/21/17 23:03 02/21/17 23:03 02/21/17 23:03 - Laboratory Result Diagrams: 02/21/17 18:00 02/21/17 18:00 Laboratory results interpreted by me: 02/21/17 02/21/17 02/21/17 18:00 18:00 18:00 Hgb 11.6 L RDW 19.9 H Seg Neuts % (Manual) 96 H Lymphocytes % (Manual) 3 L Monocytes % (Manual) 1 L Abs Lymphs (Manual) 0.2 L BUN 35 H Est GFR ( Amer) 55 L Est GFR (Non-Af Amer) 46 L Glucose 296 H Alkaline Phosphatase 137 H NT-Pro-B Natriuret Pep 28259 H Urine Protein Urine Blood Ur Leukocyte Esterase 02/21/17 18:23 Hgb RDW Seg Neuts % (Manual) Lymphocytes % (Manual) Monocytes % (Manual) Abs Lymphs (Manual) BUN Est GFR ( Amer) Est GFR (Non-Af Amer) Glucose Alkaline Phosphatase NT-Pro-B Natriuret Pep Urine Protein 30 H Urine Blood SMALL H Ur Leukocyte Esterase MODERATE H - Diagnostic Test Radiology reviewed: Image reviewed, Reports reviewed Radiology results interpreted by me: 02/22/17 04:12 Chest x-ray: Unchanged from prior with bibasilar atelectasis Critical Care Note - Critical Care Note Total time excluding time spent on procedures (mins): 40 Comments: Critical care time spent obtaining history from patient or surrogate, discussions with consultants, development of treatment plan with patient or surrogate, evaluation of patient's response to treatment, examination of patient , ordering and performing treatments and interventions, ordering and review of laboratory studies, re-evaluation of patient's condition, ordering and review of radiographic studies and review of old charts Discharge - Discharge Clinical Impression: Chronic renal disease, stage IV, Shortness of breath, Epigastric abdominal pain CHF (congestive heart failure) Qualifiers: Congestive heart failure type: diastolic Congestive heart failure chronicity: chronic Qualified Code(s): I50.32 - Chronic diastolic (congestive) heart failure Condition: Fair Disposition: HOME, SELF-CARE Additional Instructions: Please follow-up with your doctors as scheduled. Return to the emergency department immediately if you develop worsening of shortness of breath that is not controlled with your BiPAP, worsening abdominal pain, chest pain, pass out, or have any other symptoms that are worrisome to you. Referrals: JORGE L BROWNING MD [Primary Care Provider] - Follow up as needed
--- NOTE | 2017-02-21 19:34 | RADIOLOGY REPORT (SQ) ---
EXAM DESCRIPTION: CHEST SINGLE VIEW COMPLETED DATE/TIME: 02/21/2017 7:23 pm REASON FOR STUDY: sob COMPARISON: 02/11/2017 EXAM PARAMETERS: NUMBER OF VIEWS: One view. TECHNIQUE: Single frontal radiographic view of the chest acquired. RADIATION DOSE: NA LIMITATIONS: None. FINDINGS: LUNGS AND PLEURA: Bilateral pleural effusions right greater than left. Basilar opacities. MEDIASTINUM AND HILAR STRUCTURES: No masses. Contour normal. HEART AND VASCULAR STRUCTURES: Heart enlarged. Vascular congestion. BONES: No acute findings. HARDWARE: CABG hardware. OTHER: No other significant finding. IMPRESSION: Congestive failure. Bilateral pleural effusions and basilar opacities. TECHNICAL DOCUMENTATION: JOB ID: [id number]
[2017-02-21 19:44] LABS: TROPONIN I 0.105 ng/mL
--- NOTE | 2017-02-21 21:37 | RADIOLOGY REPORT (SQ) ---
EXAM DESCRIPTION: CT ABD/PELVIS NO ORAL OR IV COMPLETED DATE/TIME: 02/21/2017 9:22 pm REASON FOR STUDY: epigastric abdominal pain, gaurding COMPARISON: 01/12/2014 TECHNIQUE: CT scan of the abdomen and pelvis performed without intravenous or oral contrast. Images reviewed with lung, soft tissue, and bone windows. Reconstructed coronal and sagittal MPR images revi ewed. All images stored on PACS. All CT scanners at this facility use dose modulation, iterative reconstruction, and/or weight based d osing when appropriate to reduce radiation dose to as low as reasonably achievable (ALARA). [facility]: Dose Right [facility]: CareDose [facility]: Dose Right [facility]: Teradose 4D [facility]: [employer] RADIATION DOSE: Up-to-date CT equipment and radiation dose reduction techniques were employed. CTDIv ol: 18.5 mGy. DLP: 1027 mGy-cm.mGy. LIMITATIONS: None. FINDINGS: LOWER CHEST: Bilateral pleural effusions. Basilar opacities. NON-CONTRASTED LIVER, SPLEEN, ADRENALS: Evaluation limited by lack of IV contrast. No identified sign ificant masses. PANCREAS: No masses. No peripancreatic inflammatory changes. GALLBLADDER: Surgically absent. RIGHT KIDNEY AND URETER: No suspicious masses. Assessment limited by lack of IV contrast. No signif icant calcifications. No hydronephrosis or hydroureter. LEFT KIDNEY AND URETER: No suspicious masses. Assessment limited by lack of IV contrast. No signifi cant calcifications. No hydronephrosis or hydroureter. AORTA AND RETROPERITONEUM: No aneurysm. No retroperitoneal masses or adenopathy. BOWEL AND PERITONEAL CAVITY: Diverticulosis. No diverticulitis. APPENDIX: Normal. PELVIS, BLADDER, AND ABDOMINAL WALL:No abnormal masses. No free fluid. Bladder normal. BONES: No significant findings. OTHER: No other significant finding. IMPRESSION: Bilateral pleural effusions with bibasilar opacities. No acute findings in the abdomen or pelvis. TECHNICAL DOCUMENTATION: JOB ID: [id number] Quality ID # [id number]: Final reports with documentation of one or more dose reduction techniques (e.g., Au tomated exposure control, adjustment of the mA and/or kV according to patient size, use of iterative reconstruction technique) 2010 [employer]- All Rights Reserved
[2017-02-21 23:45] VITALS: BP 163/58
== END 2017-02-21 23:18 | disposition home or self-care (01) ==
LOC: ER 17:20
DX: R10.13 Epigastric pain (principal); I13.0 Hypertensive heart and chronic kidney disease with heart failure and stage 1 through stage 4 chronic kidney disease, or unspecified chronic kidney disease; I50.9 Heart failure, unspecified; N18.4 Chronic kidney disease, stage 4 (severe); E11.22 Type 2 diabetes mellitus with diabetic chronic kidney disease; J44.9 Chronic obstructive pulmonary disease, unspecified; J98.11 Atelectasis; R06.02 Shortness of breath; R00.0 Tachycardia, unspecified; R74.8 Abnormal levels of other serum enzymes; I25.10 Atherosclerotic heart disease of native coronary artery without angina pectoris; I25.2 Old myocardial infarction; Z88.1 Allergy status to other antibiotic agents; Z87.891 Personal history of nicotine dependence; Z95.1 Presence of aortocoronary bypass graft; Z90.49 Acquired absence of other specified parts of digestive tract; Z98.61 Coronary angioplasty status
CPT/HCPCS: 36415; 71010; 74176; 80053; 81001; 83605; 83690; 83880; 84484; 85025; 94660; 99291

== ENCOUNTER → 2017-04-01 | Outpatient (CLI) | payer MEDICARE, MEDICAID ==
[2017-04-01 16:59] LABS: ALANINE AMINOTRANSFERASE 28 U/L (9-52); ALBUMIN 3.9 g/dL (3.5-5.0); ALKALINE PHOSPHATASE 135 U/L (38-126); ASPARTATE AMINO TRANSFERASE 19 U/L (14-36); BILIRUBIN,DIRECT 0.4 mg/dL (0.0-0.4); BILIRUBIN,TOTAL 0.4 mg/dL (0.2-1.3); TOTAL PROTEIN 6.6 g/dL (6.3-8.2)
[2017-04-01 17:01] LABS: ANION GAP 15 (5-19); BLOOD UREA NITROGEN 84 mg/dL (7-20); CARBON DIOXIDE 20 mmol/L (22-30); CHLORIDE 103 mmol/L (98-107); CREATININE RESULT 1.52 mg/dL (0.52-1.25); GLUCOSE 267 mg/dL (75-110); POTASSIUM 4.5 mmol/L (3.6-5.0); SODIUM 138.4 mmol/L (137-145)
== END ==
LOC: OD 16:03
PROVIDERS: ATTEND Nurse Practitioner
DX: I27.0 Primary pulmonary hypertension (principal); R06.09 Other forms of dyspnea; Z79.899 Other long term (current) drug therapy
CPT/HCPCS: 36415; 80048; 80076; 83880

== ENCOUNTER → 2017-06-07 | Outpatient (CLI) | payer MEDICARE, MEDICAID ==
[2017-06-07 17:59] LABS: ABSOLUTE EOSINOPHILS # (AUTO) 0.1 10^3/uL (0.0-0.6); ABSOLUTE LYMPHOCYTES (AUTO) 0.9 10^3/uL (0.5-4.7); ABSOLUTE MONOCYTES (AUTO) 0.7 10^3/uL (0.1-1.4); ABSOLUTE NEUT (AUTO) 6.3 10^3/uL (1.7-8.2); BASOPHILS % (AUTO) 0.5 % (0-2); EOSINOPHILS % (AUTO) 1.3 % (0-6); HEMATOCRIT 28.2 % (36.0-47.0); HEMOGLOBIN 9.6 g/dL (12.0-15.5); HGB HCT DIFFERENCE 0.6; LYMPHOCYTES % (AUTO) 11.2 % (13-45); MEAN CORPUSCULAR HGB CONC 34.2 g/dL (32.0-36.0); MEAN CORPUSCULAR VOLUME 91 fl (80-97); MONOCYTES % (AUTO) 9.1 % (3-13); RED BLOOD COUNT 3.11 10^6/uL (3.72-5.28); RED CELL DISTRIBUTION WIDTH 13.9 % (11.5-14.0); SEGMENTED NEUTROPHILS % (AUTO) 77.9 % (42-78); WHITE BLOOD COUNT 8.1 10^3/uL (4.0-10.5)
== END ==
LOC: OD 17:11
PROVIDERS: ATTEND Internal Medicine
DX: D64.9 Anemia, unspecified (principal)
CPT/HCPCS: 36415; 85025

== ENCOUNTER → 2017-07-27 | Outpatient (CLI) | payer MEDICARE, MEDICAID ==
[2017-07-27 16:34] LABS: ANION GAP 18 (5-19); CALCIUM 9.5 mg/dL (8.4-10.2); CARBON DIOXIDE 19 mmol/L (22-30); CHLORIDE 107 mmol/L (98-107); GLUCOSE 98 mg/dL (75-110); POTASSIUM 4.5 mmol/L (3.6-5.0)
[2017-07-27 16:40] LABS: BLOOD UREA NITROGEN 117 mg/dL (7-20)
== END ==
LOC: OD 15:28
PROVIDERS: ATTEND Nurse Practitioner
DX: N18.3 Chronic kidney disease, stage 3 (moderate) (principal); R06.09 Other forms of dyspnea
CPT/HCPCS: 36415; 80048; 83880

== ENCOUNTER → 2017-09-30 | Outpatient (CLI) | payer MEDICARE, MEDICAID ==
[2017-09-30 16:32] LABS: ALANINE AMINOTRANSFERASE 28 U/L (9-52); ALBUMIN 4.1 g/dL (3.5-5.0); ALKALINE PHOSPHATASE 119 U/L (38-126); ASPARTATE AMINO TRANSFERASE 21 U/L (14-36); BILIRUBIN,DIRECT 0.3 mg/dL (0.0-0.4); BILIRUBIN,TOTAL 0.3 mg/dL (0.2-1.3); TOTAL PROTEIN 6.9 g/dL (6.3-8.2)
== END ==
LOC: OD 15:09
PROVIDERS: ATTEND Internal Medicine Pulmonary Disease
DX: I27.0 Primary pulmonary hypertension (principal); M34.9 Systemic sclerosis, unspecified; Z79.899 Other long term (current) drug therapy
CPT/HCPCS: 36415; 80076

== ENCOUNTER → 2017-11-25 | Outpatient (CLI) | payer MEDICARE, MEDICAID ==
[2017-11-25 15:58] LABS: ALANINE AMINOTRANSFERASE 31 U/L (9-52); ALBUMIN 3.9 g/dL (3.5-5.0); ALKALINE PHOSPHATASE 104 U/L (38-126); ASPARTATE AMINO TRANSFERASE 26 U/L (14-36); BILIRUBIN,DIRECT 0.3 mg/dL (0.0-0.4); BILIRUBIN,TOTAL 0.3 mg/dL (0.2-1.3); TOTAL PROTEIN 6.3 g/dL (6.3-8.2)
== END ==
LOC: OD 15:02
PROVIDERS: ATTEND Internal Medicine Pulmonary Disease
DX: I27.0 Primary pulmonary hypertension (principal)
CPT/HCPCS: 36415; 80076

== ENCOUNTER 2018-02-21 12:35 | Inpatient (IN) | payer MEDICARE, MEDICAID ==
[2018-02-21] MEDS ORDERED: ASPIRIN 81 MG TABLET, CHEWABLE PO ONE (13:05)
--- NOTE | 2018-02-21 13:06 | ER Document Report ---
ED Medical Screen (RME) - General Chief Complaint: Shortness Of Breath Stated Complaint: SHORTNESS OF BREATH Time Seen by Provider: 02/21/18 12:59 Notes: 67 years old female with a history of pulmonary fibrosis, congestive heart failure, rheumatoid arthritis, diabetes, pulmonary hypertension, presents with shortness of breath since last night. Chest heaviness but no chest pain. No fever chills or other constitutional symptoms. TRAVEL OUTSIDE OF THE [place] IN LAST 30 DAYS: No - Related Data Allergies/Adverse Reactions: clarithromycin [From Biaxin] Allergy (Mild, Verified 02/21/18 12:37) RASH moxifloxacin HCl [From Avelox] Allergy (Mild, Verified 02/21/18 12:37) Fever Past Medical History - Past Medical History Cardiac Medical History: Reports: Hx Congestive Heart Failure, Hx Coronary Artery Disease, Hx Heart Attack, Hx Hypercholesterolemia, Hx Hypertension - Pulm. HTN Pulmonary Medical History: Reports: Hx Pneumonia Denies: Hx COPD - pulmonary fibrosis Neurological Medical History: Endocrine Medical History: Reports: Hx Diabetes Mellitus Type 2 Renal/ Medical History: Reports: Hx Renal Insufficiency. Denies: Hx Peritoneal Dialysis Malignancy Medical History: GI Medical History: Reports: Hx Gastroesophageal Reflux Disease, Hx Irritable Bowel. Denies: Hx Pancreatitis Musculoskeltal Medical History: Reports Hx Arthritis - rheumatoid Psychiatric Medical History: Traumatic Medical History: Infectious Medical History: Past Surgical History: Reports: Hx Cardiac Catheterization, Hx Cardiac Surgery - CABG 2004, Hx Cholecystectomy, Hx Coronary Artery Bypass Graft, Hx Hysterectomy, Hx Open Heart Surgery - 5 bypass 2004,several stents since then, Hx Orthopedic Surgery - elbows, carpal tunnel bilat, Other - Hx sinus surgery - Immunizations Immunizations up to date: Yes Hx Diphtheria, Pertussis, Tetanus Vaccination: Yes Physical Exam - Vital signs Vitals: Temp Pulse Resp BP Pulse Ox 97.7 F 65 14 131/41 H 98 02/21/18 12:42 02/21/18 12:42 02/21/18 12:42 02/21/18 12:42 02/21/18 12:42 Course - Vital Signs Vital signs: Temp Pulse Resp BP Pulse Ox 97.7 F 65 14 131/41 H 98 02/21/18 12:42 02/21/18 12:42 02/21/18 12:42 02/21/18 12:42 02/21/18 12:42 Doctor's Discharge - Discharge Referrals: MARCIO SEGAL MD [Primary Care Provider] - Follow up as needed
--- NOTE | 2018-02-21 13:53 | ER Document Report ---
ED General - General Chief Complaint: Shortness Of Breath Stated Complaint: SHORTNESS OF BREATH Time Seen by Provider: 02/21/18 12:59 TRAVEL OUTSIDE OF THE [place] IN LAST 30 DAYS: No - HPI Patient complains to provider of: Increasing shortness of breath Notes: 67-year-old female with history of COPD, CHF, pulmonary fibrosis. Presents with 1 day history increasing work oxygen demand. Patient normally wears 3 L nasal cannula but is now requiring 4 L to maintain oxygen saturations. Patient has an implanted right-sided heart pressure measuring device that is showing her numbers have increased. Patient is also profound weight gain of 5 pounds in her abdomen of the last 2 days. Patient presents in severe respiratory distress. - Related Data Allergies/Adverse Reactions: clarithromycin [From Biaxin] Allergy (Mild, Verified 02/21/18 12:37) RASH moxifloxacin HCl [From Avelox] Allergy (Mild, Verified 02/21/18 12:37) Fever Past Medical History - Social History Smoking Status: Never Smoker Family History: Hypertension Patient has suicidal ideation: No Patient has homicidal ideation: No - Past Medical History Cardiac Medical History: Reports: Hx Congestive Heart Failure, Hx Coronary Artery Disease, Hx Heart Attack, Hx Hypercholesterolemia, Hx Hypertension - Pulm. HTN Pulmonary Medical History: Reports: Hx Pneumonia Denies: Hx COPD - pulmonary fibrosis Neurological Medical History: Endocrine Medical History: Reports: Hx Diabetes Mellitus Type 2 Renal/ Medical History: Reports: Hx Renal Insufficiency. Denies: Hx Peritoneal Dialysis Malignancy Medical History: GI Medical History: Reports: Hx Gastroesophageal Reflux Disease, Hx Irritable Bowel. Denies: Hx Pancreatitis Musculoskeletal Medical History: Reports Hx Arthritis - rheumatoid Psychiatric Medical History: Traumatic Medical History: Infectious Medical History: Past Surgical History: Reports: Hx Cardiac Catheterization, Hx Cardiac Surgery - CABG 2004, Hx Cholecystectomy, Hx Coronary Artery Bypass Graft, Hx Hysterectomy, Hx Open Heart Surgery - 5 bypass 2004,several stents since then, Hx Orthopedic Surgery - elbows, carpal tunnel bilat, Other - Hx sinus surgery - Immunizations Immunizations up to date: Yes Hx Diphtheria, Pertussis, Tetanus Vaccination: Yes Hx Pneumococcal Vaccination: 01/31/12 Review of Systems - Review of Systems Notes: REVIEW OF SYSTEMS: CONSTITUTIONAL: -fevers, -chills EENT: -eye pain, -difficulty swallowing, -nasal congestion CARDIOVASCULAR: -chest pain, -syncope. RESPIRATORY: + severe respiratory distress, + SOB GASTROINTESTINAL: -abdominal pain, -nausea, -vomiting, -diarrhea GENITOURINARY: -dysuria, -hematuria MUSCULOSKELETAL: -back pain, -neck pain SKIN: -rash or skin lesions. HEMATOLOGIC: -easy bruising or bleeding. LYMPHATIC: -swollen, enlarged glands. NEUROLOGICAL: -altered mental status or loss of consciousness, -headache, - neurologic symptoms PSYCHIATRIC: -anxiety, -depression. ALL OTHER SYSTEMS REVIEWED AND NEGATIVE. Physical Exam - Vital signs Vitals: Temp Pulse Resp BP Pulse Ox 97.7 F 65 14 131/41 H 98 02/21/18 12:42 02/21/18 12:42 02/21/18 12:42 02/21/18 12:42 02/21/18 12:42 - Notes Notes: PHYSICAL EXAMINATION: GENERAL: severe acute distress HEAD: Atraumatic, normocephalic. EYES: Pupils equal round and reactive to light, extraocular movements intact, sclera anicteric, conjunctiva are normal. ENT: nares patent, oropharynx clear without exudates. Moist mucous membranes. NECK: Normal range of motion, supple without lymphadenopathy LUNGS: severe acute respiratory distress, diffuse wheezing and rhonchi HEART: Regular rate and rhythm without murmurs ABDOMEN: Soft, nontender, normoactive bowel sounds. No guarding, no rebound. No masses appreciated. EXTREMITIES: Normal range of motion, no pitting or edema. No cyanosis. NEUROLOGICAL: Cranial nerves grossly intact. Normal speech, normal gait. Normal sensory and motor exams. PSYCH: Normal mood, normal affect. SKIN: Warm, Dry, normal turgor, no rashes or lesions noted. Course - Re-evaluation Re-evalutation: 02/21/18 14:52 67-year-old female with multiple comorbidities and respiratory diseases presents with severe respiratory distress increasing oxygen demand now on 4 L at rest tachypnea. Patient placed on BiPAP for presumed CHF exacerbation given bilateral basilar crackles. Patient's extensive lab workup shows elevated proBNP. Chest x-ray concerning for CHF flare. Patient will be admitted to the hospital for IV Lasix, close respiratory monitoring. - Vital Signs Vital signs: Temp Pulse Resp BP Pulse Ox 97.7 F 65 14 131/41 H 98 02/21/18 12:42 02/21/18 12:42 02/21/18 12:42 02/21/18 12:42 02/21/18 13:59 - Laboratory Result Diagrams: 02/21/18 13:40 02/21/18 13:40 Laboratory results interpreted by me: 02/21/18 02/21/18 02/21/18 13:40 13:40 13:40 RBC 2.84 L Hgb 8.4 L Hct 25.8 L RDW 14.1 H Seg Neutrophils % 83.4 H Lymphocytes % 6.7 L Potassium 5.5 H Carbon Dioxide 21 L BUN 132 H Creatinine 2.88 H Est GFR ( Amer) 20 L Est GFR (Non-Af Amer) 16 L Glucose 184 H NT-Pro-B Natriuret Pep 3860 H Critical Care Note - Critical Care Note Total time excluding time spent on procedures (mins): 38 Discharge - Discharge Clinical Impression: CHF (congestive heart failure) Qualifiers: Heart failure type: unspecified Heart failure chronicity: unspecified Qualified Code(s): I50.9 - Heart failure, unspecified Acute and chronic respiratory failure Qualifiers: Respiratory failure complication: unspecified whether with hypoxia or hypercapnia Qualified Code(s): J96.20 - Acute and chronic respiratory failure, unspecified whether with hypoxia or hypercapnia Condition: Stable Disposition: ADMITTED INPATIENT Admitting Provider: Hospitalist - [facility] Unit Admitted: Medical Floor Referrals: MARCIO SEGAL MD [Primary Care Provider] - Follow up as needed
[2018-02-21] MEDS ORDERED: IPRATROPIUM/ALBUTEROL 0.5-2.5 MG/3 ML AMPUL NEB ONE (13:58)
[2018-02-21 14:22] LABS: ABSOLUTE BASOPHILS # (AUTO) 0.1 10^3/uL (0.0-0.2); ABSOLUTE EOSINOPHILS # (AUTO) 0.1 10^3/uL (0.0-0.6); ABSOLUTE LYMPHOCYTES (AUTO) 0.6 10^3/uL (0.5-4.7); ABSOLUTE MONOCYTES (AUTO) 0.6 10^3/uL (0.1-1.4); BASOPHILS % (AUTO) 0.7 % (0-2); EOSINOPHILS % (AUTO) 1.5 % (0-6); HEMATOCRIT 25.8 % (36.0-47.0); HEMOGLOBIN 8.4 g/dL (12.0-15.5); LYMPHOCYTES % (AUTO) 6.7 % (13-45); MEAN CORPUSCULAR HEMOGLOBIN 29.7 pg (27.0-33.4); MEAN CORPUSCULAR HGB CONC 32.8 g/dL (32.0-36.0); MEAN CORPUSCULAR VOLUME 91 fl (80-97); MONOCYTES % (AUTO) 7.7 % (3-13); PLATELET COUNT 260 10^3/uL (150-450); RED BLOOD COUNT 2.84 10^6/uL (3.72-5.28); RED CELL DISTRIBUTION WIDTH 14.1 % (11.5-14.0); SEGMENTED NEUTROPHILS % (AUTO) 83.4 % (42-78); TOTAL CELLS COUNTED % (AUTO) 100 %; WHITE BLOOD COUNT 8.4 10^3/uL (4.0-10.5)
[2018-02-21 14:29] LABS: ALANINE AMINOTRANSFERASE 24 U/L (9-52); ALBUMIN 4.2 g/dL (3.5-5.0); ALKALINE PHOSPHATASE 95 U/L (38-126); ANION GAP 16 (5-19); ASPARTATE AMINO TRANSFERASE 23 U/L (14-36); BILIRUBIN,DIRECT 0.4 mg/dL (0.0-0.4); BILIRUBIN,TOTAL 0.4 mg/dL (0.2-1.3); CALCIUM 9.7 mg/dL (8.4-10.2); CARBON DIOXIDE 21 mmol/L (22-30); CHLORIDE 105 mmol/L (98-107); GLUCOSE 184 mg/dL (75-110); POTASSIUM 5.5 mmol/L (3.6-5.0); SODIUM 142.4 mmol/L (137-145); TOTAL PROTEIN 7.5 g/dL (6.3-8.2)
--- NOTE | 2018-02-21 14:30 | RADIOLOGY REPORT (SQ) ---
EXAM DESCRIPTION: CHEST SINGLE VIEW COMPLETED DATE/TIME: 02/21/2018 2:11 pm REASON FOR STUDY: Shortness of breath history of CHF/pulmonary fibro COMPARISON: 02/21/2017. EXAM PARAMETERS: NUMBER OF VIEWS: One view. TECHNIQUE: Single frontal radiographic view of the chest acquired. RADIATION DOSE: NA LIMITATIONS: None. FINDINGS: LUNGS AND PLEURA: No opacities, masses or pneumothorax. No pleural effusion. MEDIASTINUM AND HILAR STRUCTURES: No masses. Contour normal. HEART AND VASCULAR STRUCTURES: Mild cardiomegaly. Normal vasculature. BONES: No acute findings. HARDWARE: Sternotomy wires, coronary artery markers, and surgical clips. OTHER: No other significant finding. IMPRESSION: STABLE MILD CARDIOMEGALY. NO ACUTE RADIOGRAPHIC FINDING IN THE CHEST. TECHNICAL DOCUMENTATION: JOB ID: [id number] 1995 [employer]- All Rights Reserved Reading location - IP/workstation name: [email or web address]
[2018-02-21 14:44] LABS: TROPONIN I 0.216 ng/mL
[2018-02-21 14:46] LABS: BLOOD UREA NITROGEN 132 mg/dL (7-20)
[2018-02-21] MEDS ORDERED: FUROSEMIDE INJ/PF 40 MG/4 ML SDV IV ONE (14:50)
--- NOTE | 2018-02-21 15:52 | PDOC H&P ---
History of Present Illness Admission Date/PCP: 02/21/18 15:16 MARCIO SEGAL MD History of Present Illness: JOSIANE DILLON is a 67 year old female patient with multiple comorbidities including oxygen dependent chronic respiratory failure, rheumatoid arthritis, scleroderma, pulmonary fibrosis, diabetes mellitus and congestive heart failure, presented to us with chief complaint of shortness of breath. At her baseline patient has chronic dyspnea but the last 2 days her dyspnea gets worse and she started to have shortness of breath while she is at rest. Patient uses oxygen 24 7 and BiPAP during the day as needed and always at night. Patient denies any chest pain, fever, palpitation or diaphoresis. She does not have any nausea vomiting or abdominal pain. Her initial blood work shows creatinine of 2.88 BUN of 132 GFR of 16 and potassium 5.5. Her BNP is 3800. Past Medical History Cardiac Medical History: Reports: Congestive Heart Failure, Coronary Artery Disease, Myocardial Infarction, Hyperlipidema, Hypertension - Pulm. HTN Pulmonary Medical History: Reports: Pneumonia Denies: Chronic Obstructive Pulmonary Disease (COPD) - pulmonary fibrosis Neurological Medical History: Endocrine Medical History: Reports: Diabetes Mellitus Type 2 Malignancy Medical History: GI Medical History: Reports: Gastroesophageal Reflux Disease Musculoskeltal Medical History: Reports: Arthritis - rheumatoid Psychiatric Medical History: Hematology: Reports: Anemia Denies: Sickle Cell Disease Past Surgical History Past Surgical History: Reports: Cardiac Catheterization, Cholecystectomy, Coronary Artery Bypass Graft, Hysterectomy, Orthopedic Surgery - elbows, carpal tunnel bilat, Other - Hx sinus surgery Denies: Amputation Social History Smoking Status: Former Smoker Frequency of Alcohol Use: None Hx Recreational Drug Use: No Drugs: None Hx Prescription Drug Abuse: No - Advance Directive Resuscitation Status: Full Code Family History Family History: Hypertension Parental Family History Reviewed: Yes Children Family History Reviewed: Yes Sibling(s) Family History Reviewed.: Yes Medication/Allergy Home Medications: Aspirin [Ecotrin 81 mg EC Tablet] 81 mg PO DAILY 02/01/17 Bosentan [Tracleer 125 mg Tablet] 125 mg PO Q12 02/01/17 Duloxetine HCl [Cymbalta] 60 mg PO DAILY 02/01/17 Febuxostat [Uloric 40 mg Tablet] 40 mg PO DAILY 02/01/17 Hydralazine HCl [Apresoline 50 mg Tablet] 50 mg PO Q8 02/01/17 Insulin Aspart [Novolog Insulin (Aspart) 100 unit/mL] 0 units SQ .SLDING SCALE MEALS 02/01/17 Insulin Degludec [Tresiba Flextouch U-100] 70 units SQ DAILY 02/01/17 Leflunomide [Arava] 10 mg PO DAILY 02/01/17 Nebivolol HCl [Bystolic] 10 mg PO Q12 02/01/17 Omeprazole 40 mg PO BIDBS 02/01/17 Oxycodone HCl [Oxycodone HCl 10 MG Tablet] 10 mg PO Q6HP PRN 02/01/17 Pentoxifylline [Trental 400 mg Tablet.sa] 400 mg PO Q8 02/01/17 Simvastatin [Zocor 20 mg Tablet] 20 mg PO QHS 02/01/17 Tofacitinib Citrate [Xeljanz] 5 mg PO Q12 02/01/17 Valsartan [Diovan] 320 mg PO DAILY 02/01/17 Acetaminophen [Tylenol 325 mg Tablet] 650 mg NG Q4HP PRN tablet 02/15/17 Amlodipine Besylate [Norvasc 5 mg Tablet] 10 mg PO DAILY #30 tablet 02/15/17 Bumetanide [Bumex 1 mg Tablet] 2 mg PO DAILY #30 tablet 02/15/17 Prednisone [Deltasone 20 mg Tablet] 20 mg PO ASDIR PRN #19 tablet 02/15/17 Allergies/Adverse Reactions: clarithromycin [From Biaxin] Allergy (Mild, Verified 02/21/18 12:37) RASH moxifloxacin HCl [From Avelox] Allergy (Mild, Verified 02/21/18 12:37) Fever Review of Systems Constitutional: PRESENT: as per HPI Cardiovascular: PRESENT: as per HPI Respiratory: PRESENT: as per HPI Gastrointestinal: PRESENT: as per HPI Musculoskeletal: PRESENT: as per HPI Neurological: PRESENT: as per HPI Physical Exam Vital Signs: Temp Pulse Resp BP Pulse Ox 97.7 F 65 14 131/41 H 98 02/21/18 12:42 02/21/18 12:42 02/21/18 12:42 02/21/18 12:42 02/21/18 13:59 General appearance: PRESENT: mild distress Head exam: PRESENT: atraumatic Eye exam: PRESENT: conjunctiva pink Mouth exam: PRESENT: moist Neck exam: ABSENT: carotid bruit, JVD, lymphadenopathy, thyromegaly Respiratory exam: PRESENT: crackles, decreased breath sounds Cardiovascular exam: PRESENT: RRR. ABSENT: diastolic murmur, rubs, systolic murmur GI/Abdominal exam: PRESENT: normal bowel sounds, soft. ABSENT: distended, guarding, mass, organolmegaly, rebound, tenderness Extremities exam: PRESENT: full ROM. ABSENT: calf tenderness, clubbing, pedal edema Neurological exam: PRESENT: alert, awake, oriented to time, oriented to situation Results Impressions: Chest X-Ray 02/21/18 13:05 IMPRESSION: STABLE MILD CARDIOMEGALY. NO ACUTE RADIOGRAPHIC FINDING IN THE CHEST. Assessment & Plan - Diagnosis (1) Hyperkalemia Is this a current diagnosis for this admission?: Yes Plan: Patient will be given Kayexalate and check her BMP in a.m. (2) Acute on chronic systolic congestive heart failure, NYHA class 3 Is this a current diagnosis for this admission?: Yes Plan: We will start her on IV diuresis gently. Continue her home cardioprotective medications. (3) Chronic respiratory failure Is this a current diagnosis for this admission?: Yes Plan: Continue supplemental oxygen (4) COPD (chronic obstructive pulmonary disease) Qualifiers: Emphysema type: unspecified Is this a current diagnosis for this admission?: Yes Plan: We will put her on bronchodilators and BiPAP. (5) Rheumatoid arthritis Is this a current diagnosis for this admission?: Yes Plan: Her home medication (6) Scleroderma Is this a current diagnosis for this admission?: Yes Plan: Continue home medication (7) Type 2 diabetes mellitus Is this a current diagnosis for this admission?: Yes Plan: Continue her home medication and put her on sliding scale. (8) Coronary artery disease Is this a current diagnosis for this admission?: Yes Plan: No angina. (9) Chronic kidney disease, stage IV (severe) Is this a current diagnosis for this admission?: Yes Plan: Follow-up with her primary software lead.
[2018-02-21] MEDS ORDERED: ACETAMINOPHEN 325 MG TABLET PO PRN (15:53)
[2018-02-21] MEDS ORDERED: ONDANSETRON 4 MG TAB.RAPDIS PO PRN (15:53)
[2018-02-21] MEDS ORDERED: SODIUM POLYSTYRENE SULFONATE 15 GM/60 ML PO ONE ×2 (16:03→22:15)
[2018-02-21] MEDS ORDERED: DEXTROSE 50%-WATER 25 GM/50 ML DISP.SYRIN IV PRN ×2 (16:04)
[2018-02-21] MEDS ORDERED: GLUCAGON,HUMAN RECOMB 1 MG INJ IM PRN (16:04)
[2018-02-21] MEDS ORDERED: DEXTROSE 40% GEL 15 GM TUBE PO PRN ×2 (16:04)
[2018-02-21] MEDS: IPRATROPIUM/ALBUTEROL 0.5-2.5 MG/3 ML AMPUL NEB SCH ×3 (16:15→23:55)
--- NOTE | 2018-02-21 17:56 | EKG REPORT ---
SEVERITY:- ABNORMAL ECG - SINUS RHYTHM ATRIAL PREMATURE COMPLEX FIRST DEGREE AV BLOCK LEFT AXIS DEVIATION LVH WITH SECONDARY REPOLARIZATION ABNORMALITY ANTERIOR Q WAVES, POSSIBLY DUE TO LVH : Confirmed by: Eliot May 21-Feb-2018 17:55:26
[2018-02-21] MEDS ORDERED: MORPHINE SULFATE 10 MG/ML INJ ONE (21:11)
--- NOTE | 2018-02-21 21:35 | EKG REPORT ---
SEVERITY:- ABNORMAL ECG - ATRIAL FIB LEFT ANTERIOR FASCICULAR BLOCK LVH WITH SECONDARY REPOLARIZATION ABNORMALITY ANTERIOR Q WAVES, POSSIBLY DUE TO LVH : Confirmed by: Eliot May 21-Feb-2018 21:33:52
[2018-02-21] MEDS: METHYLPREDNISOLONE INJ 40 MG/1 ML SDV IV SCH ×2 (21:41→23:02)
[2018-02-21] MEDS: FUROSEMIDE INJ/PF 20 MG/2 ML SDV IV SCH (21:42)
[2018-02-21] MEDS: HEPARIN SOD (PORCINE) 5,000 UNIT/ML 1 ML SYRINGE SUBCUT SCH (21:43)
[2018-02-21] MEDS: NITROGLYCERIN 0.4 MG/TAB 25 TAB/BOTTLE SL PRN (21:44)
[2018-02-21] MEDS: ISOSORBIDE DINITRATE 20 MG TABLET PO SCH (21:45)
[2018-02-21 21:57] LABS: CREATINE KINASE MB 3.04 ng/mL (<4.55); TROPONIN I 0.365 ng/mL
[2018-02-21] MEDS ORDERED: BOSENTAN 125 MG PO SCH (22:00)
[2018-02-21] MEDS ORDERED: SIMVASTATIN 10 MG TABLET PO SCH (22:00)
[2018-02-21] MEDS ORDERED: MORPHINE SULFATE 10 MG/ML INJ IV ONE (22:00)
[2018-02-21] MEDS ORDERED: (PENDING PHARMACY ID) (Tofacitinib Citrate [Xeljanz] 5 MG) PO SCH (22:00)
[2018-02-21] MEDS ORDERED: SODIUM POLYSTYRENE SULFONATE 15 GM/60 ML ONE (23:07)
[2018-02-21] MEDS: HYDRALAZINE HCL 50 MG TABLET PO SCH (23:19)
[2018-02-21] MEDS: NEBIVOLOL HCL 10 MG TABLET PO SCH (23:19)
[2018-02-21] MEDS: PENTOXIFYLLINE 400 MG TABLET.SA PO SCH (23:19)
[2018-02-22] MEDS: INSULIN LISPRO 100 UNIT/ML 3 ML VIAL SUBCUT PRN ×4 (00:21→17:28)
[2018-02-22 03:41] LABS: ABSOLUTE EOSINOPHILS # (AUTO) 0.1 10^3/uL (0.0-0.6); ABSOLUTE LYMPHOCYTES (AUTO) 0.5 10^3/uL (0.5-4.7); ABSOLUTE MONOCYTES (AUTO) 0.7 10^3/uL (0.1-1.4); ABSOLUTE NEUT (AUTO) 6.6 10^3/uL (1.7-8.2); BASOPHILS % (AUTO) 0.5 % (0-2); EOSINOPHILS % (AUTO) 0.8 % (0-6); HEMATOCRIT 22.1 % (36.0-47.0); LYMPHOCYTES % (AUTO) 6.7 % (13-45); MEAN CORPUSCULAR HEMOGLOBIN 29.8 pg (27.0-33.4); MEAN CORPUSCULAR HGB CONC 33.3 g/dL (32.0-36.0); MEAN CORPUSCULAR VOLUME 90 fl (80-97); MONOCYTES % (AUTO) 8.4 % (3-13); PLATELET COUNT 205 10^3/uL (150-450); RED BLOOD COUNT 2.47 10^6/uL (3.72-5.28); RED CELL DISTRIBUTION WIDTH 14.2 % (11.5-14.0); SEGMENTED NEUTROPHILS % (AUTO) 83.6 % (42-78); TOTAL CELLS COUNTED % (AUTO) 100 %; WHITE BLOOD COUNT 7.9 10^3/uL (4.0-10.5)
[2018-02-22 03:44] LABS: HEMOGLOBIN 7.4 g/dL (12.0-15.5)
[2018-02-22] MEDS: IPRATROPIUM/ALBUTEROL 0.5-2.5 MG/3 ML AMPUL NEB SCH ×4 (03:58→16:24)
[2018-02-22 04:00] LABS: ANION GAP 15 (5-19); CARBON DIOXIDE 23 mmol/L (22-30); CHLORIDE 102 mmol/L (98-107); GLUCOSE 318 mg/dL (75-110); PHOSPHORUS 5.1 mg/dL (2.5-4.5); SODIUM 140.3 mmol/L (137-145)
[2018-02-22 04:11] LABS: CREATINE KINASE MB 7.64 ng/mL (<4.55)
[2018-02-22 04:13] LABS: BLOOD UREA NITROGEN 128 mg/dL (7-20)
[2018-02-22 04:14] LABS: TROPONIN I 1.26 ng/mL
[2018-02-22] MEDS: PENTOXIFYLLINE 400 MG TABLET.SA PO SCH ×2 (05:40→14:39)
[2018-02-22] MEDS: HEPARIN SOD (PORCINE) 5,000 UNIT/ML 1 ML SYRINGE SUBCUT SCH (05:41)
[2018-02-22] MEDS: METHYLPREDNISOLONE INJ 40 MG/1 ML SDV IV SCH ×2 (05:41→17:18)
[2018-02-22] MEDS: HYDRALAZINE HCL 50 MG TABLET PO SCH ×2 (05:47→14:38)
[2018-02-22] MEDS ORDERED: LANSOPRAZOLE 30 MG TAB.RAP.DR PO SCH (06:00)
[2018-02-22] MEDS: ISOSORBIDE DINITRATE 20 MG TABLET PO SCH (09:31)
[2018-02-22] MEDS: NEBIVOLOL HCL 10 MG TABLET PO SCH (09:32)
[2018-02-22] MEDS: FUROSEMIDE INJ/PF 20 MG/2 ML SDV IV SCH (09:32)
[2018-02-22] MEDS: LANSOPRAZOLE 30 MG TAB.RAP.DR PO SCH ×2 (09:32→17:19)
[2018-02-22] MEDS: NITROGLYCERIN 0.4 MG/TAB 25 TAB/BOTTLE SL PRN ×3 (09:39→12:55)
[2018-02-22] MEDS ORDERED: LEFLUNOMIDE 20 MG TABLET PO SCH (10:00)
[2018-02-22] MEDS ORDERED: FERROUS SULFATE 325 MG TABLET PO SCH (10:00)
[2018-02-22] MEDS ORDERED: DULOXETINE HCL 30 MG CAPSULE.DR PO SCH (10:00)
[2018-02-22] MEDS ORDERED: ASPIRIN 81 MG TABLET, ENT COATED PO SCH (10:00)
[2018-02-22 10:34] LABS: ARTERIAL BLOOD BASE EXCESS -1.4 mmol/L; ARTERIAL BLOOD H2CO3 1.15 mmol/L (1.05-1.35); ARTERIAL BLOOD HCO3 23.2 mmol/L (20-26); ARTERIAL BLOOD O2 SATURATION 94.3 % (94-98); ARTERIAL BLOOD PCO2 38.3 mmHg (35-45); ARTERIAL BLOOD PO2 70.5 mmHg (80-100); ARTERIAL BLOOD TOTAL CO2 24.4 mmol/L (21-25)
[2018-02-22 10:47] LABS: ARTERIAL BLOOD FIO2 28%
[2018-02-22 10:51] LABS: CREATINE KINASE MB 16.3 ng/mL (<4.55)
[2018-02-22 10:57] LABS: TROPONIN I 3.02 ng/mL
[2018-02-22] MEDS ORDERED: DILTIAZEM HCL/D5W 125 MG/125 ML RTUINJ IV PRN (11:27)
[2018-02-22] MEDS ORDERED: HEPARIN SODIUM,PORCINE/D5W 25,000 UNIT/250 ML RTUINJ IV PRN (11:38)
[2018-02-22] MEDS ORDERED: HEPARIN SOD (PORCINE) 1,000 UNIT/ML 10 ML VIAL IV PRN ×2 (11:45→14:15)
[2018-02-22] MEDS ORDERED: NORMAL SALINE 250 ML IV PRN ×2 (11:47)
[2018-02-22] MEDS ORDERED: NITROGLYCERIN 2% OINTMENT 1 GM PACKET TP SCH (12:00)
[2018-02-22 12:32] LABS: HEMATOCRIT 24.5 % (36.0-47.0); HEMOGLOBIN 8.1 g/dL (12.0-15.5); MEAN CORPUSCULAR HEMOGLOBIN 29.9 pg (27.0-33.4); MEAN CORPUSCULAR HGB CONC 33.2 g/dL (32.0-36.0); MEAN CORPUSCULAR VOLUME 90 fl (80-97); PLATELET COUNT 251 10^3/uL (150-450); RED BLOOD COUNT 2.73 10^6/uL (3.72-5.28); RED CELL DISTRIBUTION WIDTH 14.1 % (11.5-14.0); WHITE BLOOD COUNT 9.4 10^3/uL (4.0-10.5)
[2018-02-22 12:37] LABS: INTERNATIONAL RATION (INR) 0.97; PARTIAL THROMBOPLASTIN TIME 26.3 SEC (23.5-35.8); PROTHROMBIN TIME 13.4 SEC (11.4-15.4)
[2018-02-22 13:01] LABS: ABSOLUTE LYMPHOCYTES# (MANUAL) 0.1 10^3/uL (0.5-4.7); ABSOLUTE MONOCYTES # (MANUAL) 0.4 10^3/uL (0.1-1.4); ABSOLUTE NEUTROPHILS# (MANUAL) 8.9 10^3/uL (1.7-8.2); BASOPHILS % (MANUAL) 0 % (0-2); EOSINOPHILS % (MANUAL) 0 % (0-6); HYPOCHROMASIA SLIGHT; LYMPHOCYTES % (MANUAL) 1 % (13-45); MONOCYTES % (MANUAL) 4 % (3-13); POLYCHROMASIA SLIGHT; SEGMENTED NEUTROPHILS % (MAN) 95 % (42-78); TOTAL CELLS COUNTED 100; TOXIC GRANULATION SLIGHT
[2018-02-22] MEDS: NITROGLYCERIN 2% OINTMENT 1 GM PACKET TP SCH ×2 (13:01→17:26)
[2018-02-22 13:02] LABS: PLATELET COMMENT ADEQUATE
[2018-02-22 14:21] LABS: APPEARANCE,URINE SLIGHTLY-CLOUDY; BILIRUBIN,URINE NEGATIVE (NEGATIVE); COLOR,URINE YELLOW; GLUCOSE, URINE NEGATIVE (NEGATIVE); KETONES,URINE NEGATIVE (NEGATIVE); LEUKOCYTE ESTERASE,URINE NEGATIVE (NEGATIVE); NITRITE,URINE NEGATIVE (NEGATIVE); PROTEIN,URINE NEGATIVE (NEGATIVE); UROBILINOGEN,URINE NEGATIVE mg/dL (<2.0)
[2018-02-22] MEDS ORDERED: CEFTRIAXONE 2 GM/D5W RTU 2 GM/50 ML RTUPB IV SCH (16:00)
[2018-02-22] MEDS ORDERED: FUROSEMIDE INJ/PF 20 MG/2 ML SDV IV ONE (17:00)
[2018-02-22 17:33] VITALS: BP 120/55
--- NOTE | 2018-02-22 17:48 | PDOC TRANSFER SUMMARY ---
General Admission Date/PCP: 02/21/18 15:16 MARCIO SEGAL MD Resuscitation Status: Full Code - Transfer Diagnosis (1) Non-STEMI (non-ST elevated myocardial infarction) Is this a current diagnosis for this admission?: Yes (2) Hyperkalemia Is this a current diagnosis for this admission?: Yes (3) Atrial fibrillation with RVR Is this a current diagnosis for this admission?: Yes (4) Acute on chronic systolic congestive heart failure, NYHA class 3 Is this a current diagnosis for this admission?: Yes (5) Chronic respiratory failure Is this a current diagnosis for this admission?: Yes (6) COPD (chronic obstructive pulmonary disease) Is this a current diagnosis for this admission?: Yes (7) Rheumatoid arthritis Is this a current diagnosis for this admission?: Yes (8) Scleroderma Is this a current diagnosis for this admission?: Yes (9) Type 2 diabetes mellitus Is this a current diagnosis for this admission?: Yes (10) Coronary artery disease Is this a current diagnosis for this admission?: Yes (11) Chronic kidney disease, stage IV (severe) Is this a current diagnosis for this admission?: Yes - Transfer Medications Home Medications: Aspirin [Ecotrin 81 mg EC Tablet] 81 mg PO DAILY 02/01/17 Bosentan [Tracleer 125 mg Tablet] 125 mg PO Q12 02/01/17 Duloxetine HCl [Cymbalta] 60 mg PO DAILY 02/01/17 Hydralazine HCl [Apresoline 50 mg Tablet] 100 mg PO Q8 02/01/17 Insulin Degludec [Tresiba Flextouch U-100] 0 units SQ .SLD SCALE 02/01/17 Leflunomide [Arava] 10 mg PO DAILY 02/01/17 Nebivolol HCl [Bystolic] 10 mg PO Q12 02/01/17 Omeprazole 40 mg PO BIDBS 02/01/17 Pentoxifylline [Trental 400 mg Tablet.sa] 400 mg PO Q8 02/01/17 Simvastatin [Zocor 20 mg Tablet] 20 mg PO QHS 02/01/17 Tofacitinib Citrate [Xeljanz] 5 mg PO Q12 02/01/17 Valsartan [Diovan] 320 mg PO DAILY 02/01/17 Bumetanide [Bumex 1 mg Tablet] 4 mg PO QPM 02/21/18 Bumetanide [Bumex 1 mg Tablet] 5 mg PO QAM 02/21/18 Febuxostat [Uloric 80 mg Tablet] 80 mg PO DAILY 02/21/18 Ferrous Sulfate [Feosol 325 mg Tablet] 975 mg PO DAILY 02/21/18 Hydrochlorothiazide [Hydrodiuril 25 mg Tablet] 25 mg PO QAM 02/21/18 Insulin Aspart [Novolog Flexpen] 0 unit SUBCUT .SLD SCALE 02/21/18 Isosorbide Dinitrate [Isordil Titradose 20 mg Tablet] 20 mg PO Q12 02/21/18 Metolazone [Zaroxolyn] 10 mg PO DAILY 02/21/18 Potassium Chloride [Klor-Con 10 Meq Capsule ER] 40 meq PO BID 02/21/18 Transfer Medications: Current Medications Acetaminophen (Tylenol 325 Mg Tablet) 650 mg PO Q4HP PRN PRN Reason: FOR BREAKTHROUGH PAIN Stop: 03/23/18 15:52 Last Admin: 02/21/18 20:48 Dose: 650 mg Albuterol/Ipratropium (Duoneb 3 Ml Ampul) 3 ml NEB RTQ4 [facility] Stop: 03/23/18 15:59 Last Admin: 02/22/18 08:13 Dose: 3 ml Aspirin (Ecotrin 81 Mg Ec Tablet) 81 mg PO DAILY [facility] Stop: 03/24/18 09:59 Last Admin: 02/22/18 09:31 Dose: 81 mg Dextrose (Dextrose Inj 50% Syringe (25 Gm/50 Ml)) 12.5 gm IV PRN PRN; Protocol PRN Reason: FOR BG 50-69 IN ALERT PATIENT Stop: 03/23/18 16:03 Dextrose (Dextrose Inj 50% Syringe (25 Gm/50 Ml)) 25 gm IV PRN PRN; Protocol PRN Reason: PER PROTOCOL Stop: 03/23/18 16:03 Duloxetine HCl (Cymbalta 30 Mg Capsule.Dr) 60 mg PO DAILY [facility] Stop: 03/24/18 09:59 Last Admin: 02/22/18 09:31 Dose: 60 mg Febuxostat (Uloric 80 Mg Tablet) 80 mg PO DAILY [facility] Stop: 03/25/18 09:59 Ferrous Sulfate (Feosol 325 Mg Tablet) 975 mg PO DAILY [facility] Stop: 08/30/18 09:59 Last Admin: 02/22/18 09:32 Dose: 975 mg Furosemide (Lasix Inj/Pf 20 Mg/2 Ml Sdv) 20 mg IV Q12 [facility] Stop: 03/23/18 21:59 Last Admin: 02/22/18 09:32 Dose: 20 mg Glucagon (Glucagen Inj 1 Mg Vial) 1 mg IM PRN PRN; Protocol PRN Reason: Evaluate for BG < 70 Stop: 03/23/18 16:03 Glucose (Glutose 40% Gel 15 Gm Tube) 15 gm PO PRN PRN; Protocol PRN Reason: FOR BG 50-69 IN ALERT PATIENT Stop: 03/23/18 16:03 Glucose (Glutose 40% Gel 15 Gm Tube) 30 gm PO PRN PRN; Protocol PRN Reason: FOR BG < 50 IN ALERT PATIENT Stop: 03/23/18 16:03 Heparin Sodium (Porcine) (Heparin Inj 1,000 Unit/Ml 10 Ml Vial) 3,000 unit IV .BOLUS PRN PRN Reason: GIVE AFTER PT AND PTT RESULTS Stop: 02/22/18 16:00 Hydralazine HCl (Apresoline 50 Mg Tablet) 100 mg PO Q8 [facility] Stop: 03/23/18 21:59 Last Admin: 02/22/18 05:47 Dose: Not Given Heparin Sodium/Dextrose (Heparin Rtu 25,000 Unit/250 Ml D5w Premix) 25,000 unit in 250 mls @ 0 mls/hr IV CONTINUOUS PRN; Protocol; Titrate PRN Reason: THIS MED IS NOT "PRN" Stop: 03/24/18 11:37 Diltiazem HCl (Cardizem Rtu Inj 125 Mg-D5w 125 Ml Premix) 125 mg in 125 mls @ 5 mls/hr IV CONTINUOUS PRN PRN Reason: THIS MED IS NOT "PRN" Stop: 03/24/18 11:26 Sodium Chloride (Nacl 0.9% 250 Ml Iv Soln) 250 mls @ 30 mls/hr IV .DURING TRANSFUSION PRN PRN Reason: THIS MED IS NOT "PRN" Stop: 02/23/18 11:46 Sodium Chloride (Nacl 0.9% 250 Ml Iv Soln) 250 mls @ 0 mls/hr IV CONTINUOUS PRN ; As Directed PRN Reason: AFTER EACH UNIT Stop: 02/23/18 11:46 Insulin Human Lispro (Humalog Insulin 100 Unit/1 Ml 3 Ml Vial) 0 - 12 unit SUBCUT ACHSP PRN; Protocol PRN Reason: PER PROTOCOL Stop: 03/23/18 16:03 Last Admin: 02/22/18 05:42 Dose: 6 units Lansoprazole (Prevacid 30 Mg Odt Tablet) 30 mg PO BIDBS [facility] Stop: 03/24/18 07:59 Last Admin: 02/22/18 09:32 Dose: 30 mg Leflunomide (Arava 20 Mg Tablet) 10 mg PO DAILY [facility] Stop: 03/24/18 09:59 Last Admin: 02/22/18 09:32 Dose: 10 mg Methylprednisolone Sodium Succinate (Solu-Medrol Inj/Pf 40 Mg/1 Ml Sdv) 40 mg IV Q8 [facility] Stop: 03/23/18 16:14 Last Admin: 02/22/18 05:41 Dose: 40 mg Nebivolol (Bystolic 10 Mg Tablet) 10 mg PO Q12 [facility] Stop: 03/23/18 21:59 Last Admin: 02/22/18 09:32 Dose: 10 mg Nitroglycerin (Nitrostat 0.4 Mg (1/150 Gr) Tabs 25/Bottle) 1 tab SL Q5MP PRN PRN Reason: FOR CHEST PAIN Stop: 03/23/18 21:21 Last Admin: 02/22/18 10:25 Dose: 1 mg Nitroglycerin (Nitrol 2% Ointment 1gm Packet) 1 gm TP Q6 [facility] Stop: 03/24/18 11:59 Ondansetron HCl (Zofran Odt 4 Mg Tablet) 4 mg PO Q4HP PRN PRN Reason: FOR NAUSEA/VOMITING Stop: 03/23/18 15:52 Patient Own Medication (Bosentan [Tracleer 125 Mg Tablet]) 125 mg PO .Q12 [facility] Stop: 03/23/18 21:59 Patient Own Medication (Tofacitinib Citrate [Xeljanz]) 5 mg PO .Q12 [facility] Stop: 03/23/18 21:59 Pentoxifylline (Trental 400 Mg Tablet.Sa) 400 mg PO Q8 [facility] Stop: 03/23/18 21:59 Last Admin: 02/22/18 05:40 Dose: 400 mg Simvastatin (Zocor 10 Mg Tablet) 20 mg PO QHS [facility] Stop: 03/23/18 21:59 Last Admin: 02/21/18 23:20 Dose: 20 mg - Allergies Allergies/Adverse Reactions: clarithromycin [From Biaxin] Allergy (Mild, Verified 02/21/18 12:37) RASH moxifloxacin HCl [From Avelox] Allergy (Mild, Verified 02/21/18 12:37) Fever morphine Adverse Reaction (Verified 02/22/18 06:27) - Diet/Activity Discharge Diet: Cardiac, Diabetic Hospital Course Hospital Course: JOSIANE DILLON is a 67 year old female patient with multiple comorbidities including oxygen dependent chronic respiratory failure, rheumatoid arthritis, scleroderma, pulmonary fibrosis, diabetes mellitus and congestive heart failure, admitted on February 21, 2018 with chief complaint of shortness of breath and with the diagnosis of hyperkalemia and CHF exacerbation.. At her baseline patient has chronic dyspnea but the last 2 days her dyspnea gets worse and she started to have shortness of breath while she is at rest. Patient uses oxygen 24 7 and BiPAP during the day as needed and always at night. This morning patient started to have chest pain which is treated with Nitrostat twice. Her troponin first set is 1.260 and the second set become 3.020. Her EKG shows A. fib with RVR for which patient started on Cardizem drip. Her hemoglobin dropped from 8.4-7.4 most probably this could be anemia of chronic disease and the vessel liner consulted Dr. Forbes ordered 2 units of PRBC to be transfused. Patient also started on heparin drip. He contacted Dr. Remy Frost who [facility] Physical Exam Vital Signs: Temp Pulse Resp BP Pulse Ox 98.3 F 127 H 29 H 114/56 L 96 02/22/18 11:22 02/22/18 11:22 02/22/18 11:22 02/22/18 11:22 02/22/18 11:22 Intake & Output 02/21/18 02/22/18 02/23/18 06:59 06:59 06:59 Intake Total 400 Balance 400 Weight 82.6 kg General appearance: PRESENT: mild distress Head exam: PRESENT: atraumatic Eye exam: PRESENT: conjunctiva pink Mouth exam: PRESENT: moist Neck exam: ABSENT: carotid bruit, JVD, lymphadenopathy, thyromegaly Respiratory exam: PRESENT: wheezes - Mild wheezing bilaterally Cardiovascular exam: PRESENT: irregular rhythm, tachycardia GI/Abdominal exam: PRESENT: normal bowel sounds, soft. ABSENT: distended, guarding, mass, organolmegaly, rebound, tenderness Extremities exam: PRESENT: full ROM. ABSENT: calf tenderness, clubbing, pedal edema Neurological exam: PRESENT: alert, awake, oriented to time, oriented to situation Psychiatric exam: PRESENT: normal mood Results Laboratory Results: 02/22/18 03:15 02/22/18 03:15 02/22/18 02/22/18 02/22/18 03:15 03:15 03:15 WBC 7.9 RBC 2.47 L Hgb 7.4 L Hct 22.1 L MCV 90 MCH 29.8 MCHC 33.3 RDW 14.2 H Plt Count 205 Seg Neutrophils % 83.6 H Lymphocytes % 6.7 L Monocytes % 8.4 Eosinophils % 0.8 Basophils % 0.5 Absolute Neutrophils 6.6 Absolute Lymphocytes 0.5 Absolute Monocytes 0.7 Absolute Eosinophils 0.1 Absolute Basophils 0.0 Carbonic Acid HCO3/H2CO3 Ratio ABG pH ABG pCO2 ABG pO2 ABG HCO3 ABG O2 Saturation ABG Base Excess FiO2 Sodium 140.3 Potassium 4.0 D Chloride 102 Carbon Dioxide 23 Anion Gap 15 BUN 128 H Creatinine 2.75 H Est GFR ( Amer) 21 L Est GFR (Non-Af Amer) 17 L Glucose 318 H Calcium 9.0 Phosphorus 5.1 H Magnesium 1.8 TSH 1.24 02/22/18 10:15 WBC RBC Hgb Hct MCV MCH MCHC RDW Plt Count Seg Neutrophils % Lymphocytes % Monocytes % Eosinophils % Basophils % Absolute Neutrophils Absolute Lymphocytes Absolute Monocytes Absolute Eosinophils Absolute Basophils Carbonic Acid 1.15 HCO3/H2CO3 Ratio 20:1 ABG pH 7.40 ABG pCO2 38.3 ABG pO2 70.5 L ABG HCO3 23.2 ABG O2 Saturation 94.3 ABG Base Excess -1.4 FiO2 28% Sodium Potassium Chloride Carbon Dioxide Anion Gap BUN Creatinine Est GFR ( Amer) Est GFR (Non-Af Amer) Glucose Calcium Phosphorus Magnesium TSH 02/21/18 02/21/18 02/21/18 17:21 21:18 21:18 Creatine Kinase 116 CK-MB (CK-2) 3.04 Troponin I 0.406 0.365 02/22/18 02/22/18 02/22/18 03:15 03:15 10:05 Creatine Kinase 182 H 246 H CK-MB (CK-2) 7.64 H Troponin I 1.260 02/22/18 10:05 Creatine Kinase CK-MB (CK-2) 16.30 H Troponin I 3.020 Impressions: Chest X-Ray 02/21/18 13:05 IMPRESSION: STABLE MILD CARDIOMEGALY. NO ACUTE RADIOGRAPHIC FINDING IN THE CHEST.
--- NOTE | 2018-02-22 22:13 | EKG REPORT ---
SEVERITY:- ABNORMAL ECG - A FIB LEFT ANTERIOR FASCICULAR BLOCK LEFT VENTRICULAR HYPERTROPHY ANTERIOR Q WAVES, POSSIBLY DUE TO LVH ABNORMAL T, CONSIDER ISCHEMIA, LATERAL LEADS PROLONGED QT INTERVAL : Confirmed by: Eliot May 22-Feb-2018 22:11:32
[2018-02-23] MEDS ORDERED: FEBUXOSTAT 80 MG TABLET PO SCH (10:00)
== END 2018-02-22 18:17 | disposition short-term general hospital (02) | DRG 280 ==
LOC: ER 12:35 → EH 15:16 → 4N 18:00 → 3N 02-22 12:55
PROVIDERS: ADMIT Internal Medicine; ATTEND Internal Medicine
PROC: 3E0F73Z Introduction of Anti-inflammatory into Respiratory Tract, Via Natural or Artificial Opening (ICD-10-PCS; 2018-02-21)
PROC: 5A09457 Assistance with Respiratory Ventilation, 24-96 Consecutive Hours, Continuous Positive Airway Pressure (ICD-10-PCS; 2018-02-21)
PROC: 30233N1 Transfusion of Nonautologous Red Blood Cells into Peripheral Vein, Percutaneous Approach (ICD-10-PCS; principal; 2018-02-22)
DX: I13.0 Hypertensive heart and chronic kidney disease with heart failure and stage 1 through stage 4 chronic kidney disease, or unspecified chronic kidney disease (principal); I50.23 Acute on chronic systolic (congestive) heart failure; I21.4 Non-ST elevation (NSTEMI) myocardial infarction; N18.4 Chronic kidney disease, stage 4 (severe); J96.11 Chronic respiratory failure with hypoxia; E87.5 Hyperkalemia; I48.91 Unspecified atrial fibrillation; J44.9 Chronic obstructive pulmonary disease, unspecified; M06.9 Rheumatoid arthritis, unspecified; M34.9 Systemic sclerosis, unspecified; I25.10 Atherosclerotic heart disease of native coronary artery without angina pectoris; E11.22 Type 2 diabetes mellitus with diabetic chronic kidney disease; J84.10 Pulmonary fibrosis, unspecified; E78.00 Pure hypercholesterolemia, unspecified; K21.9 Gastro-esophageal reflux disease without esophagitis; D63.1 Anemia in chronic kidney disease; R63.5 Abnormal weight gain; Z68.32 Body mass index [BMI] 32.0-32.9, adult; K58.9 Irritable bowel syndrome, unspecified; I25.2 Old myocardial infarction; Z79.82 Long term (current) use of aspirin; Z79.4 Long term (current) use of insulin; Z79.899 Other long term (current) drug therapy; Z88.6 Allergy status to analgesic agent; Z88.3 Allergy status to other anti-infective agents; Z99.81 Dependence on supplemental oxygen; Z90.49 Acquired absence of other specified parts of digestive tract; Z95.1 Presence of aortocoronary bypass graft; Z90.710 Acquired absence of both cervix and uterus; Z87.891 Personal history of nicotine dependence; Z79.52 Long term (current) use of systemic steroids; Z95.5 Presence of coronary angioplasty implant and graft; Z82.49 Family history of ischemic heart disease and other diseases of the circulatory system
CPT/HCPCS: 36415; 36430; 36600; 71045; 80048; 80053; 81001; 82550; 82553; 82803; 82962; 83036; 83735; 83880; 84100; 84443; 84484; 85025; 85610; 85730; 86850; 86900; 86901; 86920; 93005; 93010; 94640; 94660; 99291; J0696; J1644; J1815; J1940; J2920; J3490; J7620; P9016

== ENCOUNTER → 2018-04-28 | Outpatient (CLI) | payer MEDICARE, MEDICAID ==
[2018-04-28 15:20] LABS: ALANINE AMINOTRANSFERASE 31 U/L (9-52); ALBUMIN 4.2 g/dL (3.5-5.0); ALKALINE PHOSPHATASE 122 U/L (38-126); ASPARTATE AMINO TRANSFERASE 29 U/L (14-36); BILIRUBIN,DIRECT 0.4 mg/dL (0.0-0.4); BILIRUBIN,TOTAL 0.6 mg/dL (0.2-1.3); TOTAL PROTEIN 6.9 g/dL (6.3-8.2)
== END ==
LOC: OD 14:11
PROVIDERS: ATTEND Internal Medicine Pulmonary Disease
DX: I27.0 Primary pulmonary hypertension (principal); Z79.899 Other long term (current) drug therapy
CPT/HCPCS: 36415; 80076

== ENCOUNTER → 2018-07-22 | Outpatient (CLI) | payer MEDICARE, MEDICAID ==
[2018-07-22 11:31] LABS: ABSOLUTE LYMPHOCYTES (AUTO) 0.6 10^3/uL (0.5-4.7); ABSOLUTE MONOCYTES (AUTO) 0.4 10^3/uL (0.1-1.4); ABSOLUTE NEUT (AUTO) 4.3 10^3/uL (1.7-8.2); BASOPHILS % (AUTO) 0.3 % (0-2); HEMOGLOBIN 10.4 g/dL (12.0-15.5); LYMPHOCYTES % (AUTO) 11.2 % (13-45); MEAN CORPUSCULAR HEMOGLOBIN 29.3 pg (27.0-33.4); MEAN CORPUSCULAR HGB CONC 33.5 g/dL (32.0-36.0); MEAN CORPUSCULAR VOLUME 88 fl (80-97); MONOCYTES % (AUTO) 6.6 % (3-13); PLATELET COUNT 212 10^3/uL (150-450); RED BLOOD COUNT 3.54 10^6/uL (3.72-5.28); RED CELL DISTRIBUTION WIDTH 14.7 % (11.5-14.0); SEGMENTED NEUTROPHILS % (AUTO) 81.9 % (42-78); TOTAL CELLS COUNTED % (AUTO) 100 %; WHITE BLOOD COUNT 5.3 10^3/uL (4.0-10.5)
--- NOTE | 2018-07-22 11:46 | RADIOLOGY REPORT (SQ) ---
EXAM DESCRIPTION: CHEST PA/LATERAL COMPLETED DATE/TIME: 07/22/2018 11:22 am REASON FOR STUDY: COUGH;SOB COMPARISON: 08/30/2016 EXAM PARAMETERS: NUMBER OF VIEWS: two views TECHNIQUE: Digital Frontal and Lateral radiographic views of the chest acquired. RADIATION DOSE: NA LIMITATIONS: none FINDINGS: LUNGS AND PLEURA: Chronic interstitial changes. No evidence of pulmonary edema or pneumon ia. No pleural effusion. MEDIASTINUM AND HILAR STRUCTURES: No masses or contour abnormalities. HEART AND VASCULAR STRUCTURES: Stable heart size. No evidence for failure. BONES: No acute findings. HARDWARE: CABG. OTHER: No other significant finding. IMPRESSION: No acute findings in the chest. TECHNICAL DOCUMENTATION: JOB ID: [id number] [employer]- All Rights Reserved Reading location - IP/workstation name: [email or web address]
[2018-07-22 11:50] LABS: ALANINE AMINOTRANSFERASE 18 U/L (9-52); ALBUMIN 3.8 g/dL (3.5-5.0); ALKALINE PHOSPHATASE 142 U/L (38-126); ASPARTATE AMINO TRANSFERASE 18 U/L (14-36); BILIRUBIN,DIRECT 0.3 mg/dL (0.0-0.4); BILIRUBIN,TOTAL 0.4 mg/dL (0.2-1.3)
== END ==
LOC: OD 10:58
PROVIDERS: ATTEND Internal Medicine Pulmonary Disease
DX: I27.20 Pulmonary hypertension, unspecified (principal); R06.02 Shortness of breath; R05 Cough; Z79.899 Other long term (current) drug therapy; Z95.1 Presence of aortocoronary bypass graft
CPT/HCPCS: 36415; 71046; 80076; 85025

== ENCOUNTER → 2018-10-04 | Outpatient (CLI) | payer MEDICARE, MEDICAID ==
[2018-10-04 17:31] LABS: ANION GAP 11 (5-19); CALCIUM 9.5 mg/dL (8.4-10.2); CARBON DIOXIDE 31 mmol/L (22-30); CHLORIDE 92 mmol/L (98-107); GLUCOSE 225 mg/dL (75-110); POTASSIUM 4.4 mmol/L (3.6-5.0)
[2018-10-04 17:32] LABS: ALANINE AMINOTRANSFERASE 23 U/L (9-52); ALBUMIN 4.2 g/dL (3.5-5.0); ALKALINE PHOSPHATASE 124 U/L (38-126); ASPARTATE AMINO TRANSFERASE 21 U/L (14-36); BILIRUBIN,DIRECT 0.2 mg/dL (0.0-0.4); BILIRUBIN,TOTAL 0.4 mg/dL (0.2-1.3); TOTAL PROTEIN 7.1 g/dL (6.3-8.2)
[2018-10-04 17:48] LABS: BLOOD UREA NITROGEN 130 mg/dL (7-20)
== END ==
LOC: OD 16:19
PROVIDERS: ATTEND Nurse Practitioner
DX: I50.32 Chronic diastolic (congestive) heart failure (principal); I27.20 Pulmonary hypertension, unspecified; Z79.899 Other long term (current) drug therapy
CPT/HCPCS: 36415; 80048; 80076

== ENCOUNTER → 2018-12-30 | Outpatient (CLI) | payer MEDICARE, MEDICAID ==
[2018-12-30 14:35] LABS: ALANINE AMINOTRANSFERASE 72 U/L (9-52); ALBUMIN 3.6 g/dL (3.5-5.0); ALKALINE PHOSPHATASE 206 U/L (38-126); ASPARTATE AMINO TRANSFERASE 64 U/L (14-36); BILIRUBIN,DIRECT 0.5 mg/dL (0.0-0.4); BILIRUBIN,TOTAL 0.5 mg/dL (0.2-1.3); TOTAL PROTEIN 6.4 g/dL (6.3-8.2)
== END ==
LOC: OD 13:33
PROVIDERS: ATTEND Internal Medicine Pulmonary Disease
DX: I27.20 Pulmonary hypertension, unspecified (principal)
CPT/HCPCS: 36415; 80076

== ENCOUNTER → 2019-01-05 | Outpatient (CLI) | payer MEDICARE, MEDICAID ==
--- NOTE | 2019-01-05 16:10 | RADIOLOGY REPORT (SQ) ---
EXAM DESCRIPTION: CHEST PA/LATERAL COMPLETED DATE/TIME: 01/05/2019 3:51 pm REASON FOR STUDY: PERICARDIAL EFFUSION PLEURAL EFFUSION COMPARISON: Chest films to the seen, 730 VII 30 17 EXAM PARAMETERS: NUMBER OF VIEWS: two views TECHNIQUE: Digital Frontal and Lateral radiographic views of the chest acquired. RADIATION DOSE: NA LIMITATIONS: none FINDINGS: LUNGS AND PLEURA: No opacities, masses or pneumothorax. No pleural effusion. MEDIASTINUM AND HILAR STRUCTURES: No masses or contour abnormalities. HEART AND VASCULAR STRUCTURES: Borderline cardiomegaly. This is stable. Old sternotomy and CABG. BONES: No acute findings. HARDWARE: Right-sided central venous dialysis catheter tip in the right atrium OTHER: No other significant finding. IMPRESSION: No acute findings TECHNICAL DOCUMENTATION: JOB ID: [id number] [employer]- All Rights Reserved Reading location - IP/workstation name: [email or web address]
== END ==
LOC: OD 15:28
PROVIDERS: ATTEND Physician Assistant Medical
DX: I31.3 Pericardial effusion (noninflammatory) (principal)
CPT/HCPCS: 71046

== ENCOUNTER → 2019-01-31 | Outpatient (CLI) | payer MEDICARE, MEDICAID ==
[2019-01-31 18:04] LABS: ALANINE AMINOTRANSFERASE 21 U/L (9-52); ALBUMIN 4.2 g/dL (3.5-5.0); ALKALINE PHOSPHATASE 162 U/L (38-126); ASPARTATE AMINO TRANSFERASE 21 U/L (14-36); BILIRUBIN,DIRECT 0.4 mg/dL (0.0-0.4); BILIRUBIN,TOTAL 0.4 mg/dL (0.2-1.3); TOTAL PROTEIN 7.2 g/dL (6.3-8.2)
== END ==
LOC: OD 16:31
PROVIDERS: ATTEND Internal Medicine Pulmonary Disease
DX: I27.0 Primary pulmonary hypertension (principal)
CPT/HCPCS: 36415; 80076

== ENCOUNTER 2019-02-25 16:08 | Emergency (ER) | payer MEDICARE, MEDICAID ==
--- NOTE | 2019-02-25 16:42 | ER Document Report ---
ED Medical Screen (RME) - General Chief Complaint: Urinary Problem Stated Complaint: URINARY ISSUE Time Seen by Provider: 02/25/19 16:31 Primary Care Provider: MARCIO SEGAL MD [Primary Care Provider] - Follow up as needed Mode of Arrival: Wheelchair Information source: Patient, Relative Notes: Patient presents to the emergency department with complaints of right-sided flank pain. Patient is on hemodialysis and peritoneal dialysis but does produce a little urine. She gives history of abdominal pain since Wednesday. She was treated for constipation by Dr. Garrido. She reports she had very little results. She reports she had fever yesterday. She reports that she has had peritoneal dialysis on Wednesday when they transferred 1000 mls via PD but only recovered 500mls. She had hemodialysis yesterday and today. She reports she is still holding fluid. I have greeted and performed a rapid initial assessment of this patient. A comprehensive ED assessment and evaluation of the patient, analysis of test results and completion of the medical decision making process will be conducted by additional ED providers. Dictation of this chart was performed using voice recognition software; therefore, there may be some unintended grammatical errors. TRAVEL OUTSIDE OF THE [place] IN LAST 30 DAYS: No - Related Data Allergies/Adverse Reactions: clarithromycin [From Biaxin] Allergy (Mild, Verified 02/25/19 16:09) RASH moxifloxacin HCl [From Avelox] Allergy (Mild, Verified 02/25/19 16:09) Fever morphine Adverse Reaction (Verified 02/25/19 16:09) Past Medical History - Social History Chew tobacco use (# tins/day): No Frequency of alcohol use: None Drug Abuse: None - Past Medical History Cardiac Medical History: Reports: Hx Congestive Heart Failure, Hx Coronary Artery Disease, Hx Heart Attack, Hx Hypercholesterolemia, Hx Hypertension - Pulm. HTN Pulmonary Medical History: Reports: Hx Pneumonia Denies: Hx COPD - pulmonary fibrosis Neurological Medical History: Endocrine Medical History: Reports: Hx Diabetes Mellitus Type 2 Renal/ Medical History: Reports: Hx Peritoneal Dialysis, Hx Renal Insufficiency Malignancy Medical History: GI Medical History: Reports: Hx Gastroesophageal Reflux Disease, Hx Irritable Bowel. Denies: Hx Pancreatitis Musculoskeltal Medical History: Reports Hx Arthritis - rheumatoid, Denies Hx Systemic Lupus Erythematosus Psychiatric Medical History: Denies: Hx Depression Traumatic Medical History: Infectious Medical History: Past Surgical History: Reports: Hx Cardiac Catheterization, Hx Cardiac Surgery - CABG 2004, Hx Cholecystectomy, Hx Coronary Artery Bypass Graft, Hx Hysterectomy, Hx Open Heart Surgery - 5 bypass 2004,several stents since then, Hx Orthopedic Surgery - elbows, carpal tunnel bilat, Other - Hx sinus surgery - Immunizations Immunizations up to date: Yes Hx Diphtheria, Pertussis, Tetanus Vaccination: Yes Physical Exam - Vital signs Vitals: Temp Pulse Resp BP Pulse Ox 97.4 F 57 L 20 115/55 L 97 02/25/19 16:18 02/25/19 16:18 02/25/19 16:18 02/25/19 16:18 02/25/19 16:18 Course - Vital Signs Vital signs: Temp Pulse Resp BP Pulse Ox 97.4 F 57 L 20 115/55 L 97 02/25/19 16:18 02/25/19 16:18 02/25/19 16:18 02/25/19 16:18 02/25/19 16:18 Doctor's Discharge - Discharge Referrals: MARCIO SEGAL MD [Primary Care Provider] - Follow up as needed
[2019-02-25 17:24] LABS: ABSOLUTE EOSINOPHILS # (AUTO) 0.2 10^3/uL (0.0-0.6); ABSOLUTE LYMPHOCYTES (AUTO) 0.7 10^3/uL (0.5-4.7); ABSOLUTE MONOCYTES (AUTO) 0.8 10^3/uL (0.1-1.4); ABSOLUTE NEUT (AUTO) 6.6 10^3/uL (1.7-8.2); BASOPHILS % (AUTO) 0.6 % (0-2); EOSINOPHILS % (AUTO) 2.3 % (0-6); HEMATOCRIT 35.6 % (36.0-47.0); HEMOGLOBIN 11.4 g/dL (12.0-15.5); LYMPHOCYTES % (AUTO) 8.5 % (13-45); MEAN CORPUSCULAR HEMOGLOBIN 29.8 pg (27.0-33.4); MEAN CORPUSCULAR VOLUME 93 fl (80-97); MONOCYTES % (AUTO) 9.8 % (3-13); PLATELET COUNT 311 10^3/uL (150-450); RED BLOOD COUNT 3.83 10^6/uL (3.72-5.28); RED CELL DISTRIBUTION WIDTH 19.5 % (11.5-14.0); SEGMENTED NEUTROPHILS % (AUTO) 78.8 % (42-78); TOTAL CELLS COUNTED % (AUTO) 100 %; WHITE BLOOD COUNT 8.3 10^3/uL (4.0-10.5)
[2019-02-25 17:28] LABS: AMORPHOUS SEDIMENT,URINE TRACE /HPF; APPEARANCE,URINE CLOUDY; BILIRUBIN,URINE SMALL (NEGATIVE); COLOR,URINE AMBER; GLUCOSE, URINE 50 mg/dL (NEGATIVE); KETONES,URINE TRACE mg/dL (NEGATIVE); LEUKOCYTE ESTERASE,URINE MODERATE (NEGATIVE); NITRITE,URINE NEGATIVE (NEGATIVE); PROTEIN,URINE 30 mg/dL (NEGATIVE)
[2019-02-25 17:36] LABS: ALBUMIN 4.1 g/dL (3.5-5.0); ALKALINE PHOSPHATASE 382 U/L (38-126); ANION GAP 13 (5-19); ASPARTATE AMINO TRANSFERASE 120 U/L (14-36); BILIRUBIN,DIRECT 0.8 mg/dL (0.0-0.4); BLOOD UREA NITROGEN 12 mg/dL (7-20); CALCIUM 8.5 mg/dL (8.4-10.2); CARBON DIOXIDE 29 mmol/L (22-30); CHLORIDE 97 mmol/L (98-107); GLUCOSE 211 mg/dL (75-110); POTASSIUM 4.8 mmol/L (3.6-5.0); TOTAL PROTEIN 7.8 g/dL (6.3-8.2)
[2019-02-25] MEDS ORDERED: NORMAL SALINE 500 ML IV ONE (18:06)
[2019-02-25] MEDS ORDERED: ONDANSETRON HCL INJ/PF 4 MG/2 ML SDV IV ONE (18:36)
[2019-02-25] MEDS ORDERED: FENTANYL CITRATE INJ/PF 100 MCG/2 ML AMPUL IV ONE (18:36)
--- NOTE | 2019-02-25 19:56 | ER Document Report ---
ED General - General Chief Complaint: Urinary Problem Stated Complaint: URINARY ISSUE Time Seen by Provider: 02/25/19 16:31 Primary Care Provider: MARCIO SEGAL MD [NO LOCAL MD] - Follow up as needed Wilbert GARRIDO MD [ACTIVE STAFF] - 02/27/19 Mode of Arrival: Wheelchair Information source: Patient, Relative, [facility] Records Notes: 68-year-old female with end-stage renal disease, congestive heart failure, hypotension (on Midodrine),coronary artery disease, hyperlipidemia presents with complaints of right flank pain and suprapubic abdominal pain. Patient reports pain started 4 days prior to arrival. She describes it as an aching dull pain without radiation. Patient denies any associated chills, nausea, vomiting, chest pain, shortness of breath. Patient has a history of constipation which is being treated by Dr. Garrido but reports a bowel movement yesterday. She denies any black or bloody stools. Patient undergoes hemodialysis Wednesday and Wednesday and reports that she was seen at [facility] today and 6 pounds of fluid was removed. Patient recently had a peritoneal dialysis placed on November 23, 2018 but has not been used for exchange because of delayed wound healing. Patient denies any periumbilical or upper abdominal pain. She denies any pain at the peritoneal site. Patient reports a temperature of 100.0 yesterday. TRAVEL OUTSIDE OF THE [place] IN LAST 30 DAYS: No - HPI Onset: Other Onset/Duration: Gradual, Persistent Quality of pain: Achy Severity: Moderate Pain Level: 2 Associated symptoms: Fever. denies: Chest pain, Nausea, Vomiting, Shortness of breath Exacerbated by: Denies Relieved by: Denies Similar symptoms previously: Yes Recently seen / treated by doctor: Yes - Related Data Allergies/Adverse Reactions: clarithromycin [From Biaxin] Allergy (Mild, Verified 02/25/19 16:09) RASH moxifloxacin HCl [From Avelox] Allergy (Mild, Verified 02/25/19 16:09) Fever morphine Adverse Reaction (Verified 02/25/19 16:09) Past Medical History - General Information source: Patient, Relative - Social History Smoking Status: Never Smoker Chew tobacco use (# tins/day): No Frequency of alcohol use: None Drug Abuse: None Lives with: Family Family History: Hypertension Patient has suicidal ideation: No Patient has homicidal ideation: No - Past Medical History Cardiac Medical History: Reports: Hx Congestive Heart Failure, Hx Coronary Artery Disease, Hx Heart Attack, Hx Hypercholesterolemia, Hx Hypertension - Pulm. HTN Pulmonary Medical History: Reports: Hx Pneumonia Denies: Hx COPD - pulmonary fibrosis Neurological Medical History: Endocrine Medical History: Reports: Hx Diabetes Mellitus Type 2 Renal/ Medical History: Reports: Hx Peritoneal Dialysis, Hx Renal Insufficiency Malignancy Medical History: GI Medical History: Reports: Hx Gastroesophageal Reflux Disease, Hx Irritable Bowel. Denies: Hx Pancreatitis Musculoskeletal Medical History: Reports Hx Arthritis - rheumatoid, Denies Hx Systemic Lupus Erythematosus Psychiatric Medical History: Denies: Hx Depression Traumatic Medical History: Infectious Medical History: Past Surgical History: Reports: Hx Cardiac Catheterization, Hx Cardiac Surgery - CABG 2004, Hx Cholecystectomy, Hx Coronary Artery Bypass Graft, Hx Hysterectomy, Hx Open Heart Surgery - 5 bypass 2004,several stents since then, Hx Orthopedic Surgery - elbows, carpal tunnel bilat, Other - Hx sinus surgery - Immunizations Immunizations up to date: Yes Hx Diphtheria, Pertussis, Tetanus Vaccination: Yes Hx Pneumococcal Vaccination: 01/31/12 Review of Systems - Review of Systems Constitutional: Fever. denies: Recent illness EENT: denies: Difficulty swallowing Cardiovascular: denies: Chest pain, Palpitations, Dyspnea Respiratory: denies: Cough, Short of breath Gastrointestinal: Abdominal pain, Constipation, Poor appetite, Poor fluid intake. denies: Nausea, Vomiting, Blood streaked bowels, Black stools Genitourinary: Flank pain. denies: Dysuria Female Genitourinary: No symptoms reported Musculoskeletal: Back pain Skin: denies: Rash Hematologic/Lymphatic: No symptoms reported Neurological/Psychological: denies: Headaches -: Yes All other systems reviewed and negative Physical Exam - Vital signs Vitals: Temp Pulse Resp BP Pulse Ox 97.4 F 57 L 20 115/55 L 97 02/25/19 16:18 02/25/19 16:18 02/25/19 16:18 02/25/19 16:18 02/25/19 16:18 - Notes Notes: PHYSICAL EXAMINATION: GENERAL: Well-appearing, well-nourished and in no acute distress. HEAD: Atraumatic, normocephalic. EYES: Pupils equal round and reactive to light, extraocular movements intact, conjunctiva are normal. ENT: Nares patent, oropharynx clear without exudates. Moist mucous membranes. NECK: Normal range of motion, supple without lymphadenopathy LUNGS: Breath sounds clear to auscultation bilaterally and equal. No wheezes rales or rhonchi. HEART: Regular rate and rhythm without murmurs ABDOMEN: Soft, suprapubic tenderness with palpation., nondistended abdomen. No guarding, no rebound. No masses appreciated. Right CVA tenderness. No rigidity. No periumbilical or epigastric abdominal pain. Peritoneal dialysis site without erythema, purulent drainage or tenderness. Female : deferred Musculoskeletal: Normal range of motion, no pitting or edema. No cyanosis. NEUROLOGICAL: Cranial nerves grossly intact. Normal speech, normal gait. Normal sensory, motor exams PSYCH: Normal mood, normal affect. SKIN: Warm, Dry, normal turgor, no rashes or lesions noted. Course - Re-evaluation Re-evalutation: 02/25/19 20:41 Laboratory 02/25/19 02/25/19 02/25/19 16:43 16:43 16:43 WBC 8.3 RBC 3.83 Hgb 11.4 L Hct 35.6 L MCV 93 MCH 29.8 MCHC 32.0 RDW 19.5 H Plt Count 311 Seg Neutrophils % 78.8 H Lymphocytes % 8.5 L Monocytes % 9.8 Eosinophils % 2.3 Basophils % 0.6 Absolute Neutrophils 6.6 Absolute Lymphocytes 0.7 Absolute Monocytes 0.8 Absolute Eosinophils 0.2 Absolute Basophils 0.0 Sodium 138.6 Potassium 4.8 Chloride 97 L Carbon Dioxide 29 Anion Gap 13 BUN 12 Creatinine 1.97 H Est GFR ( Amer) 31 L Est GFR (Non-Af Amer) 25 L Glucose 211 H Lactic Acid 2.3 H Calcium 8.5 Total Bilirubin 1.0 Direct Bilirubin 0.8 H Neonat Total Bilirubin Not Reportable Neonat Direct Bilirubin Not Reportable Neonat Indirect Bili Not Reportable AST 120 H ALT 126 Alkaline Phosphatase 382 H Total Protein 7.8 Albumin 4.1 Urine Color Urine Appearance Urine pH Ur Specific [place] Urine Protein Urine Glucose (UA) Urine Ketones Urine Blood Urine Nitrite Urine Bilirubin Urine Urobilinogen Ur Leukocyte Esterase Urine WBC (Auto) Urine RBC (Auto) U Hyaline Cast (Auto) Urine Bacteria (Auto) Urine WBC Clumps Squamous Epi Cells Auto Amorphous Sediment Auto Urine Mucus (Auto) Urine Ascorbic Acid 02/25/19 16:43 WBC RBC Hgb Hct MCV MCH MCHC RDW Plt Count Seg Neutrophils % Lymphocytes % Monocytes % Eosinophils % Basophils % Absolute Neutrophils Absolute Lymphocytes Absolute Monocytes Absolute Eosinophils Absolute Basophils Sodium Potassium Chloride Carbon Dioxide Anion Gap BUN Creatinine Est GFR ( Amer) Est GFR (Non-Af Amer) Glucose Lactic Acid Calcium Total Bilirubin Direct Bilirubin Neonat Total Bilirubin Neonat Direct Bilirubin Neonat Indirect Bili AST ALT Alkaline Phosphatase Total Protein Albumin Urine Color PRISCILA Urine Appearance CLOUDY Urine pH 5.0 Ur Specific [place] 1.030 Urine Protein 30 H Urine Glucose (UA) 50 H Urine Ketones TRACE H Urine Blood MODERATE H Urine Nitrite NEGATIVE Urine Bilirubin SMALL H Urine Urobilinogen 2.0 H Ur Leukocyte Esterase MODERATE H Urine WBC (Auto) >182 Urine RBC (Auto) 30 U Hyaline Cast (Auto) 35 Urine Bacteria (Auto) TRACE Urine WBC Clumps MANY Squamous Epi Cells Auto 26 Amorphous Sediment Auto TRACE Urine Mucus (Auto) RARE Urine Ascorbic Acid NEGATIVE Temp Pulse Resp BP Pulse Ox 99.3 F 57 L 20 115/55 L 97 02/25/19 19:39 02/25/19 16:18 02/25/19 16:18 02/25/19 16:18 02/25/19 16:18 Laboratory 02/25/19 02/25/19 02/25/19 16:43 16:43 16:43 WBC 8.3 RBC 3.83 Hgb 11.4 L Hct 35.6 L MCV 93 MCH 29.8 MCHC 32.0 RDW 19.5 H Plt Count 311 Seg Neutrophils % 78.8 H Lymphocytes % 8.5 L Monocytes % 9.8 Eosinophils % 2.3 Basophils % 0.6 Absolute Neutrophils 6.6 Absolute Lymphocytes 0.7 Absolute Monocytes 0.8 Absolute Eosinophils 0.2 Absolute Basophils 0.0 Sodium 138.6 Potassium 4.8 Chloride 97 L Carbon Dioxide 29 Anion Gap 13 BUN 12 Creatinine 1.97 H Est GFR ( Amer) 31 L Est GFR (Non-Af Amer) 25 L Glucose 211 H Lactic Acid 2.3 H Calcium 8.5 Total Bilirubin 1.0 Direct Bilirubin 0.8 H Neonat Total Bilirubin Not Reportable Neonat Direct Bilirubin Not Reportable Neonat Indirect Bili Not Reportable AST 120 H ALT 126 Alkaline Phosphatase 382 H Total Protein 7.8 Albumin 4.1 Urine Color Urine Appearance Urine pH Ur Specific [place] Urine Protein Urine Glucose (UA) Urine Ketones Urine Blood Urine Nitrite Urine Bilirubin Urine Urobilinogen Ur Leukocyte Esterase Urine WBC (Auto) Urine RBC (Auto) U Hyaline Cast (Auto) Urine Bacteria (Auto) Urine WBC Clumps Squamous Epi Cells Auto Amorphous Sediment Auto Urine Mucus (Auto) Urine Ascorbic Acid 02/25/19 16:43 WBC RBC Hgb Hct MCV MCH MCHC RDW Plt Count Seg Neutrophils % Lymphocytes % Monocytes % Eosinophils % Basophils % Absolute Neutrophils Absolute Lymphocytes Absolute Monocytes Absolute Eosinophils Absolute Basophils Sodium Potassium Chloride Carbon Dioxide Anion Gap BUN Creatinine Est GFR ( Amer) Est GFR (Non-Af Amer) Glucose Lactic Acid Calcium Total Bilirubin Direct Bilirubin Neonat Total Bilirubin Neonat Direct Bilirubin Neonat Indirect Bili AST ALT Alkaline Phosphatase Total Protein Albumin Urine Color PRISCILA Urine Appearance CLOUDY Urine pH 5.0 Ur Specific [place] 1.030 Urine Protein 30 H Urine Glucose (UA) 50 H Urine Ketones TRACE H Urine Blood MODERATE H Urine Nitrite NEGATIVE Urine Bilirubin SMALL H Urine Urobilinogen 2.0 H Ur Leukocyte Esterase MODERATE H Urine WBC (Auto) >182 Urine RBC (Auto) 30 U Hyaline Cast (Auto) 35 Urine Bacteria (Auto) TRACE Urine WBC Clumps MANY Squamous Epi Cells Auto 26 Amorphous Sediment Auto TRACE Urine Mucus (Auto) RARE Urine Ascorbic Acid NEGATIVE Abdomen/Pelvis CT 02/25/19 19:47 IMPRESSION: 1. No acute findings 2. Extensive vascular disease 3. Cannot exclude a small renal calculus, due to the extensive renal vascular calcifications. However, there is no hydronephrosis, hydroureter, or ureteral calculi 4. Partially visualized chronic interstitial fibrosis in the lower lobes. 5. Degenerative changes with potentially significant L4-L5 central canal stenosis. 6. Other chronic findings as described. Temp Pulse Resp BP Pulse Ox 99.3 F 57 L 20 115/55 L 97 02/25/19 19:39 02/25/19 16:18 02/25/19 16:18 02/25/19 16:18 02/25/19 16:18 68-year-old female presents with complaint of 4 days of right flank and suprapubic abdominal pain. Vital signs reviewed and patient is afebrile, mildly hypotensive which patient reports is her history for which she takes Midrodrine for. Patient does not appear toxic or dehydrated. She has right CVA tenderness and mild suprapubic tenderness but no upper abdominal pain, rigidity or evidence of peritonitis. Patient's peritoneal dialysis site is clean, dry without erythema or tenderness. Fluid is clear. Patient and daughter who is at the bedside reports that they have not yet have had peritoneal dialysis due to waiting for the wound to heal. She did undergo dialysis today and reports 6 pounds of fluid was removed. Patient's peritoneal sites was evaluated by the nurse at [facility]. Patient was found to have a significant urinary tract infection. CBC is without leukocytosis and shows a stable mild anemia. CMP shows a creatinine of 1.97 which when compared to previous labs is greatly improved. I did discuss with the patient and her daughter the risks of SBP with peritoneal dialysis. I did inquire with nursing whether we could send a sample of the patient's fluid in her tube for analysis but was told that she would have to undergo a full exchange which has not been performed yet. I do believe the patient's suprapubic and flank pain is secondary to her urinary tract infection. She has had no vomiting or fever during her ED course. Temperature was checked rectally. Patient did receive 1 g of ceftriaxone and will be discharged home with Keflex. Strict return precautions were discussed with the patient and her daughter. She was urged to return with abdominal pain, fever greater than 100.4, persistent vomiting or any other symptoms concerning to her. 02/25/19 21:20 Patient reevaluated and she reports improvement in pain after receiving fentanyl. 02/25/19 21:39 Patient was evaluated and treated as appropriate for the patient's presenting symptoms and complaint, with consideration of any critical or life threatening conditions that may be associated with their obtained history and exam as noted above. All results were discussed with patient and her daughter who is at the bedside. Patient provided the opportunity to ask questions, and express concerns. Patient was educated on treatments based on their presumed diagnosis as noted above. At this time we will discharge the patient with return precautions and follow-up recommendations. Verbal discharge instructions given a the bedside. Medication warnings reviewed. Patient is in agreement with this plan and has verbalized understanding of return precautions. After careful consideration I feel that that patient can be safely discharged from the emergency department, they were advised to followup with a primary care physician in 2-3 days. Dictation on this chart was performed using voice recognition software and may result in unintended grammatical, spelling, syntax or errors. - Vital Signs Vital signs: Temp Pulse Resp BP Pulse Ox 99.3 F 57 L 20 115/55 L 97 02/25/19 19:39 02/25/19 16:18 02/25/19 16:18 02/25/19 16:18 02/25/19 16:18 - Laboratory Result Diagrams: 02/25/19 16:43 02/25/19 16:43 Laboratory results interpreted by me: 02/25/19 02/25/19 02/25/19 16:43 16:43 16:43 Hgb 11.4 L Hct 35.6 L RDW 19.5 H Seg Neutrophils % 78.8 H Lymphocytes % 8.5 L Chloride 97 L Creatinine 1.97 H Est GFR ( Amer) 31 L Est GFR (Non-Af Amer) 25 L Glucose 211 H Lactic Acid 2.3 H Direct Bilirubin 0.8 H AST 120 H Alkaline Phosphatase 382 H Urine Protein Urine Glucose (UA) Urine Ketones Urine Blood Urine Bilirubin Urine Urobilinogen Ur Leukocyte Esterase 02/25/19 16:43 Hgb Hct RDW Seg Neutrophils % Lymphocytes % Chloride Creatinine Est GFR ( Amer) Est GFR (Non-Af Amer) Glucose Lactic Acid Direct Bilirubin AST Alkaline Phosphatase Urine Protein 30 H Urine Glucose (UA) 50 H Urine Ketones TRACE H Urine Blood MODERATE H Urine Bilirubin SMALL H Urine Urobilinogen 2.0 H Ur Leukocyte Esterase MODERATE H - Diagnostic Test Radiology reviewed: Image reviewed, Reports reviewed Discharge - Discharge Clinical Impression: UTI (lower urinary tract infection), Chronic kidney disease, stage III (moderate), Flank pain Hematuria Qualifiers: Hematuria type: unspecified type Qualified Code(s): R31.9 - Hematuria, unspecified Condition: Good Disposition: HOME, SELF-CARE Instructions: Flank Pain ([facility]), Urinary Tract Infection ([facility]) Additional Instructions: Please return to the emergency department immediately if you experience abdominal pain, fever greater than 100.4, persistent vomiting or any other symptoms concerning to you. Please follow-up with your supervisor force adjustment Dr. Garrido on Wednesday. Follow up with your [id number] hours for further care or return to the ED IMMEDIATELY if symptoms worsen or you have any concerns. If you cannot afford to follow up with your primary care physician a list of low cost clinics have been provided at the end of your discharge papers as well. Most prescribed medications have multiple side effects. The safest thing to do is when filling your prescription speak to your pharmacist regarding possible interactions with your normal home medications and over the counter medications such as Ibuprofen, Tylenol, Benadryl. If you experience any symptoms that cause you discomfort or concern you should discontinue the medication immediately and return to the emergency room or call your primary care physician. Prescriptions: Cephalexin Monohydrate [Keflex 500 mg Capsule] 500 mg PO BID 7 Days #14 capsule Hydrocodone/Acetaminophen [[place] 5-325 mg Tablet] 1 tab PO Q6H #8 tablet Referrals: MARCIO SEGAL MD [NO LOCAL MD] - Follow up as needed Wilbert GARRIDO MD [ACTIVE STAFF] - 02/27/19
[2019-02-25] MEDS ORDERED: CEFTRIAXONE 1 GM/D5W RTU 1 GM/50 ML RTUPB IV ONE (20:00)
--- NOTE | 2019-02-25 21:14 | RADIOLOGY REPORT (SQ) ---
EXAM DESCRIPTION: RadLex: CT ABDOMEN PELVIS WITHOUT IV CONTRAST CLINICAL HISTORY: 68 years Female; flank pain TECHNIQUE: CT of the abdomen and pelvis without contrast. All CT scans at this facility use dose modulation, iterative reconstruction, and/or weight based dosing when appropriate to reduce radiation dose to as low as reasonably achievable. COMPARISON: CT 02/21/2017 FINDINGS: Interstitial fibrosis is partially visualized in both lower lobes. There is minimal right pleural fluid. Central line tip is noted in the right atrium. Sternal wires are partially visualized. No pericardial effusion. Abdomen: Liver:No focal lesions. No intrahepatic ductal distention. Gallbladder: Surgically absent Pancreas:Within normal limits Spleen:Within normal limits Right kidney: No hydronephrosis. Extensive vascular calcifications. No definite collecting system calculi. No ureteral calculi. Left kidney: No hydronephrosis. Extensive vascular calcifications. No definite collecting system calculi. No ureteral calculi. Adrenal glands:Within normal limits Vascular structures: Extensive vascular calcifications throughout the abdominal arteries. No aortic aneurysm. Pelvis: Small bowel:No significant distention. Appendix:Within normal limits Colon:No distention or acute pericolonic edema. A peritoneal catheter inserted via left upper quadrant is in place with coil in the left lower quadrant. No adjacent fluid. No acute edema. No free air. Bones: There are chronic degenerative changes of the lumbar spine. L4-L5: Disc bulging and facet arthropathy results in at least moderate potentially severe central canal stenosis. No acute fractures. Bladder: Unremarkable. No pelvic mass or adenopathy. Note that evaluation of the bowel and solid organs is somewhat limited due to lack of intravenous and oral contrast. IMPRESSION: 1. No acute findings 2. Extensive vascular disease 3. Cannot exclude a small renal calculus, due to the extensive renal vascular calcifications. However, there is no hydronephrosis, hydroureter, or ureteral calculi 4. Partially visualized chronic interstitial fibrosis in the lower lobes. 5. Degenerative changes with potentially significant L4-L5 central canal stenosis. 6. Other chronic findings as described.
[2019-02-25] MEDS ORDERED: ACETAMINOPHEN 325 MG TABLET PO ONE (21:21)
[2019-02-26 04:52] VITALS: BP 115/69
== END 2019-02-25 21:40 | disposition home or self-care (01) ==
LOC: ER 16:08
DX: N39.0 Urinary tract infection, site not specified (principal); R10.9 Unspecified abdominal pain; R39.198 Other difficulties with micturition; R50.9 Fever, unspecified; I13.0 Hypertensive heart and chronic kidney disease with heart failure and stage 1 through stage 4 chronic kidney disease, or unspecified chronic kidney disease; N18.3 Chronic kidney disease, stage 3 (moderate); I50.9 Heart failure, unspecified; I25.10 Atherosclerotic heart disease of native coronary artery without angina pectoris; Z99.2 Dependence on renal dialysis
CPT/HCPCS: 99284; 96375; 96365; 36415; 87040; 85025; 80053; 81001; 83605; 74176; A9270; J3010; J2405; J7040; J0696

== ENCOUNTER → 2019-03-01 | Outpatient (CLI) | payer MEDICARE, MEDICAID ==
[2019-03-01 14:13] LABS: ALBUMIN 3.6 g/dL (3.5-5.0); ALKALINE PHOSPHATASE 316 U/L (38-126); ASPARTATE AMINO TRANSFERASE 47 U/L (14-36); BILIRUBIN,DIRECT 0.5 mg/dL (0.0-0.4); BILIRUBIN,TOTAL 0.6 mg/dL (0.2-1.3); TOTAL PROTEIN 6.5 g/dL (6.3-8.2)
== END ==
LOC: OD 12:50
PROVIDERS: ATTEND Internal Medicine Pulmonary Disease
DX: I27.0 Primary pulmonary hypertension (principal); Z51.81 Encounter for therapeutic drug level monitoring; Z79.899 Other long term (current) drug therapy
CPT/HCPCS: 36415; 80076

== ENCOUNTER 2019-03-10 16:38 | Emergency (ER) | payer MEDICARE, MEDICAID ==
--- NOTE | 2019-03-10 18:03 | ER Document Report ---
ED Medical Screen (RME) - General Chief Complaint: Abnormal Lab Results Stated Complaint: HEAD INJURY Time Seen by Provider: 03/10/19 17:48 Primary Care Provider: VISHAL BROWN PA-C [Primary Care Provider] - Follow up as needed Mode of Arrival: Wheelchair Information source: Patient Notes: Patient presents complaining of weakness. Patient states that she did fall yesterday hitting her head. There was no loss of consciousness but patient has had nausea and vomiting since the fall. Patient only takes an aspirin a day and is not on any other blood thinners. Patient also had outpatient lab work performed today as she has been performing peritoneal dialysis at home with occasional hemodialysis. Patient was advised to come here for CT imaging of her head to evaluate for any bleed. Review of patient's laboratory studies demonstrates that patient is in acute renal failure hx; CHF, pulmonary hypertension, diabetes, RA, pulmonary fibrosis I have greeted and performed a rapid initial assessment of this patient. A comprehensive ED assessment and evaluation of the patient, analysis of test results and completion of the medical decision making process will be conducted by additional ED providers. TRAVEL OUTSIDE OF THE [place] IN LAST 30 DAYS: No - Related Data Allergies/Adverse Reactions: clarithromycin [From Biaxin] Allergy (Mild, Verified 03/10/19 16:41) RASH moxifloxacin HCl [From Avelox] Allergy (Mild, Verified 03/10/19 16:41) Fever morphine Adverse Reaction (Verified 03/10/19 16:41) Past Medical History - Past Medical History Cardiac Medical History: Reports: Hx Congestive Heart Failure, Hx Coronary Art lachelle Disease, Hx Heart Attack, Hx Hypercholesterolemia, Hx Hypertension - Pulm. HTN Pulmonary Medical History: Reports: Hx Pneumonia Denies: Hx COPD - pulmonary fibrosis Neurological Medical History: Endocrine Medical History: Reports: Hx Diabetes Mellitus Type 2 Renal/ Medical History: Reports: Hx Peritoneal Dialysis, Hx Renal Insufficiency Malignancy Medical History: GI Medical History: Reports: Hx Gastroesophageal Reflux Disease, Hx Irritable Bowel. Denies: Hx Pancreatitis Musculoskeltal Medical History: Reports Hx Arthritis - rheumatoid, Denies Hx Systemic Lupus Erythematosus Psychiatric Medical History: Denies: Hx Depression Traumatic Medical History: Infectious Medical History: Past Surgical History: Reports: Hx Cardiac Catheterization, Hx Cardiac Surgery - CABG 2004, Hx Cholecystectomy, Hx Coronary Artery Bypass Graft, Hx Hysterectomy, Hx Open Heart Surgery - 5 bypass 2004,several stents since then, Hx Orthopedic Surgery - elbows, carpal tunnel bilat, Other - Hx sinus surgery - Immunizations Immunizations up to date: Yes Hx Diphtheria, Pertussis, Tetanus Vaccination: Yes Physical Exam - General General appearance: Alert Notes: Abdomen soft, nontender. No peritoneal signs. Patient awake alert. Doctor's Discharge - Discharge Referrals: VISAHL BROWN PA-C [Primary Care Provider] - Follow up as needed
[2019-03-10 18:40] LABS: HEMATOCRIT 35.9 % (36.0-47.0); HEMOGLOBIN 11.1 g/dL (12.0-15.5); MEAN CORPUSCULAR HEMOGLOBIN 28.2 pg (27.0-33.4); MEAN CORPUSCULAR VOLUME 91 fl (80-97); PLATELET COUNT 434 10^3/uL (150-450); RED BLOOD COUNT 3.94 10^6/uL (3.72-5.28); WHITE BLOOD COUNT 14.2 10^3/uL (4.0-10.5)
--- NOTE | 2019-03-10 19:06 | ER Document Report ---
ED General - General Chief Complaint: Abnormal Lab Results Stated Complaint: HEAD INJURY Time Seen by Provider: 03/10/19 17:48 Primary Care Provider: VISHAL BROWN PA-C [ALLIED HEALTH PROFESSIONAL] - Follow up as needed Mode of Arrival: Wheelchair TRAVEL OUTSIDE OF THE [place] IN LAST 30 DAYS: No - HPI Notes: 68-year-old female currently on home hemodialysis and peritoneal dialysis who presents with weakness and head injury. She is sent from her primary care doctor's office for evaluation by head CT. Apparently fell last night here had a CPAP machine sustaining a small occipital contusion. No loss consciousness. Vomited once or twice over the last couple of days. Her daughter indicates she is generally been weak over the last several days, more so than normal. No other injury. She been compliant with her dialysis, currently has a PD exchange going. No chest pain, no abdominal pain. No fever. Moderate intensity, gradual onset, nonradiating. Mild throbbing occipital headache. No other modifying factors, no other associated symptoms, no other provocative or palliative factors. - Related Data Allergies/Adverse Reactions: clarithromycin [From Biaxin] Allergy (Mild, Verified 03/10/19 16:41) RASH moxifloxacin HCl [From Avelox] Allergy (Mild, Verified 03/10/19 16:41) Fever morphine Adverse Reaction (Verified 03/10/19 16:41) Past Medical History - General Information source: Patient - Social History Smoking Status: Never Smoker Chew tobacco use (# tins/day): No Frequency of alcohol use: None Drug Abuse: None Family History: Hypertension Patient has suicidal ideation: No Patient has homicidal ideation: No - Medical History Notes: Includes home hemodialysis and peritoneal dialysis, ESRD - Past Medical History Cardiac Medical History: Reports: Hx Congestive Heart Failure, Hx Coronary Artery Disease, Hx Heart Attack, Hx Hypercholesterolemia, Hx Hypertension - Pulm. HTN Pulmonary Medical History: Reports: Hx Pneumonia Denies: Hx COPD - pulmonary fibrosis Neurological Medical History: Endocrine Medical History: Reports: Hx Diabetes Mellitus Type 2 Renal/ Medical History: Reports: Hx Peritoneal Dialysis, Hx Renal Insufficiency Malignancy Medical History: GI Medical History: Reports: Hx Gastroesophageal Reflux Disease, Hx Irritable Bowel. Denies: Hx Pancreatitis Musculoskeletal Medical History: Reports Hx Arthritis - rheumatoid, Denies Hx Systemic Lupus Erythematosus Psychiatric Medical History: Denies: Hx Depression Traumatic Medical History: Infectious Medical History: Past Surgical History: Reports: Hx Cardiac Catheterization, Hx Cardiac Surgery - CABG 2004, Hx Cholecystectomy, Hx Coronary Artery Bypass Graft, Hx Hysterectomy, Hx Open Heart Surgery - 5 bypass 2004,several stents since then, Hx Orthopedic Surgery - elbows, carpal tunnel bilat, Other - Hx sinus surgery - Immunizations Immunizations up to date: Yes Hx Diphtheria, Pertussis, Tetanus Vaccination: Yes Hx Pneumococcal Vaccination: 01/31/12 Review of Systems - Review of Systems Notes: Review of systems as in the history of present illness, otherwise negative x 10 systems. Physical Exam - Vital signs Vitals: Resp 17 03/10/19 18:52 - Notes Notes: General: Chronically ill in appearance. HEENT: Normocephalic, mild left occipital tenderness, no step-off or deformity. No hemotympanum, martin sign. Pupils equal round reactive to light. No JVD. Chest: No trauma. Right-sided dialysis Vas-Cath noted Respiratory: Good air exchange, normal excursion. Cardiac: Regular rhythm. No murmurs or gallops. Abdomen: Soft, benign. Nondistended. Nontender. PD catheter site clean dry and intact with no erythema. Back: No asymmetry or gross abnormality. Motor: Grossly normal power and tone. Neurologic: Alert, nonfocal. Cranial nerves II-12 are intact. Sensation intact. Vascular: Well perfused. Normal peripheral pulses. Skin: No petechiae or purpura. Course - Re-evaluation Re-evalutation: 03/10/19 19:05 Female with the after mentioned symptoms. Patient was evaluated by the [facility] provider prior to my evaluation. Studies / interventions have been ordered by this provider and may still be pending. This time plan proceed with laboratory evaluation, check UA and x-ray to rule out occult infection, CT imaging is pending. Reevaluate. 03/10/19 20:31 Labs reviewed from earlier today, she has had worsening renal failure in terms of elevated BUN and creatinine over baseline. CBC is reviewed, mild leukocytosis is noted no bandemia. CT imaging the brain shows no acute ab normality. Chest x-ray is read as bibasilar interstitial thickening. Patient does have some small pleural effusions. At this time patient is at 100% on her baseline home oxygen. She does not have any sign of decompensated volume overload. She has no hyperkalemia. Of note, family is requesting discharge home. They are well versed in doing exchanges and wish to exchange her fluid at home. She is going to be placed on her home hemodialysis tonight and schedule tomorrow afternoon to have a full hemodialysis as an outpatient. I believe she is safe for discharge home with close outpatient follow-up. Given the somewhat vague radiology read on her x-ray, I am going to err on the side of caution and cover her for possible bacterial bronchitis or pneumonia given her vague weakness with associated mild leukocytosis. - Vital Signs Vital signs: Temp Pulse Resp BP Pulse Ox 69 17 03/10/19 18:53 03/10/19 18:52 - Laboratory Result Diagrams: 03/10/19 18:20 03/10/19 18:20 Laboratory results interpreted by me: 03/10/19 18:20 WBC 14.2 H Hgb 11.1 L Hct 35.9 L MCHC 31.0 L RDW 19.0 H Seg Neuts % (Manual) 81 H Lymphocytes % (Manual) 8 L Abs Neuts (Manual) 11.5 H - EKG Interpretation by Me EKG shows normal: Sinus rhythm Additional EKG results interpreted by me: 03/10/19 20:31 Normal QRS, normal QTC, nonspecific ST-T changes Discharge - Discharge Clinical Impression: Weakness Head injury Qualifiers: Encounter type: initial encounter Qualified Code(s): S09.90XA - Unspecified injury of head, initial encounter Condition: Stable Disposition: HOME, SELF-CARE Instructions: Weakness ([facility]), Head Injury Precautions ([facility]) Prescriptions: Amox Tr/Potassium Clavulanate [Augmentin 875-125 Tablet] 1 tab PO BID 10 Days tablet Doxycycline Hyclate 100 mg PO BID #14 capsule Referrals: VISHAL BROWN PA-C [ALLIED HEALTH PROFESSIONAL] - Follow up as needed
[2019-03-10 19:13] LABS: ABSOLUTE LYMPHOCYTES# (MANUAL) 1.1 10^3/uL (0.5-4.7); ABSOLUTE MONOCYTES # (MANUAL) 1.4 10^3/uL (0.1-1.4); ANISOCYTOSIS 2+; BASOPHILS % (MANUAL) 0 % (0-2); EOSINOPHILS % (MANUAL) 1 % (0-6); LYMPHOCYTES % (MANUAL) 8 % (13-45); MONOCYTES % (MANUAL) 10 % (3-13); NUCLEATED RED BLOOD CELLS 1 /100 WBC (0); PLATELET COMMENT ADEQUATE; SEGMENTED NEUTROPHILS % (MAN) 81 % (42-78); TOTAL CELLS COUNTED 100; TOXIC VACUOLATION PRESENT
--- NOTE | 2019-03-10 19:22 | RADIOLOGY REPORT (SQ) ---
EXAM DESCRIPTION: CT HEAD WITHOUT COMPLETED DATE/TIME: 03/10/2019 6:55 pm REASON FOR STUDY: fall, Head injury, vomiting COMPARISON: 02/02/2017 TECHNIQUE: Axial images acquired through the brain without intravenous contrast. Images reviewed wit h bone, brain and subdural windows. Images stored on PACS. All CT scanners at this facility use dose modulation, iterative reconstruction, and/or weight based d osing when appropriate to reduce radiation dose to as low as reasonably achievable (ALARA). [facility]: Dose Right [facility]: CareDose [facility]: Dose Right [facility]: Teradose 4D [facility]: Radius RADIATION DOSE: CT Rad equipment meets quality standard of care and radiation dose reduction techniq ues were employed. CTDIvol: 53.2 mGy. DLP: 991 mGy-cm.. LIMITATIONS: None. FINDINGS: VENTRICLES: Normal size and contour. CEREBRUM: No masses. No hemorrhage. No midline shift. Age appropriate white matter. No evidence for a cute infarction. CEREBELLUM: No masses. No hemorrhage. No alteration of density. No evidence for acute infarction. EXTRA-AXIAL SPACES: No fluid collections. ORBITS AND GLOBE: No intra- or extraconal masses. Normal contour of globe without masses. CALVARIUM: No fracture. PARANASAL SINUSES: No fluid. Minimal mucosal thickening. SOFT TISSUES: No mass or hematoma. OTHER: No other significant finding. IMPRESSION: NO ACUTE INTRACRANIAL FINDINGS. EVIDENCE OF ACUTE STROKE: NO. TECHNICAL DOCUMENTATION: JOB ID: [id number] [place]-72 Quality ID # [id number]: Final reports with documentation of one or more dose reduction techniques (e.g., Au tomated exposure control, adjustment of the mA and/or kV according to patient size, use of iterative reconstruction technique) 2010 [employer]- All Rights Reserved Reading location - IP/workstation name: [email or web address]
--- NOTE | 2019-03-10 19:39 | RADIOLOGY REPORT (SQ) ---
EXAM DESCRIPTION: CHEST SINGLE VIEW COMPLETED DATE/TIME: 03/10/2019 7:28 pm REASON FOR STUDY: Weakness, eval for PNA COMPARISON: 01/05/2019 TECHNIQUE: Single frontal radiographic view of the chest acquired. NUMBER OF VIEWS: One view. LIMITATIONS: None. FINDINGS: LUNGS AND PLEURA: No pneumothorax. Increased bilateral basilar interstitial thickening an d small pleural effusions. MEDIASTINUM AND HILAR STRUCTURES: Stable. HEART AND VASCULAR STRUCTURES: Stable. BONES: No acute findings. HARDWARE: CABG. Right IJ tunneled central venous catheter. OTHER: No other significant finding. IMPRESSION: Increased bilateral basilar interstitial thickening and small pleural effusions. TECHNICAL DOCUMENTATION: JOB ID: [id number] [id number] 2010 [employer]- All Rights Reserved Reading location - IP/workstation name: [email or web address]
[2019-03-10] MEDS ORDERED: AMOXICILLIN TR/POT CLAVULANATE 500-125 MG TAB PO ONE (20:30)
[2019-03-10] MEDS ORDERED: AMOXICILLIN TR/POT CLAVULANATE 250-125 MG TAB PO ONE (20:30)
[2019-03-10 20:31] LABS: ALBUMIN 3.3 g/dL (3.5-5.0); ALKALINE PHOSPHATASE 263 U/L (38-126); ANION GAP 15 (5-19); ASPARTATE AMINO TRANSFERASE 22 U/L (14-36); BILIRUBIN,DIRECT 0.6 mg/dL (0.0-0.4); BILIRUBIN,TOTAL 0.6 mg/dL (0.2-1.3); BLOOD UREA NITROGEN 69 mg/dL (7-20); CARBON DIOXIDE 24 mmol/L (22-30); CHLORIDE 89 mmol/L (98-107); GLUCOSE 146 mg/dL (75-110); POTASSIUM 4.5 mmol/L (3.6-5.0); TOTAL PROTEIN 6.4 g/dL (6.3-8.2)
[2019-03-10] MEDS ORDERED: DOXYCYCLINE HYCLATE 100 MG TABLET PO ONE (20:31)
[2019-03-10 21:01] VITALS: BP 107/72
== END 2019-03-10 21:01 | disposition home or self-care (01) ==
LOC: ER 16:38
DX: S09.90XA Unspecified injury of head, initial encounter (principal); R53.1 Weakness; W01.0XXA Fall on same level from slipping, tripping and stumbling without subsequent striking against object, initial encounter; J90 Pleural effusion, not elsewhere classified; E11.22 Type 2 diabetes mellitus with diabetic chronic kidney disease; I13.2 Hypertensive heart and chronic kidney disease with heart failure and with stage 5 chronic kidney disease, or end stage renal disease; I50.9 Heart failure, unspecified; N18.6 End stage renal disease; Z99.2 Dependence on renal dialysis; Z88.6 Allergy status to analgesic agent; Z88.3 Allergy status to other anti-infective agents; Z95.1 Presence of aortocoronary bypass graft; Z90.49 Acquired absence of other specified parts of digestive tract; Z90.710 Acquired absence of both cervix and uterus; Z99.81 Dependence on supplemental oxygen
CPT/HCPCS: 99284; 36415; 83735; 87070; 71045; 70450; A9270 ×3; J3490

== ENCOUNTER → 2019-03-10 | Outpatient (CLI) | payer MEDICARE, MEDICAID ==
[2019-03-10 16:51] LABS: ABSOLUTE BASOPHILS # (AUTO) 0.1 10^3/uL (0.0-0.2); ABSOLUTE EOSINOPHILS # (AUTO) 0.2 10^3/uL (0.0-0.6); ABSOLUTE LYMPHOCYTES (AUTO) 0.8 10^3/uL (0.5-4.7); ABSOLUTE MONOCYTES (AUTO) 1.1 10^3/uL (0.1-1.4); ABSOLUTE NEUT (AUTO) 12.9 10^3/uL (1.7-8.2); BASOPHILS % (AUTO) 0.5 % (0-2); EOSINOPHILS % (AUTO) 1.4 % (0-6); HEMATOCRIT 36.3 % (36.0-47.0); HEMOGLOBIN 11.6 g/dL (12.0-15.5); LYMPHOCYTES % (AUTO) 5.1 % (13-45); MEAN CORPUSCULAR HEMOGLOBIN 29.1 pg (27.0-33.4); MEAN CORPUSCULAR HGB CONC 32.1 g/dL (32.0-36.0); MEAN CORPUSCULAR VOLUME 91 fl (80-97); MONOCYTES % (AUTO) 7.2 % (3-13); RED BLOOD COUNT 4.01 10^6/uL (3.72-5.28); RED CELL DISTRIBUTION WIDTH 18.6 % (11.5-14.0); SEGMENTED NEUTROPHILS % (AUTO) 85.8 % (42-78); TOTAL CELLS COUNTED % (AUTO) 100 %
[2019-03-10 17:15] LABS: ANION GAP 18 (5-19); BLOOD UREA NITROGEN 66 mg/dL (7-20); CALCIUM 9.6 mg/dL (8.4-10.2); CARBON DIOXIDE 25 mmol/L (22-30); CHLORIDE 88 mmol/L (98-107); GLUCOSE 104 mg/dL (75-110); POTASSIUM 4.3 mmol/L (3.6-5.0)
[2019-03-10 17:30] LABS: PLATELET COUNT 475 10^3/uL (150-450)
== END ==
LOC: OD 15:53
PROVIDERS: ATTEND Physician Assistant Medical
DX: N18.6 End stage renal disease (principal); R39.2 Extrarenal uremia
CPT/HCPCS: 36415; 80048; 83735; 85025

== ENCOUNTER → 2019-03-20 | Outpatient (CLI) | payer MEDICARE, MEDICAID ==
[2019-03-20 11:00] LABS: ABSOLUTE BASOPHILS # (AUTO) 0.1 10^3/uL (0.0-0.2); ABSOLUTE EOSINOPHILS # (AUTO) 0.2 10^3/uL (0.0-0.6); ABSOLUTE LYMPHOCYTES (AUTO) 0.6 10^3/uL (0.5-4.7); ABSOLUTE MONOCYTES (AUTO) 0.8 10^3/uL (0.1-1.4); ABSOLUTE NEUT (AUTO) 9.9 10^3/uL (1.7-8.2); BASOPHILS % (AUTO) 0.6 % (0-2); EOSINOPHILS % (AUTO) 1.5 % (0-6); HEMOGLOBIN 11.7 g/dL (12.0-15.5); LYMPHOCYTES % (AUTO) 5.6 % (13-45); MEAN CORPUSCULAR HEMOGLOBIN 28.9 pg (27.0-33.4); MEAN CORPUSCULAR HGB CONC 31.6 g/dL (32.0-36.0); MEAN CORPUSCULAR VOLUME 91 fl (80-97); MONOCYTES % (AUTO) 6.7 % (3-13); PLATELET COUNT 389 10^3/uL (150-450); RED BLOOD COUNT 4.05 10^6/uL (3.72-5.28); RED CELL DISTRIBUTION WIDTH 19.1 % (11.5-14.0); SEGMENTED NEUTROPHILS % (AUTO) 85.6 % (42-78); TOTAL CELLS COUNTED % (AUTO) 100 %; WHITE BLOOD COUNT 11.5 10^3/uL (4.0-10.5)
[2019-03-20 11:44] LABS: ALBUMIN 3.8 g/dL (3.5-5.0); ALKALINE PHOSPHATASE 266 U/L (38-126); ANION GAP 18 (5-19); ASPARTATE AMINO TRANSFERASE 22 U/L (14-36); BILIRUBIN,DIRECT 1.1 mg/dL (0.0-0.4); BILIRUBIN,TOTAL 1.1 mg/dL (0.2-1.3); BLOOD UREA NITROGEN 52 mg/dL (7-20); CALCIUM 9.4 mg/dL (8.4-10.2); CARBON DIOXIDE 24 mmol/L (22-30); CHLORIDE 93 mmol/L (98-107); GLUCOSE 370 mg/dL (75-110); POTASSIUM 4.1 mmol/L (3.6-5.0); TOTAL PROTEIN 6.7 g/dL (6.3-8.2)
[2019-03-21 09:25] LABS: APPEARANCE,URINE CLOUDY; BILIRUBIN,URINE MODERATE (NEGATIVE); COLOR,URINE AMBER; GLUCOSE, URINE NEGATIVE (NEGATIVE); KETONES,URINE TRACE mg/dL (NEGATIVE); LEUKOCYTE ESTERASE,URINE MODERATE (NEGATIVE); NITRITE,URINE NEGATIVE (NEGATIVE); PROTEIN,URINE 30 mg/dL (NEGATIVE); URINE SPECIFIC GRAVITY 1.028
== END ==
LOC: OD 10:29
PROVIDERS: ATTEND Internal Medicine Nephrology
DX: N39.0 Urinary tract infection, site not specified (principal); R25.9 Unspecified abnormal involuntary movements
CPT/HCPCS: 36415; 80053; 81001; 82140; 85025

== ENCOUNTER 2019-03-29 10:49 | Emergency (ER) | payer MEDICARE, MEDICAID ==
[2019-03-29 10:57] VITALS: BP 123/64
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
--- NOTE | 2019-03-29 12:14 | RADIOLOGY REPORT (SQ) ---
EXAM DESCRIPTION: ACUTE ABDOMEN SERIES COMPLETED DATE/TIME: 03/29/2019 11:49 am REASON FOR STUDY: constipation COMPARISON: Chest x-ray dated 01/05/2019, abdomen dated 07/31/2014, CT abdomen pelvis dated 02/25/2019 NUMBER OF VIEWS: Three views. TECHNIQUE: Frontal chest, supine abdomen and upright/decubitus abdomen radiographic images acquired. LIMITATIONS: None. FINDINGS: CHEST: There is bilateral interstitial airspace disease some a which probably represents f ibrosis. Some superimposed interstitial pneumonitis or edema cannot be excluded. Dialysis catheter remains in place along with sternotomy wires. Probable small effusions. FREE AIR: None. No abnormal gas collections. BOWEL GAS PATTERN: Mild colonic prominence but no evidence of mechanical obstruction. There is moder ate amount of stool throughout the colon. CALCIFICATIONS: No suspicious calcifications. HARDWARE: Dialysis catheter overlies the left lower quadrant and pelvis. SOFT TISSUES: No gross mass or suggestion of organomegaly. BONES: No acute fracture. No worrisome bone lesions. OTHER: No other significant finding. IMPRESSION: Moderate constipation. Bilateral interstitial airspace disease with probable superimposed interstitial edema. Probable smal l effusions as well. TECHNICAL DOCUMENTATION: JOB ID: [id number] [employer]- All Rights Reserved Reading location - IP/workstation name: [email or web address]
[2019-03-29] MEDS ORDERED: MINERAL OIL 30 ML UDCUP PR ONE ×2 (12:22→14:57)
[2019-03-29 12:31] LABS: HEMATOCRIT 33.5 % (36.0-47.0); HEMOGLOBIN 10.7 g/dL (12.0-15.5); MEAN CORPUSCULAR HEMOGLOBIN 28.4 pg (27.0-33.4); MEAN CORPUSCULAR VOLUME 89 fl (80-97); PLATELET COUNT 315 10^3/uL (150-450); RED BLOOD COUNT 3.77 10^6/uL (3.72-5.28); RED CELL DISTRIBUTION WIDTH 19.2 % (11.5-14.0); WHITE BLOOD COUNT 9.1 10^3/uL (4.0-10.5)
[2019-03-29 12:47] LABS: ALBUMIN 2.9 g/dL (3.5-5.0); ALKALINE PHOSPHATASE 179 U/L (38-126); ANION GAP 11 (5-19); ASPARTATE AMINO TRANSFERASE 21 U/L (14-36); BILIRUBIN,DIRECT 0.5 mg/dL (0.0-0.4); BILIRUBIN,TOTAL 0.6 mg/dL (0.2-1.3); BLOOD UREA NITROGEN 44 mg/dL (7-20); CALCIUM 8.6 mg/dL (8.4-10.2); CARBON DIOXIDE 29 mmol/L (22-30); CHLORIDE 91 mmol/L (98-107); GLUCOSE 174 mg/dL (75-110); POTASSIUM 3.1 mmol/L (3.6-5.0)
[2019-03-29 13:03] LABS: ABSOLUTE LYMPHOCYTES# (MANUAL) 0.5 10^3/uL (0.5-4.7); ABSOLUTE MONOCYTES # (MANUAL) 0.4 10^3/uL (0.1-1.4); BASOPHILS % (MANUAL) 0 % (0-2); EOSINOPHILS % (MANUAL) 2 % (0-6); LYMPHOCYTES % (MANUAL) 6 % (13-45); MONOCYTES % (MANUAL) 4 % (3-13); SEGMENTED NEUTROPHILS % (MAN) 88 % (42-78); TOTAL CELLS COUNTED 100
[2019-03-29 13:05] LABS: PLATELET COMMENT ADEQUATE; RBC MORPHOLOGY COMMENT NORMO-CYTIC/CHROMIC
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
[2019-03-29] MEDS ORDERED: ONDANSETRON HCL INJ/PF 4 MG/2 ML SDV IV ONE (14:10)
[2019-03-29] MEDS ORDERED: ONDANSETRON ODT 4 MG TAB (6 TAB/ER DISP) PO PRN (15:59)
== END 2019-03-29 16:25 | disposition home or self-care (01) ==
LOC: ER 10:49
DX: K59.00 Constipation, unspecified (principal); I12.0 Hypertensive chronic kidney disease with stage 5 chronic kidney disease or end stage renal disease; E11.22 Type 2 diabetes mellitus with diabetic chronic kidney disease; N18.6 End stage renal disease; Z99.2 Dependence on renal dialysis; R10.9 Unspecified abdominal pain; R11.10 Vomiting, unspecified; I25.10 Atherosclerotic heart disease of native coronary artery without angina pectoris; Z95.1 Presence of aortocoronary bypass graft; Z95.5 Presence of coronary angioplasty implant and graft; Z88.1 Allergy status to other antibiotic agents; Z79.899 Other long term (current) drug therapy
CPT/HCPCS: 99283; 96374; 36415; 83690; 85025; 80053; 84484; 74022; J3490; J2405

== ENCOUNTER 2019-03-31 17:06 | Inpatient (IN) | payer MEDICARE, MEDICAID ==
--- NOTE | 2019-03-31 17:34 | ER Document Report ---
ED Medical Screen (RME) - General Chief Complaint: Abdominal Pain Stated Complaint: SHORTNESS OF BREATH Time Seen by Provider: 03/31/19 17:24 Mode of Arrival: Wheelchair Information source: Patient, Relative Notes: 68-year-old female presented to ED for complaint of very short of breath. She states she was seen here Wednesday for severe constipation. She had 2 soapsuds enemas. She states it worked a little bit and then she went home and her doctor gave her mag citrate has been drinking a lot of fluids and coffee ended up taking mineral oil and lactulose and finally had a bowel 5 bowel movements and thinks she got a lot of that out. Patient is on peritoneal dialysis and today they told her to go to dialysis twice the first time she put in the 1500 and she got at 1700 when she repeated that she put the 1500 cc in and only got 1200 out. She states that the file machine operator Dr. Garrido told her that she needs to come in if she continued to not get enough of the dialysis out that she might need hemodialysis. She is end-stage renal failure and is having pain under the ribs she also has a history of congestive heart failure. She also is taking medication because her blood pressure is so low. She is alert oriented is short of breath. She does have crackles in the bases and her O2 is 94% on 3 L which is her home O2. I have greeted and performed a rapid initial assessment of this patient. A comprehensive ED assessment and evaluation of the patient, analysis of test results and completion of medical decision making process will be conducted by an additional ED providers. TRAVEL OUTSIDE OF THE [place] IN LAST 30 DAYS: No - Related Data Allergies/Adverse Reactions: clarithromycin [From Biaxin] Allergy (Mild, Verified 03/31/19 17:09) RASH moxifloxacin HCl [From Avelox] Allergy (Mild, Verified 03/31/19 17:09) Fever morphine Adverse Reaction (Verified 03/31/19 17:09) Past Medical History - Social History Frequency of alcohol use: None Drug Abuse: None - Past Medical History Cardiac Medical History: Reports: Hx Congestive Heart Failure, Hx Coronary Artery Disease, Hx Heart Attack, Hx Hypercholesterolemia, Hx Hypertension - Pulm. HTN Pulmonary Medical History: Reports: Hx Pneumonia Denies: Hx COPD - pulmonary fibrosis Neurological Medical History: Endocrine Medical History: Reports: Hx Diabetes Mellitus Type 2 Renal/ Medical History: Reports: Hx Peritoneal Dialysis, Hx Renal Insufficiency Malignancy Medical History: GI Medical History: Reports: Hx Gastroesophageal Reflux Disease, Hx Irritable Bowel. Denies: Hx Pancreatitis Musculoskeltal Medical History: Reports Hx Arthritis - rheumatoid, Denies Hx Systemic Lupus Erythematosus Psychiatric Medical History: Denies: Hx Depression Traumatic Medical History: Infectious Medical History: Past Surgical History: Reports: Hx Cardiac Catheterization, Hx Cardiac Surgery - CABG 2004, Hx Cholecystectomy, Hx Coronary Artery Bypass Graft, Hx Hysterectomy, Hx Open Heart Surgery - 5 bypass 2004,several stents since then, Hx Orthopedic Surgery - elbows, carpal tunnel bilat, Other - Hx sinus surgery - Immunizations Immunizations up to date: Yes Hx Diphtheria, Pertussis, Tetanus Vaccination: Yes Physical Exam - Vital signs Vitals: Temp Pulse Resp BP Pulse Ox 97.8 F 64 24 H 100/62 94 03/31/19 17:19 03/31/19 17:19 03/31/19 17:19 03/31/19 17:19 03/31/19 17:19 Course - Vital Signs Vital signs: Temp Pulse Resp BP Pulse Ox 97.8 F 64 24 H 100/62 94 03/31/19 17:19 03/31/19 17:19 03/31/19 17:19 03/31/19 17:19 03/31/19 17:19
--- NOTE | 2019-03-31 19:58 | RADIOLOGY REPORT (SQ) ---
EXAM DESCRIPTION: CHEST 2 VIEWS COMPLETED DATE/TIME: 03/31/2019 7:40 pm REASON FOR STUDY: short of breath peritoneal dialysis chf COMPARISON: 03/10/2019 EXAM PARAMETERS: NUMBER OF VIEWS: two views TECHNIQUE: Digital Frontal and Lateral radiographic views of the chest acquired. RADIATION DOSE: NA LIMITATIONS: none FINDINGS: LUNGS AND PLEURA: Mild diffuse interstitial pulmonary opacity, which is not significantly changed compared to prior examination and may reflect edema superimposed upon pulmonary fibrosis. Th ere is no new focal airspace opacity. MEDIASTINUM AND HILAR STRUCTURES: No masses or contour abnormalities. HEART AND VASCULAR STRUCTURES: Cardiomegaly status post median sternotomy. BONES: No acute findings. HARDWARE: None in the chest. OTHER: Right neck large bore multi lumen vascular catheter IMPRESSION: Mild diffuse interstitial pulmonary opacity, which is not significantly changed compared to prior examination and may reflect edema superimposed upon pulmonary fibrosis. There is no new foc al airspace opacity. Cardiomegaly. TECHNICAL DOCUMENTATION: JOB ID: [id number] [employer]- All Rights Reserved Reading location - IP/workstation name: [email or web address]
[2019-03-31 20:34] LABS: HEMATOCRIT 33.8 % (36.0-47.0); HEMOGLOBIN 10.6 g/dL (12.0-15.5); MEAN CORPUSCULAR HEMOGLOBIN 28.3 pg (27.0-33.4); MEAN CORPUSCULAR HGB CONC 31.4 g/dL (32.0-36.0); MEAN CORPUSCULAR VOLUME 90 fl (80-97); PLATELET COUNT 339 10^3/uL (150-450); RED BLOOD COUNT 3.74 10^6/uL (3.72-5.28); RED CELL DISTRIBUTION WIDTH 18.6 % (11.5-14.0); WHITE BLOOD COUNT 8.1 10^3/uL (4.0-10.5)
[2019-03-31 20:52] LABS: ALKALINE PHOSPHATASE 274 U/L (38-126); ANION GAP 12 (5-19); ASPARTATE AMINO TRANSFERASE 39 U/L (14-36); BILIRUBIN,DIRECT 0.4 mg/dL (0.0-0.4); BILIRUBIN,TOTAL 0.4 mg/dL (0.2-1.3); BLOOD UREA NITROGEN 41 mg/dL (7-20); CALCIUM 8.2 mg/dL (8.4-10.2); CARBON DIOXIDE 31 mmol/L (22-30); CHLORIDE 86 mmol/L (98-107); GLUCOSE 235 mg/dL (75-110); POTASSIUM 3.7 mmol/L (3.6-5.0)
[2019-03-31 21:06] LABS: ABSOLUTE LYMPHOCYTES# (MANUAL) 0.8 10^3/uL (0.5-4.7); ABSOLUTE MONOCYTES # (MANUAL) 0.2 10^3/uL (0.1-1.4); ANISOCYTOSIS 2+; BASOPHILS % (MANUAL) 0 % (0-2); EOSINOPHILS % (MANUAL) 0 % (0-6); HYPOCHROMASIA 1+; LYMPHOCYTES % (MANUAL) 10 % (13-45); MONOCYTES % (MANUAL) 3 % (3-13); PLATELET COMMENT ADEQUATE; SEGMENTED NEUTROPHILS % (MAN) 87 % (42-78); TOTAL CELLS COUNTED 100
--- NOTE | 2019-03-31 22:08 | ER Document Report ---
ED General - General Chief Complaint: Abdominal Pain Stated Complaint: SHORTNESS OF BREATH Time Seen by Provider: 03/31/19 17:24 Mode of Arrival: Wheelchair Notes: Patient is a pleasant 60-year-old female presents with complaints of what she expects fluid overload. She does do peritoneal dialysis. She did 2 exchanges at home today and had decreased amount of fluid take out with her exchanges. She is had increased edema in her lower extremities and has had increasing dyspnea over last [address] Garrido, patient's cash accountant, who says patient likely needs a round of hemodialysis and therefore informed him to come to the ER. She does have a port in right upper chest wall. She last required hemodialysis for similar situation just over a week ago. No recent fevers. She was recently treated for UTI. She says she makes just a very small year amount of urine. She has had some intermittent vomiting since initially being diagnosed with a UTI 1 month ago. She did recently have some constipation issues but underwent mag citrate as well as lactulose and says that she has had several bowel movements and that seems to be improved. She has no other complaints at this time. No chest pain. TRAVEL OUTSIDE OF THE [place] IN LAST 30 DAYS: No - Related Data Allergies/Adverse Reactions: clarithromycin [From Biaxin] Allergy (Mild, Verified 03/31/19 17:09) RASH moxifloxacin HCl [From Avelox] Allergy (Mild, Verified 03/31/19 17:09) Fever morphine Adverse Reaction (Verified 03/31/19 17:09) Past Medical History - General Information source: Patient, Relative - Social History Smoking Status: Never Smoker Frequency of alcohol use: None Drug Abuse: None Family History: Reviewed & Not Pertinent, Hypertension Patient has suicidal ideation: No Patient has homicidal ideation: No - Past Medical History Cardiac Medical History: Reports: Hx Congestive Heart Failure, Hx Coronary Artery Disease, Hx Heart Attack, Hx Hypercholesterolemia, Hx Hypertension - Pulm. HTN Pulmonary Medical History: Reports: Hx Pneumonia Denies: Hx COPD - pulmonary fibrosis Neurological Medical History: Endocrine Medical History: Reports: Hx Diabetes Mellitus Type 2 Renal/ Medical History: Reports: Hx Peritoneal Dialysis, Hx Renal Insufficiency Malignancy Medical History: GI Medical History: Reports: Hx Gastroesophageal Reflux Disease, Hx Irritable Bowel. Denies: Hx Pancreatitis Musculoskeletal Medical History: Reports Hx Arthritis - rheumatoid, Denies Hx Systemic Lupus Erythematosus Psychiatric Medical History: Denies: Hx Depression Traumatic Medical History: Infectious Medical History: Past Surgical History: Reports: Hx Cardiac Catheterization, Hx Cardiac Surgery - CABG 2004, Hx Cholecystectomy, Hx Coronary Artery Bypass Graft, Hx Hysterectomy, Hx Open Heart Surgery - 5 bypass 2004,several stents since then, Hx Orthopedic Surgery - elbows, carpal tunnel bilat, Other - Hx sinus surgery - Immunizations Immunizations up to date: Yes Hx Diphtheria, Pertussis, Tetanus Vaccination: Yes Hx Pneumococcal Vaccination: 01/31/12 Review of Systems - Review of Systems Notes: My Normal Review Basic REVIEW OF SYSTEMS: CONSTITUTIONAL : Denies fever, chills, or sweats. Denies recent illness. EENT: Denies eye, ear, throat, or mouth pain or symptoms. Denies nasal or sinus congestion. CARDIOVASCULAR: Denies chest pain. RESPIRATORY: diffiuclty breathing GASTROINTESTINAL: Denies abdominal pain. Occasional vomiting GENITOURINARY: Denies difficulty urinating, painful urination, burning, frequency, or blood in urine. MUSCULOSKELETAL: Denies neck or back pain or joint pain or swelling. SKIN: Denies rash or skin lesions. NEUROLOGICAL: Denies altered mental status or loss of consciousness. Denies headache. Denies weakness or paralysis or loss of use of either side. Denies problems with gait or speech. Denies sensory or motor loss. ALL OTHER SYSTEMS REVIEWED AND NEGATIVE. Physical Exam - Vital signs Vitals: Temp Pulse Resp BP Pulse Ox 97.8 F 64 24 H 100/62 94 03/31/19 17:19 03/31/19 17:19 03/31/19 17:19 03/31/19 17:19 03/31/19 17:19 - Notes Notes: General Appearance: Well nourished, alert, cooperative, no acute distress, no obvious discomfort. Vitals: reviewed, See vital signs table. Head: no swelling or tenderness to the head Eyes: PERRL, EOMI, Conjuctiva clear Mouth: No decreasd moisture Lungs: No wheezing, bibasilar rales, No rhonci, No accessory muscle use, good air exchange bilaterally. Heart: Normal rate, Regular rythm, No murmur, no rub Abdomen: Normal BS, soft, No rigidity, No abdominal tenderness, No guarding, no rebound, no abdominal masses, no organomegaly Extremities: strength 5/5 in all extremities, good pulses in all extremities, no swelling or tenderness in the extremities, 1+ bilateral lower extremity edema. Skin: warm, dry, appropriate color, no rash Neuro: speech clear, oriented x 3, normal affect, responds appropriately to questions. Course - Re-evaluation Re-evalutation: 03/31/19 22:04 Patient's left her evaluation does not show any evidence of hyperkalemia. Her BNP is very high and she does have significant amount of rales on lung rothman on auscultation. Currently she does not have increased work of breathing as long she has 3 L nasal cannula on. She does feel unwell. She does have increased edema lower extremities. I do think that she will likely benefit from hemodialysis as suggested by her cash accountant, Dr. Garrido, per the patient's rotation with him. I did speak with our nursing pasteurizing supervisor who says that we do have one available dialysis bed and therefore patient will be admitted to our facility. I did speak with Dr. Rajendra Cm, hospitalist, who agrees to evaluate the patient for admission. Dictation of this chart was performed using voice recognition software; therefore, there may be some unintended grammatical errors. - Vital Signs Vital signs: Temp Pulse Resp BP Pulse Ox 97.4 F 45 L 22 H 147/70 H 99 04/01/19 00:20 04/01/19 00:20 04/01/19 04:20 04/01/19 00:20 04/01/19 04:20 - Laboratory Result Diagrams: 04/01/19 04:03 04/01/19 04:03 Laboratory results interpreted by me: 03/31/19 03/31/19 03/31/19 20:00 20:00 20:00 Hgb 10.6 L Hct 33.8 L MCHC 31.4 L RDW 18.6 H Seg Neuts % (Manual) 87 H Lymphocytes % (Manual) 10 L Sodium 129.1 L Chloride 86 L Carbon Dioxide 31 H BUN 41 H Creatinine 6.38 H Est GFR ( Amer) 8 L Est GFR (MDRD) Non-Af 6 L Glucose 235 H Calcium 8.2 L AST 39 H Alkaline Phosphatase 274 H NT-Pro-B Natriuret Pep 65468 H Total Protein 6.0 L Albumin 3.0 L Free T3 pg/mL 03/31/19 20:00 Hgb Hct MCHC RDW Seg Neuts % (Manual) Lymphocytes % (Manual) Sodium Chloride Carbon Dioxide BUN Creatinine Est GFR ( Amer) Est GFR (MDRD) Non-Af Glucose Calcium AST Alkaline Phosphatase NT-Pro-B Natriuret Pep Total Protein Albumin Free T3 pg/mL 2.55 L Discharge - Discharge Clinical Impression: Renal failure, Nausea Fluid overload Qualifiers: Hypervolemia type: unspecified Qualified Code(s): E87.70 - Fluid overload, unspecified Condition: Stable Disposition: ADMITTED OBSERVATION Admitting Provider: Toi (Hospitalist) Unit Admitted: Telemetry
[2019-03-31] MEDS ORDERED: MAGNESIUM HYDROXIDE SUSP 30 ML UDCUP PO PRN (22:50)
[2019-03-31] MEDS ORDERED: TEMAZEPAM 15 MG CAPSULE PO PRN (22:50)
[2019-03-31] MEDS ORDERED: MAG HYDROX/AL HYDROX/SIMETH SUSP 30 ML UDCUP PO PRN (22:50)
[2019-03-31] MEDS ORDERED: ONDANSETRON 4 MG TAB.RAPDIS PO PRN (22:50)
[2019-03-31] MEDS ORDERED: ACETAMINOPHEN 325 MG TABLET PO PRN (22:56)
[2019-03-31] MEDS ORDERED: NALBUPHINE HCL INJ 10 MG/1 ML AMPULE IV PRN ×3 (22:56→23:01)
[2019-03-31] MEDS ORDERED: DEXTROSE 50%-WATER 25 GM/50 ML DISP.SYRIN IV PRN ×2 (22:57)
[2019-03-31] MEDS ORDERED: GLUCAGON,HUMAN RECOMB 1 MG INJ IM PRN (22:57)
[2019-03-31] MEDS ORDERED: DEXTROSE 40% GEL 15 GM TUBE PO PRN ×2 (22:57)
[2019-03-31] MEDS: ONDANSETRON HCL INJ/PF 4 MG/2 ML SDV IV PRN (23:45)
--- NOTE | 2019-04-01 03:55 | PDOC H&P ---
History of Present Illness Admission Date/PCP: 03/31/2019 21:52 Reji Garrido MD Patient complains of: Dyspnea History of Present Illness: JOSIANE DILLON is a 68 year old female who presented to the emergency room with a 1 day history of dyspnea. She admits that in using her peritoneal dialysis at home her output today was actually less than the input for her dialysis. She contacted her behavioral therapist, Dr. Reji Garrido, who recommended she come in for hospitalization and treatment with acute inpatient dialysis. Her dyspnea has been gradually worsening over the course of the day (now being moderate to severe) and is definitely made worse by exertion or activity despite continued use of oxygen at 3 L/min per nasal cannula at home (she did not try using BiPAP though she has it available at home). She admits accompanying generalized edema and orthopnea, but denies other associated or accompanying symptoms. She admits several prior similar episodes due to her end-stage renal disease and congestive heart failure. She has not identified other aggravating or ameliorating factors for her dyspnea. In the emergency room she was found to be hypoxic and required continuous oxygen. Her other laboratory evaluation was consistent with her end- stage renal disease and need for hemo-dialysis in the near future. Patient was subsequently admitted to the hospital for further evaluation and treatment per Dr. Garrido's request. Past Medical History Cardiac Medical History: Reports: Congestive Heart Failure, Coronary Artery Disease, Myocardial Infarction, Hyperlipidema, Hypertension - Pulm. HTN Denies: Atrial Fibrillation, DVT Pulmonary Medical History: Reports: Pneumonia Denies: Asthma, Chronic Obstructive Pulmonary Disease (COPD) - pulmonary fibrosis EENT Medical History: Denies: Cataracts, Ears - Hearing aids Neurological Medical History: Denies: Hemorrhagic CVA, Ischemic CVA, Seizures Endocrine Medical History: Reports: Diabetes Mellitus Type 2 Denies: Diabetes Mellitus Type 1, Hyperthyroidism, Hypothyroidism Renal/ Medical History: Reports: Chronic Kidney Disease, End Stage Renal Disease Denies: Nephrolithiasis Malignancy Medical History: Reports: None GI Medical History: Reports: Gastroesophageal Reflux Disease Denies: Cirrhosis, Crohn's Disease, Hepatitis, Ulcerative Colitis Musculoskeltal Medical History: Reports: Arthritis - Rheumatoid arthritis, Gout, Other - Scleroderma Denies: Fibromyalgia Skin Medical History: Denies: Eczema, Psoriasis Psychiatric Medical History: Reports: Depression Denies: Alcohol Dependency, Substance Abuse, Tobacco Dependency Traumatic Medical History: Reports: None Hematology: Reports: Anemia Denies: Sickle Cell Disease, Bleeding Tendencies Infectious Medical History: Reports: None Past Surgical History Past Surgical History: Reports: Cardiac Catheterization, Cholecystectomy, Coronary Artery Bypass Graft, Hysterectomy, Orthopedic Surgery - elbows, carpal tunnel bilat, Vascular Surgery - Dialysis port placement, Other - Hx sinus surgery Social History Information Source: Patient Lives with: Alone Smoking Status: Never Smoker Frequency of Alcohol Use: None Hx Recreational Drug Use: No Drugs: None Hx Prescription Drug Abuse: No - Advance Directive Resuscitation Status: Full Code Surrogate healthcare decision maker:: Josiane Dumont Family History Family History: CAD, DM, Hypertension. denies: Malignancy Parental Family History Reviewed: Yes Children Family History Reviewed: No Sibling(s) Family History Reviewed.: Yes Medication/Allergy Home Medications: Aspirin [Ecotrin 81 mg EC Tablet] 81 mg PO DAILY 02/01/17 Bosentan [Tracleer 125 mg Tablet] 125 mg PO Q12 02/01/17 Duloxetine HCl [Cymbalta] 60 mg PO DAILY 02/01/17 Hydralazine HCl [Apresoline 50 mg Tablet] 100 mg PO Q8 02/01/17 Insulin Degludec [Tresiba Flextouch U-100] 0 units SQ .SLD SCALE 02/01/17 Leflunomide [Arava] 10 mg PO DAILY 02/01/17 Nebivolol HCl [Bystolic] 10 mg PO Q12 02/01/17 Omeprazole 40 mg PO BIDBS 02/01/17 Pentoxifylline [Trental 400 mg Tablet.sa] 400 mg PO Q8 02/01/17 Simvastatin [Zocor 20 mg Tablet] 20 mg PO QHS 02/01/17 Tofacitinib Citrate [Xeljanz] 5 mg PO Q12 02/01/17 Valsartan [Diovan] 320 mg PO DAILY 02/01/17 Bumetanide [Bumex 1 mg Tablet] 4 mg PO QPM 02/21/18 Bumetanide [Bumex 1 mg Tablet] 5 mg PO QAM 02/21/18 Febuxostat [Uloric 80 mg Tablet] 40 mg PO DAILY 02/21/18 Ferrous Sulfate [Feosol 325 mg Tablet] 975 mg PO DAILY 02/21/18 Hydrochlorothiazide [Hydrodiuril 25 mg Tablet] 25 mg PO QAM 02/21/18 Insulin Aspart [Novolog Flexpen] 0 unit SUBCUT .SLD SCALE 02/21/18 Isosorbide Dinitrate [Isordil Titradose 20 mg Tablet] 20 mg PO Q12 02/21/18 Metolazone [Zaroxolyn] 10 mg PO DAILY 02/21/18 Potassium Chloride [Klor-Con 10 Meq Capsule ER] 40 meq PO BID 02/21/18 Cephalexin Monohydrate [Keflex 500 mg Capsule] 500 mg PO BID 7 Days #14 capsule 02/25/19 Hydrocodone/Acetaminophen [[place] 5-325 mg Tablet] 1 tab PO Q6H #8 tablet 02/25/19 [address]ox Tr/Potassium Clavulanate [Augmentin 875-125 Tablet] 1 tab PO BID 10 Days tablet 03/10/19 Doxycycline Hyclate 100 mg PO BID #14 capsule 03/10/19 Ondansetron [Zofran Odt 4 mg Tablet] 1 - 2 tab PO Q4H #20 tab.rapdis 03/29/19 Bosentan 125 mg PO BID 04/01/19 Docusate Sodium [Colace 100 mg Capsule] 100 mg PO DAILY 04/01/19 Gabapentin [Neurontin 300 mg Capsule] 300 mg PO QHS 04/01/19 Midodrine HCl [Proamatine 5 Mg Tablet] 5 mg PO LEELA 04/01/19 Midodrine HCl [Proamatine 5 Mg Tablet] 5 mg PO PDIA 04/01/19 Ranolazine [Ranolazine ER] 500 mg PO BID 04/01/19 Allergies/Adverse Reactions: clarithromycin [From Biaxin] Allergy (Mild, Verified 03/31/19 17:09) RASH moxifloxacin HCl [From Avelox] Allergy (Mild, Verified 03/31/19 17:09) Fever morphine Adverse Reaction (Verified 03/31/19 17:09) Review of Systems Constitutional: ABSENT: chills, fever(s) Eyes: ABSENT: visual disturbances, other - Eye pain Ears: ABSENT: hearing changes, other - Ear pain Nose, Mouth, and Throat: ABSENT: mouth pain, sore throat Cardiovascular: PRESENT: as per HPI, dyspnea on exertion, edema, orthropnea. ABSENT: chest pain, palpitations Respiratory: PRESENT: as per HPI, dyspnea. ABSENT: cough Gastrointestinal: PRESENT: abdominal pain - Recent cramping due to constipation, constipation - Recently treated with laxatives with excellent results. ABSENT: diarrhea, nausea, vomiting Genitourinary: ABSENT: dysuria, hematuria Musculoskeletal: ABSENT: back pain, joint swelling, muscle weakness Integumentary: ABSENT: pruritus, rash Neurological: ABSENT: confusion, convulsions, focal weakness, memory loss, syncope Psychiatric: ABSENT: anxiety, depression Endocrine: ABSENT: cold intolerance, heat intolerance Hematologic/Lymphatic: ABSENT: easy bleeding, easy bruising Allergic/Immunologic: ABSENT: seasonal rhinorrhea Physical Exam Vital Signs: Temp Pulse Resp BP Pulse Ox 97.8 F 64 24 H 100/62 94 03/31/19 17:19 03/31/19 17:19 03/31/19 17:19 03/31/19 17:19 03/31/19 17:19 Intake & Output 03/29/19 03/30/19 03/31/19 23:59 23:59 23:59 Weight 77.68 kg General appearance: PRESENT: no acute distress, cooperative, other - On supplemental oxygen via nasal cannula Head exam: PRESENT: atraumatic, normocephalic Eye exam: PRESENT: conjunctiva pink. ABSENT: conjunctival injection, scleral icterus Ear exam: PRESENT: normal external ear exam. ABSENT: bleeding, drainage Mouth exam: PRESENT: dry mucosa, neck supple Neck exam: ABSENT: thyromegaly, tracheal deviation Respiratory exam: PRESENT: decreased breath sounds - Breath sounds mildly decre ased at bilateral bases, rales - Bibasilar fine rales noted, symmetrical, unlabored, other - On supplemental nasal cannula oxygen my evaluation Cardiovascular exam: PRESENT: RRR. ABSENT: clicks, gallop, rubs Pulses: PRESENT: normal radial pulses, normal dorsalis pedis pul Vascular exam: PRESENT: normal capillary refill. ABSENT: pallor GI/Abdominal exam: PRESENT: normal bowel sounds, soft Rectal exam: PRESENT: deferred Extremities exam: PRESENT: pedal edema - Moderate pedal edema, +1 edema - Bilateral pretibial 1+ pitting edema noted. ABSENT: joint swelling, tenderness Musculoskeletal exam: ABSENT: deformity, dislocation Neurological exam: PRESENT: alert, oriented to person, oriented to place, oriented to time, oriented to situation, CN II-XII grossly intact. ABSENT: motor sensory deficit Psychiatric exam: PRESENT: appropriate affect, normal mood Skin exam: PRESENT: dry, intact, warm. ABSENT: jaundice, rash, urticaria Results Laboratory Results: 03/31/19 20:00 03/31/19 20:00 03/31/19 03/31/19 20:00 20:00 WBC 8.1 RBC 3.74 Hgb 10.6 L Hct 33.8 L MCV 90 MCH 28.3 MCHC 31.4 L RDW 18.6 H Plt Count 339 Seg Neutrophils % Not Reportable Sodium 129.1 L Potassium 3.7 Chloride 86 L Carbon Dioxide 31 H Anion Gap 12 BUN 41 H Creatinine 6.38 H Est GFR ( Amer) 8 L Glucose 235 H Calcium 8.2 L Total Bilirubin 0.4 AST 39 H Alkaline Phosphatase 274 H Total Protein 6.0 L Albumin 3.0 L 03/31/19 20:00 NT-Pro-B Natriuret Pep 84679 H Impressions: Chest X-Ray 03/31/19 17:30 IMPRESSION: Mild diffuse interstitial pulmonary opacity, which is not significantly changed compared to prior examination and may reflect edema superimposed upon pulmonary fibrosis. There is no new focal airspace opacity. Cardiomegaly. Assessment and Plan - Diagnosis (1) ESRD needing dialysis Is this a current diagnosis for this admission?: Yes Plan: Patient is admitted to inpatient services. Dr. Reji Garrido will be consulted for management of the patient's dialysis. Daily laboratories including a CBC, metabolic profile and magnesium level will be obtained. Patient will have Nubain 5 to 10 mg IV every 3 hours available on an as needed basis for pain based on a sliding scale. (2) Acute and chronic respiratory failure with hypoxia Is this a current diagnosis for this admission?: Yes Plan: Patient be treated with supplemental oxygen utilizing nasal cannula and/or noninvasive airway pressure devices such as BiPAP or CPAP. Patient's O2 sat will be maintained an adequate level, greater than 93%. Patient will have Nubain 5 to 10 mg IV every 3 hours available on an as needed basis for pain based on a sliding scale. (3) Coronary artery disease Qualifiers: Coronary Disease-Associated Artery/Lesion type: [place] artery [place] vs. transplanted heart: [place] heart Associated angina: without angina Qualified Code(s): I25.10 - Atherosclerotic heart disease of [place] coronary artery without angina pectoris Is this a current diagnosis for this admission?: Yes Plan: Patient will be continued on her usual medications for coronary artery disease. Patient will be observed clinically throughout her hospital course for any signs of change in her coronary status. Patient will also be maintained on a cardiac diet. Patient will have Nubain 5 to 10 mg IV every 3 hours available on an as needed basis for pain based on a sliding scale. (4) Chronic diastolic CHF (congestive heart failure) Is this a current diagnosis for this admission?: Yes Plan: Patient be continued on her current medications for congestive heart failure. Patient will be observed clinically throughout her hospital course for changes in her heart failure status. The patient will also be maintained on a cardiac diet. (5) Hyperlipidemia Qualifiers: Hyperlipidemia type: unspecified Qualified Code(s): E78.5 - Hyperlipidemia, unspecified Is this a current diagnosis for this admission?: Yes Plan: Patient be continued on her usual lipid therapy as well as a cardiac diet during her hospital stay. A lipid profile will be obtained to evaluate the efficacy of her current treatment. (6) Diabetes mellitus type 2 in obese Is this a current diagnosis for this admission?: Yes Plan: Patient be continued on her usual diabetic therapy and a diabetic diet. Hemoglobin A1c will be obtained to assess her current diabetic therapy for efficacy. Before meals and at bedtime Accu-Cheks to be performed with a sliding scale insulin administered for hyperglycemia and a hypoglycemic protocol in place. Patient will have Nubain 5 to 10 mg IV every 3 hours available on an as needed basis for pain based on a sliding scale. - Time Time Spent with patient: 25-34 minutes Medications reviewed and adjusted accordingly: Yes Anticipated discharge: Home - Inpatient Certification Based on my medical assessment, after consideration of the patient's comorbidities, presenting symptoms, or acuity I expect that the services needed warrant INPATIENT care.: Yes I certify that my determination is in accordance with my understanding of Medicare's requirements for reasonable and necessary INPATIENT services [42 CFR 412.3e].: Yes Medical Necessity: Significant Comorbidiites Make Outpatient Treatment Too Risky, Need Close Monitoring Due to Risk of Patient Decompensation, Risk of Complication if Not Cared For in Hospital, Risk of Diagnosis Which Will Require Inpatient Eval/Care/Monitoring, Other - Need for respiratory support and supplemental oxygen possibly require use of BiPAP
--- NOTE | 2019-04-01 04:02 | ADVANCED CARE ---
- Diagnosis (1) ESRD needing dialysis Diagnosis Current: Yes (2) Acute and chronic respiratory failure with hypoxia Diagnosis Current: Yes (3) Coronary artery disease Diagnosis Current: Yes (4) Chronic diastolic CHF (congestive heart failure) Diagnosis Current: Yes (5) Hyperlipidemia Diagnosis Current: Yes (6) Diabetes mellitus type 2 in obese Diagnosis Current: Yes Attendance: The patient, her daughter Di Dumont and myself. Resuscitation Status: Full Code Discussion: After brief discussion it was determined that the CODE STATUS for Di would remain as full code at this point in time. Di Dumont has been designated as the patient's designated surrogate medical decision-maker. Care Planning Goals: 1. Patient will be full CODE STATUS for this admission. 2. Di Dumont is the patient's designated surrogate medical decision-maker. Document(s) Completed: The following information will be entered into the patient's permanent medical record via this EMR entry: 1. Patient will be full CODE STATUS for this admission. 2. Di Dumont is the patient's designated surrogate medical decision-maker. Time Spent: 16 minutes
[2019-04-01 04:37] LABS: HEMATOCRIT 35.8 % (36.0-47.0); HEMOGLOBIN 11.1 g/dL (12.0-15.5); MEAN CORPUSCULAR HEMOGLOBIN 28.1 pg (27.0-33.4); MEAN CORPUSCULAR HGB CONC 31.1 g/dL (32.0-36.0); MEAN CORPUSCULAR VOLUME 90 fl (80-97); PLATELET COUNT 342 10^3/uL (150-450); RED BLOOD COUNT 3.97 10^6/uL (3.72-5.28); RED CELL DISTRIBUTION WIDTH 19.3 % (11.5-14.0)
[2019-04-01 04:51] LABS: ANION GAP 15 (5-19); BLOOD UREA NITROGEN 45 mg/dL (7-20); CALCIUM 8.8 mg/dL (8.4-10.2); CARBON DIOXIDE 29 mmol/L (22-30); CHLORIDE 85 mmol/L (98-107); GLUCOSE 189 mg/dL (75-110); POTASSIUM 4.1 mmol/L (3.6-5.0); TRIGLYCERIDES 111 mg/dL (<150)
[2019-04-01 05:01] LABS: DIRECT LDL 37 mg/dL (<100)
[2019-04-01] MEDS: HEPARIN SOD (PORCINE) 5,000 UNIT/ML 1 ML VIAL SUBCUT SCH ×3 (06:34→21:36)
[2019-04-01] MEDS: PANTOPRAZOLE SODIUM 40 MG TABLET.DR PO SCH ×2 (06:35→17:03)
[2019-04-01] MEDS ORDERED: SUCRALFATE 1 GM TABLET PO SCH (08:00)
[2019-04-01] MEDS ORDERED: METOCLOPRAMIDE HCL 10 MG TABLET PO SCH ×2 (08:00→11:00)
[2019-04-01] MEDS: INSULIN REG, HUMAN 100 UNIT/ML 3 ML VIAL (PYX) SUBCUT SCH ×5 (09:04→21:36)
[2019-04-01] MEDS: ISOSORBIDE DINITRATE 20 MG TABLET PO SCH ×2 (09:48→21:36)
[2019-04-01] MEDS: RANOLAZINE 500 MG TAB.SR.12H PO SCH ×2 (09:57→21:35)
[2019-04-01] MEDS: DOCUSATE SODIUM 100 MG CAPSULE PO SCH ×2 (09:57→17:08)
[2019-04-01] MEDS: ASPIRIN 81 MG TABLET, ENT COATED PO SCH (09:58)
[2019-04-01] MEDS: SUCRALFATE 1 GM TABLET PO SCH ×3 (10:00→21:36)
[2019-04-01] MEDS ORDERED: HEPARIN SOD (PORCINE) 1,000 UNIT/ML 10 ML VIAL IV PRN (11:26)
[2019-04-01] MEDS ORDERED: NORMAL SALINE 1000 ML 1,000 ML IV PRN (11:26)
[2019-04-01] MEDS ORDERED: MIDODRINE HCL 5 MG TABLET PO SCH (12:00)
--- NOTE | 2019-04-01 12:12 | PDOC CONSULTATION ---
Consultation Consult Date: 04/01/19 Provider Consulted: ERINN NEWBERRY Consult reason:: I was asked to see patient for Hemodialysis due to fluid overload. History of Present Illness Admission Date/PCP: 03/31/19 22:14 JACQUES CASTRO MD History of Present Illness: JOSIAEN DILLON is a 68 year old female with history of ESRD on peritoneal dialysis, diabetes mellitus, hypertension, scleroderma, rheumatoid arthritis, pulmonary fibrosis, CHF/CAD and chronic pain who presented to the emergency room yesterday because of increasing shortness of breath. Today the patient and her daughter at bedside provide history. About 3 days ago, last Wednesday the patient went to the emergency room because of severe constipation. She was given soapsuds enema which helped a little bit and then she was discharged home. Daughter said that when she was in the emergency room she was not drained of her PD fluid and she must have absorbed the fluid inhaler at that time. When she got home the daughter gave her magnesium citrate but did not work so eventually she was given mineral oil and lactulose which resulted in good bowel movement of about 5 times last . The daughter said that she was giving the patient a little bit more fluids to hopefully help with the constipation last . Yesterday the patient did her usual PD to the cycler and manual exchanges as she is prescribed. From her overnight exchanges the daughter reported ultrafiltration of 960ml. Her manual exchanges yesterday showed an ultrafiltration of 1700 during the first exchange but only 1200 during the second exchange. Her fill volume is 1500 mL. PD fluid effluent has been clear. The patient complains of increasing shortness of breath for the last 3 days associated with increasing lower extremity edema. She reports dyspnea on exertion on minimal exertion and even just by talking. She admits that is been worse for the last few days. Patient also reports that she has been sleeping a lot lately and she has been jerking a little bit. She reports that this jerking movements and sleepiness happened also few weeks ago but then we had her do a back-up hemodialysis and she said she felt better after that. Yesterday when she is not getting much ultrafiltration for normal manual exchanges she called her [facility] dialysis nurse, Racheal. Daughter also reported that the patient's blood pressure was low at 99/76 and she needed to give 10 mg of midodrine to bring up her blood pressure to 114 over 70s. Racheal then contacted Dr. Garrido yesterday morning and because of the hypotension and possibility of fluid o verload, Dr. Garrido recommended that the patient go to the emergency room for hemodialysis while being monitored due to the hypotension. Patient complied and presented herself to the emergency room where she was found to be initially hypoxic and was placed on supplemental oxygen. Her initial chest x-ray yesterday also showed mild diffuse interstitial pulmonary opacity which is not significantly changed compared to prior examination and but may reflect some edema superimposed upon pulmonary fibrosis. Cardiomegaly was noted. Currently the patient still feels somewhat short of breath although she is better when she is not moving and just laying down in bed. She still feels that she is still a bit constipated. 12:05 p.m. I am seeing the patient on hemodialysis. Her blood pressure cur rently is still on the low side so we will continue to monitor the patient and adjust ultrafiltration depending on blood pressure. Discussed the plan with her dialysis nurse, Vanessa. Past Medical History Cardiac Medical History: Reports: Coronary Artery Disease, Cor Pulmonale, Hyperlipidemia, Hypertension-primary, Myocardial Infarction Pulmonary Medical History: Reports: Pneumonia, Other - Pulmonary fibrosis, pulmonary hypertension, Sjogren's syndrome Neurological Medical History: Endocrine Medical History: Reports: Diabetes Mellitus Type 2 Renal/ Medical History: Reports: End Stage Renal Disease Malignancy Medical History: GI Medical History: Reports: Gastroesophageal Reflux Disease Musculoskeltal Medical History: Reports: Arthritis - rheumatoid, Gout, Rheumatoid Arthritis, Other - Scleroderma Hematology Medical History: Reports Anemia of Chronic Kidney Disease Past Surgical History Past Surgical History: Reports: Cardiac Catheterization, Cholecystectomy, Coronary Artery Bypass Graft, Dialysis Access Surgery PD, Hysterectomy, Orthopedic Surgery - elbows, carpal tunnel bilat, Other - Hx sinus surgery Social History Information Source: Relative, [facility] Records Lives with: Alone Smoking Status: Never Smoker Frequency of Alcohol Use: None Hx Recreational Drug Use: No Drugs: None Hx Prescription Drug Abuse: No - Advance Directive Resuscitation Status: Full Code Family History Family History: Reviewed & Not Pertinent Family History: Negative for kidney disease. Parental Family History Reviewed: Yes Children Family History Reviewed: Yes Sibling(s) Family History Reviewed.: Yes Medication/Allergy Home Medications: Aspirin [Aspir-Low] 81 mg PO DAILY 04/01/19 Bosentan [Tracleer 125 mg Tablet] 125 mg PO Q12 04/01/19 Docusate Sodium [Stool Softener] 100 mg PO DAILY 04/01/19 Febuxostat [Uloric 40 mg Tablet] 40 mg PO DAILY 04/01/19 Gabapentin [Neurontin 300 mg Capsule] 300 mg PO QHS 04/01/19 Isosorbide Dinitrate [Isordil Titradose 20 Mg Tablet] 20 mg PO Q8 04/01/19 Lactulose [Constulose 10 gm/15 mL Oral Solution] 30 ml PO TID 04/01/19 Midodrine HCl [Proamatine 5 Mg Tablet] 5 mg PO LEELA 04/01/19 Midodrine HCl [Proamatine 5 Mg Tablet] 5 mg PO PDIA 04/01/19 Omeprazole 40 mg PO BID 04/01/19 Ranolazine [Ranolazine ER] 500 mg PO BID 04/01/19 Simvastatin [Zocor 20 mg Tablet] 20 mg PO QHS 04/01/19 Tofacitinib Citrate [Xeljanz] 5 mg PO BID 04/01/19 Allergies/Adverse Reactions: clarithromycin [From Biaxin] Allergy (Mild, Verified 03/31/19 17:09) RASH moxifloxacin HCl [From Avelox] Allergy (Mild, Verified 03/31/19 17:09) Fever morphine Adverse Reaction (Verified 03/31/19 17:09) Review of Systems All systems: reviewed and no additional remarkable complaints except as stated Review of Systems: Constitutional: ABSENT: chills, fatigue, fever(s), headache(s), weight gain, weight loss Eyes: ABSENT: visual disturbances Ears: ABSENT: hearing changes Cardiovascular: ABSENT: chest pain, orthropnea, palpitations; admits dyspnea on exertion and lower extremity edema Respiratory: ABSENT: cough, dyspnea, hemoptysis Gastrointestinal: ABSENT: abdominal pain, diarrhea, hematemesis, hematochezia, nausea, vomiting; admits constipation Genitourinary: ABSENT: dysuria, hematuria Musculoskeletal: ABSENT: joint swelling Integumentary: ABSENT: rash, wounds Neurological: ABSENT: abnormal gait, abnormal speech, confusion, dizziness, focal weakness, numbness, syncope; admits to some jerking movements and increased sleepiness Psychiatric: ABSENT: anxiety, depression Endocrine: ABSENT: cold intolerance, heat intolerance, polydipsia, polyuria Hematologic/Lymphatic: ABSENT: easy bleeding, easy bruising, lymphadenopathy Physical Exam Vital Signs: Temp Pulse Resp BP Pulse Ox 97.3 F 36 L 20 112/52 L 90 L 04/01/19 10:06 04/01/19 07:34 04/01/19 07:34 04/01/19 10:06 04/01/19 07:34 Intake & Output 03/31/19 04/01/19 04/02/19 06:59 06:59 06:59 Weight 58.4 kg Vitals during dialysis: Blood pressure 1O8/56, heart rate of 93, blood flow rate of 350 mL/min and dialysate flow rate of 800 mL/min. Exam: General appearance: No acute distress, cooperative, well-developed, well- nourished Head exam: PRESENT: atraumatic, normocephalic Eye exam: PRESENT: Conjunctiva slightly pale, EOMI, PERRLA. ABSENT: co njunctival injection, scleral icterus Mouth exam: PRESENT: moist, neck supple, tongue midline Neck exam: PRESENT: full ROM. ABSENT: carotid bruit, JVD, lymphadenopathy, thyromegaly Respiratory exam: PRESENT: Diminished to auscultation bilaterally. She has crackles on mid to lower lung rothman bilaterally ABSENT: rales, rhonchi, stridor, wheezes Cardiovascular exam: PRESENT: Irregular, +S1, +S2. ABSENT: systolic murmur Pulses: PRESENT: normal radial pulses, normal dorsalis pedis pulses GI/Abdominal exam: PRESENT: normal bowel sounds, soft. Mild discomfort in the right upper quadrant area. PD catheter in place. ABSENT: guarding, mass, tenderness Rectal exam: Deferred Extremities exam: PRESENT: full ROM. Grade 1 bilateral pitting edema. ABSENT: calf tenderness Musculoskeletal: PRESENT: full ROM. ABSENT: deformity Neurological exam: PRESENT: alert, Awake, Oriented to person, Oriented to place, Oriented to time, reflexes normal, CN II-XII grossly intact. ABSENT: motor sensory deficit Psychiatric exam: PRESENT: appropriate affect, normal mood. ABSENT: homicidal ideation, suicidal ideation Skin exam: PRESENT: intact, dry, warm. ABSENT: rash Results Laboratory Results: 04/01/19 04:03 04/01/19 04:03 03/31/19 03/31/19 03/31/19 20:00 20:00 20:00 WBC 8.1 RBC 3.74 Hgb 10.6 L Hct 33.8 L MCV 90 MCH 28.3 MCHC 31.4 L RDW 18.6 H Plt Count 339 Seg Neutrophils % Not Reportable Sodium 129.1 L Potassium 3.7 Chloride 86 L Carbon Dioxide 31 H Anion Gap 12 BUN 41 H Creatinine 6.38 H Est GFR ( Amer) 8 L Glucose 235 H Calcium 8.2 L Magnesium Total Bilirubin 0.4 AST 39 H Alkaline Phosphatase 274 H Total Protein 6.0 L Albumin 3.0 L Triglycerides Cholesterol LDL Cholesterol Direct VLDL Cholesterol HDL Cholesterol Free T3 pg/mL 2.55 L 04/01/19 04/01/19 04:03 04:03 WBC 10.0 RBC 3.97 Hgb 11.1 L Hct 35.8 L MCV 90 MCH 28.1 MCHC 31.1 L RDW 19.3 H Plt Count 342 Seg Neutrophils % Sodium 128.9 L Potassium 4.1 Chloride 85 L Carbon Dioxide 29 Anion Gap 15 BUN 45 H Creatinine 6.38 H Est GFR ( Amer) 8 L Glucose 189 H Calcium 8.8 Magnesium 3.4 H Total Bilirubin AST Alkaline Phosphatase Total Protein Albumin Triglycerides 111 Cholesterol 117.40 LDL Cholesterol Direct 37 VLDL Cholesterol 22.0 HDL Cholesterol 66 Free T3 pg/mL 03/31/19 20:00 NT-Pro-B Natriuret Pep 48705 H Impressions: Chest X-Ray 03/31/19 17:30 IMPRESSION: Mild diffuse interstitial pulmonary opacity, which is not significantly changed compared to prior examination and may reflect edema superimposed upon pulmonary fibrosis. There is no new focal airspace opacity. Cardiomegaly. Assessment & Plan - Diagnosis (1) Fluid overload Qualifiers: Hypervolemia type: unspecified Qualified Code(s): E87.70 - Fluid overload, unspecified Is this a current diagnosis for this admission?: Yes Plan: Her ultrafiltration is most likely impaired by her ongoing constipation. We will do hemodialysis today to help with this. (2) ESRD needing dialysis Is this a current diagnosis for this admission?: Yes Plan: We will do dialysis today for 3 hours, using the patient's PermCath, with 3 potassium bath, blood flow rate of 350 mL per minute, dialysate flow rate of 800 mL per minute, ultrafiltration 3 to 4 L as tolerated, no heparin and no Procrit. Patient was given midodrine 10 mg prior to hemodialysis to prevent hypotension. Patient will be monitored throughout dialysis treatment and adjust ultrafiltration depending on blood pressure as necessary. Since we are doing hemodialysis today the patient does not need to do her peritoneal dialysis today or tomorrow. If the patient is better after dialysis today she may be able to go home tomorrow and for her to resume her peritoneal dialysis regimen as prescribed. If the patient stays here until Wednesday then we will need to decide if the patient needs either hemodialysis or peritoneal dialysis at that time. However I am hoping that the patient improves today so she can go home tomorrow. (3) Acute on chronic systolic congestive heart failure, NYHA class 3 Is this a current diagnosis for this admission?: Yes Plan: Ultrafiltration will help. (4) Constipation Qualifiers: Constipation type: unspecified constipation type Qualified Code(s): K59.00 - Constipation, unspecified Is this a current diagnosis for this admission?: Yes Plan: The patient's constipation is partially relieved for the last couple of days as a stated above. However will continue her lactulose every 6 hours while here in the hospital to maintain and hopefully improve it more. (5) Hyponatremia Is this a current diagnosis for this admission?: Yes Plan: This is due to hypervolemic state due to fluid overload as stated above. (6) Hypermagnesemia Is this a current diagnosis for this admission?: Yes Plan: Most likely secondary to the magnesium citrate that she has received 2 days ago. She cannot receive this anymore. (7) Diabetes mellitus type 2 in obese Is this a current diagnosis for this admission?: Yes Plan: Suboptimally controlled. Defer to hospitalist service. (8) IPF (idiopathic pulmonary fibrosis) Is this a current diagnosis for this admission?: Yes - Notes Notes: Thank you very much for this consultation. - Time Time Spent: Greater than 70 Minutes
[2019-04-01] MEDS: LACTULOSE SYRUP 20 GM/30 ML UDCUP PO SCH ×3 (12:30→17:03)
--- NOTE | 2019-04-01 14:10 | Progress Note Acknowledgement ---
Progress Note Acknowledgement Progess Note Acknowledgement: I, the undersigned member of the medical staff with appropriate privileges and with supervisory authority over Ofe Aguiar, a [facility] practice allied health professional, acknowledge that I have reviewed the progress notes entered on this patient, and in my professional judgment believe that the assessment made and/or any care evidenced was appropriate
--- NOTE | 2019-04-01 14:20 | PDOC PROGRESS REPORT ---
Subjective Progress Note for:: 04/01/19 Subjective:: The patient is a 68-year-old female with past medical history significant for ESRD on home peritoneal dialysis, CHF, CAD, [place], hypertension, hyperlipidemia, DM 2, rheumatoid arthritis, gout, scleroderma, depression who was admitted 03/31/2019 for acute on chronic respiratory failure with hypoxia secondary to fluid volume overload. The patient was seen on morning rounds. She is found resting in bed comfortably on supplemental oxygen at 4 L/min while in dialysis. Patient utilizes 3 L/min at baseline. She reports improved shortness of breath while at rest, however, does note that she has not been ambulatory at this morning. She does complain of recent difficulty with constipation; did have a small bowel movement yesterday. She reports that she spoke with Dr. Garrido yesterday regarding difficulty with peritoneal dialysis and was recommended to present to the emergency department. Otherwise, she has no other questions or concerns and denies fever, chills, chest pain, palpitations, orthopnea, cough, abdominal pain, nausea and vomiting. No concerns per nursing. Reason For Visit: END STAGE RENAL DISEASE NEED DIALYSIS Physical Exam Vital Signs: Temp Pulse Resp BP Pulse Ox 97.3 F 36 L 20 112/52 L 90 L 04/01/19 10:06 04/01/19 07:34 04/01/19 07:34 04/01/19 10:06 04/01/19 07:34 Intake & Output 03/31/19 04/01/19 04/02/19 06:59 06:59 06:59 Intake Total 240 Balance 240 Weight 58.4 kg General appearance: PRESENT: no acute distress, cooperative, well-developed, well-nourished Head exam: PRESENT: atraumatic, normocephalic Eye exam: PRESENT: conjunctiva pink, EOMI, PERRLA. ABSENT: scleral icterus Ear exam: PRESENT: normal external ear exam Mouth exam: PRESENT: moist, tongue midline Neck exam: ABSENT: carotid bruit, JVD, lymphadenopathy, thyromegaly Respiratory exam: PRESENT: crackles - Bibasilar, prolonged expiratory phas, symmetrical, unlabored, other - Supplemental oxygen by nasal cannula. ABSENT: rales, rhonchi, wheezes Cardiovascular exam: PRESENT: RRR, +S1, +S2. ABSENT: diastolic murmur, rubs, systolic murmur Pulses: PRESENT: normal dorsalis pedis pul Vascular exam: PRESENT: normal capillary refill GI/Abdominal exam: PRESENT: normal bowel sounds, soft. ABSENT: distended, guarding, mass, organolmegaly, rebound, tenderness Rectal exam: PRESENT: deferred Extremities exam: PRESENT: full ROM, pedal edema - Bilaterally, +1 edema. ABSENT: calf tenderness, clubbing Neurological exam: PRESENT: alert, awake, oriented to person, oriented to place, oriented to time, oriented to situation, CN II-XII grossly intact, other - Fatigued. ABSENT: motor sensory deficit Psychiatric exam: PRESENT: appropriate affect, normal mood. ABSENT: homicidal ideation, suicidal ideation Skin exam: PRESENT: dry, intact, warm. ABSENT: cyanosis, rash Results Laboratory Results: 04/01/19 04:03 04/01/19 04:03 03/31/19 03/31/19 03/31/19 20:00 20:00 20:00 WBC 8.1 RBC 3.74 Hgb 10.6 L Hct 33.8 L MCV 90 MCH 28.3 MCHC 31.4 L RDW 18.6 H Plt Count 339 Seg Neutrophils % Not Reportable Sodium 129.1 L Potassium 3.7 Chloride 86 L Carbon Dioxide 31 H Anion Gap 12 BUN 41 H Creatinine 6.38 H Est GFR ( Amer) 8 L Glucose 235 H Calcium 8.2 L Magnesium Total Bilirubin 0.4 AST 39 H Alkaline Phosphatase 274 H Total Protein 6.0 L Albumin 3.0 L Triglycerides Cholesterol LDL Cholesterol Direct VLDL Cholesterol HDL Cholesterol Free T3 pg/mL 2.55 L 04/01/19 04/01/19 04:03 04:03 WBC 10.0 RBC 3.97 Hgb 11.1 L Hct 35.8 L MCV 90 MCH 28.1 MCHC 31.1 L RDW 19.3 H Plt Count 342 Seg Neutrophils % Sodium 128.9 L Potassium 4.1 Chloride 85 L Carbon Dioxide 29 Anion Gap 15 BUN 45 H Creatinine 6.38 H Est GFR ( Amer) 8 L Glucose 189 H Calcium 8.8 Magnesium 3.4 H Total Bilirubin AST Alkaline Phosphatase Total Protein Albumin Triglycerides 111 Cholesterol 117.40 LDL Cholesterol Direct 37 VLDL Cholesterol 22.0 HDL Cholesterol 66 Free T3 pg/mL 03/31/19 20:00 NT-Pro-B Natriuret Pep 96075 H Impressions: Chest X-Ray 03/31/19 17:30 IMPRESSION: Mild diffuse interstitial pulmonary opacity, which is not significantly changed compared to prior examination and may reflect edema superimposed upon pulmonary fibrosis. There is no new focal airspace opacity. Cardiomegaly. Assessment and Plan - Diagnosis (1) Acute and chronic respiratory failure with hypoxia Is this a current diagnosis for this admission?: Yes Plan: Likely secondary to fluid volume overload as the patient has had several days in a row with difficulty removing total peritoneal dialysis fluid. Per dialysis nurse, she is positive proximately 800 mL's. She is noted to have bibasilar crackles and is requiring 4 L to maintain oxygen saturations as compared to her baseline of 3 L/min. Currently receiving dialysis per nephrology's expertise. We will continue to provide supplemental oxygen and BiPAP as needed to maintain saturations. Encourage pulmonary toilet with incentive spirometer and ambulation. (2) ESRD needing dialysis Is this a current diagnosis for this admission?: Yes Plan: Nephrology is consulted; dialysis per their expertise. (3) Diabetes mellitus type 2 in obese Is this a current diagnosis for this admission?: Yes (4) Chronic diastolic CHF (congestive heart failure) Is this a current diagnosis for this admission?: Yes Plan: The patient's home medication regiment of isosorbide, Ranexa, and aspirin are continued. Monitor patient's heart rate and vital signs closely, she may benefit from low- dose beta-joana. However, she does have low blood pressures while in dialysis that limits their ability for fluid removal and so may not tolerate the addition. Cardiac diet. (5) Coronary artery disease Qualifiers: Coronary Disease-Associated Artery/Lesion type: [place] artery [place] vs. transplanted heart: [place]ois heart Associated angina: without angina Qualified Code(s): I25.10 - Atherosclerotic heart disease of iroquois coronary artery without angina pectoris Is this a current diagnosis for this admission?: Yes Plan: Stable and without chest pain at this time. She is monitored on continuous cardiac telemetry. Continue home dose isosorbide and Ranexa. Continue daily aspirin therapy. Cardiac diet. (6) Hyperlipidemia Qualifiers: Hyperlipidemia type: unspecified Qualified Code(s): E78.5 - Hyperlipidemia, unspecified Is this a current diagnosis for this admission?: Yes Plan: Home dose statin therapy. Cardiac diet. (7) Constipation Is this a current diagnosis for this admission?: Yes Plan: Colace twice daily. Scheduled lactulose. Milk of magnesia as needed. - Time Time Spent with patient: 15-24 minutes Medications reviewed and adjusted accordingly: Yes Anticipated discharge: Home Within: within 48 hours
[2019-04-01] MEDS ORDERED: NORMAL SALINE 1000 ML 250 ML IV PRN (16:24)
[2019-04-01] MEDS: GABAPENTIN 300 MG CAPSULE PO SCH (21:37)
[2019-04-01] MEDS ORDERED: INSULIN REG, HUMAN 100 UNIT/ML 3 ML VIAL SUBCUT ONE (23:59)
[2019-04-02] MEDS: LACTULOSE SYRUP 20 GM/30 ML UDCUP PO SCH ×4 (00:16→17:03)
[2019-04-02] MEDS ORDERED: INSULIN REG, HUMAN 100 UNIT/ML 3 ML VIAL (PYX) SUBCUT ONE (02:00)
[2019-04-02] MEDS: PANTOPRAZOLE SODIUM 40 MG TABLET.DR PO SCH ×2 (06:12→17:03)
[2019-04-02] MEDS: HEPARIN SOD (PORCINE) 5,000 UNIT/ML 1 ML VIAL SUBCUT SCH ×3 (06:12→21:11)
[2019-04-02 07:02] LABS: ANION GAP 12 (5-19); BLOOD UREA NITROGEN 31 mg/dL (7-20); CALCIUM 8.4 mg/dL (8.4-10.2); CARBON DIOXIDE 27 mmol/L (22-30); CHLORIDE 97 mmol/L (98-107); GLUCOSE 117 mg/dL (75-110); POTASSIUM 3.3 mmol/L (3.6-5.0)
[2019-04-02 07:09] LABS: HEMATOCRIT 35.1 % (36.0-47.0); HEMOGLOBIN 10.8 g/dL (12.0-15.5); MEAN CORPUSCULAR HEMOGLOBIN 27.9 pg (27.0-33.4); MEAN CORPUSCULAR HGB CONC 30.8 g/dL (32.0-36.0); MEAN CORPUSCULAR VOLUME 91 fl (80-97); PLATELET COUNT 326 10^3/uL (150-450); RED BLOOD COUNT 3.87 10^6/uL (3.72-5.28); WHITE BLOOD COUNT 12.3 10^3/uL (4.0-10.5)
[2019-04-02] MEDS ORDERED: DOBUTAMINE HCL/D5W 500 MG/250 ML RTUINJ IV PRN (07:58)
--- NOTE | 2019-04-02 08:03 | Progress Note Acknowledgement ---
Progress Note Acknowledgement Progess Note Acknowledgement: I, the undersigned member of the medical staff with appropriate privileges and with supervisory authority over [Ulisses Hargrove], a dependent practice allied health professional, acknowledge that I have reviewed the progress notes entered on this patient, and in my professional judgment believe that the assessment made and/or any care evidenced was appropriate
[2019-04-02] MEDS: SUCRALFATE 1 GM TABLET PO SCH ×4 (08:05→21:11)
[2019-04-02] MEDS: INSULIN REG, HUMAN 100 UNIT/ML 3 ML VIAL (PYX) SUBCUT SCH ×5 (08:06→21:19)
--- NOTE | 2019-04-02 08:11 | PDOC PROGRESS REPORT ---
Subjective Progress Note for:: 04/02/19 Reason For Visit: END STAGE RENAL DISEASE NEED DIALYSIS Physical Exam Vital Signs: Temp Pulse Resp BP Pulse Ox 97.3 F 90 16 94/51 L 100 04/01/19 20:00 04/01/19 20:00 04/01/19 20:00 04/01/19 20:00 04/01/19 20:00 Intake & Output 04/01/19 04/02/19 04/03/19 06:59 06:59 06:59 Intake Total 840 Output Total 3400 Balance -2560 Weight 58.4 kg 74.5 kg General appearance: PRESENT: no acute distress, well-developed, well-nourished Neck exam: ABSENT: carotid bruit, JVD, lymphadenopathy, thyromegaly Respiratory exam: PRESENT: decreased breath sounds, rales, symmetrical, unlabored, wheezes. ABSENT: rhonchi Cardiovascular exam: PRESENT: RRR. ABSENT: diastolic murmur, rubs, systolic murmur Pulses: PRESENT: +1 pedal pulses bilateral GI/Abdominal exam: PRESENT: normal bowel sounds, soft, other - Peritoneal dialysis catheter. ABSENT: distended, guarding, mass, organolmegaly, rebound, tenderness Extremities exam: PRESENT: full ROM. ABSENT: calf tenderness, clubbing, pedal edema Neurological exam: PRESENT: alert, awake, oriented to person, oriented to place, oriented to time, oriented to situation, CN II-XII grossly intact. ABSENT: motor sensory deficit Psychiatric exam: PRESENT: appropriate affect, normal mood. ABSENT: homicidal ideation, suicidal ideation Skin exam: PRESENT: dry, intact, warm. ABSENT: cyanosis, rash Adult Front & Back Image: 1 - Hemodialysis catheter 2 - Peritoneal dialysis catheter Results Laboratory Results: 04/02/19 06:34 04/02/19 06:34 04/02/19 04/02/19 06:34 06:34 WBC 12.3 H RBC 3.87 Hgb 10.8 L Hct 35.1 L MCV 91 MCH 27.9 MCHC 30.8 L RDW 19.0 H Plt Count 326 Sodium 135.6 L Potassium 3.3 L Chloride 97 L Carbon Dioxide 27 Anion Gap 12 BUN 31 H Creatinine 5.21 H Est GFR ( Amer) 10 L Glucose 117 H Calcium 8.4 Magnesium 3.0 H 03/31/19 20:00 NT-Pro-B Natriuret Pep 76302 H Impressions: Chest X-Ray 03/31/19 17:30 IMPRESSION: Mild diffuse interstitial pulmonary opacity, which is not significantly changed compared to prior examination and may reflect edema superimposed upon pulmonary fibrosis. There is no new focal airspace opacity. C ardiomegaly. Assessment and Plan - Diagnosis (1) Acute and chronic respiratory failure with hypoxia Is this a current diagnosis for this admission?: Yes Plan: Likely secondary to fluid volume overload as the patient has had several days in a row with difficulty removing total peritoneal dialysis fluid. Per dialysis nurse, she is positive proximately 800 mL's. She is noted to have bibasilar crackles and is requiring 4 L to maintain oxygen saturations as compared to her baseline of 3 L/min. Currently receiving dialysis per nephrology's expertise. We will continue to provide supplemental oxygen and BiPAP as needed to maintain saturations. Encourage pulmonary toilet with incentive spirometer and ambulation. 04/02/2019-patient currently sitting on side of bed stating she is dizzy. Systolic blood pressure 80 at this time. Patient does take Midrin from home. Patient should undergo dialysis again in the a.m. Patient has submental oxygen going at this time I am getting an ABG as her pulse ox cannot be read. I will make change plan of care based on future findings I will transfer patient to [facility] and place patient on dobutamine at 5 mcg/kg/min. (2) ESRD needing dialysis Is this a current diagnosis for this admission?: Yes Plan: Nephrology is consulted; dialysis per their expertise. 04/02/2019-nephrology is following we will continue to follow most likely dialysis in the a.m. (3) Diabetes mellitus type 2 in obese Is this a current diagnosis for this admission?: Yes Plan: Patient be continued on her usual diabetic therapy and a diabetic diet. Hemoglobin A1c will be obtained to assess her current diabetic therapy for efficacy. Before meals and at bedtime Accu-Cheks to be performed with a sliding scale insulin administered for hyperglycemia and a hypoglycemic protocol in place. Patient will have Nubain 5 to 10 mg IV every 3 hours available on an as needed basis for pain based on a sliding scale. 04/02/2019-currently stable. We will continue to follow. We will continue sliding scale insulin before meals and at bedtime. (4) Chronic diastolic CHF (congestive heart failure) Is this a current diagnosis for this admission?: Yes Plan: The patient's home medication regiment of isosorbide, Ranexa, and aspirin are continued. Monitor patient's heart rate and vital signs closely, she may benefit from low- dose beta-joana. However, she does have low blood pressures while in dialysis that limits their ability for fluid removal and so may not tolerate the addition. Cardiac diet. 04/02/2019-at this time of DC'd isosorbide as patient is having hypotensive problems. And placed patient on dobutamine for increased cardiac kick. Patient should undergo dialysis again in the a.m. She cannot have beta-blockers at this time secondary to this hypotension. (5) Coronary artery disease Qualifiers: Coronary Disease-Associated Artery/Lesion type: [place] artery [place] vs. transplanted heart: [place] heart Associated angina: without angina Qualified Code(s): I25.10 - Atherosclerotic heart disease of [place] coronary artery without angina pectoris Is this a current diagnosis for this admission?: Yes Plan: Stable and without chest pain at this time. She is monitored on continuous cardiac telemetry. Continue home dose isosorbide and Ranexa. Continue daily aspirin therapy. Cardiac diet. 04/02/2019-stable continue to follow I have DC'd isosorbide. (6) Hyperlipidemia Qualifiers: Hyperlipidemia type: unspecified Qualified Code(s): E78.5 - Hyperlipidemia, unspecified Is this a current diagnosis for this admission?: Yes Plan: Home dose statin therapy. Cardiac diet. 04/02/2019-continue statin therapy (7) Constipation Is this a current diagnosis for this admission?: Yes Plan: Colace twice daily. Scheduled lactulose. Milk of magnesia as needed. 04/02/2019-continue Colace and lactulose. Milk of magnesia as needed (8) Hypotension Is this a current diagnosis for this admission?: Yes Plan: 04/02/2019-patient with hypotension this a.m. Patient normally runs low at home and takes Midrin. Unable to place patient on dobutamine 5 mcg/kg/min transfer her to [facility]. Most likely will require dialysis in a.m. We will continue to follow judiciously - Time Time Spent with patient: 25-34 minutes - Inpatient Certification Based on my medical assessment, after consideration of the patient's comorbidities, presenting symptoms, or acuity I expect that the services needed warrant INPATIENT care.: Yes I certify that my determination is in accordance with my understanding of Medicare's requirements for reasonable and necessary INPATIENT services [42 CFR 412.3e].: Yes Medical Necessity: Other - IV dobutamine
[2019-04-02] MEDS ORDERED: POTASSIUM CHLORIDE 10 MEQ CAPSULE.ER PO ONE (09:30)
[2019-04-02] MEDS ORDERED: MIDODRINE HCL 5 MG TABLET PO SCH ×2 (10:00→22:00)
[2019-04-02] MEDS: ASPIRIN 81 MG TABLET, ENT COATED PO SCH (10:10)
[2019-04-02] MEDS: RANOLAZINE 500 MG TAB.SR.12H PO SCH ×2 (10:12→21:10)
[2019-04-02] MEDS: DOCUSATE SODIUM 100 MG CAPSULE PO SCH ×2 (10:17→17:03)
[2019-04-02 11:32] LABS: VENOUS BLOOD HCO3 20.6 mmol/L (20-32); VENOUS BLOOD PCO2 40.3 mmHg (35-63); VENOUS BLOOD PH 7.33 (7.30-7.42)
[2019-04-02] MEDS ORDERED: DEXTROSE 50%-WATER 25 GM/50 ML DISP.SYRIN IV PRN ×2 (11:59)
[2019-04-02] MEDS ORDERED: DEXTROSE 40% GEL 15 GM TUBE PO PRN ×2 (11:59)
[2019-04-02] MEDS ORDERED: GLUCAGON,HUMAN RECOMB 1 MG INJ IM PRN (11:59)
[2019-04-02] MEDS ORDERED: LACTULOSE SYRUP 20 GM/30 ML UDCUP PO PRN (18:02)
[2019-04-02] MEDS ORDERED: MIDODRINE HCL 5 MG TABLET PO ONE (19:00)
[2019-04-02] MEDS: BOSENTAN 125 MG PO SCH (21:11)
[2019-04-02] MEDS: GABAPENTIN 300 MG CAPSULE PO SCH (21:11)
[2019-04-02] MEDS: DOBUTAMINE HCL/D5W 500 MG/250 ML RTUINJ IV PRN (23:03)
[2019-04-02] MEDS ORDERED: BENZONATATE 100 MG CAPSULE PO PRN (23:12)
[2019-04-03] MEDS ORDERED: NORMAL SALINE 1000 ML 1,000 ML IV PRN (05:00)
[2019-04-03] MEDS ORDERED: HEPARIN SOD (PORCINE) 1,000 UNIT/ML 10 ML VIAL IV PRN (05:00)
[2019-04-03] MEDS: HEPARIN SOD (PORCINE) 5,000 UNIT/ML 1 ML VIAL SUBCUT SCH ×3 (05:07→22:45)
[2019-04-03] MEDS: PANTOPRAZOLE SODIUM 40 MG TABLET.DR PO SCH ×2 (05:07→17:36)
[2019-04-03] MEDS: DOBUTAMINE HCL/D5W 500 MG/250 ML RTUINJ IV PRN (05:08)
[2019-04-03 06:14] LABS: HEMATOCRIT 30.3 % (36.0-47.0); HEMOGLOBIN 9.6 g/dL (12.0-15.5); MEAN CORPUSCULAR HEMOGLOBIN 28.6 pg (27.0-33.4); MEAN CORPUSCULAR HGB CONC 31.7 g/dL (32.0-36.0); MEAN CORPUSCULAR VOLUME 90 fl (80-97); PLATELET COUNT 251 10^3/uL (150-450); RED BLOOD COUNT 3.36 10^6/uL (3.72-5.28); RED CELL DISTRIBUTION WIDTH 19.3 % (11.5-14.0); WHITE BLOOD COUNT 10.7 10^3/uL (4.0-10.5)
[2019-04-03 06:31] LABS: ANION GAP 13 (5-19); BLOOD UREA NITROGEN 44 mg/dL (7-20); CALCIUM 8.1 mg/dL (8.4-10.2); CARBON DIOXIDE 22 mmol/L (22-30); CHLORIDE 93 mmol/L (98-107); GLUCOSE 290 mg/dL (75-110)
[2019-04-03 06:35] LABS: POTASSIUM 4.4 mmol/L (3.6-5.0)
[2019-04-03] MEDS ORDERED: MIDODRINE HCL 5 MG TABLET PO SCH ×2 (08:00→18:00)
[2019-04-03 08:11] LABS: ARTERIAL BLOOD BASE EXCESS -5.9 mmol/L; ARTERIAL BLOOD H2CO3 0.93 mmol/L (1.05-1.35); ARTERIAL BLOOD HCO3 18.2 mmol/L (20-24); ARTERIAL BLOOD PCO2 30.9 mmHg (35-45); ARTERIAL BLOOD PH 7.39 (7.35-7.45); ARTERIAL BLOOD TOTAL CO2 19.1 mmol/L (21-25)
[2019-04-03 08:14] LABS: ARTERIAL BLOOD FIO2 70%
--- NOTE | 2019-04-03 08:43 | RADIOLOGY REPORT (SQ) ---
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 TECHNIQUE: Single frontal radiographic image of the chest acquired. LIMITATIONS: None. FINDINGS: LUNGS AND PLEURA: Mild improvement aeration bilaterally. No effusions or pneumothorax. MEDIASTINUM AND HILAR STRUCTURES: Stable heart size and mediastinal structures. HEART AND VASCULAR STRUCTURES: Stable appearance. BONES: No acute findings. HARDWARE: Sternotomy wires remain in place along with dialysis catheter. OTHER: No other significant finding. IMPRESSION: Improvement in aeration bilaterally. No pneumothorax. TECHNICAL DOCUMENTATION: JOB ID: [id number] [employer]- All Rights Reserved Reading location - IP/workstation name: [email or web address]
--- NOTE | 2019-04-03 08:44 | PDOC PROGRESS REPORT ---
Subjective Progress Note for:: 04/03/19 Reason For Visit: END STAGE RENAL DISEASE NEED DIALYSIS Physical Exam Vital Signs: Temp Pulse Resp BP Pulse Ox 97.5 F 101 H 26 H 115/68 92 04/03/19 08:25 04/03/19 08:25 04/03/19 08:25 04/03/19 08:25 04/03/19 08:25 Intake & Output 04/02/19 04/03/19 04/04/19 06:59 06:59 06:59 Intake Total 840 713 Output Total 3400 0 Balance -2560 713 Weight 74.5 kg 77.3 kg 78.8 kg General appearance: PRESENT: morbidly obese, severe distress Neck exam: ABSENT: carotid bruit, JVD, lymphadenopathy, thyromegaly Respiratory exam: PRESENT: accessory muscle use, decreased breath sounds, rales, symmetrical, tachypnea, other - On BiPAP Cardiovascular exam: PRESENT: bradycardia - On BiPAP, RRR, other - Junctional rhythm rate 50 Pulses: PRESENT: +1 pedal pulses bilateral Vascular exam: PRESENT: normal capillary refill GI/Abdominal exam: PRESENT: normal bowel sounds, other - Dialysis catheter in place Extremities exam: ABSENT: clubbing, pedal edema Neurological exam: PRESENT: other - Unable to assess patient is a rapid response Focused psych exam: PRESENT: other - Unable to assess patient is rapid response Skin exam: PRESENT: dry, intact, warm. ABSENT: cyanosis, rash Results Laboratory Results: 04/03/19 05:46 04/03/19 05:46 04/02/19 04/03/19 04/03/19 11:28 05:46 05:46 WBC 10.7 H RBC 3.36 L Hgb 9.6 L Hct 30.3 L MCV 90 MCH 28.6 MCHC 31.7 L RDW 19.3 H Plt Count 251 Carbonic Acid HCO3/H2CO3 Ratio ABG pH ABG pCO2 ABG pO2 ABG HCO3 ABG O2 Saturation ABG Base Excess VBG pH 7.33 VBG pCO2 40.3 VBG HCO3 20.6 VBG Base Excess -5.0 FiO2 Sodium 128.1 L Potassium 4.4 D Chloride 93 L Carbon Dioxide 22 Anion Gap 13 BUN 44 H Creatinine 6.54 H Est GFR ( Amer) 8 L Glucose 290 H Calcium 8.1 L Magnesium 2.6 H 04/03/19 07:10 WBC RBC Hgb Hct MCV MCH MCHC RDW Plt Count Carbonic Acid 0.93 L HCO3/H2CO3 Ratio 19:1 ABG pH 7.39 ABG pCO2 30.9 L ABG pO2 Not Reportable ABG HCO3 18.2 L ABG O2 Saturation Not Reportable ABG Base Excess -5.9 VBG pH VBG pCO2 VBG HCO3 VBG Base Excess FiO2 70% Sodium Potassium Chloride Carbon Dioxide Anion Gap BUN Creatinine Est GFR ( Amer) Glucose Calcium Magnesium 03/31/19 20:00 NT-Pro-B Natriuret Pep 59156 H Assessment and Plan - Diagnosis (1) Acute and chronic respiratory failure with hypoxia Is this a current diagnosis for this admission?: Yes Plan: Likely secondary to fluid volume overload as the patient has had several days in a row with difficulty removing total peritoneal dialysis fluid. Per dialysis nurse, she is positive proximately 800 mL's. She is noted to have bibasilar crackles and is requiring 4 L to maintain oxygen saturations as compared to her baseline of 3 L/min. Currently receiving dialysis per nephrology's expertise. We will continue to provide supplemental oxygen and BiPAP as needed to maintain saturations. Encourage pulmonary toilet with incentive spirometer and ambulation. 04/02/2019-patient currently sitting on side of bed stating she is dizzy. Systolic blood pressure 80 at this time. Patient does take Midrin from home. Patient should undergo dialysis again in the a.m. Patient has submental oxygen going at this time I am getting an ABG as her pulse ox cannot be read. I will make change plan of care based on future findings I will transfer patient to [facility] and place patient on dobutamine at 5 mcg/kg/min. 04/03/2019-7 AM patient undergoing rapid response. Patient unconscious heart rate showing junctional rhythm at 50. Respiratory rate is 45-50 on BiPAP with a sat in the low 80s On 70% FiO2. FiO2 was increased to 90% with sats going into the low 90s. Attempted to give atropine 0.5 mg however patient's heart rate started coming up at that time into the 60s range. Patient already on dobutamine secondary to hypotension from yesterday at 7.5 mcg/kg/min I decided to add dopamine at this time to help increase heart rate as well as blood pressure however patient's blood pressure spontaneously came back up to the 100 systolic range. ABG was taken showing a acute metabolic acidosis with a fully compensated respiratory alkalosis. Patient was transferred to the unit for further evaluation and care. Report will be given to oncoming protector plate attacher. Most likely rest michael issues stemming from acute pulmonary edema and patient should undergo dialysis today. (2) ESRD needing dialysis Is this a current diagnosis for this admission?: Yes Plan: Nephrology is consulted; dialysis per their expertise. 04/02/2019-nephrology is following we will continue to follow most likely dialysis in the a.m. 04/03/2019-nephrology following patient. Most likely will have dialysis today. (3) Diabetes mellitus type 2 in obese Is this a current diagnosis for this admission?: Yes Plan: Patient be continued on her usual diabetic therapy and a diabetic diet. He moglobin A1c will be obtained to assess her current diabetic therapy for efficacy. Before meals and at bedtime Accu-Cheks to be performed with a sliding scale insulin administered for hyperglycemia and a hypoglycemic protocol in place. Patient will have Nubain 5 to 10 mg IV every 3 hours available on an as needed basis for pain based on a sliding scale. 04/02/2019-currently stable. We will continue to follow. We will continue sliding scale insulin before meals and at bedtime. 04/03/2019-currently hyperglycemic I will defer this to protector plate attacher for further treatment. (4) Chronic diastolic CHF (congestive heart failure) Is this a current diagnosis for this admission?: Yes Plan: The patient's home medication regiment of isosorbide, Ranexa, and aspirin are continued. Monitor patient's heart rate and vital signs closely, she may benefit from low- dose beta-joana. However, she does have low blood pressures while in dialysis that limits their ability for fluid removal and so may not tolerate the addition. Cardiac diet. 04/02/2019-at this time of DC'd isosorbide as patient is having hypotensive problems. And placed patient on dobutamine for increased cardiac kick. Patient should undergo dialysis again in the a.m. She cannot have beta-blockers at this time secondary to this hypotension. 04/03/2019-defer to protector plate attacher for further treatment. (5) Coronary artery disease Qualifiers: Coronary Disease-Associated Artery/Lesion type: [place] artery [place] vs. t ransplanted heart: [place] heart Associated angina: without angina Qualified Code(s): I25.10 - Atherosclerotic heart disease of [place] coronary artery without angina pectoris Is this a current diagnosis for this admission?: Yes Plan: Stable and without chest pain at this time. She is monitored on continuous cardiac telemetry. Continue home dose isosorbide and Ranexa. Continue daily aspirin therapy. Cardiac diet. 04/02/2019-stable continue to follow I have DC'd isosorbide. 04/03/2019-defer to protector plate attacher for further evaluation treatment. (6) Hyperlipidemia Qualifiers: Hyperlipidemia type: unspecified Qualified Code(s): E78.5 - Hyperlipidemia, unspecified Is this a current diagnosis for this admission?: Yes Plan: Home dose statin therapy. Cardiac diet. 04/02/2019-continue statin therapy 04/03/2019-defer to protector plate attacher for further evaluation treatment. (7) Constipation Is this a current diagnosis for this admission?: Yes Plan: Colace twice daily. Scheduled lactulose. Milk of magnesia as needed. 04/02/2019-continue Colace and lactulose. Milk of magnesia as needed 04/03/2019-defer to protector plate attacher for further evaluation treatment. (8) Hypotension Is this a current diagnosis for this admission?: Yes Plan: 04/02/2019-patient with hypotension this a.m. Patient normally runs low at home and takes Midrin. Unable to place patient on dobutamine 5 mcg/kg/min transfer her to [facility]. Most likely will require dialysis in a.m. We will continue to follow judiciously 04/03/2019-7 AM rapid response. Patient hypotensive blood pressure with 60 systolic. Patient on dobutamine 7.5 mcg/kg/min. Rapid response heart rate 50 junctional at this time. Decision made to give atropine 0.5 mg IV x1 however before endoscopy given patient's heart rate starts jumping up into the 60s. At that time I decided to place patient on dopamine 5 mcg/kg/min however before started heart rate was in the 80s to 90s and blood pressure was up to 100 systolic. Patient spontaneously returned to consciousness. She was transported to the ICU for further evaluation treatment with the protector plate attacher program. Upon my leaving the ICU patient was sitting up in bed able to communicate with no problems. She should undergo dialysis today. Shipping Supervisor will follow. - Time Time Spent with patient: 35 or more minutes - Inpatient Certification Based on my medical assessment, after consideration of the patient's comorbidities, presenting symptoms, or acuity I expect that the services needed warrant INPATIENT care.: Yes I certify that my determination is in accordance with my understanding of Medicare's requirements for reasonable and necessary INPATIENT services [42 CFR 412.3e].: Yes Medical Necessity: Other - IV pressors, dialysis
[2019-04-03] MEDS ORDERED: EPOETIN ALFA-EPBX 20,000 UNITS (NON-ESRD) in SYRINGE SUBCUT PRN (12:30)
--- NOTE | 2019-04-03 13:25 | PDOC PROGRESS REPORT ---
Subjective Progress Note for:: 04/03/19 Subjective:: The patient wastrnasferrred down to the ICU from the regular medical; floor becuse of transient hypotensionand bradycardia. Tisha is a dialysis patient. Had been started on dobutrex infusion yeasterday for hypotension. Has not received any chronotropic meds from what I can gather lately. At present the patient is alert and oriented. BP is running about 85-90 systolic on a dobuitgrex infusion. Reason For Visit: END STAGE RENAL DISEASE NEED DIALYSIS Physical Exam Vital Signs: Temp Pulse Resp BP Pulse Ox 97.5 F 101 H 26 H 115/68 92 04/03/19 08:25 04/03/19 08:25 04/03/19 08:25 04/03/19 08:25 04/03/19 08:25 Intake & Output 04/02/19 04/03/19 04/04/19 06:59 06:59 06:59 Intake Total 840 713 Output Total 3400 0 Balance -2560 713 Weight 74.5 kg 77.3 kg 78.8 kg General appearance: PRESENT: no acute distress Eye exam: PRESENT: conjunctival injection Respiratory exam: ABSENT: accessory muscle use, crackles, retraction Cardiovascular exam: PRESENT: RRR. ABSENT: bradycardia GI/Abdominal exam: PRESENT: hypoactive bowel sounds Rectal exam: ABSENT: black stool, bloody stool Extremities exam: PRESENT: full ROM Musculoskeletal exam: PRESENT: full ROM Neurological exam: PRESENT: alert, oriented to time, oriented to situation Results Laboratory Results: 04/03/19 05:46 04/03/19 05:46 04/02/19 04/03/19 04/03/19 11:28 05:46 05:46 WBC 10.7 H RBC 3.36 L Hgb 9.6 L Hct 30.3 L MCV 90 MCH 28.6 MCHC 31.7 L RDW 19.3 H Plt Count 251 Carbonic Acid HCO3/H2CO3 Ratio ABG pH ABG pCO2 ABG pO2 ABG HCO3 ABG O2 Saturation ABG Base Excess VBG pH 7.33 VBG pCO2 40.3 VBG HCO3 20.6 VBG Base Excess -5.0 FiO2 Sodium 128.1 L Potassium 4.4 D Chloride 93 L Carbon Dioxide 22 Anion Gap 13 BUN 44 H Creatinine 6.54 H Est GFR ( Amer) 8 L Glucose 290 H Calcium 8.1 L Magnesium 2.6 H 04/03/19 07:10 WBC RBC Hgb Hct MCV MCH MCHC RDW Plt Count Carbonic Acid 0.93 L HCO3/H2CO3 Ratio 19:1 ABG pH 7.39 ABG pCO2 30.9 L ABG pO2 Not Reportable ABG HCO3 18.2 L ABG O2 Saturation Not Reportable ABG Base Excess -5.9 VBG pH VBG pCO2 VBG HCO3 VBG Base Excess FiO2 70% Sodium Potassium Chloride Carbon Dioxide Anion Gap BUN Creatinine Est GFR ( Amer) Glucose Calcium Magnesium 03/31/19 20:00 NT-Pro-B Natriuret Pep 42844 H Impressions: Chest X-Ray 04/03/19 00:00 IMPRESSION: Improvement in aeration bilaterally. No pneumothorax. Assessment & Plan - Diagnosis (1) Acute and chronic respiratory failure with hypoxia Is this a current diagnosis for this admission?: Yes (2) Constipation Qualifiers: Constipation type: slow transit constipation Qualified Code(s): K59.01 - Slow transit constipation Is this a current diagnosis for this admission?: Yes Plan: The pateient has been placed on Lactulose and colace. (3) Diabetes mellitus type 2 in obese Is this a current diagnosis for this admission?: Yes Plan: The patient is on a sliding scale regimnen ac and HS (4) ESRD needing dialysis Is this a current diagnosis for this admission?: Yes Plan: The patient was seen by nephrology and is getting dialyzed presently. She is getting HD through a prortacath. (5) Hyponatremia Is this a current diagnosis for this admission?: Yes Plan: Will monitor. Her sodium is slightly lowat 128. I donot have old nembers for comparison. The patient is fuully alert and oriented presenrtly (6) Hypotension Qualifiers: Hypotension type: idiopathic hypotension Qualified Code(s): I95.0 - Idiopathic hypotension Is this a current diagnosis for this admission?: Yes Plan: Nephrology has requested blood cultures. to some extent her hypotension is chronic and thepatient is on midodrine. Nephrology has said that thepatient's cportisol level was checked in the past. Hasn't recieved any meds that should have dropped her Bp dramaticially.
[2019-04-03] MEDS ORDERED: EPOETIN ALFA-EPBX 20,000 UNITS (NON-ESRD) in SYRINGE IV PRN (13:30)
[2019-04-03] MEDS: SUCRALFATE 1 GM TABLET PO SCH ×3 (13:57→22:43)
[2019-04-03] MEDS: INSULIN REG, HUMAN 100 UNIT/ML 3 ML VIAL (PYX) SUBCUT SCH ×4 (13:58→21:25)
[2019-04-03] MEDS: ASPIRIN 81 MG TABLET, ENT COATED PO SCH (14:00)
[2019-04-03] MEDS: DOCUSATE SODIUM 100 MG CAPSULE PO SCH ×2 (14:00→17:49)
[2019-04-03] MEDS: BOSENTAN 125 MG PO SCH ×2 (14:01→22:49)
[2019-04-03] MEDS: MIDODRINE HCL 5 MG TABLET PO SCH ×3 (14:01→17:42)
[2019-04-03] MEDS: RANOLAZINE 500 MG TAB.SR.12H PO SCH ×2 (14:02→22:43)
--- NOTE | 2019-04-03 14:59 | PDOC PROGRESS REPORT ---
Subjective Progress Note for:: 04/03/19 Reason For Visit: Patient seen today in the ICU. Chart review was done. Patient is an ESRD patient in the background of Diabetes and has other comorbidities including pulmonary fibrosis with pulmonary hypertension on bosentan was transferred to the ICU after initial admission because of hypotension and bradycardia. She is currently on dobutamine drip. Currently her blood pressure is in the upper 90s to low 100 systolic with a heart rate in the upper 90s. She generally feeling fair and has no specific complaints. She admits to intermittent orthostasis over the last few weeks even prior to her admission. No complaints of any chest pain or focal deficits. She has poorly controlled diabetes mellitus with a recent A1c of 10+. Initial admission to the hospital was because of inadequate fluid removal on peritoneal dialysis that she has been undergoing after being converted from hemodialysis which she began around December of this year apparently secondary to poorly controlled diabetes mellitus. However she has had to go back on back-up hemodialysis because of the inability to draw fluids on PD in the face of increasing edema. She also had severe constipation which was initially thought as to be the reason why fluid removal was difficult on PD. Patient is currently being seen while undergoing dialysis without any issues. Labs and medications were reviewed. Discussions were done with the treating nurse as well as the land leases and rentals manager in the ICU. Patient was recently begun on low- dose Midodrin which is apparently not helped much with hypotension. No complaints of any fever or chills. Her IJ catheter exit site is clean with no history of discharge or pain around the exit site. Physical Exam Vital Signs: Temp Pulse Resp BP Pulse Ox 98.0 F 111 H 21 H 107/66 96 04/03/19 12:00 04/03/19 14:00 04/03/19 14:00 04/03/19 14:00 04/03/19 14:00 Intake & Output 04/02/19 04/03/19 04/04/19 06:59 06:59 06:59 Intake Total 840 713 Output Total 3400 0 0 Balance -2560 713 0 Weight 74.5 kg 77.3 kg 78.8 kg General appearance: PRESENT: no acute distress Respiratory exam: PRESENT: clear to auscultation refugio, decreased breath sounds. ABSENT: crackles Cardiovascular exam: PRESENT: +S1, +S2 GI/Abdominal exam: PRESENT: normal bowel sounds, soft. ABSENT: organomegaly, tenderness Extremities exam: PRESENT: +1 edema Neurological exam: PRESENT: alert, awake, oriented to person, oriented to place Psychiatric exam: PRESENT: appropriate affect Skin exam: ABSENT: erythema, mottled, rash Results Laboratory Results: 04/03/19 05:46 04/03/19 05:46 04/03/19 04/03/19 04/03/19 05:46 05:46 07:10 WBC 10.7 H RBC 3.36 L Hgb 9.6 L Hct 30.3 L MCV 90 MCH 28.6 MCHC 31.7 L RDW 19.3 H Plt Count 251 Carbonic Acid 0.93 L HCO3/H2CO3 Ratio 19:1 ABG pH 7.39 ABG pCO2 30.9 L ABG pO2 Not Reportable ABG HCO3 18.2 L ABG O2 Saturation Not Reportable ABG Base Excess -5.9 FiO2 70% Sodium 128.1 L Potassium 4.4 D Chloride 93 L Carbon Dioxide 22 Anion Gap 13 BUN 44 H Creatinine 6.54 H Est GFR ( Amer) 8 L Glucose 290 H Calcium 8.1 L Magnesium 2.6 H 03/31/19 20:00 NT-Pro-B Natriuret Pep 52433 H Impressions: Chest X-Ray 04/03/19 00:00 IMPRESSION: Improvement in aeration bilaterally. No pneumothorax. Assessment & Plan - Diagnosis (1) Hypotension Qualifiers: Hypotension type: idiopathic hypotension Qualified Code(s): I95.0 - Idiopathic hypotension Is this a current diagnosis for this admission?: Yes Plan: Most likely etiology for her hypotension is likely bosentan which is an endothelin receptor antagonist/vasodilator. She is currently on 125 twice daily and is taking apparently her own medication as hospital does not have this medicine. I believe this was started for her pulmonary hypertension. I would reduce the dose to 62.5 mg from the 125 mg twice daily and see how she responds to that along with addition of Midodrin. Fluid retention is also another adverse effects of this drug and between hypotension and fluid retention which is not extractable on PD she might have a major issue in long-term continuous usage of this medication. (2) ESRD needing dialysis Is this a current diagnosis for this admission?: Yes Plan: Patient currently undergoing dialysis. She is in no distress. Vital signs are obviously unstable with hypotension and therefore fluid removal on hemodialysis is going to be a problem. Discussed and reviewed orders with the treating dialysis nurse. Dialysis is being supervised to ensure safe and smooth procedure. Patient is on dobutamine and hence will help removal of some amount of fluid but may be not to the level that is needed. Continue to monitor. (3) Fluid overload Qualifiers: Hypervolemia type: unspecified Qualified Code(s): E87.70 - Fluid overload, unspecified Is this a current diagnosis for this admission?: Yes Plan: Most likely being made worse by bosentan. Monitor. (4) Hyponatremia Is this a current diagnosis for this admission?: Yes Plan: See response to fluid removal. Will put on fluid restriction of 30 cc per 24 ho urs. (5) Diabetes mellitus type 2 in obese Is this a current diagnosis for this admission?: Yes Plan: Poorly controlled as seen by the recent A1c of 10+. Advised the need for better diabetic control for obvious reasons. (6) Anemia of chronic disease Plan: Adjust erythropoietin (7) IPF (idiopathic pulmonary fibrosis) Is this a current diagnosis for this admission?: Yes Plan: Patient on bosentan for pulmonary hypertension which is as result of IPF. Possible diagnosis of scleroderma as etiology. (9) Constipation Qualifiers: Constipation type: slow transit constipation Qualified Code(s): K59.01 - Slow transit constipation Is this a current diagnosis for this admission?: Yes
[2019-04-03] MEDS ORDERED: DEXTROSE 5%-WATER 250 ML with NOREPINEPHRINE BITARTRATE 4 MG IV PRN ×2 (17:29)
[2019-04-03] MEDS ORDERED: METOPROLOL TARTRATE PF/INJ 5 MG/5 ML SDV IV PRN (19:26)
[2019-04-03] MEDS: ONDANSETRON HCL INJ/PF 4 MG/2 ML SDV IV PRN (20:58)
[2019-04-03] MEDS: GABAPENTIN 300 MG CAPSULE PO SCH (22:42)
[2019-04-04] MEDS: HEPARIN SOD (PORCINE) 5,000 UNIT/ML 1 ML VIAL SUBCUT SCH ×3 (06:39→22:00)
[2019-04-04] MEDS: PANTOPRAZOLE SODIUM 40 MG TABLET.DR PO SCH ×2 (06:39→16:13)
[2019-04-04] MEDS ORDERED: RINGERS SOLUTION,LACTATED 1,000 ML IV PRN (09:32)
[2019-04-04 09:45] LABS: ANION GAP 12 (5-19); BLOOD UREA NITROGEN 32 mg/dL (7-20); CALCIUM 8.3 mg/dL (8.4-10.2); CARBON DIOXIDE 25 mmol/L (22-30); CHLORIDE 93 mmol/L (98-107); GLUCOSE 289 mg/dL (75-110); POTASSIUM 4.8 mmol/L (3.6-5.0)
[2019-04-04] MEDS ORDERED: CEFEPIME 2 GM/D5W RTU 2 GM/50 ML RTUPB IV SCH (10:00)
[2019-04-04 10:07] LABS: ARTERIAL BLOOD BASE EXCESS -2.3 mmol/L; ARTERIAL BLOOD H2CO3 0.88 mmol/L (1.05-1.35); ARTERIAL BLOOD HCO3 20.2 mmol/L (20-24); ARTERIAL BLOOD O2 SATURATION 99.8 % (94-98); ARTERIAL BLOOD PCO2 29.2 mmHg (35-45); ARTERIAL BLOOD PH 7.46 (7.35-7.45); ARTERIAL BLOOD TOTAL CO2 21.1 mmol/L (21-25)
[2019-04-04 10:11] LABS: ARTERIAL BLOOD FIO2 75%
--- NOTE | 2019-04-04 10:37 | PDOC PROGRESS REPORT ---
Subjective Progress Note for:: 04/04/19 Subjective:: The patient is not doing well. her BP remains on the low sode at about 90/40. The patient is in Atrial fib with a heart rate of about 80. Has had to be on BIPAP all night. Attempts to removee her from BIPAP were unsuccesfu. The patient was taken off dobyutrex when she beagn too get tachycardic Reason For Visit: END STAGE RENAL DISEASE NEED DIALYSIS Physical Exam Vital Signs: Temp Pulse Resp BP Pulse Ox 98.6 F 91 22 H 85/58 L 90 L 04/04/19 08:00 04/04/19 08:00 04/04/19 08:00 04/04/19 08:00 04/04/19 08:00 Intake & Output 04/03/19 04/04/19 04/05/19 06:59 06:59 06:59 Intake Total 713 189 Output Total 0 500 0 Balance 713 -311 0 Weight 77.3 kg 78.4 kg General appearance: PRESENT: mild distress Head exam: PRESENT: atraumatic, normocephalic Eye exam: PRESENT: conjunctiva pink Neck exam: ABSENT: lymphadenopathy, thyromegaly Cardiovascular exam: PRESENT: irregular rhythm Pulses: PRESENT: +1 pedal pulses bilateral Vascular exam: PRESENT: normal capillary refill GI/Abdominal exam: PRESENT: normal bowel sounds Rectal exam: PRESENT: deferred Extremities exam: PRESENT: full ROM Neurological exam: PRESENT: alert, awake Results Laboratory Results: 04/03/19 05:46 03/31/19 20:00 NT-Pro-B Natriuret Pep [id number] H Impressions: Chest X-Ray 04/03/19 00:00 IMPRESSION: Improvement in aeration bilaterally. No pneumothorax. Assessment & Plan - Diagnosis (1) Hyponatremia Is this a current diagnosis for this admission?: Yes Plan: 04/03 Will monitor. Her sodium is slightly low at 128. I do not have old nembers for comparison. The patient is fully alert and oriented presenrtly 04/04 New labs pending (2) Acute and chronic respiratory failure with hypoxia Is this a current diagnosis for this admission?: Yes Plan: 04/03 The patient is on BIPAP presently. If her situation continues ot worsen the patient may require iuntubationand mechanical ventialtion. Repeat CXR is pending Unclear what has caused her increased 02 requirements 04/04 The patient had to go on BIPAP overnight. Attempts to wean her off overnioght were unsuccessful Her oxygen requirements are modest. Recent ABG on 75% showed a Pa02 of >400.i am concerned over the patient's woork of breathing and at some point she may require intubation. (3) Constipation Qualifiers: Constipation type: slow transit constipation Qualified Code(s): K59.01 - Slow transit constipation Is this a current diagnosis for this admission?: Yes Plan: Largely resolved after treatment with colace and other measures. (4) Diabetes mellitus type 2 in obese Is this a current diagnosis for this admission?: Yes Plan: 04/03 The patient is on a sliding scale regimnen ac and HS 04/04 The patient is running high blood sugars. I have added a small dose opf lantus daily and will continue coverage schedule. (5) Hypotension Qualifiers: Hypotension type: idiopathic hypotension Qualified Code(s): I95.0 - Idiopathic hypotension Is this a current diagnosis for this admission?: Yes Plan: cortisol level was elevated. Blood cultures were drawn yesterday. Repeat ECHO is presently pending. Her proamatine dose was increased yesterday by the renal service. She is in Atrial fib which is new and that may have contrbuted to some of the hypotension. I have started empiric abx therapy with Cefipime at this time in case this is a sepsis syndrome. Overal the patient's oputlook remains guarded. If the family wants ther transferred I would be willing to do so. 04/04 The patient remains hypotensive. Part of the issue may be loss of atrial kick when she went into Atrial fib. Her cortisol level was high. I have ordered a a procal. She is not having fever and WBC is normal. Renal took her tracleer down to 1/2 dose. In addition, the patient was placed on ahigher dose of Proamatine. I have actually sstarted cefipme in case this does repreesent a sepssis type opf picture I have started cautious fluids as well. (6) ESRD needing dialysis Is this a current diagnosis for this admission?: Yes Plan: The patient was dialyzed yesterday. I believe she is presently scheduled for qod dialysis
[2019-04-04] MEDS: RANOLAZINE 500 MG TAB.SR.12H PO SCH ×2 (10:49→21:41)
[2019-04-04] MEDS: ASPIRIN 81 MG TABLET, ENT COATED PO SCH (10:49)
[2019-04-04] MEDS: MIDODRINE HCL 5 MG TABLET PO SCH ×3 (10:49→18:13)
[2019-04-04] MEDS: SUCRALFATE 1 GM TABLET PO SCH ×4 (10:51→21:42)
[2019-04-04] MEDS: DOCUSATE SODIUM 100 MG CAPSULE PO SCH ×2 (10:51→18:13)
[2019-04-04] MEDS: CEFEPIME HCL 2 GM in DEXTROSE 5%-WATER 50 ML IV SCH (10:52)
[2019-04-04] MEDS: INSULIN REG, HUMAN 100 UNIT/ML 3 ML VIAL (PYX) SUBCUT SCH ×4 (10:53→21:52)
[2019-04-04] MEDS: INSULIN GLARGINE,HUM.REC.ANLOG 1,000 UNIT/10 ML VIAL SUBCUT SCH (10:55)
[2019-04-04] MEDS: BOSENTAN 125 MG PO SCH ×2 (10:55→21:41)
--- NOTE | 2019-04-04 13:21 | RADIOLOGY REPORT (SQ) ---
EXAM DESCRIPTION: CHEST SINGLE VIEW COMPLETED DATE/TIME: 04/04/2019 1:04 pm REASON FOR STUDY: Pulmonary Hypertension COMPARISON: 04/03/2019 NUMBER OF VIEWS: One view. TECHNIQUE: Single frontal radiographic view of the chest acquired. LIMITATIONS: None. FINDINGS: LUNGS AND PLEURA: Minimal basilar atelectasis. Small left effusion. Dialysis catheter re oskar in place. Multiple leads and wires overlie the chest. Exact location of these cannot be deter mined. MEDIASTINUM AND HILAR STRUCTURES: No masses. Contour normal. HEART AND VASCULAR STRUCTURES: Heart remains enlarged with slight central vascular prominence. BONES: No acute findings. HARDWARE: Sternotomy wires are in place. OTHER: No other significant finding. IMPRESSION: Minimal basilar atelectasis and small left effusion. TECHNICAL DOCUMENTATION: JOB ID: [id number] [employer]- All Rights Reserved Reading location - IP/workstation name: [email or web address]
--- NOTE | 2019-04-04 20:20 | XCELERA REPORT ---
[address] [address] Transthoracic Echocardiogram Report Name: JOSIANE DILLON Age: 68 yrs Gender: Female : 1950 Patient Status: Inpatient Patient Location: ICU^607^A Study Date: 04/04/2019 09:10 AM Height: 62 in Weight: 173 lb BSA: 1.8 m2 Procedure: A two-dimensional transthoracic echocardiogram with color flow and Doppler was performed. The study was technically difficult with many images being suboptimal in quality. Reason For Study: Hypotension , Ischemic Heart Disease History: Hypotension , Ischemic Heart Disease. Ordering Physician: Wilbert SYLVESTER Performed By: Shanell Washington Interpretation Summary The left ventricle is normal in size. There is normal left ventricular wall thickness. LV EF is 55% Left ventricular systolic function is low normal. Doppler measurements suggest normal left ventricular diastolic function The left ventricular wall motion is normal. Paradoxical septal motion is consistent with right ventricular volume overload There is no thrombus. No defenite ASD ,VSD ,or PFO seen. The right ventricle is not well visualized secondary to technical limitations The right atrium is mildly dilated. The left atrium is mildly dilated. There is moderate mitral annular calcification. There is no evidence of mitral valve prolapse. There is no vegetation seen on the mitral valve. There is no mitral valve stenosis. There is a severe amount of mitral regurgitation Flow reversal noted in pulmonary veins consistent with significant mitral regurgitation. There is no aortic valvular vegetation. There is aortic sclerosis without aortic stenosis. There is no LVOT obstruction. There is a mild amount of aortic regurgitation There is no tricuspid stenosis. There is a severe amount of tricuspid regurgitation There is servere pulmonary hypertension by echo RVSP is at least 67 mm of Hg , with RA mean of at least 20. There is no pulmonic valvular stenosis. There is a mild to moderate amount of pulmonic regurgitation The aortic root is normal size. The inferior vena cava appeared dilated and did not change with respiration (RAP > 20 mmHg) There is no pericardial effusion. MMode/2D Measurements & Calculations RVDd: 4.7 cm LVIDd: 4.6 cm FS: 29.5 % Ao root diam: 2.6 cm IVSd: 1.0 cm LVIDs: 3.3 cm EDV(Teich): 99.7 ml Ao root area: 5.5 cm2 LVPWd: 1.0 cm ESV(Teich): 43.4 ml LA dimension: 4.1 cm EF(Teich): 56.5 % Doppler Measurements & Calculations MV E max tiffany: MV P1/2t max tiffany: Ao V2 max: AI max tiffany: 180.2 cm/sec 180.8 cm/sec 146.0 cm/sec 290.8 cm/sec MV A max tiffany: MV P1/2t: 60.0 msec Ao max PG: AI max P.6 cm/sec MVA(P1/2t): 3.7 cm2 8.5 mmHg 33.8 mmHg MV E/A: 1.8 MV dec slope: AI dec slope: 189.2 cm/sec2 882.2 cm/sec2 AI P1/2t: MV dec time: 0.20 sec 450.3 msec LV V1 max PG: PA V2 max: PI end-d tiffany: TR max tiffany: 2.0 mmHg 66.6 cm/sec 86.9 cm/sec 342.3 cm/sec LV V1 max: PA max P.8 mmHg TR max P.1 cm/sec 46.9 mmHg AV P1/2t-pr_phl: MV P1/2t-pr_phl: 450.3 msec 60.0 msec Left Ventricle The left ventricle is normal in size. There is normal left ventricular wall thickness. LV EF is 55%. Left ventricular systolic function is low normal. Doppler measurements suggest normal left ventricular diastolic function. The left ventricular wall motion is normal. Paradoxical septal motion is consistent with right ventricular volume overload. There is no thrombus. No defenite ASD ,VSD ,or PFO seen. Right Ventricle The right ventricle is mildly dilated. The right ventricle is not well visualized secondary to technical limitations. Atria The right atrium is mildly dilated. The left atrium is mildly dilated. Mitral Valve There is moderate mitral annular calcification. There is no evidence of mitral valve prolapse. There is no vegetation seen on the mitral valve. There is no mitral valve stenosis. There is a severe amount of mitral regurgitation. Flow reversal noted in pulmonary veins consistent with significant mitral regurgitation. Aortic Valve There is no aortic valvular vegetation. There is aortic sclerosis without aortic stenosis. There is no LVOT obstruction. There is a mild amount of aortic regurgitation. Tricuspid Valve There is no tricuspid stenosis. There is a severe amount of tricuspid regurgitation. There is servere pulmonary hypertension by echo. RVSP is at least 67 mm of Hg , with RA mean of at least 20. Pulmonic Valve There is no pulmonic valvular stenosis. There is a mild to moderate amount of pulmonic regurgitation. Great Vessels The aortic root is normal size. The inferior vena cava appeared dilated and did not change with respiration (RAP > 20 mmHg). Effusions There is no pericardial effusion. : Wilbert SYLVESTER Lakshmi
--- NOTE | 2019-04-04 20:30 | PDOC PROGRESS REPORT ---
Subjective Progress Note for:: 04/04/19 Reason For Visit: Patient seen in the ICU today.She has been having difficulties with her respiration and is currently on BiPAP to maintain oxygenation. Daughter at the bedside. Discussions were done with her as well as Dr. Ledesma the sharepoint specialist. Blood pressure still tenuous in spite of maximizing her Midodrin and cutting her bosentan to 62.5 twice daily.Labs and medications were reviewed. Physical Exam Vital Signs: Temp Pulse Resp BP Pulse Ox 97.9 F 86 26 H 91/76 L 99 04/04/19 16:00 04/04/19 18:00 04/04/19 18:00 04/04/19 18:00 04/04/19 18:00 Intake & Output 04/03/19 04/04/19 04/05/19 06:59 06:59 06:59 Intake Total 713 189 814 Output Total 0 500 0 Balance 713 -311 814 Weight 77.3 kg 78.4 kg General appearance: PRESENT: mild distress - Currently on BiPAP. Respiratory exam: PRESENT: clear to auscultation refugio, crackles, decreased breath sounds Cardiovascular exam: PRESENT: +S1, +S2 GI/Abdominal exam: PRESENT: normal bowel sounds, soft. ABSENT: organomegaly, tenderness Extremities exam: ABSENT: pedal edema Neurological exam: PRESENT: alert, awake, oriented to person, oriented to place Psychiatric exam: PRESENT: appropriate affect Results Laboratory Results: 04/03/19 05:46 04/04/19 07:12 04/04/19 04/04/19 07:12 09:45 Carbonic Acid 0.88 L HCO3/H2CO3 Ratio 22:1 ABG pH 7.46 H ABG pCO2 29.2 L ABG pO2 412.0 H ABG HCO3 20.2 ABG O2 Saturation 99.8 H ABG Base Excess -2.3 FiO2 75% Sodium 129.8 L Potassium 4.8 Chloride 93 L Carbon Dioxide 25 Anion Gap 12 BUN 32 H Creatinine 4.82 H Est GFR ( Amer) 11 L Glucose 289 H Calcium 8.3 L 03/31/19 20:00 NT-Pro-B Natriuret Pep [id number] H Impressions: Chest X-Ray 04/04/19 09:14 IMPRESSION: Minimal basilar atelectasis and small left effusion. Assessment & Plan - Diagnosis (1) Hypotension Qualifiers: Hypotension type: idiopathic hypotension Qualified Code(s): I95.0 - Idiopathic hypotension Is this a current diagnosis for this admission?: Yes Plan: Most likely secondary to the bosentan. We will cut back on the dose of that as mentioned earlier. Increase and maximize Midodrin. Monitor. Echocardiogram done today shows no evidences of pericardial effusion or tamponade. However has got severe pulmonary hypertension. LV ejection fraction is 55%. (2) ESRD needing dialysis Is this a current diagnosis for this admission?: Yes Plan: Plan for dialysis in the morning. (3) Fluid overload Qualifiers: Hypervolemia type: unspecified Qualified Code(s): E87.70 - Fluid overload, unspecified Is this a current diagnosis for this admission?: Yes Plan: Currently resolved. (4) Hyponatremia Is this a current diagnosis for this admission?: Yes Plan: Currently at 128.See response to fluid removal. Will put on fluid restriction of 30 cc per 24 hours. (5) Diabetes mellitus type 2 in obese Is this a current diagnosis for this admission?: Yes Plan: Poorly controlled as seen by the recent A1c of 10+. Advised the need for better diabetic control for obvious reasons. (6) Anemia of chronic disease Plan: Adjust erythropoietin (7) IPF (idiopathic pulmonary fibrosis) Is this a current diagnosis for this admission?: Yes Plan: Patient on bosentan for pulmonary hypertension which is as result of IPF. Possible diagnosis of scleroderma as etiology. (8) Pulmonary hypertension Plan: Latest echo done today shows an RVSP of 67 mmHg indicating a severe pulmonary hypertension. However patient has been on bosentan now for approximately 7 to 8 years. However given her new issues with hypotension unfortunately we have to reduce the dose of bosentan and in fact might have to stop it completely. I discussed this at length with the patient's and her daughter. (9) Constipation Qualifiers: Constipation type: slow transit constipation Qualified Code(s): K59.01 - Slow transit constipation Is this a current diagnosis for this admission?: Yes Plan: Resolved.
[2019-04-04] MEDS: GABAPENTIN 300 MG CAPSULE PO SCH (21:42)
[2019-04-05 03:37] LABS: HEMATOCRIT 27.5 % (36.0-47.0); HEMOGLOBIN 8.8 g/dL (12.0-15.5); MEAN CORPUSCULAR HEMOGLOBIN 28.7 pg (27.0-33.4); MEAN CORPUSCULAR VOLUME 90 fl (80-97); RED BLOOD COUNT 3.07 10^6/uL (3.72-5.28); RED CELL DISTRIBUTION WIDTH 18.9 % (11.5-14.0)
[2019-04-05 03:51] LABS: ANION GAP 12 (5-19); BLOOD UREA NITROGEN 50 mg/dL (7-20); CALCIUM 8.2 mg/dL (8.4-10.2); CARBON DIOXIDE 24 mmol/L (22-30); CHLORIDE 93 mmol/L (98-107); GLUCOSE 224 mg/dL (75-110); POTASSIUM 4.5 mmol/L (3.6-5.0)
[2019-04-05] MEDS ORDERED: EPOETIN ALFA-EPBX 2,000 UNIT, EPOETIN ALFA-EPBX 3,000 UNIT in SYRINGE, DISPOSABLE, 1 EACH IV PRN (05:00)
[2019-04-05 06:35] LABS: PLATELET COUNT 92 10^3/uL (150-450)
[2019-04-05] MEDS: PANTOPRAZOLE SODIUM 40 MG TABLET.DR PO SCH (07:03)
[2019-04-05] MEDS: HEPARIN SOD (PORCINE) 5,000 UNIT/ML 1 ML VIAL SUBCUT SCH ×3 (07:03→21:08)
[2019-04-05] MEDS: INSULIN REG, HUMAN 100 UNIT/ML 3 ML VIAL (PYX) SUBCUT SCH ×4 (08:24→22:00)
[2019-04-05] MEDS: SUCRALFATE 1 GM TABLET PO SCH ×3 (08:25→16:44)
[2019-04-05] MEDS: BOSENTAN 125 MG PO SCH (10:43)
[2019-04-05] MEDS: ASPIRIN 81 MG TABLET, ENT COATED PO SCH (11:06)
[2019-04-05] MEDS: RANOLAZINE 500 MG TAB.SR.12H PO SCH ×2 (11:06→22:00)
[2019-04-05] MEDS: MIDODRINE HCL 5 MG TABLET PO SCH ×2 (11:07→14:50)
[2019-04-05] MEDS: DOCUSATE SODIUM 100 MG CAPSULE PO SCH (11:07)
[2019-04-05] MEDS: CEFEPIME HCL 2 GM in DEXTROSE 5%-WATER 50 ML IV SCH (11:07)
[2019-04-05] MEDS: INSULIN GLARGINE,HUM.REC.ANLOG 1,000 UNIT/10 ML VIAL SUBCUT SCH (11:16)
[2019-04-05] MEDS ORDERED: ETOMIDATE INJ/PF 20 MG/10 ML SDV IV ONE (12:01)
[2019-04-05] MEDS ORDERED: MIDAZOLAM 2 MG/2 ML INJ ONE (12:01)
--- NOTE | 2019-04-05 12:16 | PDOC PROGRESS REPORT ---
Subjective Progress Note for:: 04/05/19 Reason For Visit: Seen in the ICU today morning.Patient has slowly become more short of breath in spite of the fact that she was saturating 98% on room air. She is currently being placed on 2 L and her oxygen saturation is close to 100%. She denies any chest pains. She looks anxious and says please help her. Daughter mentions that episodes like this happens intermittently at home as well and resolved spontaneously. Labs and medications were reviewed. White count is gone up to 18+. Sodium stable at 128. She was subsequently seen later in the day while undergoing dialysis. At this time the patient has been intubated. Administrative Dietitian is on the case. She is undergoing dialysis but I am not removing any fluid. Blood pressure is in the high 90s to low 100 systolic.Dialysis orders were reviewed with the treating dialysis nurse. Physical Exam Vital Signs: Temp Pulse Resp BP Pulse Ox 96.8 F L 85 21 H 111/73 100 04/05/19 08:00 04/05/19 10:00 04/05/19 10:00 04/05/19 10:00 04/05/19 10:00 Intake & Output 04/04/19 04/05/19 04/06/19 06:59 06:59 06:59 Intake Total 189 944 Output Total 500 0 0 Balance -311 944 0 Weight 78.4 kg General appearance: PRESENT: mild distress Respiratory exam: PRESENT: clear to auscultation refugio, decreased breath sounds. ABSENT: crackles Cardiovascular exam: PRESENT: +S1, +S2 GI/Abdominal exam: PRESENT: normal bowel sounds, soft. ABSENT: organomegaly, tenderness Extremities exam: ABSENT: pedal edema Neurological exam: PRESENT: altered Skin exam: ABSENT: erythema, mottled, rash Results Laboratory Results: 04/05/19 03:17 04/05/19 03:17 04/05/19 04/05/19 03:17 03:17 WBC 18.0 H RBC 3.07 L Hgb 8.8 L Hct 27.5 L MCV 90 MCH 28.7 MCHC 32.0 RDW 18.9 H Plt Count 92 L Sodium 128.9 L Potassium 4.5 Chloride 93 L Carbon Dioxide 24 Anion Gap 12 BUN 50 H Creatinine 6.12 H Est GFR ( Amer) 8 L Glucose 224 H Calcium 8.2 L 03/31/19 20:00 NT-Pro-B Natriuret Pep [id number] H Impressions: Chest X-Ray 04/04/19 09:14 IMPRESSION: Minimal basilar atelectasis and small left effusion. Assessment & Plan - Diagnosis (1) Hypotension Qualifiers: Hypotension type: idiopathic hypotension Qualified Code(s): I95.0 - Idiopathic hypotension Is this a current diagnosis for this admission?: Yes Plan: Most likely secondary to the bosentan. Differential diagnosis also will include severe pulmonary hypertension, early sepsis. I will DC the bosentan given the fact the blood pressure is hovering between high 90s and low 100s. Increased and maximize Midodrin. Monitor. Echocardiogram done shows no evidences of pericardial effusion or tamponade. However has got severe pulmonary hypertension. LV ejection fraction is 55%.I believe given her severe pulmonary hypertension it could decrease the preload and will therefore give her a liter of fluid over the period of 5 hours. Discussed with scoop filler.Patient currently on antibiotics and blood cultures are negative. (2) ESRD needing dialysis Is this a current diagnosis for this admission?: Yes Plan: Patient was again subsequently seen while undergoing dialysis. Her blood pressure is in the high 90s to low 100 systolics. Dialysis is undergoing with no ultrafiltration. She looks comfortable but at the moment has been intubated. Dialysis orders were reviewed with the treating dialysis nurse. (3) Fluid overload Qualifiers: Hypervolemia type: unspecified Qualified Code(s): E87.70 - Fluid overload, unspecified Is this a current diagnosis for this admission?: Yes Plan: Currently resolved. (4) Hyponatremia Is this a current diagnosis for this admission?: Yes Plan: Currently at 128. See response to IV normal saline. (5) Diabetes mellitus type 2 in obese Is this a current diagnosis for this admission?: Yes Plan: Poorly controlled as seen by the recent A1c of 10+. (6) Anemia of chronic disease Plan: Adjust erythropoietin (7) IPF (idiopathic pulmonary fibrosis) Is this a current diagnosis for this admission?: Yes Plan: Patient on bosentan for pulmonary hypertension which is as result of IPF. Possible diagnosis of scleroderma as etiology.Will stop bosentan given her persistent hypotension. (8) Pulmonary hypertension Plan: Latest echo done today shows an RVSP of 67 mmHg indicating a severe pulmonary hypertension. However patient has been on bosentan now for approximately 7 to 8 years. However given her new issues with hypotension unfortunately we have to stop bosentan. (9) Respiratory failure requiring intubation Plan: As per scoop filler.
[2019-04-05] MEDS ORDERED: METHYLPREDNISOLONE INJ 40 MG/1 ML SDV ONE (12:22)
[2019-04-05] MEDS ORDERED: IPRATROPIUM/ALBUTEROL 0.5-2.5 MG/3 ML AMPUL NEB ONE ×2 (12:22→16:22)
[2019-04-05] MEDS ORDERED: MIDAZOLAM HCL 50 MG/100 ML RTUINJ IV PRN (13:12)
[2019-04-05] MEDS ORDERED: VANCOMYCIN HCL INJ 1000 MG VIAL IV ONE (13:58)
--- NOTE | 2019-04-05 14:00 | PDOC PROGRESS REPORT ---
Subjective Progress Note for:: 04/05/19 Subjective:: The patient is not doing well. her BP remains on the low side at about 90/40. The patient is in Atrial fib with a heart rate of about 80. Has had to be on BIPAP all night. Attempts to removee her from BIPAP were unsuccesfu. The patient was taken off dobyutrex when she beagn too get tachycardic 04/05 The patient'sbp has been in the 80-90 systolic range thepast few days. Has alternated between the BIPAP unit and nasal cannula. Her bp dropped a boit more this AM. The patient became less responsive and diphoretic. I spike to her daughter about intubation and she was ok ongoing forward. The patient was supposed to get dialysis to day. The patient had an ECHO yesterday that showed no signs of tamponade. PAP werefairly elevated in the 60s but her lVEF was about 55%. The oatient has been afebbrile. Her WBC did jump from 10 to 18 K today.' Her post-intubation CXR does not shows a new infiltrate. Blood cultures of 04/03 remain negative. I had started the patient empirically on Cefipime on 04/04. Unclear why her WBC climbed and why she has taken this turn for the worrse although her status has been rather tenuous. Reason For Visit: END STAGE RENAL DISEASE NEED DIALYSIS Physical Exam Vital Signs: Temp Pulse Resp BP Pulse Ox 96.8 F L 85 21 H 111/73 100 04/05/19 08:00 04/05/19 10:00 04/05/19 10:00 04/05/19 10:00 04/05/19 10:00 Intake & Output 04/04/19 04/05/19 04/06/19 06:59 06:59 06:59 Intake Total 189 944 Output Total 500 0 0 Balance -311 944 0 Weight 78.4 kg Physical Exam: The patient is more poorly responsive, hyponeic and diaphoretic this AM. Head exam: PRESENT: atraumatic Mouth exam: PRESENT: dry mucosa Throat exam: ABSENT: tonsillar exudate Neck exam: ABSENT: tenderness, thyromegaly Respiratory exam: PRESENT: accessory muscle use, wheezes Additional comments: Rather labored respirations and hypopnea. Pulses: PRESENT: +1 pedal pulses bilateral Vascular exam: ABSENT: normal capillary refill Additional comments: Poor cappilllary refill GI/Abdominal exam: PRESENT: hypoactive bowel sounds, soft. ABSENT: guarding Rectal exam: PRESENT: deferred Extremities exam: ABSENT: calf tenderness Musculoskeletal exam: PRESENT: full ROM Additional comments: Patient very poorly responsive and barely breathing. Does not really respind when her name is called Additional comments: cool and sweaty Results Laboratory Results: 04/05/19 03:17 04/05/19 03:17 04/05/19 04/05/19 03:17 03:17 WBC 18.0 H RBC 3.07 L Hgb 8.8 L Hct 27.5 L MCV 90 MCH 28.7 MCHC 32.0 RDW 18.9 H Plt Count 92 L Sodium 128.9 L Potassium 4.5 Chloride 93 L Carbon Dioxide 24 Anion Gap 12 BUN 50 H Creatinine 6.12 H Est GFR ( Amer) 8 L Glucose 224 H Calcium 8.2 L 03/31/19 20:00 NT-Pro-B Natriuret Pep [id number] H Impressions: Chest X-Ray 04/04/19 09:14 IMPRESSION: Minimal basilar atelectasis and small left effusion. Assessment & Plan - Diagnosis (1) Hyponatremia Is this a current diagnosis for this admission?: Yes Plan: 04/03 Will monitor. Her sodium is slightly low at 128. I do not have old nembers for comparison. The patient is fully alert and oriented presenrtly 04/04 New labs pending (2) Acute and chronic respiratory failure with hypoxia Is this a current diagnosis for this admission?: Yes Plan: 04/03 The patient is on BIPAP presently. If her situation continues ot worsen the patient may require iuntubationand mechanical ventialtion. Repeat CXR is pending Unclear what has caused her increased 02 requirements 04/04 The patient had to go on BIPAP overnight. Attempts to wean her off overnioght were unsuccessful Her oxygen requirements are modest. Recent ABG on 75% showed a Pa02 of >400.i am concerned over the patient's woork of breathing and at some point she may require intubation. 04/05 the patient had to be intubated anton acute respiratory failure. She is on a ventilator presently. I feel that it will be rahter difficult to ulitmatley wean this patient.No major resp secretions Shew was rather wheezy at the time of intubation (3) Constipation Qualifiers: Constipation type: slow transit constipation Qualified Code(s): K59.01 - Slow transit constipation Is this a current diagnosis for this admission?: Yes (4) Diabetes mellitus type 2 in obese Is this a current diagnosis for this admission?: Yes (5) Hypotension Qualifiers: Hypotension type: idiopathic hypotension Qualified Code(s): I95.0 - Idiopathic hypotension Is this a current diagnosis for this admission?: Yes Plan: cortisol level was elevated. Blood cultures were drawn yesterday. Repeat ECHO is presently pending. Her proamatine dose was increased yesterday by the renal service. She is in Atrial fib which is new and that may have contrbuted to some of the hypotension. I have started empiric abx therapy with Cefipime at this time in case this is a sepsis syndrome. Overal the patient's oputlook remains guarded. If the family wants ther transferred I would be willing to do so. 04/04 The patient remains hypotensive. Part of the issue may be loss of atrial kick when she went into Atrial fib. Her cortisol level was high. I have ordered a a procal. She is not having fever and WBC is normal. Renal took her tracleer down to 1/2 dose. In addition, the patient was placed on ahigher dose of Proamatine. I have actually sstarted cefipme in case this does repreesent a sepssis type opf picture I have started cautious fluids as well. 04/05 BP dropped to the 60-70 systolic range for uncvlear reasons this AM. Given a small fluid bolus. As noted her Proamatidine had been increased recently and her traclkeer dose decreased. (6) ESRD needing dialysis Is this a current diagnosis for this admission?: Yes Plan: The patient was dialyzed yesterday. I believe she is presently scheduled for qod dialysis 04/05 Goven her hemoprduynamic instability dialysis may be tabled for today.
[2019-04-05] MEDS ORDERED: ROCURONIUM BROMIDE INJ 50 MG/5 ML VIAL IV ONE ×3 (14:45→19:32)
--- NOTE | 2019-04-05 14:47 | PDOC PROGRESS REPORT ---
Subjective Progress Note for:: 04/05/19 Subjective:: The patient is not doing well. her BP remains on the low side at about 90/40. The patient is in Atrial fib with a heart rate of about 80. Has had to be on BIPAP all night. Attempts to removee her from BIPAP were unsuccesfu. The patient was taken off dobyutrex when she beagn too get tachycardic 04/05 The patient'sbp has been in the 80-90 systolic range thepast few days. Has alternated between the BIPAP unit and nasal cannula. Her bp dropped a boit more this AM. The patient became less responsive and diphoretic. I spike to her daughter about intubation and she was ok ongoing forward. The patient was supposed to get dialysis to day. The patient had an ECHO yesterday that showed no signs of tamponade. PAP werefairly elevated in the 60s but her lVEF was about 55%. The oatient has been afebbrile. Her WBC did jump from 10 to 18 K today.' Her post-intubation CXR does not shows a new infiltrate. Blood cultures of 04/03 remain negative. I had started the patient empirically on Cefipime on 04/04. Unclear why her WBC climbed and why she has taken this turn for the worrse although her status has been rather tenuous. Reason For Visit: Intubation Note the patient developed Acute Respiraotry Failure this AM. She became less responsive and had further droip in her BP and becam dioaphoretic. Her blood sugar was within normal limits. I discussed intubation with her daughter. The patient was placed in a snioffing psoition at the tof the bed. Arrangements were mad for suction, Ambu and intubation eqiuuipment. The patient wass on BIPAP at the time. She was administered 20mg Etomidate and Rocuronium 60 mg olpre-intubation. the cords were visualized fairly easily usinfg a #3 Mach blade and the ET tube inserted. Color change was acertained and the tube was than secured iin place. positin confiormed by ascultaionand CXR. Physical Exam Vital Signs: Temp Pulse Resp BP Pulse Ox 96.8 F L 89 16 88/50 L 98 04/05/19 08:00 04/05/19 14:00 04/05/19 14:00 04/05/19 14:00 04/05/19 14:00 Intake & Output 04/04/19 04/05/19 04/06/19 06:59 06:59 06:59 Intake Total 189 944 Output Total 500 0 0 Balance -311 944 0 Weight 78.4 kg Results Laboratory Results: 04/05/19 03:17 04/05/19 03:17 04/05/19 04/05/19 03:17 03:17 WBC 18.0 H RBC 3.07 L Hgb 8.8 L Hct 27.5 L MCV 90 MCH 28.7 MCHC 32.0 RDW 18.9 H Plt Count 92 L Sodium 128.9 L Potassium 4.5 Chloride 93 L Carbon Dioxide 24 Anion Gap 12 BUN 50 H Creatinine 6.12 H Est GFR ( Amer) 8 L Glucose 224 H Calcium 8.2 L 03/31/19 20:00 NT-Pro-B Natriuret Pep [id number] H Impressions: Chest X-Ray 04/04/19 09:14 IMPRESSION: Minimal basilar atelectasis and small left effusion. Assessment & Plan - Diagnosis (1) Hyponatremia Is this a current diagnosis for this admission?: Yes (2) Acute and chronic respiratory failure with hypoxia Is this a current diagnosis for this admission?: Yes (3) Constipation Qualifiers: Constipation type: slow transit constipation Qualified Code(s): K59.01 - Slow transit constipation Is this a current diagnosis for this admission?: Yes (4) Diabetes mellitus type 2 in obese Is this a current diagnosis for this admission?: Yes (5) Hypotension Qualifiers: Hypotension type: idiopathic hypotension Qualified Code(s): I95.0 - Idiopathic hypotension Is this a current diagnosis for this admission?: Yes (6) ESRD needing dialysis Is this a current diagnosis for this admission?: Yes
[2019-04-05] MEDS: MIDAZOLAM HCL 50 MG/100 ML RTUINJ IV PRN ×2 (16:05→20:00)
[2019-04-05] MEDS ORDERED: HEPARIN SOD (PORCINE) 1,000 UNIT/ML 10 ML VIAL IV PRN (16:27)
[2019-04-05] MEDS ORDERED: EPOETIN ALFA-EPBX 20,000 UNITS (ESRD) in SYRINGE IV PRN (16:34)
[2019-04-05] MEDS ORDERED: PHARMACY COMMUNICATION ORDER MC NR (16:45)
[2019-04-05] MEDS ORDERED: LACTULOSE SYRUP 20 GM/30 ML UDCUP NG PRN (17:00)
[2019-04-05] MEDS ORDERED: ACETAMINOPHEN 325 MG TABLET NG PRN (17:00)
[2019-04-05] MEDS ORDERED: MAG HYDROX/AL HYDROX/SIMETH SUSP 30 ML UDCUP NG PRN (17:00)
[2019-04-05] MEDS ORDERED: ONDANSETRON 4 MG TAB.RAPDIS NG PRN (17:00)
[2019-04-05] MEDS ORDERED: MAGNESIUM HYDROXIDE SUSP 30 ML UDCUP NG PRN (17:00)
--- NOTE | 2019-04-05 17:26 | RADIOLOGY REPORT (SQ) ---
EXAM DESCRIPTION: KUB/ABDOMEN (SINGLE VIEW) COMPLETED DATE/TIME: 04/05/2019 5:02 pm REASON FOR STUDY: Check Placement of NG Tube COMPARISON: 03/29/2019 NUMBER OF VIEWS: One view. TECHNIQUE: Supine radiographic image of the abdomen acquired. LIMITATIONS: Semi upright FINDINGS: BOWEL GAS PATTERN: Diffuse non-dilated gas-filled small bowel loops. Nonspecific pattern. CALCIFICATIONS: No suspicious calcifications. SOFT TISSUES: No gross mass or suggestion of organomegaly. HARDWARE: NG tube tip overlies the region of the lower GE junction. Cholecystectomy clips. Left low er quadrant catheter. BONES: No acute fracture. No worrisome bone lesions. OTHER: No other significant finding. IMPRESSION: NG tube tip overlies the region of the lower GE junction.Diffuse non-dilated gas-filled small bowel loops. Nonspecific pattern. TECHNICAL DOCUMENTATION: JOB ID: [id number] [place]-72 2010 [employer]- All Rights Reserved Reading location - IP/workstation name: [email or web address]
[2019-04-05] MEDS ORDERED: PANTOPRAZOLE SODIUM 40 MG PACKET.DR NG SCH (17:30)
[2019-04-05 17:57] LABS: ARTERIAL BLOOD BASE EXCESS -3.3 mmol/L; ARTERIAL BLOOD H2CO3 1.56 mmol/L (1.05-1.35); ARTERIAL BLOOD O2 SATURATION 32.5 % (94-98); ARTERIAL BLOOD PCO2 51.7 mmHg (35-45); ARTERIAL BLOOD PH 7.28 (7.35-7.45); ARTERIAL BLOOD TOTAL CO2 25.6 mmol/L (21-25)
[2019-04-05] MEDS ORDERED: NORMAL SALINE 1000 ML 1,000 ML IV PRN (17:57)
[2019-04-05] MEDS ORDERED: DOCUSATE SODIUM 100 MG/10 ML UDC NG SCH (18:00)
[2019-04-05] MEDS ORDERED: VANCOMYCIN HCL 1,500 MG in DEXTROSE 5%-WATER 250 ML IV ONE (18:00)
[2019-04-05] MEDS ORDERED: MIDODRINE HCL 5 MG TABLET NG SCH (18:00)
--- NOTE | 2019-04-05 18:02 | PDOC PROGRESS REPORT ---
Subjective Subjective:: The patient is not doing well. her BP remains on the low side at about 90/40. The patient is in Atrial fib with a heart rate of about 80. Has had to be on BIPAP all night. Attempts to removee her from BIPAP were unsuccesfu. The patient was taken off dobyutrex when she beagn too get tachycardic 04/05 The patient'sbp has been in the 80-90 systolic range thepast few days. Has alternated between the BIPAP unit and nasal cannula. Her bp dropped a boit more this AM. The patient became less responsive and diphoretic. I spike to her daughter about intubation and she was ok ongoing forward. The patient was supposed to get dialysis to day. The patient had an ECHO yesterday that showed no signs of tamponade. PAP werefairly elevated in the 60s but her lVEF was about 55%. The oatient has been afebbrile. Her WBC did jump from 10 to 18 K today.' Her post-intubation CXR does not shows a new infiltrate. Blood cultures of 04/03 remain negative. I had started the patient empirically on Cefipime on 04/04. Unclear why her WBC climbed and why she has taken this turn for the worrse although her status has been rather tenuous. (04/05 6PM The patient was 2.5 hours into her dialysis when she develpooped hypotensionand significant bradycardia. She was given 1 mg aTROPINE. sHE NEVER LOST HER PULSE COMPLELTELTY. The patient remained bradycardic but ultimately responded to a dose of epinephrine. The patient never required CPR. The event lasted about 5 minutes. the patient than became fairly tachycardic and regained her bp. Nevertheless, I fear that may happen recurrently and I told her daughter as much. The dialysis was stopped. I spoke t her daughter to explain the sequence of events to her, She iuis returning to the hospital. Reason For Visit: END STAGE RENAL DISEASE NEED DIALYSIS Physical Exam Vital Signs: Temp Pulse Resp BP Pulse Ox 97.3 F 96 24 H 105/84 96 04/05/19 16:00 04/05/19 16:00 04/05/19 16:28 04/05/19 16:28 04/05/19 16:28 Intake & Output 04/04/19 04/05/19 04/06/19 06:59 06:59 06:59 Intake Total 189 944 Output Total 500 0 0 Balance -311 944 0 Weight 78.4 kg Results Laboratory Results: 04/05/19 03:17 04/05/19 03:17 04/05/19 04/05/19 03:17 03:17 WBC 18.0 H RBC 3.07 L Hgb 8.8 L Hct 27.5 L MCV 90 MCH 28.7 MCHC 32.0 RDW 18.9 H Plt Count 92 L Sodium 128.9 L Potassium 4.5 Chloride 93 L Carbon Dioxide 24 Anion Gap 12 BUN 50 H Creatinine 6.12 H Est GFR ( Amer) 8 L Glucose 224 H Calcium 8.2 L 03/31/19 20:00 NT-Pro-B Natriuret Pep [id number] H Impressions: Chest X-Ray 04/04/19 09:14 IMPRESSION: Minimal basilar atelectasis and small left effusion. KUB X-Ray 04/05/19 16:41 IMPRESSION: NG tube tip overlies the region of the lower GE junction.Diffuse non-dilated gas-filled small bowel loops. Nonspecific pattern. Assessment & Plan - Diagnosis (1) Hyponatremia Is this a current diagnosis for this admission?: Yes (2) Acute and chronic respiratory failure with hypoxia Is this a current diagnosis for this admission?: Yes (3) Constipation Qualifiers: Constipation type: slow transit constipation Qualified Code(s): K59.01 - Slow transit constipation Is this a current diagnosis for this admission?: Yes (4) Diabetes mellitus type 2 in obese Is this a current diagnosis for this admission?: Yes (5) Hypotension Qualifiers: Hypotension type: idiopathic hypotension Qualified Code(s): I95.0 - Idiopathic hypotension Is this a current diagnosis for this admission?: Yes (6) ESRD needing dialysis Is this a current diagnosis for this admission?: Yes
[2019-04-05 18:06] LABS: HEMATOCRIT 29.6 % (36.0-47.0); HEMOGLOBIN 9.2 g/dL (12.0-15.5); MEAN CORPUSCULAR HEMOGLOBIN 28.5 pg (27.0-33.4); MEAN CORPUSCULAR VOLUME 92 fl (80-97); RED BLOOD COUNT 3.22 10^6/uL (3.72-5.28); RED CELL DISTRIBUTION WIDTH 19.1 % (11.5-14.0); WHITE BLOOD COUNT 22.7 10^3/uL (4.0-10.5)
[2019-04-05 18:15] LABS: ARTERIAL BLOOD FIO2 30%
[2019-04-05 18:16] LABS: ARTERIAL BLOOD PO2 22.6 mmHg (80-100)
[2019-04-05 18:21] LABS: ALBUMIN 2.8 g/dL (3.5-5.0); ALKALINE PHOSPHATASE 555 U/L (38-126); ANION GAP 19 (5-19); BILIRUBIN,DIRECT 1.1 mg/dL (0.0-0.4); BILIRUBIN,TOTAL 1.5 mg/dL (0.2-1.3); CALCIUM 8.1 mg/dL (8.4-10.2); CARBON DIOXIDE 21 mmol/L (22-30); CHLORIDE 96 mmol/L (98-107); GLUCOSE 81 mg/dL (75-110); POTASSIUM 4.2 mmol/L (3.6-5.0); TOTAL PROTEIN 5.7 g/dL (6.3-8.2)
[2019-04-05 18:39] LABS: PLATELET COUNT 57 10^3/uL (150-450)
[2019-04-05 18:41] LABS: ABSOLUTE LYMPHOCYTES# (MANUAL) 0.7 10^3/uL (0.5-4.7); BAND NEUTROPHILS % (MANUAL) 1 % (3-5); BASOPHILS % (MANUAL) 0 % (0-2); EOSINOPHILS % (MANUAL) 0 % (0-6); LYMPHOCYTES % (MANUAL) 3 % (13-45); METAMYELOCYTES % (MANUAL) 1 % (0); MONOCYTES % (MANUAL) 0 % (3-13); NUCLEATED RED BLOOD CELLS 3 /100 WBC (0); SEGMENTED NEUTROPHILS % (MAN) 95 % (42-78); TOTAL CELLS COUNTED 100
[2019-04-05 18:46] LABS: ANISOCYTOSIS 2+; PLATELET COMMENT DECREASED; POLYCHROMASIA SLIGHT; TOXIC GRANULATION SLIGHT; TOXIC VACUOLATION PRESENT
[2019-04-05 18:59] LABS: ASPARTATE AMINO TRANSFERASE 5630 U/L (14-36); BLOOD UREA NITROGEN 24 mg/dL (7-20)
[2019-04-05] MEDS: IPRATROPIUM/ALBUTEROL 0.5-2.5 MG/3 ML AMPUL NEB SCH (19:47)
[2019-04-05] MEDS ORDERED: DEXTROSE 5%-NORMAL SALINE 1,000 ML IV PRN (20:19)
[2019-04-05] MEDS ORDERED: GABAPENTIN 300 MG CAPSULE NG SCH (22:00)
[2019-04-05] MEDS ORDERED: SUCRALFATE 1 GM TABLET NG SCH (22:00)
[2019-04-05 22:23] LABS: ARTERIAL BLOOD BASE EXCESS -9.7 mmol/L; ARTERIAL BLOOD H2CO3 0.85 mmol/L (1.05-1.35); ARTERIAL BLOOD HCO3 14.9 mmol/L (20-24); ARTERIAL BLOOD O2 SATURATION 99.9 % (94-98); ARTERIAL BLOOD PCO2 28.1 mmHg (35-45); ARTERIAL BLOOD PH 7.34 (7.35-7.45); ARTERIAL BLOOD PO2 553.9 mmHg (80-100); ARTERIAL BLOOD TOTAL CO2 15.7 mmol/L (21-25)
[2019-04-05 22:24] LABS: ARTERIAL BLOOD FIO2 100%
[2019-04-05] MEDS ORDERED: PHENYLEPHRINE HCL INJ/PF 10 MG/1 ML SDV ONE (23:38)
[2019-04-05] MEDS ORDERED: FENTANYL CITRATE INJ/PF 250 MCG/5 ML AMPULE IV PRN (23:45)
[2019-04-05] MEDS: DEXTROSE 5%-WATER 250 ML with PHENYLEPHRINE HCL 40 MG IV PRN ×2 (23:58)
[2019-04-06] MEDS ORDERED: FENTANYL CITRATE INJ/PF 100 MCG/2 ML AMPUL ONE (00:59)
[2019-04-06] MEDS: IPRATROPIUM/ALBUTEROL 0.5-2.5 MG/3 ML AMPUL NEB SCH ×3 (01:28→08:51)
[2019-04-06] MEDS: MIDAZOLAM HCL 50 MG/100 ML RTUINJ IV PRN (01:44)
[2019-04-06 03:52] LABS: ARTERIAL BLOOD FIO2 60%; ARTERIAL BLOOD H2CO3 0.59 mmol/L (1.05-1.35); ARTERIAL BLOOD HCO3 7.6 mmol/L (20-24); ARTERIAL BLOOD O2 SATURATION 99.3 % (94-98); ARTERIAL BLOOD PH 7.21 (7.35-7.45); ARTERIAL BLOOD PO2 226.5 mmHg (80-100); ARTERIAL BLOOD TOTAL CO2 8.2 mmol/L (21-25)
[2019-04-06 03:54] LABS: ARTERIAL BLOOD PCO2 19.6 mmHg (35-45)
[2019-04-06] MEDS ORDERED: PHENYLEPHRINE HCL INJ/PF 10 MG/1 ML SDV ONE (03:57)
[2019-04-06] MEDS: DEXTROSE 5%-WATER 250 ML with PHENYLEPHRINE HCL 40 MG IV PRN ×2 (04:02)
[2019-04-06] MEDS ORDERED: DEXTROSE 5%-WATER 1000 ML 1,000 ML with SODIUM BICARBONATE 150 MEQ IV PRN ×2 (04:42)
[2019-04-06] MEDS ORDERED: SODIUM BICARBONATE 8.4% INJ 50 MEQ/50 ML DISP.SYRIN ONE ×2 (04:43→13:21)
[2019-04-06] MEDS ORDERED: SODIUM BICARBONATE 8.4% INJ 50 MEQ/50 ML DISP.SYRIN IV ONE (05:00)
[2019-04-06] MEDS ORDERED: ATROPINE SULFATE INJ 1 MG/10 ML DISP.SYRIN IV ONE (05:18)
[2019-04-06] MEDS ORDERED: HYDROCORTISONE SOD SUCCINATE INJ/PF 100 MG/2 ML SDV ONE (05:22)
[2019-04-06 05:31] LABS: HEMATOCRIT 29.4 % (36.0-47.0); HEMOGLOBIN 8.5 g/dL (12.0-15.5); MEAN CORPUSCULAR HEMOGLOBIN 28.2 pg (27.0-33.4); MEAN CORPUSCULAR HGB CONC 28.8 g/dL (32.0-36.0); RED BLOOD COUNT 3.01 10^6/uL (3.72-5.28); RED CELL DISTRIBUTION WIDTH 19.2 % (11.5-14.0); WHITE BLOOD COUNT 23.4 10^3/uL (4.0-10.5)
[2019-04-06 05:35] LABS: MEAN CORPUSCULAR VOLUME 98 fl (80-97)
[2019-04-06 05:36] LABS: PLATELET COUNT 50 10^3/uL (150-450)
[2019-04-06 05:48] LABS: ALBUMIN 2.5 g/dL (3.5-5.0); ALKALINE PHOSPHATASE 461 U/L (38-126); BILIRUBIN,DIRECT 1.5 mg/dL (0.0-0.4); BILIRUBIN,TOTAL 1.8 mg/dL (0.2-1.3); BLOOD UREA NITROGEN 31 mg/dL (7-20); CALCIUM 7.9 mg/dL (8.4-10.2); GLUCOSE 153 mg/dL (75-110); PHOSPHORUS 9.4 mg/dL (2.5-4.5); TOTAL PROTEIN 5.2 g/dL (6.3-8.2)
[2019-04-06 05:54] LABS: CHLORIDE 94 mmol/L (98-107)
[2019-04-06 05:58] LABS: ABSOLUTE LYMPHOCYTES# (MANUAL) 0.9 10^3/uL (0.5-4.7); ABSOLUTE MONOCYTES # (MANUAL) 0.2 10^3/uL (0.1-1.4); BAND NEUTROPHILS % (MANUAL) 7 % (3-5); BASOPHILS % (MANUAL) 0 % (0-2); EOSINOPHILS % (MANUAL) 0 % (0-6); LYMPHOCYTES % (MANUAL) 4 % (13-45); METAMYELOCYTES % (MANUAL) 1 % (0); MONOCYTES % (MANUAL) 1 % (3-13); NUCLEATED RED BLOOD CELLS 6 /100 WBC (0); SEGMENTED NEUTROPHILS % (MAN) 87 % (42-78); TOTAL CELLS COUNTED 100
[2019-04-06 06:00] LABS: ANISOCYTOSIS 2+; PLATELET COMMENT DECREASED; POLYCHROMASIA 1+; ROULEAUX SLIGHT; TOXIC GRANULATION 1+; TOXIC VACUOLATION PRESENT
--- NOTE | 2019-04-06 06:40 | PDOC PROGRESS REPORT ---
Subjective Progress Note for:: 04/06/19 Subjective:: The patient is not doing well. her BP remains on the low side at about 90/40. The patient is in Atrial fib with a heart rate of about 80. Has had to be on BIPAP all night. Attempts to removee her from BIPAP were unsuccesfu. The patient was taken off dobyutrex when she beagn too get tachycardic 04/05 The patient'sbp has been in the 80-90 systolic range thepast few days. Has alternated between the BIPAP unit and nasal cannula. Her bp dropped a boit more this AM. The patient became less responsive and diphoretic. I spike to her daughter about intubation and she was ok ongoing forward. The patient was supposed to get dialysis to day. The patient had an ECHO yesterday that showed no signs of tamponade. PAP werefairly elevated in the 60s but her lVEF was about 55%. The oatient has been afebbrile. Her WBC did jump from 10 to 18 K today.' Her post-intubation CXR does not shows a new infiltrate. Blood cultures of 04/03 remain negative. I had started the patient empirically on Cefipime on 04/04. Unclear why her WBC climbed and why she has taken this turn for the worrse although her status has been rather tenuous. (04/05 6PM The patient was 2.5 hours into her dialysis when she develpooped hypotensionand significant bradycardia. She was given 1 mg aTROPINE. sHE NEVER LOST HER PULSE COMPLELTELTY. The patient remained bradycardic but ultimately responded to a dose of epinephrine. The patient never required CPR. The event lasted about 5 minutes. the patient than became fairly tachycardic and regained her bp. Nevertheless, I fear that may happen recurrently and I told her daughter as much. The dialysis was stopped. I spoke t her daughter to explain the sequence of events to her, She iuis returning to the hospital. 04/06 I have been in contact with the nurses through the night. The patient has done poorly since her near code last evening. Her BP dropped and she became profoundly bradycardic this AM. At some point she lost her puse and required ACLS. The patient was coded for about 15-20 minutes and than regained a pusle trnasiently. She developed pEA once again and was rsuscitated at least [address] thrasher and Kendal have exoplained to the family that she cannot recover from tthis present situation and is likely to shortly. They agreed to DNR status shortly after ^AM Reason For Visit: END STAGE RENAL DISEASE NEED DIALYSIS Physical Exam Vital Signs: Temp Pulse Resp BP Pulse Ox 98.8 F 80 24 H 105/84 99 04/05/19 22:00 04/06/19 04:15 04/06/19 04:15 04/05/19 16:28 04/05/19 19:47 Intake & Output 04/04/19 04/05/19 04/06/19 06:59 06:59 06:59 Intake Total 189 944 939 Output Total 500 0 0 Balance -311 944 939 Weight 78.4 kg Physical Exam: The patient is post-code, She is not responsive. Her color is guillory. During the code she developed a moderate pulmonary hemorrhage General appearance: PRESENT: well-developed, well-nourished Head exam: PRESENT: atraumatic, normocephalic Eye exam: PRESENT: conjunctiva pink, EOMI, PERRLA. ABSENT: scleral icterus Ear exam: PRESENT: normal external ear exam Mouth exam: PRESENT: moist, tongue midline Neck exam: PRESENT: full ROM. ABSENT: carotid bruit, JVD, lymphadenopathy, thyromegaly Cardiovascular exam: PRESENT: RRR. ABSENT: diastolic murmur, rubs, systolic murmur Pulses: PRESENT: normal dorsalis pedis pul, +2 pedal pulses bilateral Vascular exam: PRESENT: normal capillary refill GI/Abdominal exam: PRESENT: normal bowel sounds, soft. ABSENT: distended, guarding, mass, organolmegaly, rebound, tenderness Rectal exam: PRESENT: deferred Neurological exam: PRESENT: alert, awake, oriented to person, oriented to place, oriented to time, oriented to situation, CN II-XII grossly intact. ABSENT: motor sensory deficit Psychiatric exam: PRESENT: appropriate affect, normal mood. ABSENT: homicidal ideation, suicidal ideation Skin exam: PRESENT: dry, intact, warm. ABSENT: cyanosis, rash Results Laboratory Results: 04/06/19 04:35 04/05/19 04/05/19 04/05/19 03:17 17:35 17:54 WBC 18.0 H 22.7 H RBC 3.07 L 3.22 L Hgb 8.8 L 9.2 L Hct 27.5 L 29.6 L MCV 90 92 MCH 28.7 28.5 MCHC 32.0 31.0 L RDW 18.9 H 19.1 H Plt Count 92 L 57 L Seg Neutrophils % Not Reportable Carbonic Acid 1.56 H HCO3/H2CO3 Ratio 15:1 ABG pH 7.28 L ABG pCO2 51.7 H ABG pO2 22.6 L* ABG HCO3 24.0 ABG O2 Saturation 32.5 L ABG Base Excess -3.3 FiO2 30% Sodium Potassium Chloride Carbon Dioxide Anion Gap BUN Creatinine Est GFR ( Amer) Glucose Lactic Acid Calcium Magnesium Total Bilirubin AST Alkaline Phosphatase Total Protein Albumin 04/05/19 04/05/19 04/05/19 17:54 17:54 22:04 WBC RBC Hgb Hct MCV MCH MCHC RDW Plt Count Seg Neutrophils % Carbonic Acid 0.85 L HCO3/H2CO3 Ratio 17:1 ABG pH 7.34 L ABG pCO2 28.1 L ABG pO2 553.9 H ABG HCO3 14.9 L ABG O2 Saturation 99.9 H ABG Base Excess -9.7 FiO2 100% Sodium 135.7 L Potassium 4.2 Chloride 96 L Carbon Dioxide 21 L Anion Gap 19 BUN 24 H D Creatinine 3.31 H Est GFR ( Amer) 17 L Glucose 81 Lactic Acid 10.6 H Calcium 8.1 L Magnesium 2.3 Total Bilirubin 1.5 H AST 5630 H Alkaline Phosphatase 555 H Total Protein 5.7 L Albumin 2.8 L 04/06/19 04/06/19 04/06/19 03:37 04:35 04:35 WBC 23.4 H RBC 3.01 L Hgb 8.5 L Hct 29.4 L MCV 98 H D MCH 28.2 MCHC 28.8 L RDW 19.2 H Plt Count 50 L Seg Neutrophils % Not Reportable Carbonic Acid 0.59 L HCO3/H2CO3 Ratio 12:1 ABG pH 7.21 L ABG pCO2 19.6 L* ABG pO2 226.5 H ABG HCO3 7.6 L ABG O2 Saturation 99.3 H ABG Base Excess -18.0 FiO2 60% Sodium Potassium Chloride Carbon Dioxide Anion Gap BUN Creatinine Est GFR ( Amer) Glucose Lactic Acid Calcium Magnesium Total Bilirubin AST Not Reportable Alkaline Phosphatase Total Protein Albumin 03/31/19 20:00 NT-Pro-B Natriuret Pep [id number] H Impressions: Chest X-Ray 04/04/19 09:14 IMPRESSION: Minimal basilar atelectasis and small left effusion. KUB X-Ray 04/05/19 16:41 IMPRESSION: NG tube tip overlies the region of the lower GE junction.Diffuse non-dilated gas-filled small bowel loops. Nonspecific pattern. Assessment & Plan - Diagnosis (1) Hyponatremia Is this a current diagnosis for this admission?: Yes Plan: 04/03 Will monitor. Her sodium is slightly low at 128. I do not have old nembers for comparison. The patient is fully alert and oriented presenrtly 04/04 New labs pending (2) Acute and chronic respiratory failure with hypoxia Is this a current diagnosis for this admission?: Yes (3) Constipation Qualifiers: Constipation type: slow transit constipation Qualified Code(s): K59.01 - Slow transit constipation Is this a current diagnosis for this admission?: Yes (5) Hypotension Qualifiers: Hypotension type: idiopathic hypotension Qualified Code(s): I95.0 - I diopathic hypotension Is this a current diagnosis for this admission?: Yes Plan: er cortisol level was elevated. Blood cultures were drawn yesterday. Repeat ECHO is presently pending. Her proamatine dose was increased yesterday by the renal service. She is in Atrial fib which is new and that may have contrbuted to some of the hypotension. I have started empiric abx therapy with Cefipime at this time in case this is a sepsis syndrome. Overal the patient's oputlook remains guarded. If the family wants ther transferred I would be willing to do so. 04/04 The patient remains hypotensive. Part of the issue may be loss of atrial kick when she went into Atrial fib. Her cortisol level was high. I have ordered a a procal. She is not having fever and WBC is normal. Renal took her tracleer down to 1/2 dose. In addition, the patient was placed on ahigher dose of Proamatine. I have actually sstarted cefipme in case this does repreesent a sepssis type opf picture I have started cautious fluids as well. 04/05 BP dropped to the 60-70 systolic range for uncvlear reasons this AM. Given a small fluid bolus. As noted her Proamatidine had been increased recently and her traclkeer dose decreased. (6) ESRD needing dialysis Is this a current diagnosis for this admission?: Yes Plan: The patient was dialyzed yesterday. I believe she is presently scheduled for qod dialysis 04/05 Goven her hemoprduynamic instability dialysis may be tabled for today. (7) Septic shock Is this a current diagnosis for this admission?: Yes Plan: I believe thepatient may have developed worsening septic shock over this past da y. her WBC was 18 K yesterday. The patient had been cultured and placed on abx. Despite this she developed worsening intrractable shock, multisytem failure and ultimately pEA arrest. - Time Time Spent with patient: 35 or more minutes Total Critical Time (Minutes): 80
[2019-04-06 06:45] LABS: ANION GAP 27 (5-19); ASPARTATE AMINO TRANSFERASE 6642 U/L (14-36); CARBON DIOXIDE 11 mmol/L (22-30); POTASSIUM 5.5 mmol/L (3.6-5.0)
[2019-04-06 07:25] VITALS: BP 74/59
[2019-04-06] MEDS ORDERED: ASPIRIN 81 MG TABLET, CHEWABLE NG SCH (10:00)
[2019-04-06] MEDS ORDERED: EPINEPHRINE INJ 1 MG/10 ML DISP.SYRIN ONE (13:21)
[2019-04-06] MEDS ORDERED: DOPAMINE HCL/D5W 800 MG/250 ML RTU BAG IV ONE (13:21)
[2019-04-07] MEDS ORDERED: VANCOMYCIN HCL 750 MG in DEXTROSE 5%-WATER 250 ML IV SCH (18:00)
--- NOTE | 2019-05-16 11:06 | Death Summary ---
Summary Date : 04/06/19 Time of :: 06:30 Autopsy: No Resuscitation Status: Full Code Consulting Provider: Callie - Final Diagnosis (1) Hyponatremia Is this a current diagnosis for this admission?: Yes (2) Acute and chronic respiratory failure with hypoxia Is this a current diagnosis for this admission?: Yes (3) Constipation Is this a current diagnosis for this admission?: Yes (4) Diabetes mellitus type 2 in obese Is this a current diagnosis for this admission?: Yes (5) Hypotension Is this a current diagnosis for this admission?: Yes (6) ESRD needing dialysis Is this a current diagnosis for this admission?: Yes (7) Septic shock Is this a current diagnosis for this admission?: Yes Hospital Course:: The patient was admitted after developing worsening respiratory status. She was presumed to be in CHF. The opatient had done PD hat home for her ESRD but it did not appear to be working out well. The patient was admitted where she started undergoing traditional hemodialysis Her condition gradually deteriorated. According to her daughter her medical condtion had deterioratred rather markedly over theoast several months. She experienced periods of bradycardia and syncope to near-syncope. 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 On the day before her demise she developed worsening obtundation and acute respiratory failure necessitating intubation. The patient was started on broad spectrum abx when her WBC spiked on 04/05. On the morning of 04/07 she lost her pulse and was resuscitated mutliple times. He condition remained poor. The family utimately decided to make the patient DNR after which she epired shortly due to cardiac standstill
== END 2019-04-06 06:30 | disposition left against medical advice (07) | DRG 291 ==
LOC: ER 17:06 → EH 22:14 → 4S 23:29 → 3N 04-02 09:18 → ICU 04-03 07:39
PROVIDERS: ADMIT Emergency Medicine; ATTEND Emergency Medicine
PROC: 5A09557 Assistance with Respiratory Ventilation, Greater than 96 Consecutive Hours, Continuous Positive Airway Pressure (ICD-10-PCS; 2019-04-01)
PROC: 5A1D70Z Performance of Urinary Filtration, Intermittent, Less than 6 Hours Per Day (ICD-10-PCS; 2019-04-01)
PROC: 5A1D70Z Performance of Urinary Filtration, Intermittent, Less than 6 Hours Per Day (ICD-10-PCS; 2019-04-03)
PROC: 5A1935Z Respiratory Ventilation, Less than 24 Consecutive Hours (ICD-10-PCS; principal; 2019-04-05)
PROC: 0BH17EZ Insertion of Endotracheal Airway into Trachea, Via Natural or Artificial Opening (ICD-10-PCS; 2019-04-05)
PROC: 5A1D70Z Performance of Urinary Filtration, Intermittent, Less than 6 Hours Per Day (ICD-10-PCS; 2019-04-05)
DX: I13.2 Hypertensive heart and chronic kidney disease with heart failure and with stage 5 chronic kidney disease, or end stage renal disease (principal); J96.21 Acute and chronic respiratory failure with hypoxia; I50.23 Acute on chronic systolic (congestive) heart failure; N18.6 End stage renal disease; E87.1 Hypo-osmolality and hyponatremia; E11.22 Type 2 diabetes mellitus with diabetic chronic kidney disease; M06.9 Rheumatoid arthritis, unspecified; M34.9 Systemic sclerosis, unspecified; I25.10 Atherosclerotic heart disease of native coronary artery without angina pectoris; E78.5 Hyperlipidemia, unspecified; M35.00 Sjogren syndrome, unspecified; K21.9 Gastro-esophageal reflux disease without esophagitis; D63.1 Anemia in chronic kidney disease; E83.41 Hypermagnesemia; J84.112 Idiopathic pulmonary fibrosis; F32.9 Major depressive disorder, single episode, unspecified; Z60.2 Problems related to living alone; I95.2 Hypotension due to drugs; K59.01 Slow transit constipation; T46.7X5A Adverse effect of peripheral vasodilators, initial encounter; E87.70 Fluid overload, unspecified; Y92.9 Unspecified place or not applicable; I25.2 Old myocardial infarction; E78.00 Pure hypercholesterolemia, unspecified; Z99.2 Dependence on renal dialysis; Z95.1 Presence of aortocoronary bypass graft; Z88.6 Allergy status to analgesic agent; Z88.3 Allergy status to other anti-infective agents; Z79.899 Other long term (current) drug therapy; Z79.82 Long term (current) use of aspirin; Z79.4 Long term (current) use of insulin; Z82.49 Family history of ischemic heart disease and other diseases of the circulatory system; Z95.5 Presence of coronary angioplasty implant and graft
CPT/HCPCS: 36415; 36600; 71045; 71046; 74018; 74022; 80048; 80053; 80061; 82533; 82803; 82962; 83036; 83605; 83690; 83735; 83880; 84100; 84481; 84484; 85025; 85027; 87040; 87070; 87186; 87205; 93306; 94002; 94003; 94660; 94799; 99285; J0171; J0692; J1250; J1265; J1644; J1815; J2250; J2370; J2405; J2920; J3010; J3370; J3490; J7030; J7042; J7060; J7620; Q5105; Q5106